=== PATIENT | female | born 1940 ===

== ENCOUNTER 2023-11-06 05:50 | Outpatient (REF) | payer SELFPAY ==
[2023-11-06 06:13] LABS: Basophils Percent Auto 0.1 % (0.2-2.0); Eosinophils Absolute Auto 0.5 10^3/uL (0.0-0.7); Eosinophils Percent Auto 3.4 % (0.9-7.0); Hematocrit 34.5 % (36.0-48.0); Hemoglobin 10.7 g/dL (12.0-16.0); Immature Granulocytes Abs Auto 0.07 10^3/uL (0.00-0.03); Immature Granulocytes Pct Auto 0.5 % (0.0-0.5); Lymphocytes Absolute Auto 4.8 10^3/uL (1.2-3.8); Lymphocytes Percent Auto 32.7 % (20.5-60.0); Mean Corpuscular Hemoglobin 31.1 pg (26.7-34.0); Mean Corpuscular Volume 100.3 fL (81.0-99.0); Mean Platelet Volume 10.2 fL (9.5-13.5); Monocytes Absolute Auto 0.8 10^3/uL (0.3-0.8); Monocytes Percent Auto 5.4 % (1.7-12.0); Neutrophils Absolute Auto 8.5 10^3/uL (1.4-6.5); Neutrophils Percent Auto 57.9 % (43.0-75.0); Platelet Count 400 10^3/uL (150-450); Red Blood Count 3.44 10^6/uL (4.20-5.40); Red Cell Distribution Width 13.2 % (11.0-15.0); White Blood Count 14.7 10^3/uL (4.0-11.0)
[2023-11-06 06:28] LABS: Alanine Aminotransferase 33 U/L (14-59); Albumin Globulin Ratio 0.5; Albumin Level 2.1 g/dL (3.4-5.0); Alkaline Phosphatase 168 U/L (46-116); Anion Gap 14.7; Aspartate Amino Transferase 20 U/L (15-37); BUN Creatinine Ratio 77.5; Bilirubin Total 0.2 mg/dL (0.2-1.0); Calcium 9.4 mg/dL (8.5-10.1); Chloride 102 mmol/L (98-107); Estimated GFR (African America 57 (>=60); Estimated GFR (Non-African Ame 47 (>=60); Globulin 4.1 g/dL; Glucose 144 mg/dL (74-106); Potassium 4.7 mmol/L (3.5-5.1); Sodium 140 mmol/L (136-145); Total Protein 6.2 g/dL (6.4-8.2)
== END 2023-11-06 05:51 | disposition home or self-care (01) ==
LOC: LAB 05:50
DX: I48.20 Chronic atrial fibrillation, unspecified (principal); I10 Essential (primary) hypertension
CPT/HCPCS: 36415; 80053; 85025

== ENCOUNTER 2023-12-06 20:23 | Outpatient (REF) | payer MEDICARE, SELFPAY ==
[2023-12-06 20:37] LABS: Hematocrit 26.9 % (36.0-48.0); Hemoglobin 8.4 g/dL (12.0-16.0); Mean Corpuscular HGB Conc 31.2 g/dL (29.9-35.2); Mean Corpuscular Hemoglobin 30.7 pg (26.7-34.0); Mean Corpuscular Volume 98.2 fL (81.0-99.0); Mean Platelet Volume 10.1 fL (9.5-13.5); Platelet Count 235 10^3/uL (150-450); Red Blood Count 2.74 10^6/uL (4.20-5.40); Red Cell Distribution Width 14.1 % (11.0-15.0); White Blood Count 6.6 10^3/uL (4.0-11.0)
[2023-12-06 20:55] LABS: Alanine Aminotransferase 18 U/L (14-59); Albumin Globulin Ratio 0.7; Alkaline Phosphatase 119 U/L (46-116); Anion Gap 11.7; Aspartate Amino Transferase 15 U/L (15-37); BUN Creatinine Ratio 63.8; Bilirubin Total 0.3 mg/dL (0.2-1.0); Calcium 9.2 mg/dL (8.5-10.1); Carbon Dioxide 27.6 mmol/L (21.0-32.0); Chloride 102 mmol/L (98-107); Estimated GFR (African America >60 (>=60); Estimated GFR (Non-African Ame >60 (>=60); Glucose 96 mg/dL (74-106); Potassium 4.3 mmol/L (3.5-5.1); Sodium 137 mmol/L (136-145)
[2023-12-06 21:01] LABS: Atypical Lymphocytes Abs Man 1.71; Eosinophils Absolute Manual 0.33 10^3/uL (0.00-0.70); Lymphocytes Absolute Manual 0.33 10^3/uL (1.20-3.80); Monocytes Absolute Manual 0.26 10^3/uL (0.30-0.80); Segmented Neut Absolute Manual 3.96 10^3/uL (1.4-6.5)
== END 2023-12-06 20:24 | disposition home or self-care (01) ==
LOC: LAB 20:23
PROVIDERS: PCP Student in an Organized Health Care Education/Training Program; Visit Provider Student in an Organized Health Care Education/Training Program
DX: I48.19 Other persistent atrial fibrillation (principal)
CPT/HCPCS: 36415; 80053; 85007; 85027

== ENCOUNTER 2024-01-01 20:51 | Outpatient (REF) | payer MEDICARE, SELFPAY ==
--- OUTSIDE RECORDS SUMMARY | 2024-01-01 21:03 | XMS_ITS | CCD ---
Author Organization [facility] Care Team Providers Care Business Development Manager Name Role Phone FRAGA, MELISSA Primary Care Unavailable TRAN, CHIDI Attending Unavailable JUANY KOHLERM Paul Admitting Unavailable FRAGA, RORY K Consulting Unavailable ONLY), [facility] (INPATIENT Consult ing Unavailable TRAN, CHIDI Attending Unavailable TRAN, CHIDI Referring Unavailable FRAGA, MELISSA Primary Care Unavailable TRAN, CHIDI Attending Unavailable TRAN, CHIDI Referring Unavailable FRAGA, MELISSA Primary Care Unavailable TRAN, CHIDI Attending Unavailable TRAN, CHIDI Referring Unavailable FRAGA, MELISSA Primary Care Unavailable MD Tori Gaona Emergency Provider MD Ryan Kearns Primary Care Provider MD Ewa Marx Admit Provider MD Ewa Marx Attending Provider [phone] MD Michael Juarez Other Provider PENELOPE KOHLER Referring Unavailable FRAGA, MELISSA Primary Care Unavailable TRAN, CHIDI Referring Unavailable FRAGA, MELISSA Primary Care Unavailable FRAGA, MELISSA Primary Care Unavailable TRAN, CHIDI Attending Unavailable TEENA CHANG Referring Unavailable FRAGA, MELISSA Primary Care Unavailable MD Melani Dunne Attending Provider Ryan Kearns Primary Care Unavailable Melani Dunne Attending Unavailable Ewa Marx Admitting Unavailable Michael Juarez Consulting Un available Allergies Allergy Classification Reported Allergen(s) Allergy Type Date of Onset Reaction(s) Facility (4 sources) Sulfonamides (Antibiotic); Translations: [SULFA (SULFONAMIDE ANTIBIOTICS)] Propensity to adverse reactions to drug (disorder) [facility] Medications Current Medications Medication Drug Class(es) Dates Sig (Normalized) Sig (Original) acetaminophen 325 mg oral tablet (2 sources) Start: 12-08-2023 Acetaminophen Active 650 MG FEEDTUBE Four times daily December 08, 2023 12:00am albuterol 5 mg/ml inhalation solution (4 sources) beta2-Adrenergic Agonist Start: 12-08-2023 take 2.5 mg by inhalation every two hours Albuterol Sulfate Active 2.5 MG INHALATION Every 2 hours December 08, 2023 12:00am Start: 12-08-2023 take 2.5 mg by inhal ation four times daily Albuterol Sulfate Active 2.5 MG INHALATION Four times daily December 08, 2023 12:00am Alum-Mag Hydroxide-Simeth (Maalox Maximum Strength) 400-400-40 mg/5 mL suspension (2 sources) Start: 12-08-2023 take 1 mL by mouth every six hours Alum-Mag Hydroxide-Simeth (Maalox Maximum Strength) 400-400-40 mg/5 mL suspension Active 7.5 ML PO Every 6 hours December 08, 2023 12:00am Artificial Tears Solution (2 sources) Start: 12-08-2023 take 1 drop(s) into the eye(s) twice daily Artificial Tears Solution Active 1 DROPS OPHTHALMIC Twice daily December 08, 2023 12:00am Aspirin (2 sources) Platelet Aggregation Inhibitor, Nonsteroidal Anti-inflammatory Drug Start: 12-08-2023 Aspirin Active 81 MG FEEDTUBE Daily December 08, 2023 12:00am bisacodyl 10 mg rectal suppository (2 sources) Stimulant Laxative Start: 12-08-2023 Bisacodyl Active 10 MG AZ Daily December 08, 2023 12:00am busPIRone hydrochloride 10 mg oral tablet (2 sources) Start: 12-08-2023 Buspirone Active 10 MG FEEDTUBE Three times daily December 08, 2023 12:00am chlorhexidine gluconate 1.2 mg/ml mouthwash (2 sources) Start: 12-08-2023 Chlorhexidine Gluconate Active 15 ML BUCCAL Twice daily December 08, 2023 12:00am administer with toothettes dilTIAZem hydrochloride 30 mg oral tablet (2 sources) Calcium Channel Bienvenido Start: 12-08-2023 Diltiazem Hcl (Cardizem) 30 mg tablet Active 30 MG FEEDTUBE Twice daily December 08, 2023 12:00am hold for SBP escitalopram 10 mg oral tablet (2 sources) Serotonin Reuptake Inhibitor Start: 12-08-2023 Escitalopram Oxalate (Lexapro) 10 mg tablet Active 10 MG FEEDTUBE Twice daily December 08, 2023 12:00am ferrous sulfate 60 mg/ml oral solution (2 sources) Start: 12-08-2023 Ferrous Sulfate Active 300 MG FEEDTUBE Daily December 08, 2023 12:00am furosemide 40 mg oral tablet (4 sources) Loop Diuretic Start: 12-08-2023 Furosemide Active 40 MG FEEDTUBE Twice daily December 08, 2023 12:00am x3 days, start 12/08/23, end 12/11/23 Start: 12-08-2023 End: 12-17-2023 Furosemide Discontinued 20 M G FEEDTUBE Twice daily December 08, 2023 12:00am December 17, 2023 12:49pm heparin sodium, porcine 5000 unt/ml injectable solution (2 sources) Unfractionated Heparin, Anti-coagulant Start: 12-08-2023 inject 5000 [IU] by subcutaneous injection twice daily Heparin (Porcine) Active 5000 UNIT SUBCUT Twice daily December 08, 2023 12:00am hydrOXYzine hydrochloride 50 mg oral tablet (2 sources) Antihistamine Start: 12-08-2023 Hydroxyzine Hcl Active 50 MG FEEDTUBE Every 8 hours December 08, 2023 12:00am lactobacillus acidophilus [id number] unt oral capsule (2 sources) Start: 12-08-2023 Lactobacillus Acidophilus Active 1000 MMU CELLS FEEDTUBE Twice daily December 08, 2023 12:00am levothyroxine sodium 0.2 mg oral tablet (2 sources) l-Thyroxine Start: 12-08-2023 Levothyroxine (Euthyrox) 200 mcg tablet Active 200 MCG FEEDTUBE Daily December 08, 2023 12:00am lidocaine 0.04 mg/mg medicated patch (2 sources) Antiarrhythmic, Amide Local Anesthetic Start: 12-08-2023 Lidocaine Active 1 PATCH TOPICAL Daily December 08, 2023 12:00am may leave on for up to 12 hrs, apply to left shoulder loperamide hydrochloride 2 mg oral tablet (2 sources) Opioid Agonist Start: 12-08-2023 Loperamide (Diamode) 2 mg tablet Active 2 MG FEEDTUBE Every 6 hours December 08, 2023 12:00am methylPREDNISolone 4 mg oral tablet (1 source) Corticosteroid Start: 12-17-2023 take 1 tablet by mouth once Methylprednisolone (Medrol (Frederick)) 4 mg tablets,dose pack Active 0 PO .COMPLEX 21 December 17, 2023 12:00am orally per package directions metoprolol tartrate 25 mg oral tablet (2 sources) beta-Adrenergic Bienvenido Start: 12-08-2023 Metoprolol Tartrate Active 12.5 MG FEEDTUBE Twice daily December 08, 2023 12:00am hold for SBP ondansetron 4 mg disintegrating oral tablet (2 sources) Serotonin-3 Receptor Antagonist Start: 12-08-2023 Ondansetron Active 4 MG FEEDTUBE Every 8 hours December 08, 2023 12:00am oxyCODONE hydrochloride 5 mg oral tablet (6 sources) Opioid Agonist Start: 12-08-2023 End: 12-17-2023 Oxycodone Active 5 MG FEEDTUBE Every 6 hours 8 2 December 17, 2023 Start: 12-08-2023 End: 12-17-2023 Oxycodone Active 2.5 MG FEED TUBE Every 6 hours 8 2 December 17, 2023 prednisoLONE acetate 10 mg/ml ophthalmic suspension (2 sources) Corticosteroid Start: 12-08-2023 take 1 drop(s) into the eye(s) once daily Prednisolone Acetate (Pred Forte) 1 % drops,suspension Active 1 DROPS EYE-BOTH Daily December 08, 2023 12:00am sennosides, skilled nursing 1.76 mg/ml oral solution (4 sources) Start: 12-08-2023 take 1 mL by mouth at bedtime Sennosides Active 10 ML PO Bedtime December 08, 2023 12:00am Start: 12-08-2023 Sennosides Act trevor 5 ML FEEDTUBE Daily December 08, 2023 12:00am triamcinolone acetonide 1 mg/ml topical cream (2 sources) Corticosteroid Start: 12-08-2023 Triamcinolone Acetonide Active 1 APPLIC TOPICAL Bedtime December 08, 2023 12:00am Completed/Discontinued Medications Medication Drug Class(es) Dates Sig (Normalized) Sig (Original) levoFLOXacin 750 mg oral tablet (2 sources) Quinolone Antimicrobial Start: 12-08-2023 End: 12-17-2023 Levofloxacin Discontinued 750 MG FEEDTUBE Daily December 08, 2023 12:00am December 17, 2023 12:49pm x 10 days, start 12/06/23, end 12/16/23 Problems Problem Classification Problem Date Documented Da te Episodic/Chronic Congestive heart failure; nonhypertensive (6 sources) Acute on chronic diastolic heart failure; Translations: [Acute on chronic diastolic (congestive) heart failure] Onset: 12-07-2023 12-08-2023 Chronic Fever of unknown origin (1 source) Fever Onset: 11-21-2023 Episodic Nutritional deficiencies (5 sources) Cachexia; Translations: [Cachexia] Onset: 12-08-2023 12-08-2023 Episodic Other lower respiratory disease (1 source) Hypoxemia; Translations: [Hypoxemia] Onset: 12-07-2023 Episodic Other lower respiratory disease (1 source) Shortness of breath Onset: 12-07-2023 Episodic Pleurisy; pneumothorax; pulmonary collapse (10 sources) Pneumothorax; Translations: [Pneumothorax, unspecified] Onset: 12-08-2023 12-08-2023 Episodic Pneumonia (except that caused by tuberculosis or sexually transmitted disease) (1 source) Pneumonia, unspecified organism; Translations: [Pneumonia, unspecified organism] Onset: 11-21-2023 Episodic Respiratory failure; insufficiency; arrest (adult) (10 sources) [id number] respiratory failure; Translations: [Acute and chronic respiratory failure with hypoxia] Onset: 12-08-2023 12-08-2023 Chronic Unclassified (1 source) EMS Onset: 11-21-2023 Results Test Name Value Interpretation Reference Range Facility Arterial Blood Gason 024 ABG Base Excess 9.2 mmol/L High -3.0-3.0 [facility] Comment on above: Performed By: #### A BG #### Point of Care testing , ABG Frac Inspired O2 35 % Normal [facility] Comment on above: Performed By: #### A BG #### Point of Care testing , ABG Oxygen Content 8.0 mmol/L Normal 6.6-9.7 [facility] Comment on above: Performed By: #### A BG #### Point of Care testing , ABG Oxygen Saturation 97.6 % Normal 95.0-100.0 [facility] Comment on above: Performed By: #### A BG #### Point of Care testing , ABG PCO2 42.7 mm[Hg] Normal 35.0-45.0 [facility] Comment on above: Performed By: #### A BG #### Point of Care testing , ABG PH 7.51 High 7.35-7.45 [facility] Comment on above: Performed By: #### A BG #### Point of Care testing , ABG PO2 93.3 mm[Hg] Normal 80.0-100.0 [facility] Comment on above: Performed By: #### A BG #### Point of Care testing , CO2 [Moles/Vol] 34.5 mmol/L High 23.0-27.0 [facility] Comment on above: Performed By: #### A BG #### Point of Care testing , HCO3 (Bld) [Moles/Vol] 33.2 mmol/L High 23.0-29.0 [facility] Comment on above: Performed By: #### A BG #### Point of Care testing , Respiratory Critical Normal [facility] Comment on above: Result Comment: Crit ical Value called on: 12/17/2023 at 04:19 PERFORMED BY: [facility] [address] [place] [address] PATHOLOGIST FLANGING ROLL OPERATOR JESSIE FRAZIER M.D. Performed By: #### A BG #### Point of Care testing , VBG Draw Site Right Radial Normal [facility] Comment on above: Performed By: #### A BG #### Point of Care testing , Laboratory - Chemistry and C hemistry - challengeOrdered By: Melani Dunne on 12-17-2023 CO2 [Moles/Vol] 34.5 mmol/L 23.0-27.0 [facility] HCO3 (Bld) [Moles/Vol] 33.2 mmol/L 23.0-29.0 [facility] No Panel InformationOrdered By: Melani Dunne on 12-17-2023 Arterial Blood Base Excess 9.2 mmol/L -3.0-3.0 [facility] Arterial Blood Oxygen Content 8.0 mmol/L 6.6-9.7 [facility] Arterial Blood Oxygen Saturation 97.6 % 95.0-100.0 [facility] Arterial Blood Partial Pressure CO2 42.7 mm[Hg] 35.0-45.0 [facility] Arterial Blood Partial Pressure O2 93.3 mm[Hg] 80.0-100.0 [facility] Arterial Blood pH 7.51 7.35-7.45 [facility] Blood Gas Critical Value See comment [facility] Comment on above: Critical Value youngblood d on: 12/17/2023 at 04:19 Blood Gas Sample Site Right radial F [facility] FiO2 35 % [facility] Alanine aminotransferase [En zymatic activity/volume] in Serum or PlasmaOrdered By: Raul Lehman on 12-15-2023 ALT [Catalytic activity/Vol] 21 U/L 7-52 [facility] Albumin [Mass/volume] in Ser um or Plasma by Bromocresol green (BCG) dye binding methoOrdered By: Raul Lehman on 12-15-2023 Albumin BCG dye [Mass/Vol] 3.1 g/dL 3.5-5.7 [facility] Alkaline phosphatase [Enzyma tic activity/volume] in Serum or PlasmaOrdered By: Raul Lehman on 12-15-2023 ALP [Catalytic activity/Vol] 107 U/L 34-104 [facility] Aspartate aminotransferase [ Enzymatic activity/volume] in Serum or PlasmaOrdered By: Raul Lehman on 12-15-2023 AST [Catalytic activity/Vol] 18 U/L 13-39 [facility] Basophils Auto (Bld) [#/Vol] Ordered By: Raul Lehman on 12-15-2023 Basophils (Bld) [#/Vol] 0.0 10*3/uL 0.0-0.2 [facility] Basophils/100 WBC Auto (Bld) Ordered By: Raul Lehman on 12-15-2023 Basophils/100 WBC (Bld) 0.2 % . [facility] Bilirubin.total [Mass/volume ] in Serum or PlasmaOrdered By: Raul Lehman on 12-15-2023 Bilirubin [Mass/Vol] 0.3 mg/dL 0.3-1.0 [facility] Calcium [Mass/volume] in Ser um or PlasmaOrdered By: Raul Lehman on 12-15-2023 Calcium [Mass/Vol] 10.3 mg/dL 8.6-10.3 [facility] Carbon dioxide, total [Moles /volume] in Serum or PlasmaOrdered By: Raul Lehman on 12-15-2023 CO2 [Moles/Vol] 34.7 mmol/L 21.0-31.0 [facility] Chloride [Moles/volume] in S radha or PlasmaOrdered By: Raul Lehman on 12-15-2023 Chloride [Moles/Vol] 93 mmol/L 98-107 [facility] Complete Blood Count Auto Di ffon 12-15-2023 Basophils (Bld) [#/Vol] 0.0 10*3/uL Normal 0.0-0.2 [facility] Comment on above: Result Comment: PERF ORMED BY: [place] [address] PATHOLOGIST FLANGING ROLL OPERATOR JESSIE FRAZIER M.D. Performed By: #### M G, CBC, CMP #### [facility] [address] [place] [address] [place] Basophils/100 WBC (Bld) 0.2 % Normal . [facility] Comment on above: Performed By: #### M G, CBC, CMP #### [facility] [address] [place] [address] [place] Eosinophils (Bld) [#/Vol] 0.0 10*3/uL Normal 0.0-0.45 [facility] Comment on above: Performed By: #### M G, CBC, CMP #### [facility] [address] [place] [address] [place] Eosinophils/100 WBC (Bld) 0.1 % Normal . [facility] Comment on above: Performed By: #### M G, CBC, CMP #### [address] Erythrocyte distribution width (RBC) [Ratio] 14.1 % Normal 11.9-15.3 [facility] Comment on above: Performed By: #### M G, CBC, CMP #### [address] Hematocrit (Bld) [Volume fraction] 32.2 % Low 34.0-46.4 [facility] Comment on above: Performed By: #### M G, CBC, CMP #### [address] Hemoglobin (Bld) [Mass/Vol] 10.7 g/dL Low 11.8-15.4 [facility] Comment on above: Performed By: #### M G, CBC, CMP #### [address] Lymphocytes (Bld) [#/Vol] 1.4 10*3/uL Normal 1.00-4.8 [facility] Comment on above: Performed By: #### M G, CBC, CMP #### [address] Lymphocytes/100 WBC (Bld) 14.5 % Normal . [facility] Comment on above: Performed By: #### M G, CBC, CMP #### [address] MCH (RBC) [Entitic mass] 31.1 pg Normal 24.7-34.3 [facility] Comment on above: Performed By: #### M G, CBC, CMP #### [address] MCV (RBC) [Entitic vol] 93.3 fL Normal 80-100 [facility] Comment on above: Performed By: #### M G, CBC, CMP #### [address] Mean Corpuscular HGB Conc 33.3 g/dL Normal 32.0-35.0 [facility] Comment on above: Performed By: #### M G, CBC, CMP #### [address] Monocytes (Bld) [#/Vol] 0.3 10*3/uL Normal 0.0-0.8 [facility] Comment on above: Performed By: #### M G, CBC, CMP #### [address] Monocytes/100 WBC (Bld) 2.6 % Normal . [facility] Comment on above: Performed By: #### M G, CBC, CMP #### [address] Neutrophils (Bld) [#/Vol] 8.1 10*3/uL High 1.8-7.7 [facility] Comment on above: Performed By: #### Seema G, CBC, CMP #### [address] Neutrophils/100 WBC (Bld) 82.6 % Normal . [facility] Comment on above: Performed By: #### Seema Dick, CBC, CMP #### [address] NRBC% 0.0 /100{WBC} Normal 0-0.5 [facility] Comment on above: Performed By: #### Seema G, CBC, CMP #### [address] Platelet mean volume (Bld) [Entitic vol] 8.7 fL Normal 6.3-10.7 [facility] Comment on above: Performed By: #### M G, CBC, CMP #### [address] Platelets (Bld) [#/Vol] 313 10*3/uL Normal 150-450 [facility] Comment on above: Performed By: #### M G, CBC, CMP #### [place] [address] [place] RBC (Bld) [#/Vol] 3.46 10*6/uL Low 3.60-5.00 [facility] Comment on above: Performed By: #### M Mayelin, CBC, CMP #### [address] WBC (Bld) [#/Vol] 9.8 10*3/uL Normal 3.8-11.6 [facility] Comment on above: Performed By: #### M Mayelin, CBC, CMP #### [address] Comprehensive Metabolic Pane cliff 12-15-2023 Albumin [Mass/Vol] 3.1 g/dL Low 3.5-5.7 [facility] Comment on above: Performed By: #### Seema Dick CBC, CMP #### [address] Albumin/Globulin [Mass ratio] 1.0 {ratio} Normal [facility] Comment on above: Performed By: #### Seema Dick, CBC, CMP #### [address] ALP [Catalytic activity/Vol] 107 U/L High 34-104 [facility] Comment on above: Performed By: #### Seema Dick, CBC, CMP #### [address] ALT [Catalytic activity/Vol] 21 U/L Normal 7-52 [facility] Comment on above: Performed By: #### M Mayelin, CBC, CMP #### [address] Anion gap [Moles/Vol] 12.8 mmol/L Normal 6.0-15.0 [facility] Comment on above: Performed By: #### M Mayelin, CBC, CMP #### [address] AST [Catalytic activity/Vol] 18 U/L Normal 13-39 [facility] Comment on above: Performed By: #### Seema Dick, CBC, CMP #### [address] [place] [address] [place] Bilirubin [Mass/Vol] 0.3 mg/dL Normal 0.3-1.0 [facility] Comment on above: Performed By: #### M Mayelin, CBC, CMP #### [facility] [address] Calcium [Mass/Vol] 10.3 mg/dL Normal 8.6-10.3 [facility] Comment on above: Performed By: #### M Mayelin, CBC, CMP #### [place] [address] [place] Chloride [Moles/Vol] 93 mmol/L Low 98-107 [facility] Comment on above: Performed By: #### M Mayelin CBC, CMP #### [address] CO2 [Moles/Vol] 34.7 mmol/L High 21.0-31.0 [facility] Comment on above: Performed By: #### M Mayelin, CBC, CMP #### [place] [address] [place] Creatinine [Mass/Vol] 0.84 mg/dL Normal 0.60-1.20 [facility] Comment on above: Performed By: #### M Mayelin, CBC, CMP #### [place] [address] [place] Creatinine Clr Calc Pharmacy 33.69 Normal [facility] Comment on above: Performed By: #### M Mayelin, CBC, CMP #### [place] [address] [place] GFR/1.73 sq M.predicted MDRD (S/P/Bld) [Vol rate/Area] mL/min/{1.73_m2} Normal [facility] Comment on above: Performed By: #### M Mayelin, CBC, CMP #### [place] [address] [place] Globulin (S) [Mass/Vol] 3.1 g/dL Normal [facility] Comment on above: Performed By: #### M Mayelin, CBC, CMP #### [place] [address] [address] Glucose [Mass/Vol] 184 mg/dL High 70-100 [facility] Comment on above: Result Comment: [place] Glucose Reference Range is dependent on time and content of last meal. Glucose of more than 200 mg/dL in a nonstressed, ambulatory subject supports the diagnosis of Diabetes Mellitus. ADA recommended reference range Performed By: #### M G, CBC, CMP #### [facility] [address] Potassium [Moles/Vol] 3.5 mmol/L Normal 3.5-5.1 [facility] Comment on above: Performed By: #### M G, CBC, CMP #### [facility] [address] [place] [address] Protein [Mass/Vol] 6.2 g/dL Low 6.4-8.9 [facility] Comment on above: Performed By: #### M G, CBC, CMP #### [address] Sodium [Moles/Vol] 137 mmol/L Normal 136-145 [facility] Comment on above: Performed By: #### M G, CBC, CMP #### [facility] [address] [place] [address] Urea nitrogen [Mass/Vol] 80 mg/dL High 7-25 [facility] Comment on above: Performed By: #### M G, CBC, CMP #### [facility] [address] [place] [address] [place] Creatinine [Mass/volume] in Serum or PlasmaOrdered By: Raul Lehman on 12-15-2023 Creatinine [Mass/Vol] 0.84 mg/dL 0.60-1.20 [facility] Eosinophils Auto (Bld) [#/Vo l]Ordered By: Raul Lehman on 12-15-2023 Eosinophils (Bld) [#/Vol] 0.0 10*3/uL 0.0-0.45 [facility] Eosinophils/100 WBC Auto (Bl d)Ordered By: Raul Lehman on 12-15-2023 Eosinophils/100 WBC (Bld) 0.1 % . [facility] Erythrocyte distribution wid th Auto (RBC) [Ratio]Ordered By: Raul Lehman on 12-15-2023 Erythrocyte distribution width (RBC) [Ratio] 14.1 % 11.9-15.3 [facility] Globulin Calc (S) [Mass/Vol] Ordered By: Raul Lehmna on 12-15-2023 Globulin (S) [Mass/Vol] 3.1 g/dL [facility] Glucose [Mass/volume] in Ser um or PlasmaOrdered By: Raul Lehman on 12-15-2023 Glucose [Mass/Vol] 184 mg/dL 70-100 [facility] Comment on above: ADA recommended refe rence rangeRandom Glucose Reference Range is dependent on time and content of last meal. Glucose of more than 200 mg/dL in a nonstressed, ambulatory subject supports the diagnosis of Diabetes Mellitus. Hematocrit Auto (Bld) [Volum e fraction]Ordered By: Raul Lehman on 12-15-2023 Hematocrit (Bld) [Volume fraction] 32.2 % 34.0-46.4 [facility] Hemoglobin [Mass/volume] in BloodOrdered By: Raul Lehman on 12-15-2023 Hemoglobin (Bld) [Mass/Vol] 10.7 g/dL 11.8-15.4 [facility] Leukocytes [#/volume] correc tyler for nucleated erythrocytes in Blood by Automated counOrdered By: Raul Lehman on 12-15-2023 WBC corrected for nucl RBC Auto (Bld) [#/Vol] 9.8 10*3/uL 3.8-11.6 [facility] Lymphocytes Auto (Bld) [#/Vo l]Ordered By: Raul Lehman on 12-15-2023 Lymphocytes (Bld) [#/Vol] 1.4 10*3/uL 1.00-4.8 [facility] Lymphocytes/100 WBC Auto (Bl d)Ordered By: Raul Lehman on 12-15-2023 Lymphocytes/100 WBC (Bld) 14.5 % . [facility] MCH Auto (RBC) [Entitic mass ]Ordered By: Raul Lehman on 12-15-2023 MCH (RBC) [Entitic mass] 31.1 pg 24.7-34.3 [facility] MCHC Auto (RBC) [Mass/Vol]Or dered By: Raul Dominik on 12-15-2023 MCHC (RBC) [Mass/Vol] 33.3 g/dL 32.0-35.0 [facility] MCV Auto (RBC) [Entitic vol] Ordered By: Raul Lehman on 12-15-2023 MCV (RBC) [Entitic vol] 93.3 fL 80-100 [facility] Magnesiumon 12-15-2023 Magnesium [Mass/Vol] 2.3 mg/dL Normal 1.9-2.7 [facility] Comment on above: Result Comment: PERF ORMED BY: [place] [address] PATHOLOGIST FLANGING ROLL OPERATOR JESSIE FRAZIER M.D. Performed By: #### M G, CBC, CMP #### [address] Magnesium [Mass/volume] in S radha or PlasmaOrdered By: Raul Lehman on 12-15-2023 Magnesium [Mass/Vol] 2.3 mg/dL 1.9-2.7 [facility] Monocytes Auto (Bld) [#/Vol] Ordered By: Raul Sagemood on 12-15-2023 Monocytes (Bld) [#/Vol] 0.3 10*3/uL 0.0-0.8 [facility] Monocytes/100 WBC Auto (Bld) Ordered By: Raul Sagemood on 12-15-2023 Monocytes/100 WBC (Bld) 2.6 % . [facility] Neutrophils Auto (Bld) [#/Vo l]Ordered By: Raul Sagemood on 12-15-2023 Neutrophils (Bld) [#/Vol] 8.1 10*3/uL 1.8-7.7 [facility] Neutrophils/100 WBC Auto (Bl d)Ordered By: Raul Sagemood on 12-15-2023 Neutrophils/100 WBC (Bld) 82.6 % . [facility] No Panel InformationOrdered By: Raul Lehman on 12-15-2023 Estimated GFR (CKD-EPI) > 60.0 mL/Min [facility] Creatinine Clearance (Chem 33.69 [facility] Nucleated erythrocytes [Pres ence] in Blood by Automated countOrdered By: Raul Lehman on 12-15-2023 Nucleated RBC Auto Ql (Bld) 0.0 /100{WBC} 0-0.5 [facility] Platelet mean volume Auto (B ld) [Entitic vol]Ordered By: Raul Lehman on 12-15-2023 Platelet mean volume (Bld) [Entitic vol] 8.7 fL 6.3-10.7 [facility] Platelets Auto (Bld) [#/Vol] Ordered By: Raul Lehman on 12-15-2023 Platelets (Bld) [#/Vol] 313 10*3/uL 150-450 [facility] Potassium [Moles/volume] in Serum or PlasmaOrdered By: Raul Lehman on 12-15-2023 Potassium [Moles/Vol] 3.5 mmol/L 3.5-5.1 [facility] Protein [Mass/volume] in Ser um or PlasmaOrdered By: Raul Lehman on 12-15-2023 Protein [Mass/Vol] 6.2 g/dL 6.4-8.9 [facility] RBC Auto (Bld) [#/Vol]Ordere d By: Raul Lehman on 12-15-2023 RBC (Bld) [#/Vol] 3.46 10*6/uL 3.60-5.00 [facility] Serum or plasma albumin/glob ulin mass ratioOrdered By: Raul Lehman on 12-15-2023 Albumin/Globulin [Mass ratio] 1.0 {ratio} [facility] Serum or plasma anion gap de terminationOrdered By: Raul Lehman on 12-15-2023 Anion gap [Moles/Vol] 12.8 mmol/L 6.0-15.0 [facility] Sodium [Moles/volume] in Ser um or PlasmaOrdered By: Raul Lehman on 12-15-2023 Sodium [Moles/Vol] 137 mmol/L 136-145 [facility] Urea nitrogen [Mass/volume] in Serum or PlasmaOrdered By: Raul Lehman on 12-15-2023 Urea nitrogen [Mass/Vol] 80 mg/dL 7-25 [facility] WBC Auto (Bld) [#/Vol]Ordere d By: Rauldov Lehman on 12-15-2023 WBC (Bld) [#/Vol] 9.8 10*3/uL 3.8-11.6 [facility] Complete Blood Count Auto Di ffon 12-14-2023 Basophils (Bld) [#/Vol] 0.1 10*3/uL Normal 0.0-0.2 [facility] Comment on above: Result Comment: PERF ORMED BY: [place] [address] PATHOLOGIST [employer]ANGING ROLL OPERATOR JESSIE FRAZIER M.D. Performed By: #### M G, CBC, CMP #### [address] Basophils/100 WBC (Bld) 0.8 % Normal . [facility] Comment on above: Performed By: #### M G, CBC, CMP #### [address] Eosinophils (Bld) [#/Vol] 0.0 10*3/uL Normal 0.0-0.45 [facility] Comment on above: Performed By: #### M G, CBC, CMP #### [place] [address] [place] Eosinophils/100 WBC (Bld) 0.1 % Normal . [facility] Comment on above: Performed By: #### M G, CBC, CMP #### [address] Erythrocyte distribution width (RBC) [Ratio] 14.3 % Normal 11.9-15.3 [facility] Comment on above: Performed By: #### M G, CBC, CMP #### [address] Hematocrit (Bld) [Volume fraction] 29.6 % Low 34.0-46.4 [facility] Comment on above: Performed By: #### M G, CBC, CMP #### [address] Hemoglobin (Bld) [Mass/Vol] 10.0 g/dL Low 11.8-15.4 [facility] Comment on above: Performed By: #### M G, CBC, CMP #### [address] Lymphocytes (Bld) [#/Vol] 1.3 10*3/uL Normal 1.00-4.8 [facility] Comment on above: Performed By: #### M G, CBC, CMP #### [address] Lymphocytes/100 WBC (Bld) 18.1 % Normal . [facility] Comment on above: Performed By: #### M G, CBC, CMP #### [address] MCH (RBC) [Entitic mass] 31.5 pg Normal 24.7-34.3 [facility] Comment on above: Performed By: #### M G, CBC, CMP #### [address] MCV (RBC) [Entitic vol] 93.4 fL Normal 80-100 [facility] Comment on above: Performed By: #### M G, CBC, CMP #### [address] Mean Corpuscular HGB Conc 33.7 g/dL Normal 32.0-35.0 [facility] Comment on above: Performed By: #### M G, CBC, CMP #### [address] Monocytes (Bld) [#/Vol] 0.1 10*3/uL Normal 0.0-0.8 [facility] Comment on above: Performed By: #### M G, CBC, CMP #### [facility] [address] [place] [address] [place] Monocytes/100 WBC (Bld) 1.7 % Normal . [facility] Comment on above: Performed By: #### M G, CBC, CMP #### [facility] [address] [place] [address] [place] Neutrophils (Bld) [#/Vol] 5.9 10*3/uL Normal 1.8-7.7 [facility] Comment on above: Performed By: #### M G, CBC, CMP #### [facility] [address] [place] [address] [place] Neutrophils/100 WBC (Bld) 79.3 % Normal . [facility] Comment on above: Performed By: #### M G, CBC, CMP #### [facility] [address] [place] [address] [place] NRBC% 0.1 /100{WBC} Normal 0-0.5 [facility] Comment on above: Performed By: #### M G, CBC, CMP #### [facility] [address] [place] [address] [place] Platelet mean volume (Bld) [Entitic vol] 8.6 fL Normal 6.3-10.7 [facility] Comment on above: Performed By: #### M G, CBC, CMP #### [facility] [address] [place] [id number] [place] Platelets (Bld) [#/Vol] 280 10*3/uL Normal 150-450 [facility] Comment on above: Performed By: #### M G, CBC, CMP #### [facility] [address] [place] [id number] [place] RBC (Bld) [#/Vol] 3.17 10*6/uL Low 3.60-5.00 [facility] Comment on above: Performed By: #### M G, CBC, CMP #### [facility] [address] [place] [address] [place] WBC (Bld) [#/Vol] 7.4 10*3/uL Normal 3.8-11.6 [facility] Comment on above: Performed By: #### M G, CBC, CMP #### [address] Comprehensive Metabolic Pane cliff 12-14-2023 Albumin [Mass/Vol] 3.1 g/dL Low 3.5-5.7 [facility] Comment on above: Performed By: #### M G, CBC, CMP #### [address] Albumin/Globulin [Mass ratio] 1.1 {ratio} Normal [facility] Comment on above: Performed By: #### M G, CBC, CMP #### [address] ALP [Catalytic activity/Vol] 110 U/L High 34-104 [facility] Comment on above: Performed By: #### M G, CBC, CMP #### [address] ALT [Catalytic activity/Vol] 20 U/L Normal 7-52 [facility] Comment on above: Performed By: #### M G, CBC, CMP #### [address] Anion gap [Moles/Vol] 13.9 mmol/L Normal 6.0-15.0 [facility] Comment on above: Performed By: #### M G, CBC, CMP #### [address] AST [Catalytic activity/Vol] 19 U/L Normal 13-39 [facility] Comment on above: Performed By: #### M G, CBC, CMP #### [address] Bilirubin [Mass/Vol] 0.4 mg/dL Normal 0.3-1.0 [facility] Comment on above: Performed By: #### M G, CBC, CMP #### [address] Calcium [Mass/Vol] 9.9 mg/dL Normal 8.6-10.3 [facility] Comment on above: Performed By: #### M G, CBC, CMP #### [facility] [address] [place] [address] [place] Chloride [Moles/Vol] 96 mmol/L Low 98-107 [facility] Comment on above: Performed By: #### M G, CBC, CMP #### [facility] [address] [place] [address] [place] CO2 [Moles/Vol] 31.0 mmol/L Normal 21.0-31.0 [facility] Comment on above: Performed By: #### M G, CBC, CMP #### [place] [address] [place] Creatinine [Mass/Vol] 0.92 mg/dL Normal 0.60-1.20 [facility] Comment on above: Performed By: #### M G, CBC, CMP #### [facility] [address] [place] [address] [place] Creatinine Clr Calc Pharmacy 30.83 Normal [facility] Comment on above: Performed By: #### M G, CBC, CMP #### [facility] [address] [place] [address] [place] GFR/1.73 sq M.predicted MDRD (S/P/Bld) [Vol rate/Area] mL/min/{1.73_m2} Normal [facility] Comment on above: Performed By: #### M G, CBC, CMP #### [facility] [address] [place] [address] [place] Globulin (S) [Mass/Vol] 2.8 g/dL Normal [facility] Comment on above: Performed By: #### M G, CBC, CMP #### [facility] [address] [place] [address] [place] Glucose [Mass/Vol] 189 mg/dL High 70-100 [facility] Comment on above: Result Comment: [facility] Glucose Reference Range is dependent on time and content of last meal. Glucose of more than 200 mg/dL in a nonstressed, ambulatory subject supports the diagnosis of Diabetes Mellitus. ADA recommended reference range Performed By: #### M G, CBC, CMP #### [address] Potassium [Moles/Vol] 3.9 mmol/L Normal 3.5-5.1 [facility] Comment on above: Performed By: #### M G, CBC, CMP #### [address] Protein [Mass/Vol] 5.9 g/dL Low 6.4-8.9 [facility] Comment on above: Performed By: #### M G, CBC, CMP #### [address] Sodium [Moles/Vol] 137 mmol/L Normal 136-145 [facility] Comment on above: Performed By: #### M G, CBC, CMP #### [address] Urea nitrogen [Mass/Vol] 71 mg/dL High 7-25 [facility] Comment on above: Performed By: #### M G, CBC, CMP #### [address] Magnesiumon 12-14-2023 Magnesium [Mass/Vol] 2.4 mg/dL Normal 1.9-2.7 [facility] Comment on above: Result Comment: PERF ORMED BY: [place] [address] PATHOLOGIST [employer]ING [employer] OPERATOR JESSIE FRAZIER M.D. Performed By: #### M G, CBC, CMP #### [address] Complete Blood Count Auto Di ffon 12-13-2023 Basophils (Bld) [#/Vol] 0.0 10*3/uL Normal 0.0-0.2 [facility] Comment on above: Result Comment: PERF ORMED BY: [place] [address] PATHOLOGIST [employer]ANGING [employer] OPERATOR JESSIE FRAZIER M.D. Performed By: #### M G, CBC, CMP #### [address] [place] [address] [place] Basophils/100 WBC (Bld) 0.4 % Normal . [facility] Comment on above: Performed By: #### M G, CBC, CMP #### [address] Eosinophils (Bld) [#/Vol] 0.4 10*3/uL Normal 0.0-0.45 [facility] Comment on above: Performed By: #### M G, CBC, CMP #### [address] Eosinophils/100 WBC (Bld) 4.1 % Normal . [facility] Comment on above: Performed By: #### M G, CBC, CMP #### [address] Erythrocyte distribution width (RBC) [Ratio] 14.7 % Normal 11.9-15.3 [facility] Comment on above: Performed By: #### M G, CBC, CMP #### [address] Hematocrit (Bld) [Volume fraction] 28.9 % Low 34.0-46.4 [facility] Comment on above: Performed By: #### M G, CBC, CMP #### [address] Hemoglobin (Bld) [Mass/Vol] 9.6 g/dL Low 11.8-15.4 [facility] Comment on above: Performed By: #### M G, CBC, CMP #### [place] [address] [place] Lymphocytes (Bld) [#/Vol] 2.3 10*3/uL Normal 1.00-4.8 [facility] Comment on above: Performed By: #### M G, CBC, CMP #### [place] [address] [place] Lymphocytes/100 WBC (Bld) 20.8 % Normal . [facility] Comment on above: Performed By: #### M G, CBC, CMP #### [address] MCH (RBC) [Entitic mass] 31.2 pg Normal 24.7-34.3 [facility] Comment on above: Performed By: #### M G, CBC, CMP #### [address] MCV (RBC) [Entitic vol] 94.0 fL Normal 80-100 [facility] Comment on above: Performed By: #### M G, CBC, CMP #### [address] Mean Corpuscular HGB Conc 33.2 g/dL Normal 32.0-35.0 [facility] Comment on above: Performed By: #### M G, CBC, CMP #### [address] Monocytes (Bld) [#/Vol] 0.5 10*3/uL Normal 0.0-0.8 [facility] Comment on above: Performed By: #### M G, CBC, CMP #### [address] Monocytes/100 WBC (Bld) 4.6 % Normal . [facility] Comment on above: Performed By: #### M G, CBC, CMP #### [address] Neutrophils (Bld) [#/Vol] 7.7 10*3/uL Normal 1.8-7.7 [facility] Comment on above: Performed By: #### M G, CBC, CMP #### [address] Neutrophils/100 WBC (Bld) 70.1 % Normal . [facility] Comment on above: Performed By: #### M G, CBC, CMP #### [address] NRBC% 0.1 /100{WBC} Normal 0-0.5 [facility] Comment on above: Performed By: #### M G, CBC, CMP #### [address] Platelet mean volume (Bld) [Entitic vol] 8.4 fL Normal 6.3-10.7 [facility] Comment on above: Performed By: #### M Mayelin, CBC, CMP #### [address] Platelets (Bld) [#/Vol] 264 10*3/uL Normal 150-450 [facility] Comment on above: Performed By: #### M G, CBC, CMP #### [address] RBC (Bld) [#/Vol] 3.08 10*6/uL Low 3.60-5.00 [facility] Comment on above: Performed By: #### Seema G, CBC, CMP #### [address] WBC (Bld) [#/Vol] 10.9 10*3/uL Normal 3.8-11.6 [facility] Comment on above: Performed By: #### M Mayelin, CBC, CMP #### [address] Comprehensive Metabolic Pane cliff 12-13-2023 Albumin [Mass/Vol] 2.8 g/dL Low 3.5-5.7 [facility] Comment on above: Performed By: #### Seema G, CBC, CMP #### [address] Albumin/Globulin [Mass ratio] 1.1 {ratio} Normal [facility] Comment on above: Performed By: #### M G, CBC, CMP #### [address] ALP [Catalytic activity/Vol] 101 U/L Normal 34-104 [facility] Comment on above: Performed By: #### M G, CBC, CMP #### [address] ALT [Catalytic activity/Vol] 13 U/L Normal 7-52 [facility] Comment on above: Performed By: #### M G, CBC, CMP #### [facility] [address] [place] [address] [place] Anion gap [Moles/Vol] 13.2 mmol/L Normal 6.0-15.0 [facility] Comment on above: Performed By: #### M G, CBC, CMP #### [facility] [address] [place] [address] [place] AST [Catalytic activity/Vol] 15 U/L Normal 13-39 [facility] Comment on above: Performed By: #### M G, CBC, CMP #### [facility] [address] [place] [address] [place] Bilirubin [Mass/Vol] 0.4 mg/dL Normal 0.3-1.0 [facility] Comment on above: Performed By: #### M G, CBC, CMP #### [place] [address] [place] Calcium [Mass/Vol] 9.5 mg/dL Normal 8.6-10.3 [facility] Comment on above: Performed By: #### M G, CBC, CMP #### [place] [address] [place] Chloride [Moles/Vol] 99 mmol/L Normal 98-107 [facility] Comment on above: Performed By: #### M G, CBC, CMP #### [place] [address] [place] CO2 [Moles/Vol] 30.5 mmol/L Normal 21.0-31.0 [facility] Comment on above: Performed By: #### M G, CBC, CMP #### [facility] [address] [place] [id number] [place] Creatinine [Mass/Vol] 0.86 mg/dL Normal 0.60-1.20 [facility] Comment on above: Performed By: #### M G, CBC, CMP #### [facility] [address] [place] [id number] [place] Creatinine Clr Calc Pharmacy 32.90 Normal [facility] Comment on above: Performed By: #### M G, CBC, CMP #### [place] [address] [place] GFR/1.73 sq M.predicted MDRD (S/P/Bld) [Vol rate/Area] mL/min/{1.73_m2} Normal [facility] Comment on above: Performed By: #### M Mayelin, CBC, CMP #### [address] Globulin (S) [Mass/Vol] 2.5 g/dL Normal [facility] Comment on above: Performed By: #### M G, CBC, CMP #### [address] Glucose [Mass/Vol] 112 mg/dL High 70-100 [facility] Comment on above: Result Comment: [facility] Glucose Reference Range is dependent on time and content of last meal. Glucose of more than 200 mg/dL in a nonstressed, ambulatory subject supports the diagnosis of Diabetes Mellitus. ADA recommended reference range Performed By: #### M Mayelin, CBC, CMP #### [address] Potassium [Moles/Vol] 4.7 mmol/L Normal 3.5-5.1 [facility] Comment on above: Performed By: #### M Mayelin CBC, CMP #### [address] Protein [Mass/Vol] 5.3 g/dL Low 6.4-8.9 [facility] Comment on above: Performed By: #### M Mayelin, CBC, CMP #### [address] Sodium [Moles/Vol] 138 mmol/L Normal 136-145 [facility] Comment on above: Performed By: #### M G, CBC, CMP #### [address] Urea nitrogen [Mass/Vol] 63 mg/dL High 7-25 [facility] Comment on above: Performed By: #### M G, CBC, CMP #### [place] [address] [place] Magnesiumon 04-19-2024 Magnesium [Mass/Vol] 2.4 mg/dL Normal 1.9-2.7 [facility] Comment on above: Result Comment: PERF ORMED BY: [place] [address] PATHOLOGIST FLANGING ROLL OPERATOR JESSIE FRAZIER M.D. Performed By: #### M G, CBC, CMP #### [address] Capillary blood glucose lyn urement by glucometer (mass/volume)Ordered By: Hima Juarez on 12-12-2023 Glucose [Mass/Vol] 113 mg/dL Normal [facility] Comment on above: Random Glucose Refer ence Range is dependent on time and content of last meal. Glucose of more than 200 mg/dL in a nonstressed, ambulatory subject supports the diagnosis of Diabetes Mellitus. Result Comment: [facility] Glucose Reference Range is dependent on time and content of last meal. Glucose of more than 200 mg/dL in a nonstressed, ambulatory subject supports the diagnosis of Diabetes Mellitus. Performed By: #### G LULS #### Point of Care testing , Complete Blood Count Auto Di ffon 12-12-2023 Basophils (Bld) [#/Vol] 0.0 10*3/uL Normal 0.0-0.2 [facility] Comment on above: Result Comment: PERF ORMED BY: [place] [address] PATHOLOGIST FLANGING ROLL OPERATOR JESSIE FRAZIER M.D. Performed By: #### M G, CBC, CMP #### [place] [address] [place] Basophils/100 WBC (Bld) 0.5 % Normal . [facility] Comment on above: Performed By: #### M G, CBC, CMP #### [address] Eosinophils (Bld) [#/Vol] 0.5 10*3/uL High 0.0-0.45 [facility] Comment on above: Performed By: #### M G, CBC, CMP #### [address] Eosinophils/100 WBC (Bld) 5.3 % Normal . [facility] Comment on above: Performed By: #### M G, CBC, CMP #### [address] Erythrocyte distribution width (RBC) [Ratio] 14.5 % Normal 11.9-15.3 [facility] Comment on above: Performed By: #### M G, CBC, CMP #### [address] Hematocrit (Bld) [Volume fraction] 27.1 % Low 34.0-46.4 [facility] Comment on above: Performed By: #### M G, CBC, CMP #### [address] Hemoglobin (Bld) [Mass/Vol] 9.0 g/dL Low 11.8-15.4 [facility] Comment on above: Performed By: #### M G, CBC, CMP #### [address] Lymphocytes (Bld) [#/Vol] 2.5 10*3/uL Normal 1.00-4.8 [facility] Comment on above: Performed By: #### M G, CBC, CMP #### [address] Lymphocytes/100 WBC (Bld) 25.9 % Normal . [facility] Comment on above: Performed By: #### M G, CBC, CMP #### [address] MCH (RBC) [Entitic mass] 31.1 pg Normal 24.7-34.3 [facility] Comment on above: Performed By: #### M G, CBC, CMP #### [address] MCV (RBC) [Entitic vol] 93.8 fL Normal 80-100 [facility] Comment on above: Performed By: #### M G, CBC, CMP #### [facility] [address] Mean Corpuscular HGB Conc 33.2 g/dL Normal 32.0-35.0 [facility] Comment on above: Performed By: #### M G, CBC, CMP #### [address] Monocytes (Bld) [#/Vol] 0.7 10*3/uL Normal 0.0-0.8 [facility] Comment on above: Performed By: #### M G, CBC, CMP #### [address] Monocytes/100 WBC (Bld) 7.0 % Normal . [facility] Comment on above: Performed By: #### M G, CBC, CMP #### [address] Neutrophils (Bld) [#/Vol] 5.9 10*3/uL Normal 1.8-7.7 [facility] Comment on above: Performed By: #### M G, CBC, CMP #### [place] [address] [place] Neutrophils/100 WBC (Bld) 61.3 % Normal . [facility] Comment on above: Performed By: #### M G, CBC, CMP #### [address] NRBC% 0.1 /100{WBC} Normal 0-0.5 [facility] Comment on above: Performed By: #### M G, CBC, CMP #### [address] Platelet mean volume (Bld) [Entitic vol] 8.1 fL Normal 6.3-10.7 [facility] Comment on above: Performed By: #### M G, CBC, CMP #### [address] Platelets (Bld) [#/Vol] 274 10*3/uL Normal 150-450 [facility] Comment on above: Performed By: #### M G, CBC, CMP #### [facility] [address] [place] [address] RBC (Bld) [#/Vol] 2.89 10*6/uL Low 3.60-5.00 [facility] Comment on above: Performed By: #### M G, CBC, CMP #### [address] WBC (Bld) [#/Vol] 9.5 10*3/uL Normal 3.8-11.6 [facility] Comment on above: Performed By: #### M G, CBC, CMP #### [address] Comprehensive Metabolic Pane cliff 12-12-2023 Albumin [Mass/Vol] 2.8 g/dL Low 3.5-5.7 [facility] Comment on above: Performed By: #### M G, CBC, CMP #### [address] Albumin/Globulin [Mass ratio] 1.0 {ratio} Normal [facility] Comment on above: Performed By: #### M G, CBC, CMP #### [address] ALP [Catalytic activity/Vol] 102 U/L Normal 34-104 [facility] Comment on above: Performed By: #### M G, CBC, CMP #### [address] ALT [Catalytic activity/Vol] 13 U/L Normal 7-52 [facility] Comment on above: Performed By: #### M G, CBC, CMP #### [address] Anion gap [Moles/Vol] 10.4 mmol/L Normal 6.0-15.0 [facility] Comment on above: Performed By: #### M G, CBC, CMP #### [address] AST [Catalytic activity/Vol] 14 U/L Normal 13-39 [facility] Comment on above: Performed By: #### M G, CBC, CMP #### [facility] [address] [place] [address] [place] Bilirubin [Mass/Vol] 0.4 mg/dL Normal 0.3-1.0 [facility] Comment on above: Performed By: #### M G, CBC, CMP #### [facility] [address] [place] [address] [place] Calcium [Mass/Vol] 9.6 mg/dL Normal 8.6-10.3 [facility] Comment on above: Performed By: #### M G, CBC, CMP #### [facility] [address] [place] [address] [place] Chloride [Moles/Vol] 101 mmol/L Normal 98-107 [facility] Comment on above: Performed By: #### M G, CBC, CMP #### [facility] [address] [place] [address] [place] CO2 [Moles/Vol] 29.6 mmol/L Normal 21.0-31.0 [facility] Comment on above: Performed By: #### M G, CBC, CMP #### [facility] [address] [place] [address] [place] Creatinine [Mass/Vol] 0.91 mg/dL Normal 0.60-1.20 [facility] Comment on above: Performed By: #### M G, CBC, CMP #### [facility] [address] [place] [address] [place] Creatinine Clr Calc Pharmacy 31.60 Normal [facility] Comment on above: Performed By: #### M G, CBC, CMP #### [facility] [address] [place] [address] [place] GFR/1.73 sq M.predicted MDRD (S/P/Bld) [Vol rate/Area] mL/min/{1.73_m2} Normal [facility] Comment on above: Performed By: #### M G, CBC, CMP #### [facility] [address] [place] [address] [place] Globulin (S) [Mass/Vol] 2.8 g/dL Normal [facility] Comment on above: Performed By: #### M Mayelin, CBC, CMP #### [address] Glucose [Mass/Vol] 110 mg/dL High 70-100 [facility] Comment on above: Result Comment: [facility] Glucose Reference Range is dependent on time and content of last meal. Glucose of more than 200 mg/dL in a nonstressed, ambulatory subject supports the diagnosis of Diabetes Mellitus. ADA recommended reference range Performed By: #### M G, CBC, CMP #### [address] Potassium [Moles/Vol] 4.0 mmol/L Normal 3.5-5.1 [facility] Comment on above: Performed By: #### M Mayelin, CBC, CMP #### [address] Protein [Mass/Vol] 5.6 g/dL Low 6.4-8.9 [facility] Comment on above: Performed By: #### M Mayelin, CBC, CMP #### [address] Sodium [Moles/Vol] 137 mmol/L Normal 136-145 [facility] Comment on above: Performed By: #### M Mayelin, CBC, CMP #### [address] Urea nitrogen [Mass/Vol] 59 mg/dL High 7-25 [facility] Comment on above: Performed By: #### M Mayelin, CBC, CMP #### [address] Glucose Poct Glucometerson 0 12-12-2023 Commemt1 Glu2: Cleaned Meter Normal [facility] Comment on above: Result Comment: PERF ORMED BY: [place] [address] PATHOLOGIST FLANGING ROLL OPERATOR JESSIE FRAZIER M.D. Performed By: #### G LULS #### Point of Care testing , Glucose [Mass/Vol] 143 mg/dL Normal [facility] Comment on above: Result Comment: [facility] Glucose Reference Range is dependent on time and content of last meal. Glucose of more than 200 mg/dL in a nonstressed, ambulatory subject supports the diagnosis of Diabetes Mellitus. Performed By: #### G LULS #### Point of Care testing , Magnesiumon 12-12-2023 Magnesium [Mass/Vol] 2.4 mg/dL Normal 1.9-2.7 [facility] Comment on above: Result Comment: PERF ORMED BY: [place] [address] PATHOLOGIST FLANGING ROLL OPERATOR JESSIE FRAZIER M.D. Performed By: #### M G, CBC, CMP #### [address] No Panel InformationOrdered By: Hima Juarez on 12-12-2023 Bedside Glucose Comment Glu2: cleaned meter [facility] XR chest 1V portableon 12-11 XR chest 1V portable [facility] [place] [address] [place] [address] XRay Report Signed Patient: Rosalind Restrepo MR#: [id number] 37 : 1940 Acct:[id number] Age/Sex: 83 / F ADM Date: 12/08/23 Loc: Room: [address] [place] [address] Type: ADM IN Attending Dr: Hima Juarez DO Copies to: MD Hima Bob DO Ordering Provider: Michael Butterfield MD Date of Service: 12/12/23 XR/XR chest 1V portable: Resp failure XR chest 1V portable 12/12/2023 8:52 AM SIGNS AND SYMPTOMS: Resp failure PROTOCOL: Frontal radiograph the chest COMPARISON: 12/09/2023 FINDINGS: The trachea is midline. The heart and mediastinal structures are within normal limits. Pleural parenchymal opacities are noted in the lung bases with bilateral pleural effusions. There is a new airspace opacity in the right perihilar region. The bony thorax is intact. XR/XR chest 1V portable IMPRESSION: Pleural parenchymal opacities are noted in the lung bases with bilateral pleural effusions. There is a new airspace opacity in the right perihilar region. Impression dictated by: Grupo Estrada M.D.12/12/2023 5:10 PM Dictation Location: [place] [address] Transcribed By: [facility] 12/12/23 1710 Dictated By: Grupo Estrada II, MD 12/12/23 1359 Signed By: 12/12/23 1710 Normal [facility] Aerobic Cultureon 12-11-2023 Aerobic Culture Results called at 1205 on 12/13/23 ORGANISM: Corynebacterium striatum group (O:CORSTRGP) Comments Organism Not Routinely Tested for Susceptibilities Quantity of Growth Moderate Growth ORGANISM: Acacia auris (O:CANAUR) Quantity of Growth Light Growth Results called at 1205 on 12/13/23 Gram Stain Result 4+ White Blood Cells 4+ Gram Positive Bacilli Rare Epithelial Cells PERFORMED BY: [place] [address] PATHOLOGIST FLANGING ROLL OPERATOR JESSIE FRAZIER M.D. Normal [facility] Comment on above: Performed By: #### M G, CBC, CMP #### [address] Arterial Blood Gason 024 ABG Base Excess 5.3 mmol/L High -3.0-3.0 [facility] Comment on above: Performed By: #### A BG #### Point of Care testing , ABG Frac Inspired O2 30 % Normal [facility] Comment on above: Performed By: #### A BG #### Point of Care testing , ABG Oxygen Content 6.8 mmol/L Normal 6.6-9.7 [facility] Comment on above: Performed By: #### A BG #### Point of Care testing , ABG Oxygen Saturation 96.4 % Normal 95.0-100.0 [facility] Comment on above: Performed By: #### A BG #### Point of Care testing , ABG PCO2 45.4 mm[Hg] High 35.0-45.0 [facility] Comment on above: Performed By: #### A BG #### Point of Care testing , ABG PH 7.44 Normal 7.35-7.45 [facility] Comment on above: Performed By: #### A BG #### Point of Care testing , ABG PO2 84.9 mm[Hg] Normal 80.0-100.0 [facility] Comment on above: Performed By: #### A BG #### Point of Care testing , ABG Pressure Support 10.0 Normal [facility] Comment on above: Performed By: #### A BG #### Point of Care testing , CO2 [Moles/Vol] 31.5 mmol/L High 23.0-27.0 [facility] Comment on above: Performed By: #### A BG #### Point of Care testing , CPAP 5.0 Normal [facility] Comment on above: Performed By: #### A BG #### Point of Care testing , HCO3 (Bld) [Moles/Vol] 30.1 mmol/L High 23.0-29.0 [facility] Comment on above: Performed By: #### A BG #### Point of Care testing , Respiratory Critical Normal [facility] Comment on above: Result Comment: Crit ical Value called on: 12/11/2023 at 08:07 PERFORMED BY: [place] [address] [place] [address] PATHOLOGIST FLANGING ROLL OPERATOR JESSIE FRAZIER M.D. Performed By: #### A BG #### Point of Care testing , VBG Draw Site Right Brachial Normal [facility] Comment on above: Performed By: #### A BG #### Point of Care testing , Ventilator Mode CPAP Normal [facility] Comment on above: Performed By: #### A BG #### Point of Care testing , Complete Blood Count Auto Di ffon 12-11-2023 Basophils (Bld) [#/Vol] 0.1 10*3/uL Normal 0.0-0.2 [facility] Comment on above: Order Comment: RETISeema Puri PER JON UMANA IS AWARE PER JON MONSON SAID SHE WILL SPEAK TO THE DOCTOR TO SEE IF THEY CAN JUST CANCEL ALL LABS PER PT SHE DOES NOT WANT TO BE POKED Result Comment: PERF ORMED BY: [place] [address] PATHOLOGIST FLANGING ROLL OPERATOR JESSIE FRAZIER M.D. Performed By: #### M G, CBC, CMP #### [address] Basophils/100 WBC (Bld) 1.0 % Normal . [facility] Comment on above: Order Comment: RETIM E PER RN DONG IS AWARE PER RN IONA SAID SHE WILL SPEAK TO THE DOCTOR TO SEE IF THEY CAN JUST CANCEL ALL LABS PER PT SHE DOES NOT WANT TO BE POKED Performed By: #### M G, CBC, CMP #### [address] Eosinophils (Bld) [#/Vol] 0.5 10*3/uL High 0.0-0.45 [facility] Comment on above: Order Comment: RETIM E PER RN DONG IS AWARE PER JON MONSON SAID SHE WILL SPEAK TO THE DOCTOR TO SEE IF THEY CAN JUST CANCEL ALL LABS PER PT SHE DOES NOT WANT TO BE POKED Performed By: #### M G, CBC, CMP #### [place] [address] [place] Eosinophils/100 WBC (Bld) 5.2 % Normal . [facility] Comment on above: Order Comment: RETIM E PER RN DONG IS AWARE PER JON MONSON SAID SHE WILL SPEAK TO THE DOCTOR TO SEE IF THEY CAN JUST CANCEL ALL LABS PER PT SHE DOES NOT WANT TO BE POKED Performed By: #### M G, CBC, CMP #### [address] Erythrocyte distribution width (RBC) [Ratio] 15.1 % Normal 11.9-15.3 [facility] Comment on above: Order Comment: RETIM E PER RN DONG IS AWARE PER JON MONSON SAID SHE WILL SPEAK TO THE DOCTOR TO SEE IF THEY CAN JUST CANCEL ALL LABS PER PT SHE DOES NOT WANT TO BE POKED Performed By: #### M G, CBC, CMP #### [address] [address] [place] Hematocrit (Bld) [Volume fraction] 32.2 % Low 34.0-46.4 [facility] Comment on above: Order Comment: RETIM E PER RN DONG IS AWARE PER RN IONA SAID SHE WILL SPEAK TO THE DOCTOR TO SEE IF THEY CAN JUST CANCEL ALL LABS PER PT SHE DOES NOT WANT TO BE POKED Performed By: #### M G, CBC, CMP #### [address] Hemoglobin (Bld) [Mass/Vol] 10.6 g/dL Low 11.8-15.4 [facility] Comment on above: Order Comment: RETIM E PER RN DONG IS AWARE PER RN IONA SAID SHE WILL SPEAK TO THE DOCTOR TO SEE IF THEY CAN JUST CANCEL ALL LABS PER PT SHE DOES NOT WANT TO BE POKED Performed By: #### M G, CBC, CMP #### [address] Lymphocytes (Bld) [#/Vol] 1.4 10*3/uL Normal 1.00-4.8 [facility] Comment on above: Order Comment: RETIM E PER RN DONG IS AWARE PER RN IONA SAID SHE WILL SPEAK TO THE DOCTOR TO SEE IF THEY CAN JUST CANCEL ALL LABS PER PT SHE DOES NOT WANT TO BE POKED Performed By: #### M G, CBC, CMP #### [address] Lymphocytes/100 WBC (Bld) 14.1 % Normal . [facility] Comment on above: Order Comment: RETIM E PER RN DOGN IS AWARE PER RN IONA SAID SHE WILL SPEAK TO THE DOCTOR TO SEE IF THEY CAN JUST CANCEL ALL LABS PER PT SHE DOES NOT WANT TO BE POKED Performed By: #### M G, CBC, CMP #### [address] MCH (RBC) [Entitic mass] 31.0 pg Normal 24.7-34.3 [facility] Comment on above: Order Comment: RETIM E PER RN DONG IS AWARE PER RN IONA SAID SHE WILL SPEAK TO THE DOCTOR TO SEE IF THEY CAN JUST CANCEL ALL LABS PER PT SHE DOES NOT WANT TO BE POKED Performed By: #### M G, CBC, CMP #### [address] MCV (RBC) [Entitic vol] 94.2 fL Normal 80-100 [facility] Comment on above: Order Comment: RETIM E PER RN DONG IS AWARE PER RN IONA SAID SHE WILL SPEAK TO THE DOCTOR TO SEE IF THEY CAN JUST CANCEL ALL LABS PER PT SHE DOES NOT WANT TO BE POKED Performed By: #### M G, CBC, CMP #### [address] Mean Corpuscular HGB Conc 32.9 g/dL Normal 32.0-35.0 [facility] Comment on above: Order Comment: RETIM E PER RN DONG IS AWARE PER RN IONA SAID SHE WILL SPEAK TO THE DOCTOR TO SEE IF THEY CAN JUST CANCEL ALL LABS PER PT SHE DOES NOT WANT TO BE POKED Performed By: #### M G, CBC, CMP #### [address] Monocytes (Bld) [#/Vol] 0.6 10*3/uL Normal 0.0-0.8 [facility] Comment on above: Order Comment: RETIM E PER RN DONG IS AWARE PER RN IONA SAID SHE WILL SPEAK TO THE DOCTOR TO SEE IF THEY CAN JUST CANCEL ALL LABS PER PT SHE DOES NOT WANT TO BE POKED Performed By: #### M G, CBC, CMP #### [address] Monocytes/100 WBC (Bld) 6.1 % Normal . [facility] Comment on above: Order Comment: RETIM E PER RN DONG IS AWARE PER RN IONA SAID SHE WILL SPEAK TO THE DOCTOR TO SEE IF THEY CAN JUST CANCEL ALL LABS PER PT SHE DOES NOT WANT TO BE POKED Performed By: #### M G, CBC, CMP #### [address] Neutrophils (Bld) [#/Vol] 7.4 10*3/uL Normal 1.8-7.7 [facility] Comment on above: Order Comment: RETIM E PER RN DONG IS AWARE PER RN IONA SAID SHE WILL SPEAK TO THE DOCTOR TO SEE IF THEY CAN JUST CANCEL ALL LABS PER PT SHE DOES NOT WANT TO BE POKED Performed By: #### M G, CBC, CMP #### [facility] [address] [place] [id number] [facility] Neutrophils/100 WBC (Bld) 73.6 % Normal . [facility] Comment on above: Order Comment: RETIM E PER RN DONG IS AWARE PER RN IONA SAID SHE WILL SPEAK TO THE DOCTOR TO SEE IF THEY CAN JUST CANCEL ALL LABS PER PT SHE DOES NOT WANT TO BE POKED Performed By: #### M G, CBC, CMP #### [address] NRBC% 0.1 /100{WBC} Normal 0-0.5 [facility] Comment on above: Order Comment: RETIM E PER RN DONG IS AWARE PER RN IONA SAID SHE WILL SPEAK TO THE DOCTOR TO SEE IF THEY CAN JUST CANCEL ALL LABS PER PT SHE DOES NOT WANT TO BE POKED Performed By: #### M G, CBC, CMP #### [address] Platelet mean volume (Bld) [Entitic vol] 8.1 fL Normal 6.3-10.7 [facility] Comment on above: Order Comment: RETIM E PER RN DONG IS AWARE PER RN IONA SAID SHE WILL SPEAK TO THE DOCTOR TO SEE IF THEY CAN JUST CANCEL ALL LABS PER PT SHE DOES NOT WANT TO BE POKED Performed By: #### M G, CBC, CMP #### [facility] [address] [place] [id number] [place] Platelets (Bld) [#/Vol] 301 10*3/uL Normal 150-450 [facility] Comment on above: Order Comment: RETIM E PER RN DONG IS AWARE PER RN IONA SAID SHE WILL SPEAK TO THE DOCTOR TO SEE IF THEY CAN JUST CANCEL ALL LABS PER PT SHE DOES NOT WANT TO BE POKED Performed By: #### M G, CBC, CMP #### [address] RBC (Bld) [#/Vol] 3.42 10*6/uL Low 3.60-5.00 [facility] Comment on above: Order Comment: RETIM E PER RN DONG IS AWARE PER RN IONA SAID SHE WILL SPEAK TO THE DOCTOR TO SEE IF THEY CAN JUST CANCEL ALL LABS PER PT SHE DOES NOT WANT TO BE POKED Performed By: #### M G, CBC, CMP #### [address] WBC (Bld) [#/Vol] 10.0 10*3/uL Normal 3.8-11.6 [facility] Comment on above: Order Comment: RETIM E PER RN DONG IS AWARE PER RN IONA SAID SHE WILL SPEAK TO THE DOCTOR TO SEE IF THEY CAN JUST CANCEL ALL LABS PER PT SHE DOES NOT WANT TO BE POKED Performed By: #### M G, CBC, CMP #### [address] Comprehensive Metabolic Pane [facility] 12-11-2023 Albumin [Mass/Vol] 3.2 g/dL Low 3.5-5.7 [facility] Comment on above: Order Comment: RETIM E PER RN DONG IS AWARE PER RN IONA SAID SHE WILL SPEAK TO THE DOCTOR TO SEE IF THEY CAN JUST CANCEL ALL LABS PER PT SHE DOES NOT WANT TO BE POKED Performed By: #### M G, CBC, CMP #### [address] Albumin/Globulin [Mass ratio] 1.0 {ratio} Normal [facility] Comment on above: Order Comment: RETIM E PER RN DONG IS AWARE PER RN IONA SAID SHE WILL SPEAK TO THE DOCTOR TO SEE IF THEY CAN JUST CANCEL ALL LABS PER PT SHE DOES NOT WANT TO BE POKED Performed By: #### M G, CBC, CMP #### [address] ALP [Catalytic activity/Vol] 115 U/L High 34-104 [facility] Comment on above: Order Comment: RETIM E PER RN DONG IS AWARE PER RN IONA SAID SHE WILL SPEAK TO THE DOCTOR TO SEE IF THEY CAN JUST CANCEL ALL LABS PER PT SHE DOES NOT WANT TO BE POKED Performed By: #### M G, CBC, CMP #### [facility] [address] [place] [phone] [place] ALT [Catalytic activity/Vol] 15 U/L Normal 7-52 [facility] Comment on above: Order Comment: RETIM E PER RN DONG IS AWARE PER RN IONA SAID SHE WILL SPEAK TO THE DOCTOR TO SEE IF THEY CAN JUST CANCEL ALL LABS PER PT SHE DOES NOT WANT TO BE POKED Performed By: #### M G, CBC, CMP #### [facility] [address] [place] [id number] [place] Anion gap [Moles/Vol] 10.4 mmol/L Normal 6.0-15.0 [facility] Comment on above: Order Comment: RETIM E PER RN DONG IS AWARE PER RN IONA SAID SHE WILL SPEAK TO THE DOCTOR TO SEE IF THEY CAN JUST CANCEL ALL LABS PER PT SHE DOES NOT WANT TO BE POKED Performed By: #### M G, CBC, CMP #### [facility] [address] [place] [phone] [place] AST [Catalytic activity/Vol] 17 U/L Normal 13-39 [facility] Comment on above: Order Comment: RETIM E PER JON UMANA IS AWARE PER RN IONA SAID SHE WILL SPEAK TO THE DOCTOR TO SEE IF THEY CAN JUST CANCEL ALL LABS PER PT SHE DOES NOT WANT TO BE POKED Performed By: #### M G, CBC, CMP #### [facility] [address] [place] [phone] [place] Bilirubin [Mass/Vol] 0.5 mg/dL Normal 0.3-1.0 [facility] Comment on above: Order Comment: RETIM E PER RN DONG IS AWARE PER RN IONA SAID SHE WILL SPEAK TO THE DOCTOR TO SEE IF THEY CAN JUST CANCEL ALL LABS PER PT SHE DOES NOT WANT TO BE POKED Performed By: #### M G, CBC, CMP #### [facility] [address] [place] [phone] [place] Calcium [Mass/Vol] 10.1 mg/dL Normal 8.6-10.3 [facility] Comment on above: Order Comment: RETIM E PER RN DONG IS AWARE PER RN IONA SAID SHE WILL SPEAK TO THE DOCTOR TO SEE IF THEY CAN JUST CANCEL ALL LABS PER PT SHE DOES NOT WANT TO BE POKED Performed By: #### M G, CBC, CMP #### [facility] [address] [place] [phone] [facility] Chloride [Moles/Vol] 100 mmol/L Normal 98-107 [facility] Comment on above: Order Comment: RETIM E PER RN DONG IS AWARE PER RN IONA SAID SHE WILL SPEAK TO THE DOCTOR TO SEE IF THEY CAN JUST CANCEL ALL LABS PER PT SHE DOES NOT WANT TO BE POKED Performed By: #### M G, CBC, CMP #### [place] [id number] [facility] CO2 [Moles/Vol] 32.3 mmol/L High 21.0-31.0 [facility] Comment on above: Order Comment: RETIM E PER RN DONG IS AWARE PER RN IONA SAID SHE WILL SPEAK TO THE DOCTOR TO SEE IF THEY CAN JUST CANCEL ALL LABS PER PT SHE DOES NOT WANT TO BE POKED Performed By: #### M G, CBC, CMP #### [place] [id number] [place] Creatinine [Mass/Vol] 0.81 mg/dL Normal 0.60-1.20 [facility] Comment on above: Order Comment: RETIM E PER RN DONG IS AWARE PER RN IONA SAID SHE WILL SPEAK TO THE DOCTOR TO SEE IF THEY CAN JUST CANCEL ALL LABS PER PT SHE DOES NOT WANT TO BE POKED Performed By: #### M G, CBC, CMP #### [facility] [address] [place] [id number] [place] Creatinine Clr Calc Pharmacy 35.50 Normal [facility] Comment on above: Order Comment: RETIM E PER RN DONG IS AWARE PER RN IONA SAID SHE WILL SPEAK TO THE DOCTOR TO SEE IF THEY CAN JUST CANCEL ALL LABS PER PT SHE DOES NOT WANT TO BE POKED Performed By: #### M G, CBC, CMP #### [facility] [address] [place] [phone] [place] GFR/1.73 sq M.predicted MDRD (S/P/Bld) [Vol rate/Area] mL/min/{1.73_m2} Normal [facility] Comment on above: Order Comment: RETIM E PER RN DONG IS AWARE PER RN IONA SAID SHE WILL SPEAK TO THE DOCTOR TO SEE IF THEY CAN JUST CANCEL ALL LABS PER PT SHE DOES NOT WANT TO BE POKED Performed By: #### M G, CBC, CMP #### [facility] [address] Globulin (S) [Mass/Vol] 3.1 g/dL Normal [facility] Comment on above: Order Comment: RETIM E PER RN DONG IS AWARE PER RN IONA SAID SHE WILL SPEAK TO THE DOCTOR TO SEE IF THEY CAN JUST CANCEL ALL LABS PER PT SHE DOES NOT WANT TO BE POKED Performed By: #### M G, CBC, CMP #### [facility] [address] Glucose [Mass/Vol] 119 mg/dL High 70-100 [facility] Comment on above: Order Comment: RETIM E PER RN DONG IS AWARE PER RN IONA SAID SHE WILL SPEAK TO THE DOCTOR TO SEE IF THEY CAN JUST CANCEL ALL LABS PER PT SHE DOES NOT WANT TO BE POKED Result Comment: [facility] Glucose Reference Range is dependent on time and content of last meal. Glucose of more than 200 mg/dL in a nonstressed, ambulatory subject supports the diagnosis of Diabetes Mellitus. ADA recommended reference range Performed By: #### M G, CBC, CMP #### [facility] [address] [place] [address] [place] Potassium [Moles/Vol] 4.7 mmol/L Normal 3.5-5.1 [facility] Comment on above: Order Comment: RETIM E PER RN DONG IS AWARE PER RN IONA SAID SHE WILL SPEAK TO THE DOCTOR TO SEE IF THEY CAN JUST CANCEL ALL LABS PER PT SHE DOES NOT WANT TO BE POKED Performed By: #### M G, CBC, CMP #### [facility] [address] [place] [phone] [place] Protein [Mass/Vol] 6.3 g/dL Low 6.4-8.9 [facility] Comment on above: Order Comment: RETIM E PER RN DONG IS AWARE PER RN IONA SAID SHE WILL SPEAK TO THE DOCTOR TO SEE IF THEY CAN JUST CANCEL ALL LABS PER PT SHE DOES NOT WANT TO BE POKED Performed By: #### M G, CBC, CMP #### [address] Sodium [Moles/Vol] 138 mmol/L Normal 136-145 [facility] Comment on above: Order Comment: RETIM E PER RN DONG IS AWARE PER RN IONA SAID SHE WILL SPEAK TO THE DOCTOR TO SEE IF THEY CAN JUST CANCEL ALL LABS PER PT SHE DOES NOT WANT TO BE POKED Performed By: #### M G, CBC, CMP #### [address] Urea nitrogen [Mass/Vol] 52 mg/dL High 7-25 [facility] Comment on above: Order Comment: RETIM E PER RN DONG IS AWARE PER RN IONA SAID SHE WILL SPEAK TO THE DOCTOR TO SEE IF THEY CAN JUST CANCEL ALL LABS PER PT SHE DOES NOT WANT TO BE POKED Performed By: #### M G, CBC, CMP #### [facility] [address] [place] [address] Continuous positive airway p ressure (CPAP)Ordered By: Hima Juarez on 12-11-2023 Continuous positive airway pressure Respiratory system 5.0 cmH2O [facility] Gram stain for investigation of transfusion reactionOrdered By: Michael Butterfield on 12-11-2023 Microscopic observation Gram stain Nom (Unsp spec) Acacia auris [facility] Magnesiumon 12-11-2023 Magnesium [Mass/Vol] 2.5 mg/dL Normal 1.9-2.7 [facility] Comment on above: Order Comment: RETIM E PER RN DONG IS AWARE PER JON MONSON SAID SHE WILL SPEAK TO THE DOCTOR TO SEE IF THEY CAN JUST CANCEL ALL LABS PER PT SHE DOES NOT WANT TO BE POKED Result Comment: PERF ORMED BY: [place] [address] PATHOLOGIST FLANGING ROLL OPERATOR JESISE FRAZIER M.D. Performed By: #### M G, CBC, CMP #### [address] No Panel InformationOrdered By: Hima Juarez on 12-11-2023 Blood Gas Pressure Support 10.0 cmH2O [facility] Blood Gas Ventilator Mode Cpap [facility] Complete Blood Count Auto Di ffon 12-10-2023 Basophils (Bld) [#/Vol] 0.1 10*3/uL Normal 0.0-0.2 [facility] Comment on above: Result Comment: PERF ORMED BY: [place] [address] PATHOLOGIST FLANGING ROLL OPERATOR JESSIE FRAZIER M.D. Performed By: #### C UBLD #### [address] Basophils/100 WBC (Bld) 1.0 % Normal . [facility] Comment on above: Performed By: #### C UBLD #### [address] Eosinophils (Bld) [#/Vol] 0.6 10*3/uL High 0.0-0.45 [facility] Comment on above: Performed By: #### C UBLD #### [address] Eosinophils/100 WBC (Bld) 5.8 % Normal . [facility] Comment on above: Performed By: #### C UBLD #### [address] Erythrocyte distribution width (RBC) [Ratio] 15.5 % High 11.9-15.3 [facility] Comment on above: Performed By: #### C UBLD #### [address] Hematocrit (Bld) [Volume fraction] 33.5 % Low 34.0-46.4 [facility] Comment on above: Performed By: #### C UBLD #### [address] Hemoglobin (Bld) [Mass/Vol] 11.0 g/dL Low 11.8-15.4 [facility] Comment on above: Performed By: #### C UBLD #### [address] Lymphocytes (Bld) [#/Vol] 2.4 10*3/uL Normal 1.00-4.8 [facility] Comment on above: Performed By: #### C UBLD #### [address] Lymphocytes/100 WBC (Bld) 21.3 % Normal . [facility] Comment on above: Performed By: #### C UBLD #### [address] MCH (RBC) [Entitic mass] 30.9 pg Normal 24.7-34.3 [facility] Comment on above: Performed By: #### C UBLD #### [address] MCV (RBC) [Entitic vol] 94.2 fL Normal 80-100 [facility] Comment on above: Performed By: #### C UBLD #### [address] Mean Corpuscular HGB Conc 32.8 g/dL Normal 32.0-35.0 [facility] Comment on above: Performed By: #### C UBLD #### [address] Monocytes (Bld) [#/Vol] 0.6 10*3/uL Normal 0.0-0.8 [facility] Comment on above: Performed By: #### C UBLD #### [address] Monocytes/100 WBC (Bld) 5.4 % Normal . [facility] Comment on above: Performed By: #### C UBLD #### [address] Neutrophils (Bld) [#/Vol] 7.4 10*3/uL Normal 1.8-7.7 [facility] Comment on above: Performed By: #### C UBLD #### [facility] [address] Neutrophils/100 WBC (Bld) 66.5 % Normal . [facility] Comment on above: Performed By: #### C UBLD #### [facility] [address] NRBC% 0.1 /100{WBC} Normal 0-0.5 [facility] Comment on above: Performed By: #### C UBLD #### [facility] [address] Platelet mean volume (Bld) [Entitic vol] 8.3 fL Normal 6.3-10.7 [facility] Comment on above: Performed By: #### C UBLD #### [address] Platelets (Bld) [#/Vol] 289 10*3/uL Normal 150-450 [facility] Comment on above: Performed By: #### C UBLD #### [place] [address] [place] RBC (Bld) [#/Vol] 3.56 10*6/uL Low 3.60-5.00 [facility] Comment on above: Performed By: #### C UBLD #### [address] WBC (Bld) [#/Vol] 11.2 10*3/uL Normal 3.8-11.6 [facility] Comment on above: Performed By: #### C UBLD #### [address] Comprehensive Metabolic Pane cliff 12-10-2023 Albumin [Mass/Vol] 3.1 g/dL Low 3.5-5.7 [facility] Comment on above: Performed By: #### C UBLD #### [address] Albumin/Globulin [Mass ratio] 1.0 {ratio} Normal [facility] Comment on above: Performed By: #### C UBLD #### [address] ALP [Catalytic activity/Vol] 109 U/L High 34-104 [facility] Comment on above: Performed By: #### C UBLD #### [address] ALT [Catalytic activity/Vol] 15 U/L Normal 7-52 [facility] Comment on above: Performed By: #### C UBLD #### [address] Anion gap [Moles/Vol] 12.1 mmol/L Normal 6.0-15.0 [facility] Comment on above: Performed By: #### C UBLD #### [address] AST [Catalytic activity/Vol] 17 U/L Normal 13-39 [facility] Comment on above: Performed By: #### C UBLD #### [address] Bilirubin [Mass/Vol] 0.4 mg/dL Normal 0.3-1.0 [facility] Comment on above: Performed By: #### C UBLD #### [address] Calcium [Mass/Vol] 9.9 mg/dL Normal 8.6-10.3 [facility] Comment on above: Performed By: #### C UBLD #### [place] [address] [place] Chloride [Moles/Vol] 100 mmol/L Normal 98-107 [facility] Comment on above: Performed By: #### C UBLD #### [address] CO2 [Moles/Vol] 26.9 mmol/L Normal 21.0-31.0 [facility] Comment on above: Performed By: #### C UBLD #### [place] [address] [place] Creatinine [Mass/Vol] 0.90 mg/dL Normal 0.60-1.20 [facility] Comment on above: Performed By: #### C UBLD #### [address] Creatinine Clr Calc Pharmacy 31.73 Normal [facility] Comment on above: Performed By: #### C UBLD #### [place] [address] [place] GFR/1.73 sq M.predicted MDRD (S/P/Bld) [Vol rate/Area] mL/min/{1.73_m2} Normal [facility] Comment on above: Performed By: #### C UBLD #### [address] Globulin (S) [Mass/Vol] 3.2 g/dL Normal [facility] Comment on above: Performed By: #### C UBLD #### [address] Glucose [Mass/Vol] 146 mg/dL High 70-100 [facility] Comment on above: Result Comment: [facility] Glucose Reference Range is dependent on time and content of last meal. Glucose of more than 200 mg/dL in a nonstressed, ambulatory subject supports the diagnosis of Diabetes Mellitus. ADA recommended reference range Performed By: #### C UBLD #### [address] Potassium [Moles/Vol] 4.0 mmol/L Normal 3.5-5.1 [facility] Comment on above: Performed By: #### C UBLD #### [address] Protein [Mass/Vol] 6.3 g/dL Low 6.4-8.9 [facility] Comment on above: Performed By: #### C UBLD #### [address] Sodium [Moles/Vol] 135 mmol/L Low 136-145 [facility] Comment on above: Performed By: #### C UBLD #### [facility] [address] [place] [address] Urea nitrogen [Mass/Vol] 61 mg/dL High 7-25 [facility] Comment on above: Performed By: #### C UBLD #### [address] Magnesiumon 12-10-2023 Magnesium [Mass/Vol] 2.4 mg/dL Normal 1.9-2.7 [facility] Comment on above: Result Comment: PERF ORMED BY: [place] [address] PATHOLOGIST FLANGING ROLL OPERATOR JESSIE FRAZIER M.D. Performed By: #### C UBLD #### [address] Bacterial blood cultureOrder ed By: Michael Butterfield on 12-09-2023 Bacteria identified Cx Nom (Bld) NO GROWTH 5 DAYS [facility] Bacteria identified Cx Nom (Bld) NO GROWTH 5 DAYS [facility] Basic Metabolic Panelon 11-24 Anion gap [Moles/Vol] 13.1 mmol/L Normal 6.0-15.0 [facility] Comment on above: Performed By: #### A BG #### Point of Care testing , Calcium [Mass/Vol] 9.5 mg/dL Normal 8.6-10.3 [facility] Comment on above: Performed By: #### A BG #### Point of Care testing , Chloride [Moles/Vol] 100 mmol/L Normal 98-107 [facility] Comment on above: Performed By: #### A BG #### Point of Care testing , CO2 [Moles/Vol] 26.3 mmol/L Normal 21.0-31.0 [facility] Comment on above: Performed By: #### A BG #### Point of Care testing , Creatinine [Mass/Vol] 0.90 mg/dL Normal 0.60-1.20 [facility] Comment on above: Performed By: #### A BG #### Point of Care testing , Creatinine Clr Calc Pharmacy 31.59 Normal [facility] Comment on above: Result Comment: PERF ORMED BY: [place] [address] PATHOLOGIST FLANGING ROLL OPERATOR JESSIE FRAZIER M.D. Performed By: #### A BG #### Point of Care testing , GFR/1.73 sq M.predicted MDRD (S/P/Bld) [Vol rate/Area] mL/min/{1.73_m2} Normal [facility] Comment on above: Performed By: #### A BG #### Point of Care testing , Glucose [Mass/Vol] 108 mg/dL High 70-100 [facility] Comment on above: Result Comment: [facility] Glucose Reference Range is dependent on time and content of last meal. Glucose of more than 200 mg/dL in a nonstressed, ambulatory subject supports the diagnosis of Diabetes Mellitus. ADA recommended reference range Performed By: #### A BG #### Point of Care testing , Potassium [Moles/Vol] 4.4 mmol/L Normal 3.5-5.1 [facility] Comment on above: Performed By: #### A BG #### Point of Care testing , Sodium [Moles/Vol] 135 mmol/L Low 136-145 [facility] Comment on above: Performed By: #### A BG #### Point of Care testing , Urea nitrogen [Mass/Vol] 57 mg/dL High 7-25 [facility] Comment on above: Performed By: #### A BG #### Point of Care testing , Blood Cultureon 12-09-2023 Bacteria identified Cx Nom (Bld) NO GROWTH 5 DAYS PERFORMED BY: [place] [address] PATHOLOGIST FLANGING ROLL OPERATOR JESSIE FRAZIER M.D. Normal [facility] Comment on above: Performed By: #### C UBLD #### [address] Bacteria identified Cx Nom (Bld) NO GROWTH 5 DAYS PERFORMED BY: [address] [address] PATHOLOGIST FLANGING ROLL OPERATOR JESSIE FRAZIER M.D. Normal [facility] Comment on above: Performed By: #### C UBLD #### [address] Complete Blood Count Auto Di ffon 12-09-2023 Basophils (Bld) [#/Vol] 0.1 10*3/uL Normal 0.0-0.2 [facility] Comment on above: Result Comment: PERF ORMED BY: [place] [address] PATHOLOGIST FLANGING ROLL OPERATOR JESSIE FRAZIER M.D. Performed By: #### C UBLD #### [address] Basophils/100 WBC (Bld) 1.1 % Normal . [facility] Comment on above: Performed By: #### C UBLD #### [address] Eosinophils (Bld) [#/Vol] 0.5 10*3/uL High 0.0-0.45 [facility] Comment on above: Performed By: #### C UBLD #### [address] Eosinophils/100 WBC (Bld) 6.0 % Normal . [facility] Comment on above: Performed By: #### C UBLD #### [address] Erythrocyte distribution width (RBC) [Ratio] 15.3 % Normal 11.9-15.3 [facility] Comment on above: Performed By: #### C UBLD #### [address] Hematocrit (Bld) [Volume fraction] 32.4 % Low 34.0-46.4 [facility] Comment on above: Performed By: #### C UBLD #### [address] Hemoglobin (Bld) [Mass/Vol] 10.7 g/dL Low 11.8-15.4 [facility] Comment on above: Performed By: #### C UBLD #### [address] Lymphocytes (Bld) [#/Vol] 1.9 10*3/uL Normal 1.00-4.8 [facility] Comment on above: Performed By: #### C UBLD #### [address] Lymphocytes/100 WBC (Bld) 22.0 % Normal . [facility] Comment on above: Performed By: #### C UBLD #### [address] MCH (RBC) [Entitic mass] 31.2 pg Normal 24.7-34.3 [facility] Comment on above: Performed By: #### C UBLD #### [address] MCV (RBC) [Entitic vol] 94.0 fL Normal 80-100 [facility] Comment on above: Performed By: #### C UBLD #### [address] Mean Corpuscular HGB Conc 33.2 g/dL Normal 32.0-35.0 [facility] Comment on above: Performed By: #### C UBLD #### [address] Monocytes (Bld) [#/Vol] 0.4 10*3/uL Normal 0.0-0.8 [facility] Comment on above: Performed By: #### C UBLD #### [address] Monocytes/100 WBC (Bld) 5.0 % Normal . [facility] Comment on above: Performed By: #### C UBLD #### [address] Neutrophils (Bld) [#/Vol] 5.7 10*3/uL Normal 1.8-7.7 [facility] Comment on above: Performed By: #### C UBLD #### [address] [place] [address] [place] Neutrophils/100 WBC (Bld) 65.9 % Normal . [facility] Comment on above: Performed By: #### C UBLD #### [address] NRBC% 0.1 /100{WBC} Normal 0-0.5 [facility] Comment on above: Performed By: #### C UBLD #### [address] Platelet mean volume (Bld) [Entitic vol] 8.1 fL Normal 6.3-10.7 [facility] Comment on above: Performed By: #### C UBLD #### [address] Platelets (Bld) [#/Vol] 285 10*3/uL Normal 150-450 [facility] Comment on above: Performed By: #### C UBLD #### [address] RBC (Bld) [#/Vol] 3.45 10*6/uL Low 3.60-5.00 [facility] Comment on above: Performed By: #### C UBLD #### [address] WBC (Bld) [#/Vol] 8.6 10*3/uL Normal 3.8-11.6 [facility] Comment on above: Performed By: #### C UBLD #### [address] [facility] echo transthoracicon [facility] echo transthoracic [facility] Main [place] [address] [place] [address] Echocardiogram Signed Patient: Rosalind Restrepo MR#: [id number] 37 : 1940 Acct:[id number] Age/Sex: 83 / F ADM Date: 12/08/23 Loc: Room: [address] [place] [address] Type: ADM IN Attending Dr: Hima Juarez DO Ordering Provider: Ewa Marx MD Date of Service: 12/08/23 [facility] echo transthoracic: effusion, h/o chf Copies to: MD Ewa Allison MD BSA: 1.4 m2 BP: 137/65 mmHg HR: 54 Reason For Study: effusion, h/o chf History: CKD,HLD,CHF,HTN,AFIB Interpretation Summary Ejection Fraction = 60-65%. There is left ventricular diastolic dysfunction. Mild concentric left ventricular hypertrophy. The left atrium appears mildly dilated. The right atrium is mildly dilated. There is trace tricuspid regurgitation. Moderate size left pleural effusion. There is no comparison study available. Procedure/Quality: A two-dimensional transthoracic echocardiogram with color flow and Doppler was performed. The study was technically fair in quality. Left Ventricle: The left ventricular size is normal. Mild concentric left ventricular hypertrophy. Ejection Fraction = 60-65%. There is left ventricular diastolic dysfunction. Left Atrium: The left atrium appears mildly dilated. Right Atrium: The right atrium is mildly dilated. Right Ventricle: The right ventricle is normal in size and function. Aortic Valve: The aortic valve is trileaflet. The aortic valve is normal in structure. No hemodynamically significant valvular aortic stenosis. No aortic regurgitation is present. Mitral Valve: The mitral valve is mildly sclerotic. No significant mitral valve stenosis. There is no mitral regurgitation noted. Tricuspid Valve: The tricuspid valve is normal in structure. There is trace tricuspid regurgitation. Pulmonic Valve: The pulmonic valve is not well visualized. No significant pulmonic regurgitation. Arteries: The aortic root is normal size. Pericardium/Pleura: No pericardial effusion seen. Moderate size left pleural effusion. IVC/Hepatic Veins: The inferior vena cava is normal in size, with a normal collapsibility index. Measurements with Normals IVSd: 1.2 cm (0.7-1.1 cm)LVIDd: 3.9 cm (3.7-5.4 cm) LVPWd: 1.2 cm (0.7-1.1 cm)LVIDs: 2.9 cm (2.3-3.6 cm) LA dimension: 3.8 cm (2.3-4.0 cm)Ao root diam: 2.9 cm(2.0-3.6 cm) asc Aorta Diam: 3.2 cm(2.1-3.4cm) Doppler with Normals RVSP(TR): 37.7 mmHg (18-35mmHg) LV V1 max: 94.3 cm/sec (0.7-1.7m/s)MV E max bret: 140.0 cm/sec(0.8-1.3m/s) MV A max bret: 65.5 cm/sec(0.0-0.0m/s) MV E/A: 2.1 (<1.5) MMode/2D Measurements Calculations RVDd: 2.9 cm FS: 24.0 % Ao root area: LVOT diam: 1.8 cm TAPSE: 1.6 cm EDV(Teich): 6.6 cm2 LVOT area: 2.7 cm2 RV S Bret: 65.1 ml 8.8 cm/sec ESV(Teich): 33.5 ml EF(Teich): 48.5 % __ LVLd ap4: 5.5 cm SV(MOD-sp4): LAV(MOD-sp4): LA A2 area: 20.1 cm2 EDV(MOD-sp4): 24.1 ml 42.3 ml 39.0 ml LAV(MOD-sp2): LA A4 area: 15.4 cm2 LVLs ap4: 4.9 cm 62.2 ml LA length (vol): ESV(MOD-sp4): 4.6 cm 14.9 ml LA vol: 56.6 ml EF(MOD-sp4): 61.8 % LA vol index: 39.7 ml/m2 Doppler Measurements Calculations MV dec time: MV max PG: E/E' lat: 14.5 MV dec slope: 0.25 sec 33.0 mmHg E/E' med: 24.3 568.2 cm/sec2 __ Ao V2 max: LV V1 max PG: MR max bret: TV max P.0 mmHg 116.7 cm/sec 3.6 mmHg 286.4 cm/sec Ao max P.5 mmHgLV V1 mean PG: MR max PG: Ao mean P.9 mmHg 32.8 mmHg 3.6 mmHg LV V1 mean: Ao V2 mean: 64.1 cm/sec 90.4 cm/sec LV V1 VTI: 22.7 cm Ao V2 VTI: 32.5 cm CISCO(I,D): 1.9 cm2 CISCO(V,D): 2.2 cm2 __ TR max bret: 263.3 cm/sec TR max P.7 mmHg RAP systole: 10.0 mmHg Transcribed By: SCV Performed At: 12/09/23 08 Signed By: Ambrose Coffey MD 12/09/23 5209 Normal [facility] Procalcitoninon 12-09-2023 Procalcitonin 0.18 ng/mL High 0.00-0.08 [facility] Comment on above: Result Comment: A pr ocalcitonin (PCT) level above 2.0 ng/mL on the first day of ICU admission is associated with a high risk for progression to severe sepsis and/or septic shock. A PCT level below 0.5 ng/mL on the first day of ICU admission is associated with a low risk for progression to severe sepsis and/or septic shock. Note: Concentrations <0.5 ng/mL do not exclude an infection, on account of localized infections (without systemic signs) which can be associated with such low concentrations, or a systemic infection in its initial stages (<6 hours). Furthermore, increased procalcitonin can occur without infection. PCT concentrations between 0.5 and 2.0 ng/mL should be interpreted taking into account the patient's history. It is recommended to retest PCT within 6-24 hours if any concentrations <2 ng/mL are obtained. Performed at: - [address] [id number] Trench Digger Helper: Fiona Collazo MD, Phone: [phone] PERFORMED BY: [address] [place] [address] PATHOLOGIST FLANGING ROLL OPERATOR JESSIE FRAZIER M.D. Performed By: #### C UBLD #### [place] [id number] [facility] Serum procalcitonin measurem entOrdered By: Michael Butterfield on 12-09-2023 Procalcitonin [Mass/Vol] 0.18 ng/mL 0.00-0.08 [facility] Comment on above: A procalcitonin (PCT ) level above 2.0 ng/mL on the firstday of ICU admission is associated with a high risk forprogression to severe sepsis and/or septic shock.A PCT level below 0.5 ng/mL on the first day of ICUadmission is associated with a low risk for progressionto severe sepsis and/or septic shock.Note: Concentrations <0.5 ng/mL do not exclude aninfection, on account of localized infections (withoutsystemic signs) which can be associated with such lowconcentrations, or a systemic infection in its initialstages (<6 hours).Furthermore, increased procalcitonin can occur withoutinfection. PCT concentrations between 0.5 and 2.0 ng/mLshould be interpreted taking into account the patient'shistory. It is recommended to retest PCT within 6-24 hoursif any concentrations <2 ng/mL are obtained.Performed at: [address] [id number] Director: Fiona Collazo MD, Phone: [phone] XR chest 1V portableon 12-08 XR chest 1V portable [facility] Main [place] [address] [place], [place] [id number] XRay Report Signed Patient: Rosalind Restrepo MR#: [id number] [birth year] : 1940 Acct:[id number] Age/Sex: 83 / F ADM Date: 12/08/23 Loc: Room: [address] [place] [address] Type: ADM IN Attending Dr: Hima Juarez DO Copies to: MD Hima Bob DO Ordering Provider: Michael Butterfield MD Date of Service: 12/09/23 XR/XR chest 1V portable: Resp failure SINGLE VIEW CHEST CLINICAL HISTORY: Respiratory failure, shortness of breath COMPARISON: Chest 12/08/2023 FINDINGS: Tracheostomy tube is in place. Heart is normal in size. Bibasilar airspace disease and small pleural effusions are unchanged. No pneumothorax or free air. XR/XR chest 1V portable IMPRESSION: NO SIGNIFICANT CHANGE IN CHEST FINDINGS. Impression dictated by: Kash Deras Jr., D.O.12/09/2023 9:16 AM Dictation Location: [place] [address] Transcribed By: [facility] 12/09/23915 Dictated By: Kash Deras Jr, DO 12/09/23913 Signed By: 12/09/23915 Normal [facility] Activated partial thrombopla stin time (aPTT) in platelet poor plasma by coagulation aOrdered By: Tori Gaona on 12-08-2023 aPTT Coag (PPP) [Time] 30.0 s 25.1-36.5 [facility] Comment on above: A hematocrit value g reater than 55% may lead to inaccurate results in coagulation testing. Patients having hematocrit values >55% require a special collection tube for coagulation studies. Please contact the laboratory at [phone] for redraw instructions. Alanine aminotransferase [En zymatic activity/volume] in Serum or PlasmaOrdered By: Tori Gaona on 12-08-2023 ALT [Catalytic activity/Vol] 14 U/L 7-52 [facility] Albumin [Mass/volume] in Ser um or Plasma by Bromocresol green (BCG) dye binding methoOrdered By: Tori Gaona on 12-08-2023 Albumin BCG dye [Mass/Vol] 3.1 g/dL 3.5-5.7 [facility] Alkaline phosphatase [Enzyma tic activity/volume] in Serum or PlasmaOrdered By: Tori Gaona on 12-08-2023 ALP [Catalytic activity/Vol] 120 U/L 34-104 [facility] Aspartate aminotransferase [ Enzymatic activity/volume] in Serum or PlasmaOrdered By: Tori Gaona on 12-08-2023 AST [Catalytic activity/Vol] 14 U/L 13-39 [facility] Automated erythrocytes count in urine sediment (number/area)Ordered By: Tori Gaona on 12-08-2023 RBC Auto (Urine sed) [#/Area] 0-1 [HPF] 0-4 [facility] Automated leukocytes count i n urine sediment (number/area)Ordered By: Tori Gaona on 12-08-2023 WBC Auto (Urine sed) [#/Area] 3-4 [HPF] 0-4 [facility] B-Type Natriuretic Peptideon 12-08-2023 Natriuretic peptide B (Bld) [Mass/Vol] 277.0 pg/mL High 5-100 [facility] Comment on above: Result Comment: PERF ORMED BY: [place] [address] PATHOLOGIST FLANGING ROLL OPERATOR JESSIE FRAZIER M.D. Performed By: #### A BG #### Point of Care testing , Bacterial blood cultureOrder ed By: Tori Gaona on 12-08-2023 Bacteria identified Cx Nom (Bld) NO GROWTH 5 DAYS [facility] Bacteria identified Cx Nom (Bld) NO GROWTH 5 DAYS [facility] Basophils Auto (Bld) [#/Vol] Ordered By: Tori Gaona on 12-08-2023 Basophils (Bld) [#/Vol] 0.0 10*3/uL 0.0-0.2 [facility] Basophils/100 WBC Auto (Bld) Ordered By: Tori Gaona on 12-08-2023 Basophils/100 WBC (Bld) 0.3 % . [facility] Bilirubin Test strip Ql (U)O rdered By: Tori Gaona on 12-08-2023 Bilirubin Ql (U) Negative Negative [facility] Bilirubin.total [Mass/volume ] in Serum or PlasmaOrdered By: Tori Gaona on 12-08-2023 Bilirubin [Mass/Vol] 0.4 mg/dL 0.3-1.0 [facility] Blood Cultureon 12-08-2023 Bacteria identified Cx Nom (Bld) NO GROWTH 5 DAYS PERFORMED BY: [place] [address] PATHOLOGIST FLANGING ROLL OPERATOR JESSIE FRAZIER M.D. Normal [facility] Comment on above: Performed By: #### C UBLD #### [address] [address] Bacteria identified Cx Nom (Bld) NO GROWTH 5 DAYS PERFORMED BY: [place] [address] PATHOLOGIST FLANGING ROLL OPERATOR JESSIE Garza [facility] Comment on above: Performed By: #### C UBLD #### [address] angio chest PE protocolon 12-08-2023 CT angio chest PE protocol [facility] Main [place] [address] [place] [address] CT Scan Report Signed Patient: Rosalind Restrepo MR#: [id number] 37 : 1940 Acct:[id number] Age/Sex: 83 / F ADM Date: 12/08/23 Loc: ER Room: Type: [facility] ER Attending Dr: Copies to: Tori Gaona MD Ordering Provider: Tori Gaona MD Date of Service: 12/08/23 CT/CT angio chest PE protocol: Rule out PE CT angio chest PE protocol 12/08/2023 4:55 PM SIGN AND SYMPTOMS: Increasing shortness of breath, elevated troponin CONTRAST: 79 mL of intravenous [id number] TECHNIQUE: Multidetector CT axial slices of the chest were obtained with IV contrast. Multiplanar reformats were performed and viewed on a separate workstation and reviewed to further define anatomy and possible pathology. CT was performed with one or more of the following dose reduction techniques: Automated exposure control, adjustment of the mA and/or kV according to patient size, or use of iterative reconstruction technique. COMPARISON: None. FINDINGS: Lower neck: There is a tracheostomy which is in satisfactory position. Vessels: Atherosclerotic changes are noted in the thoracic aorta and coronary arteries. There is no evidence of pulmonary embolism. Mediastinum and Nikki: Within normal limits. Heart: Normal size. No pericardial effusion. Airways: Within normal limits Lungs: There is dependent atelectasis in the lung bases. Pleura: There is a small pneumothorax in the anterior right costophrenic sulcus which is of uncertain etiology. There are large bilateral pleural effusions. Chest Wall: Within normal limits. Upper Abdomen: There is reflux of contrast into the intrahepatic veins. Bones: Degenerative changes are noted in the thoracic spine. There is a mild compression deformity of the superior endplate of the T3 vertebral body which is of uncertain acuity. CT/CT angio chest PE protocol IMPRESSION: There is a small pneumothorax in the anterior right costophrenic sulcus which is of uncertain etiology. There are large bilateral pleural effusions. There is reflux of contrast into the intrahepatic veins suggesting elevated right heart pressures and possible congestive heart failure. There is no evidence of pulmonary embolism. Impression dictated by: Grupo Estrada M.D.12/08/2023 6:08 PM Dictation Location: [place] [address] Transcribed By: IVETTE 12/08/231807 Dictated By: Grupo Estrada II, MD 12/08/23 1800 Signed By: 12/08/231807 Normal [facility] Calcium [Mass/volume] in Ser um or PlasmaOrdered By: Tori Gaona on 12-08-2023 Calcium [Mass/Vol] 9.9 mg/dL 8.6-10.3 [facility] Carbon dioxide, total [Moles /volume] in Serum or PlasmaOrdered By: Tori Gaona on 12-08-2023 CO2 [Moles/Vol] 27.9 mmol/L 21.0-31.0 [facility] Chloride [Moles/volume] in S radha or PlasmaOrdered By: Tori Gaona on 12-08-2023 Chloride [Moles/Vol] 101 mmol/L 98-107 [facility] Color Auto (U)Ordered By: Rosi Gaona on 12-08-2023 Color (U) Yellow Yellow [facility] Complete Blood Count Auto Di ffon 12-08-2023 Basophils (Bld) [#/Vol] 0.0 10*3/uL Normal 0.0-0.2 [facility] Comment on above: Result Comment: PERF ORMED BY: [facility] [address] [place] [address] PATHOLOGIST FLANGING ROLL OPERATOR JESSIE FRAZIER M.D. Performed By: #### A BG #### Point of Care testing , Basophils/100 WBC (Bld) 0.3 % Normal . [facility] Comment on above: Performed By: #### A BG #### Point of Care testing , Eosinophils (Bld) [#/Vol] 0.3 10*3/uL Normal 0.0-0.45 [facility] Comment on above: Performed By: #### A BG #### Point of Care testing , Eosinophils/100 WBC (Bld) 3.8 % Normal . [facility] Comment on above: Performed By: #### A BG #### Point of Care testing , Erythrocyte distribution width (RBC) [Ratio] 15.3 % Normal 11.9-15.3 [facility] Comment on above: Performed By: #### A BG #### Point of Care testing , Hematocrit (Bld) [Volume fraction] 30.4 % Low 34.0-46.4 [facility] Comment on above: Performed By: #### A BG #### Point of Care testing , Hemoglobin (Bld) [Mass/Vol] 9.9 g/dL Low 11.8-15.4 [facility] Comment on above: Performed By: #### A BG #### Point of Care testing , Lymphocytes (Bld) [#/Vol] 2.6 10*3/uL Normal 1.00-4.8 [facility] Comment on above: Performed By: #### A BG #### Point of Care testing , Lymphocytes/100 WBC (Bld) 28.6 % Normal . [facility] Comment on above: Performed By: #### A BG #### Point of Care testing , MCH (RBC) [Entitic mass] 30.6 pg Normal 24.7-34.3 [facility] Comment on above: Performed By: #### A BG #### Point of Care testing , MCV (RBC) [Entitic vol] 94.4 fL Normal 80-100 [facility] Comment on above: Performed By: #### A BG #### Point of Care testing , Mean Corpuscular HGB Conc 32.4 g/dL Normal 32.0-35.0 [facility] Comment on above: Performed By: #### A BG #### Point of Care testing , Monocytes (Bld) [#/Vol] 0.4 10*3/uL Normal 0.0-0.8 [facility] Comment on above: Performed By: #### A BG #### Point of Care testing , Monocytes/100 WBC (Bld) 17.68 % Normal 0.00-20.00 [facility] Comment on above: Performed By: #### A BG #### Point of Care testing , Monocytes/100 WBC (Bld) 4.8 % Normal . [facility] Comment on above: Performed By: #### A BG #### Point of Care testing , Neutrophils (Bld) [#/Vol] 5.7 10*3/uL Normal 1.8-7.7 [facility] Comment on above: Performed By: #### A BG #### Point of Care testing , Neutrophils/100 WBC (Bld) 62.5 % Normal . [facility] Comment on above: Performed By: #### A BG #### Point of Care testing , NRBC% 0.1 /100{WBC} Normal 0-0.5 [facility] Comment on above: Performed By: #### A BG #### Point of Care testing , Platelet mean volume (Bld) [Entitic vol] 7.7 fL Normal 6.3-10.7 [facility] Comment on above: Performed By: #### A BG #### Point of Care testing , Platelets (Bld) [#/Vol] 277 10*3/uL Normal 150-450 [facility] Comment on above: Performed By: #### A BG #### Point of Care testing , RBC (Bld) [#/Vol] 3.22 10*6/uL Low 3.60-5.00 [facility] Comment on above: Performed By: #### A BG #### Point of Care testing , WBC (Bld) [#/Vol] 9.0 10*3/uL Normal 3.8-11.6 [facility] Comment on above: Performed By: #### A BG #### Point of Care testing , Comprehensive Metabolic Pane cliff 12-08-2023 Albumin [Mass/Vol] 3.1 g/dL Low 3.5-5.7 [facility] Comment on above: Performed By: #### A BG #### Point of Care testing , Albumin/Globulin [Mass ratio] 1.0 {ratio} Normal [facility] Comment on above: Performed By: #### A BG #### Point of Care testing , ALP [Catalytic activity/Vol] 120 U/L High 34-104 [facility] Comment on above: Performed By: #### A BG #### Point of Care testing , ALT [Catalytic activity/Vol] 14 U/L Normal 7-52 [facility] Comment on above: Performed By: #### A BG #### Point of Care testing , Anion gap [Moles/Vol] 11.4 mmol/L Normal 6.0-15.0 [facility] Comment on above: Performed By: #### A BG #### Point of Care testing , AST [Catalytic activity/Vol] 14 U/L Normal 13-39 [facility] Comment on above: Performed By: #### A BG #### Point of Care testing , Bilirubin [Mass/Vol] 0.4 mg/dL Normal 0.3-1.0 [facility] Comment on above: Performed By: #### A BG #### Point of Care testing , Calcium [Mass/Vol] 9.9 mg/dL Normal 8.6-10.3 [facility] Comment on above: Performed By: #### A BG #### Point of Care testing , Chloride [Moles/Vol] 101 mmol/L Normal 98-107 [facility] Comment on above: Performed By: #### A BG #### Point of Care testing , CO2 [Moles/Vol] 27.9 mmol/L Normal 21.0-31.0 [facility] Comment on above: Performed By: #### A BG #### Point of Care testing , Creatinine [Mass/Vol] 0.98 mg/dL Normal 0.60-1.20 [facility] Comment on above: Performed By: #### A BG #### Point of Care testing , Creatinine Clr Calc Pharmacy 32.11 Normal [facility] Comment on above: Result Comment: PERF ORMED BY: [place] [address] [place] [address] PATHOLOGIST [employer]ANGING ROLL OPERATOR JESSIE FRAZIER M.D. Performed By: #### A BG #### Point of Care testing , GFR/1.73 sq M.predicted MDRD (S/P/Bld) [Vol rate/Area] 56.915 mL/min/{1.73_m2} Normal [facility] Comment on above: Performed By: #### A BG #### Point of Care testing , Globulin (S) [Mass/Vol] 3.2 g/dL Normal [facility] Comment on above: Performed By: #### A BG #### Point of Care testing , Glucose [Mass/Vol] 88 mg/dL Normal 70-100 [facility] Comment on above: Result Comment: [facility] Glucose Reference Range is dependent on time and content of last meal. Glucose of more than 200 mg/dL in a nonstressed, ambulatory subject supports the diagnosis of Diabetes Mellitus. ADA recommended reference range Performed By: #### A BG #### Point of Care testing , Potassium [Moles/Vol] 4.3 mmol/L Normal 3.5-5.1 [facility] Comment on above: Performed By: #### A BG #### Point of Care testing , Protein [Mass/Vol] 6.3 g/dL Low 6.4-8.9 [facility] Comment on above: Performed By: #### A BG #### Point of Care testing , Sodium [Moles/Vol] 136 mmol/L Normal 136-145 [facility] Comment on above: Performed By: #### A BG #### Point of Care testing , Urea nitrogen [Mass/Vol] 57 mg/dL High 7-25 [facility] Comment on above: Performed By: #### A BG #### Point of Care testing , Creatine Kinaseon 12-08-2023 CK [Catalytic activity/Vol] 25 U/L Low 30-223 [facility] Comment on above: Performed By: #### A BG #### Point of Care testing , Creatine kinase [Enzymatic a ctivity/volume] in Serum or PlasmaOrdered By: Tori Gaona on 12-08-2023 CK [Catalytic activity/Vol] 25 U/L 30-223 [facility] Creatinine [Mass/volume] in Serum or PlasmaOrdered By: Tori Gaona on 12-08-2023 Creatinine [Mass/Vol] 0.98 mg/dL 0.60-1.20 [facility] Dipstick and Microscopicon 0 12-08-2023 Appearance (U) Clear Normal Clear [facility] Comment on above: Order Comment: Name Collection Type:: Straight Catheter Performed By: #### A DDONUAPLUS #### [address] Bacteria,Urine None Seen Normal None Seen [facility] Comment on above: Order Comment: Name Collection Type:: Straight Catheter Performed By: #### A DDONUAPLUS #### [place] [address] [place] Bilirubin,Urine Negative Normal Negative [facility] Comment on above: Order Comment: Name Collection Type:: Straight Catheter Performed By: #### A DDONUAPLUS #### [place] [address] [place] Color (U) Yellow Normal Yellow [facility] Comment on above: Order Comment: Name Collection Type:: Straight Catheter Performed By: #### A DDONUAPLUS #### [address] Glucose Ql (U) Normal Normal Normal [facility] Comment on above: Order Comment: Name Collection Type:: Straight Catheter Performed By: #### A DDONUAPLUS #### [place] [address] [place] Hyaline Casts,Urine 0-8 Normal 0-8 [facility] Comment on above: Order Comment: Name Collection Type:: Straight Catheter Result Comment: PERF ORMED BY: [place] [address] PATHOLOGIST [employer]ANGING ROLL OPERATOR JESSIE FRAZIER M.D. Performed By: #### A DDONUAPLUS #### [address] Ketones Ql (U) Negative Normal Negative [facility] Comment on above: Order Comment: Name Collection Type:: Straight Catheter Performed By: #### A DDONUAPLUS #### [address] Leukocyte esterase Test strip Ql (U) 2+ High Negative [facility] Comment on above: Order Comment: Name Collection Type:: Straight Catheter Performed By: #### A DDONUAPLUS #### [address] Nitrite,Urine Negative Normal Negative [facility] Comment on above: Order Comment: Name Collection Type:: Straight Catheter Performed By: #### A DDONUAPLUS #### [address] Occult Blood,Urine Negative Normal Negative [facility] Comment on above: Order Comment: Name Collection Type:: Straight Catheter Result Comment: PERF ORMED BY: [place] [address] PATHOLOGIST [employer]ANGING ROLL OPERATOR JESSIE FRAZIER M.D. Performed By: #### A DDONUAPLUS #### [address] pH (U) 6.0 [pH] Normal 5.0-9.0 [facility] Comment on above: Order Comment: Name Collection Type:: Straight Catheter Performed By: #### A DDONUAPLUS #### [address] Protein,Urine Negative Normal Negative [facility] Comment on above: Order Comment: Name Collection Type:: Straight Catheter Performed By: #### A DDONUAPLUS #### [address] RBC LM.HPF (Urine sed) [#/Area] 0 /[HPF] Normal 0-4 [facility] Comment on above: Order Comment: Name Collection Type:: Straight Catheter Performed By: #### A DDONUAPLUS #### [address] Specificy [place],Urine 1.018 Normal 1.001-1.030 [facility] Comment on above: Order Comment: Name Collection Type:: Straight Catheter Performed By: #### A DDONUAPLUS #### [place] [address] [place] [id number] [facility] Squamous Epithelial Cell,Urine 0-1 Normal 0-2 [facility] Comment on above: Order Comment: Name Collection Type:: Straight Catheter Performed By: #### A DDONUAPLUS #### [address] Urobilinogen,Urine Normal Normal Normal [facility] Comment on above: Order Comment: Name Collection Type:: Straight Catheter Performed By: #### A DDONUAPLUS #### [facility] [address] [place] [id number] [facility] WBC,Urine 3-4 Normal 0-4 [facility] Comment on above: Order Comment: Name Collection Type:: Straight Catheter Performed By: #### A DDONUAPLUS #### [place] [id number] [facility] ECG 12 lead ECGon 12-08-2023 ECG 12 lead ECG [facility] [place] [address] [place] [address] Electrocardiograph Report Signed Patient: Rosalind Restrepo MR#: [id number] 37 : 1940 Acct:[id number] Age/Sex: 83 / F ADM Date: 12/08/23 Loc: Room: [address] [place] [address] Type: ADM IN Attending Dr: Hima Juarez DO Ordering Provider: Ewa Mrax MD Date of Service: 12/08/23 ECG/ECG 12 lead ECG: prn ekg Copies to: Test Reason : Blood Pressure : / mmHG Vent. Rate : 051 BPM Atrial Rate : 051 BPM P-R Int : 162 ms QRS Dur : 116 ms QT Int : 482 ms P-R-T Axes : 078 -50 049 degrees QTc Int : 444 ms Sinus bradycardia Left axis deviation Incomplete right bundle branch block Abnormal ECG When compared with ECG of 07-DEC-2023 19:44, (Unconfirmed) Vent. rate has decreased BY 49 BPM Incomplete right bundle branch block is now present Confirmed by Ambrose Coffey ([id number]) on 12/12/2023 3:43:30 PM Referred By: Electronically Signed By:Ambrose Coffey Transcribed By: MUS Signed By Ambrose Coffey MD 12/12/23 1542 Normal [facility] ECG 12 lead ECG [facility] Main [place] [id number] Electrocardiograph Report Signed Patient: Rosalind Restrepo MR#: [id number] [birth year] : 1940 Acct:[id number] Age/Sex: 83 / F ADM Date: 12/08/23 Loc: Room: [address] [place] [address] Type: ADM IN Attending Dr: Ewa Marx MD Ordering Provider: Chidi Shea DO Date of Service: 12/08/23 ECG/ECG 12 lead ECG: Shortness of Breath/Dyspnea Copies to: Test Reason : Blood Pressure : 123/058 mmHG Vent. Rate : 056 BPM Atrial Rate : 056 BPM P-R Int : 156 ms QRS Dur : 112 ms QT Int : 450 ms P-R-T Axes : 091 -46 026 degrees QTc Int : 434 ms Sinus bradycardia Left axis deviation Low voltage QRS Incomplete right bundle branch block Abnormal ECG No previous ECGs available Confirmed by TORI GAONA MD ([id number]) on 12/08/2023 11:46:54 PM Referred By: Electronically Signed By:TORI GAONA MD Transcribed By: MUS Signed By Tori Gaona MD 12/08/23 1751 Normal [facility] Eosinophils Auto (Bld) [#/Vo l]Ordered By: Tori Gaona on 12-08-2023 Eosinophils (Bld) [#/Vol] 0.3 10*3/uL 0.0-0.45 [facility] Eosinophils/100 WBC Auto (Bl d)Ordered By: Tori Gaona on 12-08-2023 Eosinophils/100 WBC (Bld) 3.8 % . [facility] Erythrocyte distribution wid th Auto (RBC) [Ratio]Ordered By: Tori Gaona on 12-08-2023 Erythrocyte distribution width (RBC) [Ratio] 15.3 % 11.9-15.3 [facility] Globulin Calc (S) [Mass/Vol] Ordered By: Tori Gaona on 12-08-2023 Globulin (S) [Mass/Vol] 3.2 g/dL [facility] Glucose [Mass/volume] in Ser um or PlasmaOrdered By: Tori Gaona on 12-08-2023 Glucose [Mass/Vol] 88 mg/dL 70-100 [facility] Comment on above: ADA recommended refe rence rangeRandom Glucose Reference Range is dependent on time and content of last meal. Glucose of more than 200 mg/dL in a nonstressed, ambulatory subject supports the diagnosis of Diabetes Mellitus. Hematocrit Auto (Bld) [Volum e fraction]Ordered By: Tori Gaona on 12-08-2023 Hematocrit (Bld) [Volume fraction] 30.4 % 34.0-46.4 [facility] Hemoglobin [Mass/volume] in BloodOrdered By: Tori Gaona on 12-08-2023 Hemoglobin (Bld) [Mass/Vol] 9.9 g/dL 11.8-15.4 [facility] INR in Platelet poor plasma by Coagulation assayOrdered By: Tori Gaona on 12-08-2023 INR Coag (PPP) [Relative time] 1.1 {INR} [facility] Comment on above: INR Therapeutic Rang e A) Pre- and Peroperative OAT started two weeks before surgery. NOT HIP SURGERY: 1.5 - 2.5 HIP SURGERY: 2 - 3B) Primary and secondary prevention of venous THROMBOSIS: 2 - 3C) Active venous thrombosis, pulmonary embolismand prevention of recurrent venous thrombosis: 2 - 3D) Prevention of arterial thromboembolismincluding patients with mechanical heart valves: 3 - 4.5 Ketones Auto test strip (U) [Mass/Vol]Ordered By: Tori Gaona on 12-08-2023 Ketones (U) [Mass/Vol] Negative Negative [facility] - UrinalysisOrder ed By: Tori Gaona on 12-08-2023 Hyaline casts LM Ql (Urine sed) 0-8 [LPF] 0-8 [facility] Leukocytes [#/volume] correc tyler for nucleated erythrocytes in Blood by Automated counOrdered By: Tori Gaona on 12-08-2023 WBC corrected for nucl RBC Auto (Bld) [#/Vol] 9.0 10*3/uL 3.8-11.6 [facility] Lymphocytes Auto (Bld) [#/Vo l]Ordered By: Tori Gaona on 12-08-2023 Lymphocytes (Bld) [#/Vol] 2.6 10*3/uL 1.00-4.8 [facility] Lymphocytes/100 WBC Auto (Bl d)Ordered By: Tori Gaona on 12-08-2023 Lymphocytes/100 WBC (Bld) 28.6 % . [facility] MCH Auto (RBC) [Entitic mass ]Ordered By: Tori Gaona on 12-08-2023 MCH (RBC) [Entitic mass] 30.6 pg 24.7-34.3 [facility] MCHC Auto (RBC) [Mass/Vol]Or dered By: Tori Gaona on 12-08-2023 MCHC (RBC) [Mass/Vol] 32.4 g/dL 32.0-35.0 [facility] MCV Auto (RBC) [Entitic vol] Ordered By: Tori Gaona on 12-08-2023 MCV (RBC) [Entitic vol] 94.4 fL 80-100 [facility] Monocyte distribution width [Entitic volume] in Blood by AutomatedOrdered By: Tori Gaona on 12-08-2023 Monocyte distribution width Auto (Bld) [Entitic vol] 17.68 % 0.00-20.00 [facility] Monocytes Auto (Bld) [#/Vol] Ordered By: Tori Gaona on 12-08-2023 Monocytes (Bld) [#/Vol] 0.4 10*3/uL 0.0-0.8 [facility] Monocytes/100 WBC Auto (Bld) Ordered By: Tori Gaona on 12-08-2023 Monocytes/100 WBC (Bld) 4.8 % . [facility] Natriuretic peptide B [Mass/ Vol]Ordered By: Tori Gaona on 12-08-2023 Natriuretic peptide B (Bld) [Mass/Vol] 277.0 pg/mL 5-100 [facility] Neutrophils Auto (Bld) [#/Vo l]Ordered By: Tori Gaona on 12-08-2023 Neutrophils (Bld) [#/Vol] 5.7 10*3/uL 1.8-7.7 [facility] Neutrophils/100 WBC Auto (Bl d)Ordered By: Tori Gaona on 12-08-2023 Neutrophils/100 WBC (Bld) 62.5 % . [facility] Nitrite Test strip Ql (U)Ord ered By: Tori Gaona on 12-08-2023 Nitrite Ql (U) Negative Negative [facility] No Panel InformationOrdered By: Tori Gaona on 12-08-2023 Estimated GFR (CKD-EPI) 56.915 mL/Min [facility] Creatinine Clearance (Chem 32.11 [facility] Nucleated erythrocytes [Pres ence] in Blood by Automated countOrdered By: Tori Gaona on 12-08-2023 Nucleated RBC Auto Ql (Bld) 0.1 /100{WBC} 0-0.5 [facility] Partial Thromboplastin Timeo n 12-08-2023 aPTT Coag (Bld) [Time] 30.0 s Normal 25.1-36.5 [facility] Comment on above: Result Comment: A he matocrit value greater than 55% may lead to inaccurate results in coagulation testing. Patients having hematocrit values >55% require a special collection tube for coagulation studies. Please contact the laboratory at [phone] for redraw instructions. PERFORMED BY: [place] [address] PATHOLOGIST FLANGING ROLL OPERATOR JESSIE FRAZIER M.D. Performed By: #### M G, CBC, CMP #### [address] Platelet mean volume Auto (B ld) [Entitic vol]Ordered By: Tori Gaona on 12-08-2023 Platelet mean volume (Bld) [Entitic vol] 7.7 fL 6.3-10.7 [facility] Platelets Auto (Bld) [#/Vol] Ordered By: Tori Gaona on 12-08-2023 Platelets (Bld) [#/Vol] 277 10*3/uL 150-450 [facility] Potassium [Moles/volume] in Serum or PlasmaOrdered By: Tori Gaona on 12-08-2023 Potassium [Moles/Vol] 4.3 mmol/L 3.5-5.1 [facility] Protein Auto test strip (U) [Mass/Vol]Ordered By: Toir Gaona on 12-08-2023 Protein (U) [Mass/Vol] Negative Negative [facility] Protein [Mass/volume] in Ser um or PlasmaOrdered By: Tori Gaona on 12-08-2023 Protein [Mass/Vol] 6.3 g/dL 6.4-8.9 [facility] Prothrombin Time INRon 12-07 INR Coag (PPP) [Relative time] 1.1 {INR} Normal [facility] Comment on above: Result Comment: INR Therapeutic Range A) Pre- and Peroperative OAT started two weeks before surgery. NOT HIP SURGERY: 1.5 - 2.5 HIP SURGERY: 2 - 3 B) Primary and secondary prevention of venous THROMBOSIS: 2 - 3 C) Active venous thrombosis, pulmonary embolism and prevention of recurrent venous thrombosis: 2 - 3 D) Prevention of arterial thromboembolism including patients with mechanical heart valves: 3 - 4.5 Performed By: #### M G, CBC, CMP #### [facility] [address] PT Coag (PPP) [Time] 12.6 s Normal 9.0-12.9 [facility] Comment on above: Result Comment: A he matocrit value greater than 55% may lead to inaccurate results in coagulation testing. Patients having hematocrit values >55% require a special collection tube for coagulation studies. Please contact the laboratory at [phone] for redraw instructions. Performed By: #### M G, CBC, CMP #### [facility] [address] [place] [id number] [facility] Prothrombin time (PT)Ordered By: Tori Gaona on 12-08-2023 PT Coag (PPP) [Time] 12.6 s 9.0-12.9 [facility] Comment on above: A hematocrit value g reater than 55% may lead to inaccurate results in coagulation testing. Patients having hematocrit values >55% require a special collection tube for coagulation studies. Please contact the laboratory at [phone] for redraw instructions. RBC Auto (Bld) [#/Vol]Ordere d By: Tori Gaona on 12-08-2023 RBC (Bld) [#/Vol] 3.22 10*6/uL 3.60-5.00 [facility] Serum or plasma albumin/glob ulin mass ratioOrdered By: Tori Gaona on 12-08-2023 Albumin/Globulin [Mass ratio] 1.0 {ratio} [facility] Serum or plasma anion gap de terminationOrdered By: Tori Gaona on 12-08-2023 Anion gap [Moles/Vol] 11.4 mmol/L 6.0-15.0 [facility] Sodium [Moles/volume] in Ser um or PlasmaOrdered By: Tori Gaona on 12-08-2023 Sodium [Moles/Vol] 136 mmol/L 136-145 [facility] Specific gravity Auto test s trip (U) [Rel density]Ordered By: Tori Gaona on 12-08-2023 Specific gravity (U) [Rel density] 1.018 1.001-1.030 [facility] Squamous epithelial cells de tection in urine sediment by light microscopyOrdered By: Tori Gaona on 12-08-2023 Epithelial cells.squamous LM Ql (Urine sed) 0-1 [HPF] 0-2 [facility] Troponin I High Sensitivityo n 12-08-2023 Troponin I High Sensitivity 25.5 pg/mL High 0.0-15.0 [facility] Comment on above: Result Comment: PERF ORMED BY: [place] [address] PATHOLOGIST FLANGING ROLL OPERATOR JESSIE FRAZIER M.D. Performed By: #### A BG #### Point of Care testing , Troponin I High Sensitivity 28.0 pg/mL High 0.0-15.0 [facility] Comment on above: Result Comment: PERF ORMED BY: [place] [address] PATHOLOGIST FLANGING ROLL OPERATOR JESSIE FRAZIER M.D. Performed By: #### M G, CBC, CMP #### [address] Troponin I.cardiac [Mass/vol ume] in Serum or Plasma by Detection limit <= 0.01 ng/Ordered By: Tori Gaona on 12-08-2023 Troponin I.cardiac DL <= 0.01 ng/mL [Mass/Vol] 25.5 pg/mL 0.0-15.0 [facility] Urea nitrogen [Mass/volume] in Serum or PlasmaOrdered By: Tori Gaona on 12-08-2023 Urea nitrogen [Mass/Vol] 57 mg/dL 7-25 [facility] Urine bacteria detection by automated methodOrdered By: Tori Gaona on 12-08-2023 Bacteria Auto Ql (U) None seen None Seen [facility] Urine clarity by refractomet ry automatedOrdered By: Tori Gaona on 12-08-2023 Clarity Refractometry automated (U) Clear Clear [facility] Urine glucose measurement by automated test strip (mass/volume)Ordered By: Tori Gaona on 12-08-2023 Glucose Auto test strip (U) [Mass/Vol] Normal mg/dL Normal [facility] Urine hemoglobin detection b y automated test stripOrdered By: Tori Gaona on 12-08-2023 Hemoglobin Auto test strip Ql (U) Negative Negative [facility] Urine leukocyte esterase det ection by automated test stripOrdered By: Tori Gaona on 12-08-2023 Leukocyte esterase Auto test strip Ql (U) 2+ Negative [facility] Urobilinogen Auto test strip (U) [Mass/Vol]Ordered By: Tori Gaona on 12-08-2023 Urobilinogen (U) [Mass/Vol] Normal mg/dL Normal [facility] WBC Auto (Bld) [#/Vol]Ordere d By: Tori Gaona on 12-08-2023 WBC (Bld) [#/Vol] 9.0 10*3/uL 3.8-11.6 [facility] XR chest 1V portableon 12-07 XR chest 1V portable [facility] [place] [address] XRay Report Signed Patient: Rosalind Restrepo MR#: [id number] 37 : 1940 Acct:[id number] Age/Sex: 83 / F ADM Date: 12/08/23 Loc: ER Room: Type: PRE ER Attending Dr: Copies to: Tori Gaona MD Ordering Provider: Tori Gaona MD Date of Service: 12/08/23 XR/XR chest 1V portable: Shortness of Breath/Dyspnea XR chest 1V portable 12/08/2023 4:13 PM SIGNS AND SYMPTOMS: Shortness of Breath/Dyspnea PROTOCOL: Frontal radiograph of the chest COMPARISON: None FINDINGS: The trachea is midline. There is a tracheostomy tube. Atherosclerotic changes are present in the thoracic aorta. Bilateral pleural effusions are noted with pleural-parenchymal opacities and diffuse interstitial prominence. The bony thorax is intact. XR/XR chest 1V portable IMPRESSION: Small bilateral pleural effusions and pleural parenchymal opacities are noted at the lung bases with diffuse interstitial prominence. Impression dictated by: Grupo Estrada M.D.12/08/2023 4:53 PM Dictation Location: [place] [address] Transcribed By: [facility] 12/08/231652 Dictated By: Grupo Estrada II, MD 12/08/231650 Signed By: 12/08/231652 Normal [facility] [facility] pH Auto test strip (U)Ordere d By: Tori Gaona on 12-08-2023 pH (U) 6.0 [pH] 5.0-9.0 [facility] BLOOD CULTUREon 12-07-2023 Bacteria identified Aer cx Nom (Bld) CULTURE RESULTS NO GROWTH 5 DAYS Normal [facility] Bacteria identified Aer cx Nom (Bld) CULTURE RESULTS NO GROWTH 5 DAYS Normal [facility] CBC AND AUTO DIFFon 12-07-19 ABSOLUTE BASOPHIL 0.1 X10E9/L Normal 0.0-0.[address] [facility] Comment on above: Performed By: #### C ROSA, 65994-4, 42213-5, 63583-1 #### [facility] ([id number]) [address] [place] [address] ABSOLUTE NEUTROPHIL 4.8 X10E9/L Normal 1.5-6.6 [facility] Comment on above: Performed By: #### C BCA, 09669-5, 77848-8, 39782-7 #### [facility] ([id number]) [address] [place] [address] Basophils/100 WBC (Bld) 1.2 % Normal [facility] Comment on above: Performed By: #### C ROSA, 48407-2, 34499-7, 60312-5 #### [facility] ([id number]) [address] [place] [address] Eosinophils (Bld) [#/Vol] 0.4 10*3/uL Normal 0.0-0.4 [facility] Comment on above: Performed By: #### Mechelle LEE, 58326-6, 31198-4, 43569-4 #### [facility] ([id number]) [address] [place] [address] Eosinophils/100 WBC (Bld) 4.9 % Normal [facility] Comment on above: Performed By: #### Mechelle LEE, 70836-2, 25066-1, 60787-4 #### [facility] ([id number]) [address] [place] [address] Erythrocyte distribution width (RBC) [Ratio] 14.8 % Normal 11.5-15.0 [facility] Comment on above: Performed By: #### Mechelle LEE, 72848-4, 05909-3, 43479-8 #### [facility] ([id number]) [address] [place] [address] Hematocrit (Bld) [Volume fraction] 29.8 % Low 35-47 [facility] Comment on above: Performed By: #### Mechelle LEE, 01432-6, 38231-8, 77529-2 #### [facility] ([id number]) [address] [place] [address] Hemoglobin (Bld) [Mass/Vol] 10.1 g/dL Low 11.7-15.5 [facility] Comment on above: Performed By: #### Mechelle LEE, 64888-2, 68392-4, 46645-8 #### [facility] ([id number]) [address] [place] [address] Lymphocytes (Bld) [#/Vol] 2.8 10*3/uL Normal 1.0-3.5 [facility] Comment on above: Performed By: #### Mechelle LEE, 79910-8, 24990-8, 88914-4 #### [facility] ([id number]) [address] [place] [address] Lymphocytes/100 WBC (Bld) 32.6 % Normal [facility] Comment on above: Performed By: #### Mechelle LEE, 36176-0, 71553-7, 84213-2 #### [facility] ([id number]) [address] [place] [address] MCH (RBC) [Entitic mass] 31.8 pg Normal 27-34 [facility] Comment on above: Performed By: #### Mechelle LEE, 66872-4, 92612-5, 50944-7 #### [facility] ([id number]) [address] [place] [address] MCHC (RBC) [Mass/Vol] 33.8 g/dL Normal 32-36 [facility] Comment on above: Performed By: #### Mechelle LEE, 89819-7, 17605-1, 85926-9 #### [facility] ([id number]) [address] [place] [address] MCV (RBC) [Entitic vol] 94 fL Normal 80-100 [facility] Comment on above: Performed By: #### Mechelle LEE, 15634-0, 45537-3, 71352-9 #### [facility] ([id number]) [address] [place] [address] Monocytes (Bld) [#/Vol] 0.5 10*3/uL Normal 0-0.9 [facility] Comment on above: Performed By: #### Mechelle LEE, 29142-6, 59180-2, 43314-8 #### [facility] ([id number]) [address] [place] [address] Monocytes/100 WBC (Bld) 5.4 % Normal [facility] Comment on above: Performed By: #### Mechelle LEE, 25460-0, 82249-6, 47374-8 #### [facility] ([id number]) [address] [place] [address] Neutrophils/100 WBC (Bld) 55.9 % Normal [facility] Comment on above: Performed By: #### C BCA, 25856-0, 37428-8, 05718-9 #### [facility] ([id number]) [address] [place] [address] Platelet mean volume (Bld) [Entitic vol] 8.2 fL Normal 7-12 [facility] Comment on above: Performed By: #### C ROSA, 07798-7, 27258-5, 49883-3 #### [facility] ([id number]) [address] [place] [address] Platelets (Bld) [#/Vol] 286 10*3/uL Normal 150-450 [facility] Comment on above: Performed By: #### C ROSA, 65617-0, 70971-3, 53541-6 #### [facility] ([id number]) [address] [place] [address] RBC COUNT 3.17 X10E12/L Low 3.80-5.20 [facility] Comment on above: Performed By: #### C BCA, 59120-1, 09723-0, 10241-0 #### [facility] ([id number]) [address] [place] [address] WBC (Bld) [#/Vol] 8.6 10*3/uL Normal 4.0-11.[address] [facility] Comment on above: Performed By: #### C ROSA, 58413-2, 96508-7, 47987-1 #### [facility] ([id number]) [address] [place] [address] COMPREHENSIVE METABOLIC PANE Cliff 12-07-2023 Albumin [Mass/Vol] 2.5 g/dL Low 3.2-5.[address] [facility] Comment on above: Performed By: #### C MP #### [facility] ([id number]) [address] [place] [address] ALP [Catalytic activity/Vol] 112 U/L Normal 39-130 [facility] Comment on above: Performed By: #### C MP #### [facility] ([id number]) [address] [place] [address] ALT [Catalytic activity/Vol] 16 U/L Normal 0-31 [facility] Comment on above: Performed By: #### C MP #### [facility] ([id number]) [address] [place] [address] Anion gap [Moles/Vol] 8 mmol/L Normal 5-15 [facility] Comment on above: Performed By: #### C MP #### [facility] ([id number]) [address] [place] [address] AST [Catalytic activity/Vol] 21 U/L Normal 0-41 [facility] Comment on above: Performed By: #### C MP #### [facility] ([id number]) [address] [place] [address] Bilirubin [Mass/Vol] 0.5 mg/dL Normal 0.3-1.2 [facility] Comment on above: Performed By: #### C MP #### [facility] ([id number]) [address] [place] [address] Calcium [Mass/Vol] 9.0 mg/dL Normal 8.5-10.[address] [facility] Comment on above: Performed By: #### C MP #### [facility] ([id number]) [address] [place] [address] Chloride [Moles/Vol] 99 mmol/L Normal 98-109 [facility] Comment on above: Performed By: #### C MP #### [facility] ([id number]) [address] [place] [address] CO2 [Moles/Vol] 25 mmol/L Normal 22-32 [facility] Comment on above: Performed By: #### C MP #### [facility] ([id number]) [address] [place] [address] Creatinine [Mass/Vol] 0.83 mg/dL Normal 0.40-1.00 [facility] Comment on above: Result Comment: METH OD TRACEABLE TO IDMS STANDARD Performed By: #### C MP #### [facility] ([id number]) [address] [place] [address] GFR/1.73 sq M.predicted among non-blacks MDRD (S/P/Bld) [Vol rate/Area] 69 mL/min/{1.73_m2} Normal >59 [facility] Comment on above: Result Comment: Reported eGFR is based on the CKD-EPI 2020 equation that does not use a race coefficient. Performed By: #### C MP #### [facility] ([id number]) [address] [place] [address] Glucose [Mass/Vol] 92 mg/dL Normal 65-[address] [facility] Comment on above: Performed By: #### C MP #### [facility] ([id number]) [address] [place] [address] Potassium [Moles/Vol] 4.0 mmol/L Normal 3.5-5.0 [facility] Comment on above: Performed By: #### C MP #### [facility] ([id number]) [address] [place] [address] Protein [Mass/Vol] 5.9 g/dL Low 6.0-8.[address] [facility] Comment on above: Performed By: #### C MP #### [facility] ([id number]) [address] [place] [address] Sodium [Moles/Vol] 132 mmol/L Low 134-[address] [facility] Comment on above: Performed By: #### C MP #### [facility] ([id number]) [address] [place] [address] Urea nitrogen [Mass/Vol] 55 mg/dL High 5-27 [facility] Comment on above: Performed By: #### C MP #### [facility] ([id number]) [address] [place] [address] Lactate (P lilian) [Moles/Vol]o n 12-07-2023 LACTATE W/REFLEX 1.5 mmol/L Normal 0.4-2.0 [facility] Comment on above: Result Comment: Result did not trigger repeat Lactate, re-order if needed. Performed By: #### C BCA, 89977-3, 39260-7, 61100-6 #### [facility] ([id number]) [address] [place] [address] Natriuretic peptide B [Mass/ Vol]on 12-07-2023 Natriuretic peptide B (Bld) [Mass/Vol] 327 pg/mL High <100.0 [facility] Comment on above: Performed By: #### C BCA, 71004-8, 17176-5, 43723-8 #### [facility] ([id number]) [address] [place] [address] SARS/FLU A+B/RSV by NAAT/Mol ecularon 12-07-2023 SARS/FLU A+B/RSV by NAAT/Molecular FLU A PCR Negative (qualifier value) FLU B PCR Negative (qualifier value) RSV by PCR Negative (qualifier value) SARS CoV 2 Not detected (qualifier value) NOTE The Xpert Xpress SARS-CoV-2/Flu/RSV Plus test is a rapid, multiplexed real-time RT-PCR test intended for the simultaneous qualitative detection and differentiation of SARS-CoV-2, influenza A, influenza B and respiratory syncytial virus (RSV) viral RNA from individuals suspected of respiratory viral infection consistent with COVID-19 by their healthcare provider. This test has not been validated in asymptomatic patients. The Xpert Xpress SARS-CoV-2 test is intended for use by qualified and trained operators who are performing tests using either [employer] or [employer] systems and is limited to laboratories that meet the CLIA requirements to perform high and moderate complexity tests. The Xpert Xpress SARS-CoV-2/Flu/RSV Plus is only for use under the Food and Drug Administration's Emergency Use Authorization. Results are for the simultaneous detection and differentiation of SARS-CoV-2, influenza A, influenza B and RSV nucleic acids in clinical specimens. SARS-CoV-2, influenza A, influenza B and RSV RNA identified by this test are generally detectable in upper respiratory samples during the acute phase of infection. Positive results are indicative of the presence of the identified virus, but do not rule out bacterial infection or co-infection with other pathogens not detected by this test. Clinical correlation with patient history and other diagnostic information is necessary to determine patient infection status. The agent detected may not be the definite cause of disease. Negative results do not preclude SARS-CoV-2, influenza A, influenza B and RSV infection and should not be used as the sole basis for treatment or other patient management decisions. Negative results must be combined with clinical observations, patient history and epidemiological information. An Invalid result may occur with specimen-associated inhibition unable to be resolved with specimen repeat. Fact Sheet for Healthcare Providers: https://www.fda.gov/media/ 993416/download Fact Sheet for Patients: https://www.fda.gov/media/ 638453/download Normal [facility] Comment on above: Performed By: #### C OVFLR #### [facility] ([id number]) [address] [place] [address] Troponin I.cardiac High sens itivity method [Mass/Vol]on 12-07-2023 1 HOUR TROP I, HIGH SENSITIVITY 20 ng/L High <16 [facility] Comment on above: Result Comment: Elevations of hs-Troponin may be due to causes other than myocardial ischemia. Recommend serial hs-Troponin testing be performed. For the initial evaluation and management of chest pain patients, refer to the algorithms linked below. Emergency Patient: [email or web address] uh=[email or web address] Inpatient: [email or web address]& uh=[email or web address] Performed By: #### 8 9579-7 #### [facility] ([id number]) [address] [place] [address] TROPONIN I, HIGH SENSITIVITY 19 ng/L High <16 [facility] Comment on above: Result Comment: Elevations of hs-Troponin may be due to causes other than myocardial ischemia. Recommend serial hs-Troponin testing be performed. For the initial evaluation and management of chest pain patients, refer to the algorithms linked below. Emergency Patient: [email or web address] uh=[email or web address] Inpatient: [email or web address]& uh=acaea Performed By: #### C ROSA, 99058-0, 48787-4, 52319-3 #### [facility] ([id number]) [address] [place] [address] URINE CULTUREon 12-07-2023 Bacteria identified Cx Nom (U) CULTURE RESULTS 10,000 to 50,000 ORGANISMS/mL ENTEROCOCCUS SPECIES Ampicillin or Amoxicillin is the drug of choice for uncomplicated cystitis caused by enterococci. Cephalosporins are inappropriate. <10,000 ORGANISMS/mL NORMAL URO GENITAL KAROL [ S = SUSCEPTIBLE R = RESISTANT I = INTERMEDIATE S-DO = Susceptible-dose dependent NS = Non-suscceptible NO = No Interpretation ] Organism: ENTEROCOCCUS SPECIES Antibiotic Interpretation ISABELLA Status AMPICILLIN R >=32 F LEVOFLOXACIN R >=8 F NITROFURANTOIN I 64 F VANCOMYCIN S <=0.5 F Susceptible [facility] Comment on above: Performed By: #### C ROSA, 58279-7, 53620-0, 40680-7 #### [facility] ([id number]) [address] [place] [address] URN MACROSCOPIC NURon 2023 BILIRUBIN PEARL Negative Normal [facility] Comment on above: Performed By: #### N UM #### [facility] ([id number]) [address] [place] [address] BLOOD/HGB PEARL Negative Normal NEG [facility] Comment on above: Performed By: #### N UM #### [facility] ([id number]) [address] [place] [address] GLUCOSE PEARL Negative Normal NEG [facility] Comment on above: Performed By: #### N UM #### [facility] ([id number]) [address] [place] [address] KETONES PEARL Negative Normal [facility] Comment on above: Performed By: #### N UM #### [facility] ([id number]) [address] [place] [address] LEUKOCYTE ESTERASE PEARL Trace Abnormal NEG [facility] Comment on above: Performed By: #### N UM #### [facility] ([id number]) [address] [place] [address] NITRITE PEARL Negative Normal NEG [facility] Comment on above: Performed By: #### N UM #### [facility] ([id number]) [address] [place] [address] PH PEARL 6.5 Normal 5.0-8.5 [facility] Comment on above: Performed By: #### N UM #### [facility] ([id number]) [address] [place] [address] PROTEIN PEARL Negative Normal NEG [facility] Comment on above: Performed By: #### N UM #### [facility] ([id number]) [address] [place] [address] SPECIFIC GRAVITY PEARL 1.015 Normal 1.003-1.035 [facility] Comment on above: Performed By: #### N UM #### [facility] ([id number]) [address] [place] [address] UROBILINOGEN PEARL 0.2 eu/dL Normal <1.1 [facility] Comment on above: Performed By: #### N UM #### [facility] ([id number]) [address] [place] [address] XR CHEST 1 VWon 12-07-2023 XR CHEST 1 VW XR CHEST 1 VW Single view chest History:Ventilator acquired pneumonia, hypoxia Difficulty breathing, shortness of breath Comparison: 11/13/2023 Findings: Single portable view of the chest. Small bilateral pleural effusions with bilateral lower lung atelectasis versus pneumonia. Mild vascular congestion. Stable tracheostomy. Atherosclerotic thoracic aorta. Impression: Small bilateral pleural effusions with underlying atelectasis and mild vascular congestion. Finalized by Jignesh Cortez MD on 12/07/2023 5:55 PM Normal [facility] COMPREHENSIVE METABOLIC PANE Cliff 11-26-2023 Albumin [Mass/Vol] 2.1 g/dL Low 3.2-5.3 [facility] Comment on above: Performed By: #### C BCA, BMP, 96767-1 #### [facility] ([id number]) [address] [place] [address] ALP [Catalytic activity/Vol] 107 U/L Normal 39-130 [facility] Comment on above: Performed By: #### C BCA, BMP, 42461-4 #### [facility] ([id number]) [address] [place] [address] ALT [Catalytic activity/Vol] 27 U/L Normal 0-31 [facility] Comment on above: Performed By: #### C BCA, BMP, 28899-9 #### [facility] ([id number]) [address] [place] [address] Anion gap [Moles/Vol] 6 mmol/L Normal 5-15 [facility] Comment on above: Performed By: #### C BCA, BMP, 48575-8 #### [facility] ([id number]) [address] [place] [address] AST [Catalytic activity/Vol] 22 U/L Normal 0-41 [facility] Comment on above: Performed By: #### C BCA, BMP, 74609-5 #### [facility] ([id number]) [address] [place] [address] Bilirubin [Mass/Vol] 0.4 mg/dL Normal 0.3-1.2 [facility] Comment on above: Performed By: #### C BCA, BMP, 47612-3 #### [facility] ([id number]) [address] [place] [address] Calcium [Mass/Vol] 8.9 mg/dL Normal 8.5-10.5 [facility] Comment on above: Performed By: #### C BCA, BMP, 80095-2 #### [facility] ([id number]) [address] [place] [address] Chloride [Moles/Vol] 107 mmol/L Normal 98-109 [facility] Comment on above: Performed By: #### C ROSA, BMP, 84769-7 #### [facility] ([id number]) [address] [place] [address] CO2 [Moles/Vol] 23 mmol/L Normal 22-32 [facility] Comment on above: Performed By: #### C ROSA, BMP, 48687-3 #### [facility] ([id number]) [address] [place] [address] Creatinine [Mass/Vol] 0.51 mg/dL Normal 0.40-1.00 [facility] Comment on above: Result Comment: METH OD TRACEABLE TO IDMS STANDARD Performed By: #### C ROSA, BMP, 26315-1 #### [facility] ([id number]) [address] [place] [address] eGFR (CKD-EPI) NON-RACE DEPENDENT >90 Normal >59 [facility] Comment on above: Result Comment: Reported eGFR is based on the CKD-EPI 2020 equation that does not use a race coefficient. Performed By: #### C ROSA, BMP, 06964-1 #### [facility] ([id number]) [address] [place] [address] Glucose [Mass/Vol] 157 mg/dL High 65-99 [facility] Comment on above: Performed By: #### C BCA, BMP, 22195-4 #### [facility] ([id number]) [address] [place] [address] Potassium [Moles/Vol] 4.3 mmol/L Normal 3.5-5.0 [facility] Comment on above: Performed By: #### C BCA, BMP, 68783-2 #### [facility] ([id number]) [address] [place] [address] Protein [Mass/Vol] 5.3 g/dL Low 6.0-8.0 [facility] Comment on above: Performed By: #### C BCA, BMP, 13643-2 #### [facility] ([id number]) [address] [place] [address] Sodium [Moles/Vol] 136 mmol/L Normal 134-146 [facility] Comment on above: Performed By: #### C BCA, BMP, 32084-6 #### [facility] ([id number]) [address] [place] [address] Urea nitrogen [Mass/Vol] 31 mg/dL High 5-27 [facility] Comment on above: Performed By: #### C BCA, BMP, 83141-9 #### [facility] ([id number]) [address] [place] [address] COMPREHENSIVE METABOLIC PANE Cliff 11-25-2023 Albumin [Mass/Vol] 2.0 g/dL Low 3.2-5.3 [facility] Comment on above: Performed By: #### C BCA, BMP, 85766-1 #### [facility] ([id number]) [address] [place] [address] ALP [Catalytic activity/Vol] 96 U/L Normal 39-130 [facility] Comment on above: Performed By: #### C BCA, BMP, 12044-1 #### [facility] ([id number]) [address] [place] [address]36 ALT [Catalytic activity/Vol] 24 U/L Normal 0-31 [facility] Comment on above: Performed By: #### C BCA, BMP, 80726-0 #### [facility] ([id number]) [address] [place] [address] Anion gap [Moles/Vol] 4 mmol/L Low 5-15 [facility] Comment on above: Performed By: #### JAMAL Min BCA, 92508-5 #### [facility] ([id number]) [address] [place] [address] 38014 AST [Catalytic activity/Vol] 19 U/L Normal 0-41 [facility] Comment on above: Performed By: #### JAMAL Min BCA, 61756-1 #### [facility] ([id number]) [address] [place] [address] Bilirubin [Mass/Vol] 0.4 mg/dL Normal 0.3-1.2 [facility] Comment on above: Performed By: #### JAMAL Min BCA, 24843-2 #### [facility] ([id number]) [address] [place] [address] 39007 Calcium [Mass/Vol] 8.6 mg/dL Normal 8.5-10.5 [facility] Comment on above: Performed By: #### JAMAL Min BCA, 97952-3 #### [facility] ([id number]) [address] [place] [address] 62342 Chloride [Moles/Vol] 106 mmol/L Normal 98-109 [facility] Comment on above: Performed By: #### JAMAL Min BCA, 77848-5 #### [facility] ([id number]) [address] [place] [address] 60751 CO2 [Moles/Vol] 24 mmol/L Normal 22-32 [facility] Comment on above: Performed By: #### JAMAL Min BCA, 58891-5 #### [facility] ([id number]) [address] [place] [address] 99395 Creatinine [Mass/Vol] 0.49 mg/dL Normal 0.40-1.00 [facility] Comment on above: Result Comment: METH OD TRACEABLE TO IDMS STANDARD Performed By: #### C JAMAL LEE, 79958-6 #### [facility] ([id number]) [address] [place] [address]1153 eGFR (CKD-EPI) NON-RACE DEPENDENT >90 Normal >59 [facility] Comment on above: Result Comment: Reported eGFR is based on the CKD-EPI 2020 equation that does not use a race coefficient. Performed By: #### C JAMAL LEE, 47391-9 #### [facility] ([id number]) [address] [place] [address]3677 Glucose [Mass/Vol] 116 mg/dL High 65-99 [facility] Comment on above: Performed By: #### C JAMAL LEE, 54092-9 #### [facility] ([id number]) [address] [place] [address] 89341 Potassium [Moles/Vol] 4.4 mmol/L Normal 3.5-5.0 [facility] Comment on above: Performed By: #### C JAMAL LEE, 41756-5 #### [facility] ([id number]) [address] [place] [address] 05421 Protein [Mass/Vol] 5.1 g/dL Low 6.0-8.0 [facility] Comment on above: Performed By: #### C JAMAL LEE, [id number] #### [facility] ([id number]) [address] [place] [address] 17095 Sodium [Moles/Vol] 134 mmol/L Normal 134-146 [facility] Comment on above: Performed By: #### C JAMAL LEE, [id number] #### [facility] ([id number]) [address] [place] [address] 06017 Urea nitrogen [Mass/Vol] 33 mg/dL High 5-27 [facility] Comment on above: Performed By: #### C JAMAL LEE, 46463-5 #### [facility] ([id number]) [address] [place] [address] 11911 FL SWALLOW MOTILITY FUNCTION on 11-25-2023 FL SWALLOW MOTILITY FUNCTION FL SWALLOW MOTILITY FUNCTION FL SWALLOW MOTILITY FUNCTION CLINICAL HISTORY: Failed bedside speech exam COMPARISON: None Reference Air Kerma = 3.8 mGy Findings: In conjunction with speech pathology video swallowing function study conducted that there was aspiration of thin barium. All other consistencies of barium were handled without difficulty. Please see speech pathology for recommendations. IMPRESSION: In conjunction with speech pathology video swallowing function study conducted that there was aspiration of thin barium. All other consistencies of barium were handled without difficulty. Please see speech pathology for recommendations. Finalized by Simon Potter MD on 11/25/2023 4:06 PM Normal [facility] CBC AND AUTO DIFFon 11-24-19 ABSOLUTE BASOPHIL 0.0 X10E9/L Normal 0.0-0.2 [facility] Comment on above: Performed By: #### [facility]A [facility], 59036-5 #### [facility] ([id number]) [address] [place] [address] 14243 ABSOLUTE NEUTROPHIL 5.8 X10E9/L Normal 1.5-6.6 [facility] Comment on above: Performed By: #### JAMAL Min BCA, 67007-9 #### [facility] ([id number]) [address] [place] [address] 50494 Basophils/100 WBC (Bld) 0.4 % Normal [facility] Comment on above: Performed By: #### C AJMAL LEE, 99232-8 #### [facility] ([id number]) [address] [place] [address] 50079 Eosinophils (Bld) [#/Vol] 1.0 10*3/uL High 0.0-0.4 [facility] Comment on above: Performed By: #### C JAMAL LEE, 86364-3 #### [facility] ([id number]) [address] [place] [address] 41607 Eosinophils/100 WBC (Bld) 10.5 % Normal [facility] Comment on above: Performed By: #### C JAMAL LEE, 73722-0 #### [facility] ([id number]) [address] [place] [address] 13455 Erythrocyte distribution width (RBC) [Ratio] 14.2 % Normal 11.5-15.0 [facility] Comment on above: Performed By: #### [facility], 28723-8 #### [facility] ([id number]) [address] [place] [address] 34879 Hematocrit (Bld) [Volume fraction] 31.5 % Low 35-47 [facility] Comment on above: Performed By: #### [facility], 04100-1 #### [facility] ([id number]) [address] [place] [address] 95652 Hemoglobin (Bld) [Mass/Vol] 10.6 g/dL Low 11.7-15.5 [facility] Comment on above: Performed By: #### C JAMAL LEE, 92364-2 #### [facility] ([id number]) [address] [place] [address] 15461 Lymphocytes (Bld) [#/Vol] 2.1 10*3/uL Normal 1.0-3.5 [facility] Comment on above: Performed By: #### C ROSA, JAMAL, 20848-3 #### [facility] ([id number]) [address] [place] [address] 37962 Lymphocytes/100 WBC (Bld) 22.0 % Normal [facility] Comment on above: Performed By: #### C ROSA BMP, 80755-3 #### [facility] ([id number]) [address] [place] [address] 04702 MCH (RBC) [Entitic mass] 31.6 pg Normal 27-34 [facility] Comment on above: Performed By: #### JAMAL Min BCA, 15856-9 #### [facility] ([id number]) [address] [place] [address] 69252 MCHC (RBC) [Mass/Vol] 33.6 g/dL Normal 32-36 [facility] Comment on above: Performed By: #### JAMAL Min BCA, 81353-5 #### [facility] ([id number]) [address] [place] [address] 49946 MCV (RBC) [Entitic vol] 94 fL Normal 80-100 [facility] Comment on above: Performed By: #### JAMAL Min BCA, 13967-0 #### [facility] ([id number]) [address] [place] [address] 96096 Monocytes (Bld) [#/Vol] 0.6 10*3/uL Normal 0-0.9 [facility] Comment on above: Performed By: #### Mechelle LEE [facility], 93671-4 #### [facility] ([id number]) [address] [place] [address] 70615 Monocytes/100 WBC (Bld) 6.2 % Normal [facility] Comment on above: Performed By: #### JAMAL Min BCA, 90338-8 #### [facility] ([id number]) [address] [place] [address] 64534 Neutrophils/100 WBC (Bld) 60.9 % Normal [facility] Comment on above: Performed By: #### JAMAL Min BCA, 02863-5 #### [facility] ([id number]) [address] [place] [address] 84504 Platelet mean volume (Bld) [Entitic vol] 9.1 fL Normal 7-12 [facility] Comment on above: Performed By: #### JAMAL Min BCA, 77172-1 #### [facility] ([id number]) [address] [place] [address] 60016 Platelets (Bld) [#/Vol] 256 10*3/uL Normal 150-450 [facility] Comment on above: Performed By: #### JAMAL Min BCA, 70460-6 #### [facility] ([id number]) [address] [place] [address] 86964 RBC COUNT 3.34 X10E12/L Low 3.80-5.20 [facility] Comment on above: Performed By: #### Mechelle LEE BMP, 03484-6 #### [facility] ([id number]) [address] [place] [address] 01236 WBC (Bld) [#/Vol] 9.5 10*3/uL Normal 4.0-11.0 [facility] Comment on above: Performed By: #### JAMAL Min BCA, 78437-9 #### [facility] ([id number]) [address] [place] [address] 65555 COMPREHENSIVE METABOLIC PANE Cliff 11-24-2023 Albumin [Mass/Vol] 2.1 g/dL Low 3.2-5.3 [facility] Comment on above: Performed By: #### JAMAL Min BCA, 27525-4 #### [facility] ([id number]) [address] [place] [address] 61065 ALP [Catalytic activity/Vol] 106 U/L Normal 39-130 [facility] Comment on above: Performed By: #### Mechelle LEE, BMP, 45278-6 #### [facility] ([id number]) [address] [place] [address] 25030 ALT [Catalytic activity/Vol] 25 U/L Normal 0-31 [facility] Comment on above: Performed By: #### C BCA, BMP, 05962-0 #### [facility] ([id number]) [address] [place] [address] 50399 Anion gap [Moles/Vol] 3 mmol/L Low 5-15 [facility] Comment on above: Performed By: #### C BCA, BMP, 94929-0 #### [facility] ([id number]) [address] [place] [address] 45196 AST [Catalytic activity/Vol] 21 U/L Normal 0-41 [facility] Comment on above: Performed By: #### C BCA, BMP, 32303-8 #### [facility] ([id number]) [address] [place] [address] 77940 Bilirubin [Mass/Vol] 0.4 mg/dL Normal 0.3-1.2 [facility] Comment on above: Performed By: #### C BCA, BMP, 60786-7 #### [facility] ([id number]) [address] [place] [address] 57272 Calcium [Mass/Vol] 9.1 mg/dL Normal 8.5-10.5 [facility] Comment on above: Performed By: #### C BCA, BMP, 97096-4 #### [facility] ([id number]) [address] [place] [address] 73813 Chloride [Moles/Vol] 110 mmol/L High 98-109 [facility] Comment on above: Performed By: #### C BCA, BMP, 93834-6 #### [facility] ([id number]) [address] [place] [address] 87923 CO2 [Moles/Vol] 24 mmol/L Normal 22-32 [facility] Comment on above: Performed By: #### C BCA, BMP, 42454-3 #### [facility] ([id number]) [address] [place] [address] 39602 Creatinine [Mass/Vol] 0.49 mg/dL Normal 0.40-1.00 [facility] Comment on above: Result Comment: METH OD TRACEABLE TO IDMS STANDARD Performed By: #### C ROSA BMP, 99579-6 #### [facility] ([id number]) [address] [place] [address] 88066 eGFR (CKD-EPI) NON-RACE DEPENDENT >90 Normal >59 [facility] Comment on above: Result Comment: Reported eGFR is based on the CKD-EPI 2020 equation that does not use a race coefficient. Performed By: #### C ROSA BMP, 48690-7 #### [facility] ([id number]) [address] [place] [address] 41542 Glucose [Mass/Vol] 132 mg/dL High 65-99 [facility] Comment on above: Performed By: #### C ROSA BMP, 45216-7 #### [facility] ([id number]) [address] [place] [address] 49923 Potassium [Moles/Vol] 4.3 mmol/L Normal 3.5-5.0 [facility] Comment on above: Performed By: #### C ROSA BMP, 03848-3 #### [facility] ([id number]) [address] [place] [address] 81325 Protein [Mass/Vol] 5.3 g/dL Low 6.0-8.0 [facility] Comment on above: Performed By: #### C ROSA BMP, 19369-0 #### [facility] ([id number]) [address] [place] [address] 45742 Sodium [Moles/Vol] 137 mmol/L Normal 134-146 [facility] Comment on above: Performed By: #### C BCA, BMP, 31367-8 #### [facility] ([id number]) [address] [place] [address] 53775 Urea nitrogen [Mass/Vol] 30 mg/dL High 5-27 [facility] Comment on above: Performed By: #### JAMAL Min BCA, 52757-8 #### [facility] ([id number]) [address] [place] [address] 06697 MAGNESIUMon 11-24-2023 Magnesium [Mass/Vol] 1.8 mg/dL Normal 1.8-2.6 [facility] Comment on above: Performed By: #### C JAMAL LEE, 77273-8 #### [facility] ([id number]) [address] [place] [address] 86243 CBC AND AUTO DIFFon 11-23-19 ABSOLUTE BASOPHIL 0.1 X10E9/L Normal 0.0-0.2 [facility] Comment on above: Performed By: #### JAMAL Min BCA, 41331-4 #### [facility] ([id number]) [address] [place] [address] 84283 ABSOLUTE NEUTROPHIL 5.2 X10E9/L Normal 1.5-6.6 [facility] Comment on above: Performed By: #### JAMAL Min BCA, 34635-8 #### [facility] ([id number]) [address] [place] [address] 46029 Basophils/100 WBC (Bld) 0.7 % Normal [facility] Comment on above: Performed By: #### Mechelle LEE, BMP, 60994-8 #### [facility] ([id number]) [address] [place] [address] 70457 Eosinophils (Bld) [#/Vol] 0.3 10*3/uL Normal 0.0-0.4 [facility] Comment on above: Performed By: #### Mechelle LEE BMP, 07903-3 #### [facility] ([id number]) [address] [place] [address] 78456 Eosinophils/100 WBC (Bld) 4.4 % Normal [facility] Comment on above: Performed By: #### Mechelle [facility]EE [facility], 70658-6 #### [facility] ([id number]) [address] [place] [address] 91386 Erythrocyte distribution width (RBC) [Ratio] 14.3 % Normal 11.5-15.0 [facility] Comment on above: Performed By: #### Mechelle LEE [facility], 73496-4 #### [facility] ([id number]) [address] [place] [address] 66439 Hematocrit (Bld) [Volume fraction] 29.3 % Low 35-47 [facility] Comment on above: Performed By: #### Mechelle LEE [facility], 32879-0 #### [facility] ([id number]) [address] [place] [address] 00828 Hemoglobin (Bld) [Mass/Vol] 9.9 g/dL Low 11.7-15.5 [facility] Comment on above: Performed By: #### Mechelle LEE [facility], 11770-0 #### [facility] ([id number]) [address] [place] [address] 37190 Lymphocytes (Bld) [#/Vol] 1.6 10*3/uL Normal 1.0-3.5 [facility] Comment on above: Performed By: #### Mechelle LEE [facility], 79448-2 #### [facility] ([id number]) [address] [place] [address] 76739 Lymphocytes/100 WBC (Bld) 21.5 % Normal [facility] Comment on above: Performed By: #### Mechelle LEE [facility], 21712-5 #### [facility] ([id number]) [address] [place] [address] 32601 MCH (RBC) [Entitic mass] 31.8 pg Normal 27-34 [facility] Comment on above: Performed By: #### JAMAL Min BCA, 66642-7 #### [facility] ([id number]) [address] [place] [address] 86900 MCHC (RBC) [Mass/Vol] 33.7 g/dL Normal 32-36 [facility] Comment on above: Performed By: #### Mechelle LEE [facility], 08902-4 #### [facility] ([id number]) [address] [place] [address] 13270 MCV (RBC) [Entitic vol] 94 fL Normal 80-100 [facility] Comment on above: Performed By: #### JAMAL Min BCA, 29530-1 #### [facility] ([id number]) [address] [place] [address] 37472 Monocytes (Bld) [#/Vol] 0.5 10*3/uL Normal 0-0.9 [facility] Comment on above: Performed By: #### Mechelle LEE [facility], 53369-2 #### [facility] ([id number]) [address] [place] [address] 60314 Monocytes/100 WBC (Bld) 5.9 % Normal [facility] Comment on above: Performed By: #### JAMAL Min BCA, 72712-8 #### [facility] ([id number]) [address] [place] [address] 86166 Neutrophils/100 WBC (Bld) 67.5 % Normal [facility] Comment on above: Performed By: #### JAMAL Min BCA, 29247-2 #### [facility] ([id number]) [address] [place] [address] 76831 Platelet mean volume (Bld) [Entitic vol] 9.0 fL Normal 7-12 [facility] Comment on above: Performed By: #### C ROSA, BMP, 19536-9 #### [facility] ([id number]) [address] [place] [address] 28842 Platelets (Bld) [#/Vol] 220 10*3/uL Normal 150-450 [facility] Comment on above: Performed By: #### C ROSA BMP, 07045-8 #### [facility] ([id number]) [address] [place] [address] 32728 RBC COUNT 3.11 X10E12/L Low 3.80-5.20 [facility] Comment on above: Performed By: #### C ROSA, BMP, 54223-8 #### [facility] ([id number]) [address] [place] [address] 38729 WBC (Bld) [#/Vol] 7.6 10*3/uL Normal 4.0-11.0 [facility] Comment on above: Performed By: #### C ROSA, BMP, 18179-1 #### [facility] ([id number]) [address] [place] [address] 59444 COMPREHENSIVE METABOLIC PANE Cliff 11-23-2023 Albumin [Mass/Vol] 2.2 g/dL Low 3.2-5.3 [facility] Comment on above: Performed By: #### C BCA, BMP, 56908-9 #### [facility] ([id number]) [address] [place] [address] 16350 ALP [Catalytic activity/Vol] 109 U/L Normal 39-130 [facility] Comment on above: Performed By: #### C BCA, BMP, 23244-5 #### [facility] ([id number]) [address] [place] [address] 73635 ALT [Catalytic activity/Vol] 29 U/L Normal 0-31 [facility] Comment on above: Performed By: #### C BCA, BMP, 67423-7 #### [facility] ([id number]) [address] [place] [address] 24700 Anion gap [Moles/Vol] 6 mmol/L Normal 5-15 [facility] Comment on above: Performed By: #### C BCA, BMP, 81564-4 #### [facility] ([id number]) [address] [place] [address] 38492 AST [Catalytic activity/Vol] 21 U/L Normal 0-41 [facility] Comment on above: Performed By: #### C BCA, BMP, 20250-5 #### [facility] ([id number]) [address] [place] [address] 11090 Bilirubin [Mass/Vol] 0.4 mg/dL Normal 0.3-1.2 [facility] Comment on above: Performed By: #### C BCA, [facility], 17248-0 #### [facility] ([id number]) [address] [place] [address] 64605 Calcium [Mass/Vol] 9.1 mg/dL Normal 8.5-10.5 [facility] Comment on above: Performed By: #### C BCA, BMP, 47774-1 #### [facility] ([id number]) [address] [place] [address] 70060 Chloride [Moles/Vol] 111 mmol/L High 98-109 [facility] Comment on above: Performed By: #### C BCA, BMP, 74650-4 #### [facility] ([id number]) [address] [place] [address] 72839 CO2 [Moles/Vol] 22 mmol/L Normal 22-32 [facility] Comment on above: Performed By: #### C BCA, BMP, 33801-9 #### [facility] ([id number]) [address] [place] [address] 13456 Creatinine [Mass/Vol] 0.55 mg/dL Normal 0.40-1.00 [facility] Comment on above: Result Comment: METH OD TRACEABLE TO IDMS STANDARD Performed By: #### C JAMAL LEE, 56465-8 #### [facility] ([id number]) [address] [place] [address] 43671 eGFR (CKD-EPI) NON-RACE DEPENDENT >90 Normal >59 [facility] Comment on above: Result Comment: Reported eGFR is based on the CKD-EPI 2020 equation that does not use a race coefficient. Performed By: #### C JAMAL LEE, 14786-4 #### [facility] ([id number]) [address] [place] [address] 17164 Glucose [Mass/Vol] 160 mg/dL High 65-99 [facility] Comment on above: Performed By: #### C JAMAL LEE, 77455-4 #### [facility] ([id number]) [address] [place] [address] 29458 Potassium [Moles/Vol] 3.3 mmol/L Low 3.5-5.0 [facility] Comment on above: Performed By: #### C JAMAL LEE, 62963-2 #### [facility] ([id number]) [address] [place] [address] 87842 Protein [Mass/Vol] 5.4 g/dL Low 6.0-8.0 [facility] Comment on above: Performed By: #### C JAMAL LEE, 48975-3 #### [facility] ([id number]) [address] [place] [address] 96216 Sodium [Moles/Vol] 139 mmol/L Normal 134-146 [facility] Comment on above: Performed By: #### JAMAL Min BCA, 76886-4 #### [facility] ([id number]) [address] [place] [address] 86322 Urea nitrogen [Mass/Vol] 44 mg/dL High 5-27 [facility] Comment on above: Performed By: #### JAMAL iMn BCA, 59664-7 #### [facility] ([id number]) [address] [place] [address] 98752 MAGNESIUMon 11-23-2023 Magnesium [Mass/Vol] 1.9 mg/dL Normal 1.8-2.6 [facility] Comment on above: Performed By: #### Mechelle LEE [facility], 84590-8 #### [facility] ([id number]) [address] [place] [address] 31840 CBC AND AUTO DIFFon 11-22-19 ABSOLUTE BASOPHIL 0.0 X10E9/L Normal 0.0-0.2 [facility] Comment on above: Performed By: #### Mechelle LEE [facility], 58581-6 #### [facility] ([id number]) [address] [place] [address] 87695 ABSOLUTE NEUTROPHIL 5.7 X10E9/L Normal 1.5-6.6 [facility] Comment on above: Performed By: #### JAMAL Min BCA, 50660-8 #### [facility] ([id number]) [address] [place] [address] 08993 Basophils/100 WBC (Bld) 0.2 % Normal [facility] Comment on above: Performed By: #### JAMAL Min BCA, 34628-4 #### [facility] ([id number]) [address] [place] [address] 86687 Eosinophils (Bld) [#/Vol] 0.3 10*3/uL Normal 0.0-0.4 [facility] Comment on above: Performed By: #### JAMAL Min BCA, 33110-4 #### [facility] ([id number]) [address] [place] [address] 48789 Eosinophils/100 WBC (Bld) 3.2 % Normal [facility] Comment on above: Performed By: #### Mechelle LEE [facility], 80749-6 #### [facility] ([id number]) [address] [place] [address] 11993 Erythrocyte distribution width (RBC) [Ratio] 14.5 % Normal 11.5-15.0 [facility] Comment on above: Performed By: #### Mechelle LEE [facility], 06531-3 #### [facility] ([id number]) [address] [place] [address] 43300 Hematocrit (Bld) [Volume fraction] 33.7 % Low 35-47 [facility] Comment on above: Performed By: #### Mechelle LEE [facility], 26108-6 #### [facility] ([id number]) [address] [place] [address] 99219 Hemoglobin (Bld) [Mass/Vol] 11.0 g/dL Low 11.7-15.5 [facility] Comment on above: Performed By: #### Mechelle LEE [facility], 41290-9 #### [facility] ([id number]) [address] [place] [address] 43123 Lymphocytes (Bld) [#/Vol] 3.5 10*3/uL Normal 1.0-3.5 [facility] Comment on above: Performed By: #### Mechelle LEE [facility], 44230-3 #### [facility] ([id number]) [address] [place] [address] 73939 Lymphocytes/100 WBC (Bld) 33.8 % Normal [facility] Comment on above: Performed By: #### Mechelle LEE [facility], 71611-2 #### [facility] ([id number]) [address] [place] [address] 82633 MCH (RBC) [Entitic mass] 30.8 pg Normal 27-34 [facility] Comment on above: Performed By: #### JAMAL Min BCA, 99217-9 #### [facility] ([id number]) [address] [place] [address] 26208 MCHC (RBC) [Mass/Vol] 32.6 g/dL Normal 32-36 [facility] Comment on above: Performed By: #### JAMAL Min BCA, 84956-0 #### [facility] ([id number]) [address] [place] [address] 26854 MCV (RBC) [Entitic vol] 95 fL Normal 80-100 [facility] Comment on above: Performed By: #### JAMAL Min BCA, 12748-5 #### [facility] ([id number]) [address] [place] [address] 16255 Monocytes (Bld) [#/Vol] 0.8 10*3/uL Normal 0-0.9 [facility] Comment on above: Performed By: #### JAMAL Min BCA, 53022-2 #### [facility] ([id number]) [address] [place] [address] 35298 Monocytes/100 WBC (Bld) 7.4 % Normal [facility] Comment on above: Performed By: #### JAMAL Min BCA, 19053-0 #### [facility] ([id number]) [address] [place] [address] 00603 Neutrophils/100 WBC (Bld) 55.4 % Normal [facility] Comment on above: Performed By: #### JAMAL Min BCA, 34264-8 #### [facility] ([id number]) [address] [place] [address] 43034 Platelet mean volume (Bld) [Entitic vol] 9.1 fL Normal 7-12 [facility] Comment on above: Performed By: #### Mechelle LEE, BMP, 90858-4 #### [facility] ([id number]) [address] [place] [address] 66875 Platelets (Bld) [#/Vol] 241 10*3/uL Normal 150-450 [facility] Comment on above: Performed By: #### C ROSA BMP, 22391-1 #### [facility] ([id number]) [address] [place] [address] 08066 RBC COUNT 3.56 X10E12/L Low 3.80-5.20 [facility] Comment on above: Performed By: #### Mechelle LEE BMP, 55726-7 #### [facility] ([id number]) [address] [place] [address] 82255 WBC (Bld) [#/Vol] 10.2 10*3/uL Normal 4.0-11.0 [facility] Comment on above: Performed By: #### C ROSA BMP, 42895-9 #### [facility] ([id number]) [address] [place] [address] 37966 COMPREHENSIVE METABOLIC PANE [place] 11-22-2023 Albumin [Mass/Vol] 2.5 g/dL Low 3.2-5.3 [facility] Comment on above: Performed By: #### C ROSA BMP, 38198-6 #### [facility] ([id number]) [address] [place] [address] 44980 ALP [Catalytic activity/Vol] 120 U/L Normal 39-130 [facility] Comment on above: Performed By: #### Mechelle BCA, BMP, 02821-3 #### [facility] ([id number]) [address] [place] [address] [address]15 ALT [Catalytic activity/Vol] 30 U/L Normal 0-31 [facility] Comment on above: Performed By: #### C BCA BMP, 18069-4 #### [facility] ([id number]) [address] [place] [address] 31978 Anion gap [Moles/Vol] 9 mmol/L Normal 5-15 [facility] Comment on above: Performed By: #### C BCA, BMP, 29120-0 #### [facility] ([id number]) [address] [place] [address] 86116 AST [Catalytic activity/Vol] 24 U/L Normal 0-41 [facility] Comment on above: Performed By: #### C BCA, BMP, 78032-5 #### [facility] ([id number]) [address] [place] [address] 45171 Bilirubin [Mass/Vol] 0.6 mg/dL Normal 0.3-1.2 [facility] Comment on above: Performed By: #### C BCA, BMP, 12040-4 #### [facility] ([id number]) [address] [place] [address] 70736 Calcium [Mass/Vol] 9.6 mg/dL Normal 8.5-10.5 [facility] Comment on above: Performed By: #### C BCA, BMP, 72150-2 #### [facility] ([id number]) [address] [place] [address] 78574 Chloride [Moles/Vol] 107 mmol/L Normal 98-109 [facility] Comment on above: Performed By: #### C BCA, BMP, 83402-4 #### [facility] ([id number]) [address] [place] [address] 02801 CO2 [Moles/Vol] 23 mmol/L Normal 22-32 [facility] Comment on above: Performed By: #### C BCA, BMP, 14449-6 #### [facility] ([id number]) [address] [place] [address] 30114 Creatinine [Mass/Vol] 0.78 mg/dL Normal 0.40-1.00 [facility] Comment on above: Result Comment: METH OD TRACEABLE TO IDMS STANDARD Performed By: #### C JAMAL LEE, 51375-4 #### [facility] ([id number]) [address] [place] [address] 26193 GFR/1.73 sq M.predicted among non-blacks MDRD (S/P/Bld) [Vol rate/Area] 75 mL/min/{1.73_m2} Normal >59 [facility] Comment on above: Result Comment: Reported eGFR is based on the CKD-EPI 2020 equation that does not use a race coefficient. Performed By: #### C JAMAL LEE, 67316-7 #### [facility] ([id number]) [address] [place] [address] 19624 Glucose [Mass/Vol] 125 mg/dL High 65-99 [facility] Comment on above: Performed By: #### C JAMAL LEE, 30153-7 #### [facility] ([id number]) [address] [place] [address] 92540 Potassium [Moles/Vol] 3.8 mmol/L Normal 3.5-5.0 [facility] Comment on above: Performed By: #### C JAMAL LEE, 02833-3 #### [facility] ([id number]) [address] [place] [address] 04568 Protein [Mass/Vol] 6.0 g/dL Normal 6.0-8.0 [facility] Comment on above: Performed By: #### C JAMAL LEE, 61086-6 #### [facility] ([id number]) [address] [place] [address] 39881 Sodium [Moles/Vol] 139 mmol/L Normal 134-146 [facility] Comment on above: Performed By: #### C JAMAL LEE, 02064-0 #### [facility] ([id number]) [address] [place] [address] 70457 Urea nitrogen [Mass/Vol] 50 mg/dL High 5-27 [facility] Comment on above: Performed By: #### C JAMAL LEE, 75107-4 #### [facility] ([id number]) [address] [place] [address] 95085 Lactate (P lilian) [Moles/Vol]o n 11-22-2023 LACTATE W/REFLEX 1.1 mmol/L Normal 0.4-2.0 [facility] Comment on above: Result Comment: Result did not trigger repeat Lactate, re-order if needed. Performed By: #### C JAMAL LEE, 11880-8 #### [facility] ([id number]) [address] [place] [address] 70510 MAGNESIUMon 11-22-2023 Magnesium [Mass/Vol] 2.1 mg/dL Normal 1.8-2.6 [facility] Comment on above: Performed By: #### JAMAL Min BCA, 90981-0 #### [facility] ([id number]) [address] [place] [address] 13469 BASIC METABOLIC PANLon 11-20 Anion gap [Moles/Vol] 8 mmol/L Normal 5-15 [facility] Comment on above: Performed By: #### C JAMAL LEE, 33569-8 #### [facility] ([id number]) [address] [place] [address] 55790 Calcium [Mass/Vol] 9.5 mg/dL Normal 8.5-10.5 [facility] Comment on above: Performed By: #### C JAMAL LEE, 36447-0 #### [facility] ([id number]) [address] [place] [address] 11288 Chloride [Moles/Vol] 102 mmol/L Normal 98-109 [facility] Comment on above: Performed By: #### C JAMAL LEE, 14469-1 #### [facility] ([id number]) [address] [place] [address] 72291 CO2 [Moles/Vol] 22 mmol/L Normal 22-32 [facility] Comment on above: Performed By: #### C JAMAL LEE, 39355-6 #### [facility] ([id number]) [address] [place] [address] 97681 Creatinine [Mass/Vol] 1.03 mg/dL High 0.40-1.00 [facility] Comment on above: Result Comment: METH OD TRACEABLE TO IDMS STANDARD Performed By: #### C JAMAL LEE, 72199-6 #### [facility] ([id number]) [address] [place] [address] 27942 GFR/1.73 sq M.predicted among non-blacks MDRD (S/P/Bld) [Vol rate/Area] 54 mL/min/{1.73_m2} Low >59 [facility] Comment on above: Result Comment: Reported eGFR is based on the CKD-EPI 2020 equation that does not use a race coefficient. Performed By: #### C JAMAL LEE, 33506-2 #### [facility] ([id number]) [address] [place] [address] 99524 Glucose [Mass/Vol] 104 mg/dL High 65-99 [facility] Comment on above: Performed By: #### C JAMAL LEE, 55947-7 #### [facility] ([id number]) [address] [place] [address] 63088 Potassium [Moles/Vol] 4.0 mmol/L Normal 3.5-5.0 [facility] Comment on above: Performed By: #### C JAMAL LEE, 99208-9 #### [facility] ([id number]) [address] [place] [address] 07834 Sodium [Moles/Vol] 132 mmol/L Low 134-146 [facility] Comment on above: Performed By: #### C JAMAL LEE, 16996-8 #### [facility] ([id number]) [address] [place] [address] 43559 Urea nitrogen [Mass/Vol] 72 mg/dL High 5-27 [facility] Comment on above: Performed By: #### C JAMAL LEE, 23834-3 #### [facility] ([id number]) [address] [place] [address] 41537 BLOOD CULTUREon 11-21-2023 Bacteria identified Aer cx Nom (Bld) SPECIMEN NOTES r hand CULTURE RESULTS NO GROWTH 5 DAYS Normal [facility] Comment on above: Performed By: #### 1 7928-3 #### [facility] ([id number]) [address] [place] [address] 38121 Bacteria identified Aer cx Nom (Bld) SPECIMEN NOTES l hand CULTURE RESULTS NO GROWTH 5 DAYS Normal [facility] Comment on above: Performed By: #### JAMAL Min BCA, 97229-7 #### [facility] ([id number]) [address] [place] [address] 51766 CBC AND AUTO DIFFon 11-21-19 24 Band form neutrophils/100 WBC (Bld) 1.0 % Normal [facility] Comment on above: Performed By: #### C JAMAL LEE, 67476-3 #### [facility] ([id number]) [address] [place] [address] 81195 Eosinophils (Bld) [#/Vol] 0.8 10*3/uL High 0.0-0.4 [facility] Comment on above: Performed By: #### JAMAL Min BCA, 62366-8 #### [facility] ([id number]) [address] [place] [address], [place] [address] Eosinophils/100 WBC (Bld) 6.0 % Normal [facility] Comment on above: Performed By: #### Mechelle LEE [facility], 15477-1 #### [facility] ([id number]) [address] [place] [address] 43542 Erythrocyte distribution width (RBC) [Ratio] 14.5 % Normal 11.5-15.0 [facility] Comment on above: Performed By: #### Mechelle LEE [facility], 06736-9 #### [facility] ([id number]) [address] [place] [address] 35876 Hematocrit (Bld) [Volume fraction] 34.2 % Low 35-47 [facility] Comment on above: Performed By: #### Mechelle LEE [facility], 84770-8 #### [facility] ([id number]) [address] [place] [address] 06913 Hemoglobin (Bld) [Mass/Vol] 11.6 g/dL Low 11.7-15.5 [facility] Comment on above: Performed By: #### Mechelle LEE [facility], 92076-3 #### [facility] ([id number]) [address] [place] [address] 22269 LYMPHOCYTE, ATYPICAL 11.0 % Normal [facility] Comment on above: Performed By: #### Mechelle LEE [facility], 82488-8 #### [facility] ([id number]) [address] [place] [address] 68886 Lymphocytes (Bld) [#/Vol] 3.4 10*3/uL Normal 1.0-3.5 [facility] Comment on above: Performed By: #### Mechelle LEE [facility], 67154-4 #### [facility] ([id number]) [address] [place] [address] 46223 Lymphocytes/100 WBC (Bld) 14.0 % Normal [facility] Comment on above: Performed By: #### JAMAL Min BCA, 25074-2 #### [facility] ([id number]) [address] [place] [address] 97642 MCH (RBC) [Entitic mass] 31.2 pg Normal 27-34 [facility] Comment on above: Performed By: #### JAMAL Min BCA, 41442-8 #### [facility] ([id number]) [address] [place] [address] 88711 MCHC (RBC) [Mass/Vol] 34.0 g/dL Normal 32-36 [facility] Comment on above: Performed By: #### JAMAL Min BCA, 59408-1 #### [facility] ([id number]) [address] [place] [address] 78210 MCV (RBC) [Entitic vol] 92 fL Normal 80-100 [facility] Comment on above: Performed By: #### JAMAL Min BCA, 33819-3 #### [facility] ([id number]) [address] [place] [address] 92820 Monocytes (Bld) [#/Vol] 0.4 10*3/uL Normal 0-0.9 [facility] Comment on above: Performed By: #### JAMAL Min BCA, 72653-8 #### [facility] ([id number]) [address] [place] [address] 08802 Monocytes/100 WBC (Bld) 3.0 % Normal [facility] Comment on above: Performed By: #### JAMAL Min BCA, 70997-4 #### [facility] ([id number]) [address] [place] [address] 60057 Neutrophils (Bld) [#/Vol] 8.9 10*3/uL High 1.5-6.6 [facility] Comment on above: Performed By: #### JAMAL Min BCA, 02313-0 #### [facility] ([id number]) [address] [place] [address] 88120 Platelet mean volume (Bld) [Entitic vol] 8.1 fL Normal 7-12 [facility] Comment on above: Performed By: #### Mechelle LEE BMP, 83947-7 #### [facility] ([id number]) [address] [place] [address] 78907 Platelets (Bld) [#/Vol] 336 10*3/uL Normal 150-450 [facility] Comment on above: Performed By: #### Mechelle LEE BMP, 15547-8 #### [facility] ([id number]) [address] [place] [address] 03393 RBC COUNT 3.73 X10E12/L Low 3.80-5.20 [facility] Comment on above: Performed By: #### Mechelle LEE [facility], 97377-8 #### [facility] ([id number]) [address] [place] [address] 16748 SEG NEUTROPHIL 65.0 % Normal [facility] Comment on above: Performed By: #### Mechelle LEE, [facility], 14019-5 #### [facility] ([id number]) [address] [place] [address] 00963 STOMATOCYTE 1+ Abnormal NONE [facility] Comment on above: Performed By: #### Mechelle LEE, BMP, 63385-7 #### [facility] ([id number]) [address] [place] [address] 71838 WBC (Bld) [#/Vol] 13.5 10*3/uL High 4.0-11.0 [facility] Comment on above: Performed By: #### Mechelle LEE, BMP, 17108-5 #### [facility] ([id number]) [address] [place] [address] ABDOMEN AND PELVIS WO CON Ton 11-21-2023 CT ABDOMEN AND PELVIS WO CONT CT ABDOMEN AND PELVIS WO CONT Study: CT abdomen and pelvis without contrast History:Elevated white blood cell count. Acute abdominal pain Protocol:CT abdomen and pelvis without contrast Contrast none. Lack of oral and IV contrast decreases sensitivity for detection of intra-abdominal abscess. COMPARISON:10/13/2021 Findings: Lung bases:Bilateral pleural effusions slightly smaller than the previous examination. Bibasilar atelectasis left greater than right. Cannot completely exclude small left lower lobe pneumonia Liver:Normal Spleen:Normal Gallbladder:Normal Bile ducts:No ductal dilatation Pancreas:Cystic lesion previously noted proximal body of pancreas is redemonstrated unchanged. Adrenals:Normal] Kidneys:Normal Ureters:No hydroureter Bladder:Not well distended limited evaluation Bowel:G-tube present. Stomach is is some mild large and small bowel dilatation without transition point Reproductive organs:Uterus is unchanged. Fibroids unchanged. No adnexal cyst or mass Mesentry:No adenopathy Peritoneum:No free air or free fluid Retroperitoneum:No adenopathy Abdominal wall:Normal Bones:Degenerative changes lower lumbar spine and SI joints, IMPRESSION: * Multiple uterine fibroids unchanged including calcified likely pedunculated fibroid. * Cyst in the body of the pancreas unchanged * No definite focal fluid collection or abscess. Sensitivity for detection of abscess is decreased without IV or oral contrast. * Mildly distended large and small bowel without transition zone. Likely represents ileus * Bilateral pleural effusions. Bilateral lower lobe airspace density likely atelectasis All CT scans at this facility use dose modulation, iterative reconstruction, and/or weight based dosing when appropriate to reduce radiation dose to as low as reasonably achievable Finalized by Simon Potter MD on 11/21/2023 10:24 AM Normal [facility] CT CHEST WO CONTon CT CHEST WO CONT CT CHEST WO CONT Noncontrast chest CT on 11/21/2023 HISTORY: Fever, respiratory distress COMPARISON: Chest CT 02/11/2008, chest x-ray 11/21/2023, thoracic spine MRI 02/14/2022 TECHNIQUE: Multiple contiguous 2.5 mm axial images of the chest were obtained. Coronal and sagittal 2-D reconstructions were performed. Automated exposure control was utilized. FINDINGS: Normal caliber thoracic aorta with moderate to severe atherosclerotic calcification. Pulmonary artery is normal in caliber. Heart size is within normal limits in size. No pericardial effusion. Moderate coronary artery calcifications. Valvular calcifications are also present. No mediastinal lymphadenopathy. No bulky hilar adenopathy. Small/moderate bilateral pleural effusions with associated compressive atelectasis. Pleural parenchymal scarring noted in both lung apices. Focal reticulonodular infiltrate in the superior right lower lobe. Stable subpleural nodule in the left lung apex requires no additional evaluation. No pneumothorax. Tracheostomy tube terminates 4.5 cm above tejas. Patent central airways. No chest wall lymph node enlargement. Mild chest wall edema. Visible abdominal structures are within normal limits. Superior endplate compression deformity of T3 vertebral body new since comparison MRI. Otherwise no acute osseous abnormality. IMPRESSION: * Small/moderate bilateral pleural effusions with associated compressive atelectasis. * Reticulonodular infiltrate in the right lower lobe consistent with infectious/inflammatory process such as bronchiolitis. * T3 compression fracture of indeterminate age. If there is focal tenderness on clinical examination, consider MRI of the thoracic spine. All CT scans at this facility use dose modulation, iterative reconstruction, and/or weight based dosing when appropriate to reduce radiation dose to as low as reasonably achievable. Finalized by Ricky Dozier MD on 11/21/2023 10:20 AM Normal [facility] Lactate (P lilian) [Moles/Vol]o n 11-21-2023 LACTATE W/REFLEX 1.5 mmol/L Normal 0.4-2.0 [facility] Comment on above: Result Comment: Result did not trigger repeat Lactate, re-order if needed. Performed By: #### 3 2133-1 #### [facility] ([id number]) [address] [place] [address], [place] [address] Procalcitonin IA [Mass/Vol]o n 11-21-2023 PROCALCITONIN 0.29 ng/mL High <0.05 [facility] Comment on above: Result Comment: NOTE <0.50 ng/mL - Low risk of severe sepsis and/or septic shock. <2.00 ng/mL - Recommend retesting within 6-24 hours. >2.00 ng/mL - High risk of sepsis and/or septic shock. Performed By: #### C [facility], 53573-2 #### [facility] ([id number]) [address] [facility] [place] [address] SARS/FLU A+B/RSV by NAAT/Mol ecularon 11-21-2023 SARS/FLU A+B/RSV by NAAT/Molecular FLU A PCR Negative (qualifier value) FLU B PCR Negative (qualifier value) RSV by PCR Negative (qualifier value) SARS CoV 2 Not detected (qualifier value) NOTE The Xpert Xpress SARS-CoV-2/Flu/RSV Plus test is a rapid, multiplexed real-time RT-PCR test intended for the simultaneous qualitative detection and differentiation of SARS-CoV-2, influenza A, influenza B and respiratory syncytial virus (RSV) viral RNA from individuals suspected of respiratory viral infection consistent with COVID-19 by their healthcare provider. This test has not been validated in asymptomatic patients. The Xpert Xpress SARS-CoV-2 test is intended for use by qualified and trained operators who are performing tests using either [employer] or [employer] systems and is limited to laboratories that meet the CLIA requirements to perform high and moderate complexity tests. The Xpert Xpress SARS-CoV-2/Flu/RSV Plus is only for use under the Food and Drug Administration's Emergency Use Authorization. Results are for the simultaneous detection and differentiation of SARS-CoV-2, influenza A, influenza B and RSV nucleic acids in clinical specimens. SARS-CoV-2, influenza A, influenza B and RSV RNA identified by this test are generally detectable in upper respiratory samples during the acute phase of infection. Positive results are indicative of the presence of the identified virus, but do not rule out bacterial infection or co-infection with other pathogens not detected by this test. Clinical correlation with patient history and other diagnostic information is necessary to determine patient infection status. The agent detected may not be the definite cause of disease. Negative results do not preclude SARS-CoV-2, influenza A, influenza B and RSV infection and should not be used as the sole basis for treatment or other patient management decisions. Negative results must be combined with clinical observations, patient history and epidemiological information. An Invalid result may occur with specimen-associated inhibition unable to be resolved with specimen repeat. Fact Sheet for Healthcare Providers: https://www.fda.gov/media/ 971315/download Fact Sheet for Patients: https://www.fda.gov/media/ 241263/download Normal [facility] Comment on above: Performed By: #### C OVFLR #### [facility] ([id number]) [address] [place] [address] 68080 URINE CULTUREon 11-21-2023 Bacteria identified Cx Nom (U) CULTURE RESULTS >100,000 ORGANISMS/mL ENTEROCOCCUS SPECIES Ampicillin or Amoxicillin is the drug of choice for uncomplicated cystitis caused by enterococci. Cephalosporins are inappropriate. [ S = SUSCEPTIBLE R = RESISTANT I = INTERMEDIATE S-DO = Susceptible-dose dependent NS = Non-suscceptible NO = No Interpretation ] Organism: ENTEROCOCCUS SPECIES Antibiotic Interpretation ISABELLA Status AMPICILLIN R >=32 F LEVOFLOXACIN R >=8 F NITROFURANTOIN I 64 F VANCOMYCIN S <=0.5 F Susceptible [facility] Comment on above: Performed By: #### C BCA, [facility], 64102-0 #### [facility] ([id number]) [address] [place] [address] 32457 URN MACROSCOPIC NURon 2023 BILIRUBIN PEARL Negative Normal NEG [facility] Comment on above: Performed By: #### N UM #### [facility] ([id number]) [address] [place] [address] 80302 BLOOD/HGB PEARL Negative Normal NEG [facility] Comment on above: Performed By: #### N UM #### [facility] ([id number]) [address] [place] [address] 56231 GLUCOSE PEARL Negative Normal NEG [facility] Comment on above: Performed By: #### N UM #### [facility] ([id number]) [address] [place] [address] [place] [address] KETONES PEARL Negative Normal NEG [facility] Comment on above: Performed By: #### N UM #### [facility] ([id number]) [address] [place] [address] 25728 LEUKOCYTE ESTERASE PEARL Small Abnormal NEG [facility] Comment on above: Performed By: #### N UM #### [facility] ([id number]) [address] [place] [address] 36085 NITRITE PEARL Negative Normal NEG [facility] Comment on above: Performed By: #### N UM #### [facility] ([id number]) [address] [place] [address] 28225 PH PEARL 7.0 Normal 5.0-8.5 [facility] Comment on above: Performed By: #### N UM #### [facility] ([id number]) [address] [place] [address] 48474 PROTEIN PEARL Negative Normal NEG [facility] Comment on above: Performed By: #### N UM #### [facility] ([id number]) [address] [place] [address] 24575 SPECIFIC GRAVITY PEARL 1.015 Normal 1.003-1.035 [facility] Comment on above: Performed By: #### N UM #### [facility] ([id number]) [address] [place] [address] 02366 UROBILINOGEN PEARL 0.2 eu/dL Normal <1.1 [facility] Comment on above: Performed By: #### N UM #### [facility] ([id number]) [address] [place] [address] 98181 XR CHEST 1 VWon 11-21-2023 XR CHEST 1 VW XR CHEST 1 VW CHEST SINGLE AP VIEW 11/21/2023 8:53 AM CLINICAL INDICATION: Sepsis workup COMPARISON: Chest one view 10/15/2021 IMPRESSION: 1. Tracheostomy tube in expected position. 2. Small bilateral pleural effusions, possibly chronic. Lungs are hyperinflated. Bilateral upper lung interstitial opacities. Bilateral lower lung atelectasis versus airspace disease. No overt pneumonia. 3. Cardiac silhouette is nonenlarged. No pulmonary vascular congestion.. Finalized by Angus Alexander MD on 11/21/2023 9:01 AM Normal [facility] Vital Signs Date Time Vital Sign Value Performing Clinician Facility 12-17-2023 19:00-0400 Body temperature 96.9 [degF] MD Tori Gaona Work Phone: [facility] 12-17-2023 19:00-0400 Diastolic blood pressure 72 mm[Hg] MD Tori Gaona Work Phone: [facility] 12-17-2023 19:00-0400 Heart rate 62 /min MD Tori Gaona Work Phone: [facility] 12-17-2023 19:00-0400 Inhaled oxygen flow rate 6 L/min MD Tori Gaona Work Phone: [facility] 12-17-2023 19:00-0400 Respiratory rate 21 /min MD Tori Gaona Work Phone: [facility] 12-17-2023 19:00-0400 SaO2% (BldA) [Mass fraction] 98 % MD Tori Gaona Work Phone: [facility] 12-17-2023 19:00-0400 Systolic blood pressure 160 mm[Hg] MD Tori Gaona Work Phone: [facility] 12-17-2023 17:05-0400 Inhaled oxygen concentration 28 % MD Tori Gaona Work Phone: [facility] 12-17-2023 06:00-0400 Body weight 40.7 kg MD Tori Gaona Work Phone: [facility] 12-12-2023 13:34-0400 Body height 162.56 cm MD Tori Gaona Work Phone: [facility] 12-08-2023 20:09-0400 Body temperature 97.7 [degF] MD Tori Gaona Work Phone: [facility] 12-08-2023 20:09-0400 Diastolic blood pressure 62 mm[Hg] MD Tori Gaona Work Phone: [facility] 12-08-2023 20:09-0400 Heart rate 49 /min MD Tori Gaona Work Phone: [facility] 12-08-2023 20:09-0400 Inhaled oxygen concentration 40 % MD Tori Gaona Work Phone: [facility] 12-08-2023 20:09-0400 Respiratory rate 17 /min MD Tori Gaona Work Phone: [facility] 12-08-2023 20:09-0400 SaO2% (BldA) [Mass fraction] 99 % MD Tori Gaona Work Phone: [facility] 12-08-2023 20:09-0400 Systolic blood pressure 131 mm[Hg] MD Tori Gaona Work Phone: [facility] 12-08-2023 15:27-0400 Body height 154.94 cm MD Tori Gaona Work Phone: [facility] 12-08-2023 15:27-0400 Body weight 47.6 kg MD Tori Gaona Work Phone: [facility] Encounters Encounter Date Encounter Type Care Provider Facility Start: 12-16-2023 Non-patient / Non-visit MD Chris Gaona Work Phone: [facility] Work Phone: Start: 12-15-2023 Non-patient / Non-visit MD Chris Gaona Work Phone: [facility] Work Phone: Start: 12-09-2023 End: 12-09-2023 ambulatory [facility] Start: 12-09-2023 Non-patient / Non-visit MD Chris Gaona Work Phone: [facility] Work Phone: Start: 12-08-2023 End: 12-17-2023 Evaluation and management of inpatient Ryan Kearns Facility:[facility] Start: 12-08-2023 Non-patient / Non-visit MD Chris Gaona Work Phone: [facility] Work Phone: Start: 12-08-2023 End: 12-17-2023 Evaluation and management of inpatient MD Tori Gaona Work Phone: [facility] Work Phone: Start: 12-07-2023 End: 12-08-2023 Emergency department patient visit TEENA [facility] Start: 11-27-2023 End: 11-27-2023 ambulatory [facility] Start: 11-21-2023 End: 11-27-2023 Emergency department patient visit [facility] Start: 11-21-2023 End: 11-26-2023 Evaluation and management of inpatient [facility] Procedures Date Procedure Procedure Detail Performing Clinician Start: 12-12-2023 Plain chest X-ray MD Rosi Gaona Work Phone: Start: 12-11-2023 Investigation of transfusion reaction MD Tori Gaona Work Phone: Start: 12-09-2023 Blood culture for ba cteria, including anaerobic screen MD Tori Gaona Work Phone: Start: 12-09-2023 Plain chest X-ray MD Rosi Gaona Work Phone: Start: 12-08-2023 CT angiography of thorax MD Tori Gaona Work Phone: Start: 12-08-2023 Plain chest X-ray MD Rosi Gaona Work Phone: Start: 12-08-2023 Blood culture for ba cteria, including anaerobic screen MD Tori Gaona Work Phone: Plan of Treatment Date Care Activity Detail Author Start: 12-17-2023 [facility] Start: 12-16-2023 End: 12-16-2023 [facility] Start: 12-09-2023 [facility] Start: 12-09-2023 Referral to [employer] [facility] Start: 12-08-2023 Consultation [facility] Start: 12-08-2023 Hospital admission [facility] Start: 12-08-2023 [facility] Start: 12-08-2023 Bacteria identified in Blood by Culture [facility] Payers Date Payer Category Payer Self-pay 2023 Unknown [id number] 2016 Unknown [id number] 2004 Medicare [id number] 1940 Unknown [id number] 2.16.8 [id number] 1940 Unknown [id number] 2.16.8 [id number] 1940 Unknown [id number] 2.16.8 [id number] 1940 Unknown [id number] 2.16.8 [id number] 1940 Unknown [id number] 2.16.8 [id number] 1940 Unknown [id number] 2.16.8 [id number] 1940 Unknown [id number] 2.16.8 [id number] 1940 Unknown [id number] 2.16.8 [id number] Unknown [id number] 2.16.8 [id number] Social History Date Type Detail Facility Tobacco smoking stat us [facility] Unknown if ever smoked [facility] Work Phone: Start: 1940 Sex Assigned At Female F [facility] Start: [facility]-09-2023 [facility] Goals Date Patient Goal Desired Activity /State Functional Status Date Assessment Result Facility 12-08-2023 Functional status Patient at Baseline [facility] Work Phone: Mental Status Date Assessment Result Facility 12-08-2023 Cognitive function Cognitive Sta tus Patient at Baseline [facility] Work Phone: Clinical Notes 12-08-2023 to 12-17-2023 Note Date & Type Note Facility 12-17-2023 Discharge summary Note Date/Time December 17, 2023 12:54pm [facility] [address] [place] [address] Discharge Summary Signed Patient: Rosalind Restrepo MR#: [id number] : 1940 Acct:[id number] Age/Sex: 83 / F Adm Date: 4 Loc: Room: [address] [place] [address]: Melani Dunne MD Copies to: MD Ryan Rick MD~ Providers Date of Discharge: 12/17/23 Discharging Provider: Melani Dunne Primary Care Provider: Ryan Kearns Consults: 12/08/23 20:01 Consult to Pulmonology Routine Comment: Consulting Provider: Michael Juarez Reason For Exam: Critical Care Management Has Provider Been Notified: Yes Date of Notification: 12/08/23 Time of Notification: 20:38 12/09/23 01:57 Consult to Case Management Routine Comment: CM Reason for Consult: Woundcare Outpatient 12/09/23 02:05 Consult to Dietitian Routine Comment: Reason for Consult: Tube Feeding Recs 12/11/23 09:28 Consult to Physical Therapy Routine Comment: Physician Instructions: Consult to PT for:: Evaluation and Treat 12/11/23 14:49 Consult to Occupational Therapy Routine Comment: Physician Instructions: Consult to OT for:: Evaluation and Treat 12/16/23 12:59 Consult to Speech Therapy Routine Comment: Reason for ST Consult: Bedside Swallow Eval & Tx Diet per ST Recommendations: Yes Modified Barium Swallow Study, If Recommended: Yes 12/16/23 15:00 Speech Therapy Modified Barium Swallow ONCE Comment: Diet per ST Recommendations: Yes Discharge Diagnosis (1) Acute on chronic respiratory failure with hypoxia: (2) Pleural effusion: (3) Ventilator dependent: (4) Pneumothorax: Final Diagnosis Final Discharge Diagnosis: as above Summary Hospital Course Hospital course: Assessment/Plan (1) Pleural effusion: (2) Ventilator dependent: (3) Pneumothorax: (4) Acute on chronic respiratory failure with hypoxia: (5) Cachexia: (6) Acute on chronic diastolic heart failure: Plan Assessment and plan Acute on chronic respiratory failure Pleural effusion Ventilator dependent Pneumothorax Seen and examined Clinically better Alert awake and follow commands No complaints On trach collar Saturation is 99% No fever No leukocytosis Blood cultures are negative Sputum culture Aerobic Culture Final 12/14/23-1255 Organism 1 Corynebacterium striatum group Moderate Growth Organism Not Routinely Tested for Susceptibilities Organism 2 Acacia auris Light Growth Levaquin p.o. 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 -Maintain and perform routine care to PEG tube -Maintain HOB at 30-45 degrees at all times -Tube feeding via PEG tube: Continuous Glucerna 1.5-- goal of 50 ml/hr -See speech therapy recommendations on nunez hitesh -Measure gastric residual every 4 hours -Change dressing every 3 days: *coccyx stage 2 pressure injury- clean with therawrox protect, apply mepilex border foam -Free water flushes Q4H: 125 ml/hr -Care to be managed by LTC providers. Instructions: Heart Failure, Adult (DC) Prescriptions: New methylprednisolone [Medrol (Fred[place])] 4 mg tablets,dose pack See Rx Instructions .ROUTE .COMPLEX Qty: 21 0RF Rx Instructions: orally per package directions Continued albuterol sulfate 2.5 mg/0.5 mL solution for nebulization 2.5 mg inhalation Q2HR PRN (Reason: shortness of breath or wheezing) albuterol sulfate 2.5 mg /3 mL (0.083 %) solution for nebulization 2.5 mg inhalation QID artificial tears solution Drops 1 drp ophthalmic (eye) BID aspirin 81 mg capsule 81 mg feeding tube DAILY bisacodyl 10 mg suppository 10 mg [place] DAILY PRN (Reason: constipation) buspirone 10 mg tablet 10 mg feeding tube TID chlorhexidine gluconate 0.12 % mouthwash 15 ml buccal BID Rx Instructions: administer with toothettes diltiazem HCl [Cardizem] 30 mg tablet 30 mg feeding tube BID Rx Instructions: hold for SBP <120 and HR <60 ferrous sulfate 300 mg (60 mg iron)/5 mL liquid 300 mg feeding tube DAILY furosemide 40 mg tablet 40 mg feeding tube BID Rx Instructions: x3 days, start 12/08/23, end 12/11/23 heparin (porcine) 5,000 unit/mL solution 5,000 unit subcut BID hydroxyzine HCl 50 mg tablet 50 mg feeding tube Q8HR PRN (Reason: anxiety) Lactobacillus acidophilus 1 billion cell capsule 1,000 mmu cells feeding tube BID levothyroxine [Euthyrox] 200 mcg tablet 200 mcg feeding tube DAILY escitalopram oxalate [Lexapro] 10 mg tablet 10 mg feeding tube BID lidocaine 4 % adhesive patch,medicated 1 patch topical DAILY Rx Instructions: may leave on for up to 12 hrs, apply to left shoulder loperamide [Diamode] 2 mg tablet 2 mg feeding tube Q6HR PRN (Reason: loose stool) alum-mag hydroxide-simeth [Maalox Maximum Strength] 400-400-40 mg/5 mL suspension 7.5 ml PO Q6HR PRN (Reason: indigestion) metoprolol tartrate 25 mg tablet 12.5 mg feeding tube BID Rx Instructions: hold for SBP <120 and HR <60 ondansetron 4 mg tablet,disintegrating 4 mg feeding tube Q8HR PRN (Reason: nausea and vomiting) oxycodone 5 mg tablet 2.5 mg feeding tube Q6HR PRN (Reason: pain) oxycodone 5 mg tablet 5 mg feeding tube Q6HR PRN (Reason: pain) prednisolone acetate [Pred Forte] 1 % drops,suspension 1 drp Eye-Both DAILY sennosides 8.8 mg/5 mL syrup 10 ml PO HS sennosides 8.8 mg/5 mL syrup 5 ml feeding tube DAILY PRN (Reason: constipation) triamcinolone acetonide 0.1 % cream 1 applic topical HS acetaminophen 325 mg tablet 650 mg feeding tube QID PRN (Reason: pain) Discontinued furosemide 20 mg tablet 20 mg feeding tube BID levofloxacin 750 mg tablet 750 mg feeding tube DAILY Rx Instructions: x 10 days, start 12/06/23, end 12/16/23 Exam Physical Exam Vital Signs: Temp Pulse Resp BP Pulse Ox O2 Del Method O2 Flow Rate 97.1 F L 68 20 163/70 H 99 Trach Collar 6 12/17/23 04:00 12/17/23 08:53 12/17/23 08:53 12/17/23 06:00 12/17/23 06:00 12/17/23 08:00 12/17/23 08:00 FiO2 28 12/17/23 08:00 Narrative: General patient laying in bed in no acute distress alert awake oriented x3 HEENT PERRLA Neck supple no JVD no carotid bruit. Tracheostomy CVS S1-S2 regular rate and rhythm no murmur no gallop Chest clear to auscultation percussion Abdomen soft bowel sounds normoactive no rebound no guarding Extremities no stenosis no clubbing no edema Musculoskeletal exam normal no joint effusion Neurologic exam oriented x3 alert awake no focal left Psychiatry: Normal insight and judgment Skin: no rash or lesions Diagnostic Studies Completed and Pending Studies Pending studies at discharge: 12/17/23 08:00 FL barium swallow modified Routine Labs on day of discharge: 12/17/23 04:16: Sample Site Right radial, ABG pH 7.51 H, ABG pCO2 42.7, ABG pO2 93.3, ABG HCO3 33.2 H, ABG Total CO2 34.5 H, ABG O2 Saturation 97.6, ABG O2 Content 8.0, ABG Base Excess 9.2 H, FiO2 35, Critical Value Documented By: Melani Dunne MD 12/17/23 1250 Signed By: <Electronically signed by Melani Dunne MD> 12/17/23 1254 [facility] Work Phone: 1(305) 270-270304-23-2024 Progress note Author Robbie Cuevas [facility] December 17, 2023 11:55am Note Date/Time December 17, 2023 8:3 9am [facility] [address] [place] [address] Pulmonology Progress Note Signed Patient: Rosalind Restrepo MR#: [id number] : 1940 Acct:[id number] Age/Sex: 83 / F Adm Date: 4 Loc: Room: [address] [place] [address] Type: ADM IN Attending Dr: Melani Dunne MD Copies to: ~ Date of Service: 12/17/2023 Subjective Subjective Narrative: Patient was awakened this morning and reports that she slept well off mechanicalventilation. There were no reported issues overnight per nursing staff. Exam Physical Exam Vital Signs: Temp Pulse Resp BP Pulse Ox O2 Del Method O2 Flow Rate 97.1 F L 51 L 10 L 163/70 H 99 Trach Collar 6 12/17/23 04:00 12/17/23 06:00 12/17/23 06:00 12/17/23 06:00 12/17/23 06:00 12/17/23 06:00 12/17/23 06:00 FiO2 28 12/17/23 06:00 Const General: cooperative Nutritional Appearance: cachectic Orientation: alert and awake HEENT Head: normal to inspection Ears: hearing grossly normal bilaterally and external ears normal Nose: external nose normal Face and sinus: normal facial exam Eyes Sclera: sclerae normal Neck Neck: normal visual inspection and tracheostomy present (Cuffed Shiley 6 tracheostomy with disposable inner cannula) Chest Chest palpation & inspection: abnormal inspection of the chest barrel chest Resp Effort & Inspection: normal respiratory effort and uses accessory muscles Auscultation: clear to auscultation bilaterally, diminished lung sounds, no rales, no rhonchi and no wheezes Cardio Rate: regular rate Rhythm: regular rhythm Heart Sounds: S1 normal, S2 normal and no murmurs GI Inspection: normal to inspection Palpation: soft and nontender Auscultation: hypoactive bowel sounds Rectal Exam: deferred General: deferred Skin General: no rashes or lesions noted (Warm and dry) Extrem General: no pedal edema Objective Intake and Output I&O - Last 24 Hours: Intake & Output 12/16/23 12/17/23 12/17/23 23:59 07:59 15:59 Intake Total 630 / 2050 676 / 676 Output Total 150 / 700 0 / 0 Balance 480 / 1350 676 / 676 Weight 89 lb 11.65 oz Labs 12/15/23 04:44 12/15/23 04:44 Additional Results Results Comments: 12/17/23 04:16 ABG pH 7.51 H ABG pCO2 42.7 ABG pO2 93.3 ABG HCO3 33.2 H ABG Total CO2 34.5 H ABG O2 Saturation 97.6 ABG O2 Content 8.0 ABG Base Excess 9.2 H On 35% trach collar Assessment/Plan Assessment/Plan (1) Acute on chronic respiratory failure with hypoxia: (2) Pleural effusion: (3) Ventilator dependent: (4) Pneumothorax: Plan Hospital day #9 for patient with acute on chronic respiratory failure with sputum revealing corynebacterium and light growth of Acacia auris. Patient didwell off mechanical ventilation last night and arterial blood gas actually revealed relative hyperventilation. Case was discussed with the hospitalist service. I believe the patient can go back to her long-term acute care facilityoff nocturnal ventilation. However, she should be observed for several nights off of her mechanical ventilation to ensure she has no retention of CO2 or deterioration in her respiratory status. During that timeframe, family can be instructed on tracheostomy care with patient reporting that plan is for her to go home with her daughter to [place]. I have no new recommendations with steroid taper written. Documented By: Robbie Cuevas MD 4 [id number] Signed By: <Electronically signed by MD Robbie Cuevas> 12/17/23 8675 [facility] Work Phone: 1(817) 900-826804-22-2024 Progress note Author Melani Dunne [facility] December 16, 2023 1:33pm Note Date/Time December 16, 2023 1:3 3pm [facility] [address] [place] [address] Hospitalist Progress Note Signed Patient: Rosalind Restrepo MR#: [id number] : 1940 Acct:[id number] Age/Sex: 83 / F Adm Date: 4 Loc: Room: [address] [place] [address] Type: ADM IN Attending Dr: Melani Dunne MD Copies to: ~ Date of Service: 12/16/2023 Subjective Subjective Narrative: Seen and examined Clinically stable On trach collar No complaints No fever chills Exam Physical Exam Vital Signs: Temp Pulse Resp BP Pulse Ox O2 Del Method O2 Flow Rate 97.5 F L 51 L 18 166/73 H 96 Trach Collar 6 12/16/23 12:00 12/16/23 12:00 12/16/23 12:00 12/16/23 12:00 12/16/23 12:00 12/16/23 12:00 12/16/23 12:00 FiO2 28 12/16/23 12:00 Narrative: General patient laying in bed in no acute distress alert awake oriented x3 HEENT PERRLA Neck supple no JVD no carotid bruit. Tracheostomy CVS S1-S2 regular rate and rhythm no murmur no gallop Chest clear to auscultation percussion Abdomen soft bowel sounds normoactive no rebound no guarding Extremities no stenosis no clubbing no edema Musculoskeletal exam normal no joint effusion Neurologic exam oriented x3 alert awake no focal left Psychiatry: Normal insight and judgment Skin: no rash or lesions Objective Lab Results 12/15/23 04:44 12/15/23 04:44 Meds Allergies and Active Meds Allergies Sulfa (Sulfonamide Antibiotics) Allergy (Verified 12/08/23 17:02) Unknown Reaction Active Meds: Active Medications Generic Name Dose Route Start Last Admin Trade Name Freq PRN Reason Stop Dose Admin Acetaminophen 650 mg 12/08/23 20:02 12/12/23 12:14 Acetaminophen 325 Mg Tablet PEG 12/07/24 20:01 650 mg QID PRN Administration pain Albuterol 2.5 mg 12/08/23 20:02 Albuterol Neb *Concentrated* 2.5 Mg/0.5 Ml Vial.Neb INHALATION 12/07/24 20:01 Q2HR PRN shortness of breath or wheezing Albuterol 6 puff 12/09/23 06:00 12/16/23 13:04 Albuterol Hfa 200 Puff/18 Gm Inhaler VENT 12/08/24 05:59 Not Given Q6HR ZACHARY Aspirin 81 mg 12/09/23 09:00 12/16/23 08:58 Aspirin 81 Mg Tablet.Dr GONZALES 12/08/24 08:59 81 mg DAILY ZACHARY Administration Buspirone HCl 10 mg 12/08/23 22:00 12/16/23 08:58 Buspirone 10 Mg Tablet PEG 12/07/24 21:59 10 mg TID ZACHARY Administration Diltiazem HCl 30 mg 12/11/23 21:00 12/16/23 10:07 Diltiazem 30 Mg Tablet PEG 12/10/24 20:59 Not Given BID ZACHARY Escitalopram Oxalate 10 mg 12/08/23 21:00 12/16/23 08:58 Escitalopram 10 Mg Tablet PEG 12/07/24 20:59 10 mg BID ZACHARY Administration Furosemide 20 mg 12/16/23 08:00 12/16/23 08:57 Furosemide 20 Mg/2 Ml Vial IV-PUSH 12/15/24 18:00 20 mg BID@0800,1600 ZACHARY Administration Heparin Sodium (Porcine) 5,000 unit 12/08/23 21:00 12/16/23 08:56 Heparin 5,000 Unit/Ml Vial SUBCUT 12/07/24 20:59 5,000 unit Q12HR ZACHARY Administration Hydroxyzine Pamoate 50 mg 12/08/23 22:57 Hydroxyzine Pamoate 50 Mg Capsule PEG 12/07/24 22:56 Q8HR PRN anxiety Levofloxacin 750 mg 12/11/23 09:00 12/15/23 09:38 Levofloxacin 750 Mg Tablet PEG 12/16/23 23:59 750 mg Q48H ZACHARY Administration Levothyroxine Sodium 200 mcg 12/09/23 06:30 12/16/23 06:19 Levothyroxine 200 Mcg Tablet PEG 12/08/24 06:29 200 mcg DAILY.0630 ZACHARY Administration Lidocaine 1 patch 12/09/23 09:00 12/16/23 08:56 Lidocaine 4% Adh..Patch TOPICAL 12/08/24 08:59 1 patch DAILY ZACHARY Administration Metoprolol Tartrate 12.5 mg 12/11/23 10:30 12/16/23 08:57 Metoprolol Tartrate 12.5 Mg Tablet PEG 12/10/24 10:29 12.5 mg BID ZACHARY Administration Morphine Sulfate 2 mg 12/10/23 09:30 12/12/23 16:20 Morphine Sulfate 2 Mg/Ml Vial IV-PUSH 2 mg Q4H PRN Administration Pain Scale 4 - 6 Prednisolone Acetate 1 drops 12/09/23 09:00 12/16/23 10:07 Prednisolone Ac 1% Op Susp 100 Drops/5 Ml Bottle EYE-BOTH 12/08/24 08:59 Not Given DAILY ZACHARY Prednisone 40 mg 12/17/23 09:00 Prednisone 20 Mg Tablet PO 01/15/24 08:59 DAILY ZACHARY Taper Prochlorperazine Edisylate 10 mg 12/11/23 05:45 12/11/23 06:25 Prochlorperazine Edisylate 10 Mg/2 Ml Vial IV-PUSH 12/10/24 05:44 10 mg Q6H PRN Administration Nausea And Vomiting Sodium Chloride 0 ml 12/08/23 15:40 12/14/23 21:32 Sodium Chloride 0.9 % 10 Ml Syringe IV-PUSH 12/07/24 15:39 10 ml PRN PRN Administration Flush A&P - Hospitalist Assessment/Plan (1) Pleural effusion: (2) Ventilator dependent: (3) Pneumothorax: (4) Acute on chronic respiratory failure with hypoxia: (5) Cachexia: (6) Acute on chronic diastolic heart failure: Plan Assessment and plan Acute on chronic respiratory failure Pleural effusion Ventilator dependent Pneumothorax Seen and examined Clinically better Alert awake and follow commands No complaints On trach collar Saturation is 99% No fever No leukocytosis Blood cultures are negative Sputum culture Aerobic Culture Final 12/14/23-1255 Organism 1 Corynebacterium striatum group Moderate Growth Organism Not Routinely Tested for Susceptibilities Organism 2 Acacia auris Light Growth Levaquin p.o. daily Lasix IV twice daily Prednisone orally daily BMP daily Plan to discharge to LTAC tomorrow per pulmonology team Documented By: Melani Dunne MD 12/16/23 1328 Signed By: <Electronically signed by Melani Dunne MD> 12/16/23 1333 [facility] Work Phone: 1(949) 313-603704-22-2024 Progress note Author Robbie Cuevas [facility] December 16, 2023 12:52pm Note Date/Time December 16, 2023 10: 27am [facility] [address] [place] [address] Pulmonology Progress Note Signed Patient: Rosalind Restrepo MR#: [id number] : 1940 Acct:[id number] Age/Sex: 83 / F Adm Date: 4 Loc: Room: [address] [place] [address] Type: ADM IN Attending Dr: Melani Dunne MD Copies to: ~ Date of Service: 12/16/2023 Subjective Subjective Narrative: Patient is awake and alert and conversant. She voices no complaints at the timeof my visit. Exam Physical Exam Vital Signs: Temp Pulse Resp BP Pulse Ox O2 Del Method O2 Flow Rate 97.9 F 48 L 16 174/74 H 99 Trach Collar 6 12/16/23 08:00 12/16/23 10:00 12/16/23 10:00 12/16/23 10:00 12/16/23 10:00 12/16/23 10:00 12/16/23 10:00 FiO2 35 12/16/23 10:00 Const General: cooperative Nutritional Appearance: cachectic Orientation: alert and awake HEENT Head: normal to inspection Ears: hearing grossly normal bilaterally and external ears normal Nose: external nose normal Face and sinus: normal facial exam Eyes Sclera: sclerae normal Neck Neck: normal visual inspection and tracheostomy present (Cuffed Shiley 6 tracheostomy with disposable inner cannula) Chest Chest palpation & inspection: abnormal inspection of the chest barrel chest Resp Effort & Inspection: uses accessory muscles Auscultation: clear to auscultation bilaterally, diminished lung sounds, no rales, no rhonchi and no wheezes Cardio Rate: regular rate Rhythm: regular rhythm Heart Sounds: S1 normal, S2 normal and no murmurs GI Inspection: normal to inspection Palpation: soft and nontender Auscultation: hypoactive bowel sounds Rectal Exam: deferred General: deferred Skin General: no rashes or lesions noted (Warm and dry) Extrem General: no pedal edema Objective Intake and Output I&O - Last 24 Hours: Intake & Output 12/15/23 12/16/23 12/16/23 23:59 07:59 15:59 Intake Total 417 / 1517 665 / 665 Output Total 350 / 1080 200 / 200 Balance 67 / 437 465 / 465 Weight 87 lb 8.376 oz Labs 12/15/23 04:44 12/15/23 04:44 Assessment/Plan Assessment/Plan (1) Acute on chronic respiratory failure with hypoxia: (2) Pleural effusion: (3) Ventilator dependent: (4) Pneumothorax: Plan Hospital day #8 for patient with acute on chronic respiratory failure with sputum revealing corynebacterium and light growth of Acacia auris. Patient is completing outpatient course of levofloxacin with no new cultures warranting extension of antibiotics. Patient is on steroids and was changed from IV Solu-Medrol to prednisone per PEG tube with slow taper. Patient's last course of antibiotic is today. We will try patient off mechanical ventilation this evening and obtain arterial blood gases tomorrow morning to determine if the patient still requires nocturnal ventilation. Nevertheless, when patient is transferred back to her facility, patient should be observed off nocturnal ventilation to ensure no recurrent development of respiratory failure prior to patient being able to potentially go home. Furthermore, patient would need training for patient to go home with family support and care of tracheostomy. Documented By: Robbie Cuevas MD 4 [id number] Signed By: <Electronically signed by MD Robbie Cuevas> 12/16/23 1252 [facility] Work Phone: 1(439) 883-890104-21-2024 Progress note Author Raul Lehman [facility] December 15, 2023 5:25pm Note Date/Time December 15, 2023 5:2 5pm [facility] [address] [place] [address] Hospitalist Progress Note Signed Patient: Rosalind Restrepo MR#: [id number] : 1940 Acct:[id number] Age/Sex: 83 / F Adm Date: 4 Loc: Room: [address] [place] [address] Type: ADM IN Attending Dr: Raul Lehman MD Copies to: ~ Date of Service: 12/15/2023 Subjective Subjective Narrative: No new symptoms. She is currently on PSV 7/5 with 35% FiO2 On trach collar today Respiratory culture was positive for Corynebacterium, Acacia She is off of antibiotic standing today. Exam Physical Exam Vital Signs: Temp Pulse Resp BP Pulse Ox O2 Del Method O2 Flow Rate 97.5 F L 66 20 153/69 H 99 Trach Collar 6 12/15/23 15:00 12/15/23 16:28 12/15/23 16:28 12/15/23 16:00 12/15/23 16:00 12/15/23 17:00 12/15/23 17:00 FiO2 35 12/15/23 17:00 Objective Lab Results 12/15/23 04:44 12/15/23 04:44 Meds Allergies and Active Meds Allergies Sulfa (Sulfonamide Antibiotics) Allergy (Verified 12/08/23 17:02) Unknown Reaction Active Meds: Active Medications Generic Name Dose Route Start Last Admin Trade Name Freq PRN Reason Stop Dose Admin Acetaminophen 650 mg 12/08/23 20:02 12/12/23 12:14 Acetaminophen 325 Mg Tablet PEG 12/07/24 20:01 650 mg QID PRN Administration pain Albuterol 2.5 mg 12/08/23 20:02 Albuterol Neb *Concentrated* 2.5 Mg/0.5 Ml Vial.Neb INHALATION 12/07/24 20:01 Q2HR PRN shortness of breath or wheezing Albuterol 6 puff 12/09/23 06:00 12/15/23 16:26 Albuterol Hfa 200 Puff/18 Gm Inhaler VENT 12/08/24 05:59 Not Given Q6HR ZACHARY Aspirin 81 mg 12/09/23 09:00 12/15/23 09:37 Aspirin 81 Mg Tablet.Dr PO 12/08/24 08:59 81 mg DAILY ZACHARY Administration Buspirone HCl 10 mg 12/08/23 22:00 12/15/23 14:59 Buspirone 10 Mg Tablet PEG 12/07/24 21:59 10 mg TID ZACHARY Administration Diltiazem HCl 30 mg 12/11/23 21:00 12/15/23 09:37 Diltiazem 30 Mg Tablet PEG 12/10/24 20:59 30 mg BID ZACHARY Administration Escitalopram Oxalate 10 mg 12/08/23 21:00 12/15/23 09:38 Escitalopram 10 Mg Tablet PEG 12/07/24 20:59 10 mg BID ZACHARY Administration Furosemide 20 mg 12/16/23 08:00 Furosemide 20 Mg/2 Ml Vial IV-PUSH 12/15/24 18:00 BID@0800,1600 ZACHARY Heparin Sodium (Porcine) 5,000 unit 12/08/23 21:00 12/15/23 09:39 Heparin 5,000 Unit/Ml Vial SUBCUT 12/07/24 20:59 5,000 unit Q12HR ZACHARY Administration Hydroxyzine Pamoate 50 mg 12/08/23 22:57 Hydroxyzine Pamoate 50 Mg Capsule PEG 12/07/24 22:56 Q8HR PRN anxiety Levofloxacin 750 mg 12/11/23 09:00 12/15/23 09:38 Levofloxacin 750 Mg Tablet PEG 12/16/23 23:59 750 mg Q48H ZACHARY Administration Levothyroxine Sodium 200 mcg 12/09/23 06:30 12/15/23 06:03 Levothyroxine 200 Mcg Tablet PEG 12/08/24 06:29 200 mcg DAILY.0630 ZACHARY Administration Lidocaine 1 patch 12/09/23 09:00 12/15/23 09:39 Lidocaine 4% Adh..Patch TOPICAL 12/08/24 08:59 1 patch DAILY ZACHARY Administration Methylprednisolone Sodium Succinate 20 mg 12/13/23 09:00 12/15/23 09:39 Methylprednisolone Sod Succ/Pf 40 Mg/Ml (1ml) Vial IV-PUSH 12/12/24 08:59 20 mg Q12HR ZACHARY Administration Metoprolol Tartrate 12.5 mg 12/11/23 10:30 12/15/23 09:37 Metoprolol Tartrate 12.5 Mg Tablet PEG 12/10/24 10:29 12.5 mg BID ZACHAYR Administration Morphine Sulfate 2 mg 12/10/23 09:30 12/12/23 16:20 Morphine Sulfate 2 Mg/Ml Vial IV-PUSH 2 mg Q4H PRN Administration Pain Scale 4 - 6 Prednisolone Acetate 1 drops 12/09/23 09:00 12/15/23 09:40 Prednisolone Ac 1% Op Susp 100 Drops/5 Ml Bottle EYE-BOTH 12/08/24 08:59 Not Given DAILY ZACHARY Prochlorperazine Edisylate 10 mg 12/11/23 05:45 12/11/23 06:25 Prochlorperazine Edisylate 10 Mg/2 Ml Vial IV-PUSH 12/10/24 05:44 10 mg Q6H PRN Administration Nausea And Vomiting Sodium Chloride 0 ml 12/08/23 15:40 12/14/23 21:32 Sodium Chloride 0.9 % 10 Ml Syringe IV-PUSH 12/07/24 15:39 10 ml PRN PRN Administration Flush A&P - Hospitalist Assessment/Plan (1) Pleural effusion: (2) Ventilator dependent: (3) Pneumothorax: (4) Acute on chronic respiratory failure with hypoxia: (5) Cachexia: (6) Acute on chronic diastolic heart failure: Plan ASSESSMENT AND PLAN: 12/15/2023 -Continue to monitor closely in the ICU one more day. -Currently on PSV of 7/5. Tolerating trach collar -Lasix 40 mg twice daily with metolazone 5 mg p.o. -Antibiotic was DC'd. Respiratory karol grew Acacia and Corynebacterium. -Resume tube feeding -DVT prophylaxis-she is on subcu heparin -Full code -PT OT -Possible transferred out from ICU to med/tele floor tomorrow. Documented By: Raul Lehman MD 12/15/231720 Signed By: <Electronically signed by Raul Lehman MD> 12/15/23 1725 [facility] Work Phone: 1(459) 167-373304-21-2024 Progress note Author [facility] December 15, 2023 9:26am Note Date/Time December 15, 2023 9:2 2am [facility] [address] [place] [address] Pulmonology Progress Note Signed Patient: Rosalind Restrepo MR#: [id number] : 1940 Acct:[id number] Age/Sex: 83 / F Adm Date: 4 Loc: Room: [address] [place] [address] Type: ADM IN Attending Dr: Raul Lehman MD Copies to: ~ Date of Service: 12/15/2023 Subjective Subjective Narrative: Did tolerate PSV 7/5. No new complaints. Laboratory data and images reviewed Respiratory cultures 12/10 Corynebacterium striatum, Acacia auris Exam Physical Exam Vital Signs: Temp Pulse Resp BP Pulse Ox O2 Del Method O2 Flow Rate 97.9 F 65 16 142/63 H 98 CPAP 12 12/15/23 03:00 12/15/23 08:00 12/15/23 08:00 12/15/23 08:00 12/15/23 08:00 12/15/23 08:00 12/15/23 02:00 FiO2 30 12/15/23 09:00 Narrative: General: awake, follows simple commands, on mechanical ventilator HEENT: EOMi, PERRL+, oral mucosa is moist Neck: neck is supple, tracheostomy in place Cardiovascular: regular rate and rhythm, capillary fill is within normal limits Respiratory: Clear to auscultation upper lobes, negative breath sounds in bases,chest is symmetric Abdomen: bowel sounds present, no tenderness nondistended Neuro: awake, no gross motor deficits Objective Intake and Output I&O - Last 24 Hours: Intake & Output 12/14/23 12/15/23 12/15/23 23:59 07:59 15:59 Intake Total 550 / 1745 500 / 500 Output Total 480 / 580 150 / 150 Balance 70 / 1165 350 / 350 Weight 41.6 kg Labs 12/15/23 04:44 12/15/23 04:44 Microbiology Micro: Microbiology 3 12/11/23 14:18 Aerobic Culture - Final Sputum - Trachea Sample Corynebacterium striatum group Acacia auris Gram Stain - Final 12/09/23 10:27 Blood Culture - Final Blood - Right Hand NO GROWTH 5 DAYS 12/09/23 10:30 Blood Culture - Final Blood - Left Antecubital NO GROWTH 5 DAYS Assessment/Plan Assessment/Plan (1) Acute on chronic respiratory failure with hypoxia: (2) Pleural effusion: (3) Ventilator dependent: (4) Pneumothorax: Plan Trach collar today Back to PSV 7/5 at night or respiratory distress Respiratory culture results are most likely secondary to colonization Discontinue antibiotics Albuterol nebs every 6 hours Hypertonic saline nebs every 6 hours Chest physiotherapy Lasix to 20 BID MTP 40 daily Patient has trapped lung. No invasive interventions indicated at this time Continue tube feedings and free water DVT/GI prophylaxis Physical therapy Out of bed CCT:30 minutes Documented By: Michael Butterfield MD [id number] Signed By: <Electronically signed by Michael Butterfield MD> 12/15/23925 [facility] Work Phone: 1(362) 792-232804-20-2024 Progress note Author Raul Lehman [facility] December 14, 2023 6:25pm Note Date/Time December 14, 2023 6:2 5pm [facility] [address] [place] [address] Hospitalist Progress Note Signed Patient: Rosalind Restrepo MR#: [id number] : 1940 Acct:[id number] Age/Sex: 83 / F Adm Date: 4 Loc: Room: [address] [place] [address] Type: ADM IN Attending Dr: Raul Lehman MD Copies to: ~ Date of Service: 12/14/2023 Subjective Subjective Narrative: No new symptoms. She is currently on pressure support 05/30 with 40% FiO2 Exam Physical Exam Vital Signs: Temp Pulse Resp BP Pulse Ox O2 Del Method O2 Flow Rate 97.3 F L 65 16 150/97 H 99 CPAP 12 12/14/23 13:00 12/14/23 18:00 12/14/23 18:00 12/14/23 18:00 12/14/23 18:00 12/14/23 18:00 12/14/23 18:00 FiO2 30 12/14/23 18:00 Objective Lab Results 12/14/23 04:43 12/14/23 04:43 Microbiology Results Microbiology 12/11/23 14:18 Sputum - Trachea Sample Aerobic Culture - Final Corynebacterium striatum group Acacia auris 12/11/23 14:18 Sputum - Trachea Sample Gram Stain - Final 12/09/23 10:27 Blood - Right Hand Blood Culture - Final NO GROWTH 5 DAYS 12/09/23 10:30 Blood - Left Antecubital Blood Culture - Final NO GROWTH 5 DAYS 12/08/23 16:44 Blood - Right Arm Blood Culture - Final NO GROWTH 5 DAYS 12/08/23 16:08 Blood - Right Antecubital Blood Culture - Final NO GROWTH 5 DAYS Meds Allergies and Active Meds Allergies Sulfa (Sulfonamide Antibiotics) Allergy (Verified 12/08/23 17:02) Unknown Reaction Active Meds: Active Medications Generic Name Dose Route Start Last Admin Trade Name Freq PRN Reason Stop Dose Admin Acetaminophen 650 mg 12/08/23 20:02 12/12/23 12:14 Acetaminophen 325 Mg Tablet PEG 12/07/24 20:01 650 mg QID PRN Administration pain Albuterol 2.5 mg 12/08/23 20:02 Albuterol Neb *Concentrated* 2.5 Mg/0.5 Ml Vial.Neb INHALATION 12/07/24 20:01 Q2HR PRN shortness of breath or wheezing Albuterol 6 puff 12/09/23 06:00 12/14/23 18:02 Albuterol Hfa 200 Puff/18 Gm Inhaler VENT 12/08/24 05:59 6 puff Q6HR ZACHARY Administration Aspirin 81 mg 12/09/23 09:00 12/14/23 09:10 Aspirin 81 Mg Tablet.Dr PO 12/08/24 08:59 81 mg DAILY ZACHARY Administration Buspirone HCl 10 mg 12/08/23 22:00 12/14/23 14:15 Buspirone 10 Mg Tablet PEG 12/07/24 21:59 10 mg TID ZACHARY Administration Diltiazem HCl 30 mg 12/11/23 21:00 12/14/23 09:10 Diltiazem 30 Mg Tablet PEG 12/10/24 20:59 30 mg BID ZACHARY Administration Escitalopram Oxalate 10 mg 12/08/23 21:00 12/14/23 09:10 Escitalopram 10 Mg Tablet PEG 12/07/24 20:59 10 mg BID ZACHARY Administration Furosemide 40 mg 12/12/23 09:00 12/14/23 09:10 Furosemide 40 Mg/4 Ml Vial IV-PUSH 12/11/24 08:59 40 mg DAILY.8A ZACHARY Administration Furosemide 40 mg 12/13/23 16:00 12/14/23 16:18 Furosemide 40 Mg/4 Ml Vial IV-PUSH 12/12/24 15:59 40 mg DAILY@1600 ZACHARY Administration Heparin Sodium (Porcine) 5,000 unit 12/08/23 21:00 12/14/23 09:10 Heparin 5,000 Unit/Ml Vial SUBCUT 12/07/24 20:59 5,000 unit Q12HR ZACHARY Administration Hydroxyzine Pamoate 50 mg 12/08/23 22:57 Hydroxyzine Pamoate 50 Mg Capsule PEG 12/07/24 22:56 Q8HR PRN anxiety Levofloxacin 750 mg 12/11/23 09:00 12/13/23 09:17 Levofloxacin 750 Mg Tablet PEG 12/16/23 23:59 750 mg Q48H ZACHARY Administration Levothyroxine Sodium 200 mcg 12/09/23 06:30 12/14/23 05:52 Levothyroxine 200 Mcg Tablet PEG 12/08/24 06:29 200 mcg DAILY.0630 ZACHARY Administration Lidocaine 1 patch 12/09/23 09:00 12/14/23 09:10 Lidocaine 4% Adh..Patch TOPICAL 12/08/24 08:59 1 patch DAILY ZACHARY Administration Methylprednisolone Sodium Succinate 20 mg 12/13/23 09:00 12/14/23 09:10 Methylprednisolone Sod Succ/Pf 40 Mg/Ml (1ml) Vial IV-PUSH 12/12/24 08:59 20 mg Q12HR ZACHARY Administration Metolazone 5 mg 12/15/23 08:30 Metolazone 5 Mg Tablet PO 12/14/24 08:29 DAILY@0830 ZACHARY Metoprolol Tartrate 12.5 mg 12/11/23 10:30 12/14/23 09:10 Metoprolol Tartrate 12.5 Mg Tablet PEG 12/10/24 10:29 12.5 mg BID ZACHARY Administration Morphine Sulfate 2 mg 12/10/23 09:30 12/12/23 16:20 Morphine Sulfate 2 Mg/Ml Vial IV-PUSH 2 mg Q4H PRN Administration Pain Scale 4 - 6 Prednisolone Acetate 1 drops 12/09/23 09:00 12/14/23 09:11 Prednisolone Ac 1% Op Susp 100 Drops/5 Ml Bottle EYE-BOTH 12/08/24 08:59 Not Given DAILY ZACHARY Prochlorperazine Edisylate 10 mg 12/11/23 05:45 12/11/23 06:25 Prochlorperazine Edisylate 10 Mg/2 Ml Vial IV-PUSH 12/10/24 05:44 10 mg Q6H PRN Administration Nausea And Vomiting Sodium Chloride 0 ml 12/08/23 15:40 12/13/23 21:13 Sodium Chloride 0.9 % 10 Ml Syringe IV-PUSH 12/07/24 15:39 5 ml PRN PRN Administration Flush A&P - Hospitalist Assessment/Plan (1) Pleural effusion: (2) Ventilator dependent: (3) Pneumothorax: (4) Acute on chronic respiratory failure with hypoxia: (5) Cachexia: (6) Acute on chronic diastolic heart failure: Plan ASSESSMENT AND PLAN: 12/14/2023 -Continue to monitor closely in the ICU given the patient being vent dependent. -Will try to wean down the pressure support : For now goal is PSV 7/5 30% for 24hours -Lasix 40 mg twice daily with metolazone 5 mg p.o. -Will continue IV Levaquin for total of 7 days -Home medication resumed as appropriate -Resume tube feeding -DVT prophylaxis-she is on subcu heparin -Full code Documented By: Raul Lehman MD 12/14/231820 Signed By: <Electronically signed by Raul Lehman MD> 12/14/231824 [facility] Work Phone: [phone]) [phone] Progress note Author Michael Butterfield [facility] December 14, 2023 10:24am Note Date/Time December 14, 2023 10: 24am [facility] [address] [place] [address] Pulmonology Progress Note Signed Patient: Rosalind Restrepo MR#: [id number] : 1940 Acct:[id number] Age/Sex: 83 / F Adm Date: 4 Loc: Room: [address] [place] [address] Type: ADM IN Attending Dr: Raul Lehman MD Copies to: ~ Date of Service: 12/14/2023 Subjective Subjective Narrative: Tolerating pressure support ventilation, currently on pressure support 10/5 40%.Patient is awake, alert, following commands, no tachypnea, not tachycardic. Fluid balance 1412 Laboratory data and images reviewed Respiratory cultures 12/10 Corynebacterium striatum, Acacia auris Exam Physical Exam Vital Signs: Temp Pulse Resp BP Pulse Ox O2 Del Method O2 Flow Rate 97.2 F L 74 20 135/61 98 CPAP 12 12/14/23 09:00 12/14/23 09:00 12/14/23 09:00 12/14/23 09:00 12/14/23 09:00 12/14/23 09:00 12/14/23 09:00 FiO2 30 12/14/23 10:00 Narrative: General: awake, follows simple commands, full mechanical ventilator HEENT: EOMi, PERRL+, oral mucosa is moist Neck: neck is supple, tracheostomy in place Cardiovascular: regular rate and rhythm, capillary fill is within normal limits Respiratory: Clear to auscultation upper lobes, negative breath sounds in bases,chest is symmetric Abdomen: bowel sounds present, no tenderness nondistended Neuro: awake, no gross motor deficits Objective Intake and Output I&O - Last 24 Hours: Intake & Output 12/13/23 12/14/23 12/14/23 23:59 07:59 15:59 Intake Total 322 / 1502 625 / 625 Output Total 100 / 100 Balance 322 / 1502 525 / 525 Weight 42.8 kg Labs 12/14/23 04:43 12/14/23 04:43 Microbiology Micro: Microbiology 3 12/08/23 16:44 Blood Culture - Final Blood - Right Arm NO GROWTH 5 DAYS 12/08/23 16:08 Blood Culture - Final Blood - Right Antecubital NO GROWTH 5 DAYS 12/11/23 14:18 Aerobic Culture - Preliminary Sputum - Trachea Sample Corynebacterium striatum group Acacia auris Gram Stain - Final 12/09/23 10:27 Blood Culture - Preliminary Blood - Right Hand No Growth 4 Days 12/09/23 10:30 Blood Culture - Preliminary Blood - Left Antecubital No Growth 4 Days Assessment/Plan Assessment/Plan (1) Acute on chronic respiratory failure with hypoxia: (2) Pleural effusion: (3) Ventilator dependent: (4) Pneumothorax: Plan Pressure support ventilation PS 10/5 30% Wean down PS as tolerated Trach collar trial if patient remains on PSV 7/5 30% for 24 hours Net negative fluid balance 1 liter Respiratory culture results are most likely secondary to colonization Continue empiric IV antibiotics for a total of 7 days Albuterol nebs every 6 hours Hypertonic saline nebs every 6 hours Chest physiotherapy Lasix to 40 IV BID Metolazone 5mg PO MTP 40 daily Patient has trapped lung. No invasive interventions indicated at this time Continue tube feedings and free water DVT/GI prophylaxis Physical therapy Out of bed CCT:32 minutes Documented By: Michael Butterfield MD 1019 Signed By: <Electronically signed by Michael Butterfield MD> 12/14/23 1024 [facility] Work Phone: [phone] 568-264304-19-2024 Progress note Author Hima Juarez [facility] December 13, 2023 12:14pm Note Date/Time December 13, 2023 11: 58am [facility] [address] [place] [address] Hospitalist Progress Note Signed with Addenda Patient: Rosalind Restrepo MR#: [id number] : 1940 Acct:[id number] Age/Sex: 83 / F Adm Date: 4 Loc: Room: [address] [place] [address] Type: ADM IN Attending Dr: Hima Juarez DO Copies to: ~ ADDENDUM1 And to diagnosis Severe protein calorie malnutrition Addendum Documented By: Hima Juarez DO 12/13/23 1214 Addendum Signed By: <Electronically signed by Hima Juarez DO> 12/13/23 1214 Date of Service: 12/13/2023 Subjective Subjective Narrative: No new symptoms. Patient Lasix increased to 40 mg IV twice daily per informatics developer. She is on CPAP with 30% FiO2 and PEEP of 5. Exam Physical Exam Vital Signs: Temp Pulse Resp BP Pulse Ox O2 Del Method O2 Flow Rate 98.0 F 48 L 20 115/57 L 97 CPAP 30 12/13/23 08:00 12/13/23 11:00 12/13/23 11:00 12/13/23 11:00 12/13/23 11:00 12/13/23 11:00 12/11/23 19:00 FiO2 30 12/13/23 11:00 Narrative: Generally: Lying in ICU bed without distress HEENT: Tracheostomy in appropriate positioning, head atraumatic normocephalic Heart: Regular rate, regular rhythm Lungs good air movement bilaterally, normal efforts Abdomen is soft nontender nondistended, PEG tube in place Extremities: No edema, pulses intact Neurologically: Following commands and answering question appropriately by shaking her head yes and no, nonfocal. Objective Lab Results 12/13/23 04:29 12/13/23 04:29 Microbiology Results Microbiology 12/11/23 14:18 Sputum - Trachea Sample Aerobic Culture - Preliminary Corynebacterium striatum group Yeast Like Organism 12/11/23 14:18 Sputum - Trachea Sample Gram Stain - Final 12/09/23 10:27 Blood - Right Hand Blood Culture - Preliminary No Growth 4 Days 12/09/23 10:30 Blood - Left Antecubital Blood Culture - Preliminary No Growth 4 Days 12/08/23 16:44 Blood - Right Arm Blood Culture - Preliminary No Growth 4 Days 12/08/23 16:08 Blood - Right Antecubital Blood Culture - Preliminary No Growth 4 Days Meds Allergies and Active Meds Allergies Sulfa (Sulfonamide Antibiotics) Allergy (Verified 12/08/23 17:02) Unknown Reaction Active Meds: Active Medications Generic Name Dose Route Start Last Admin Trade Name Freq PRN Reason Stop Dose Admin Acetaminophen 650 mg 12/08/23 20:02 12/12/23 12:14 Acetaminophen 325 Mg Tablet PEG 12/07/24 20:01 650 mg QID PRN Administration pain Albuterol 2.5 mg 12/08/23 20:02 Albuterol Neb *Concentrated* 2.5 Mg/0.5 Ml Vial.Neb INHALATION 12/07/24 20:01 Q2HR PRN shortness of breath or wheezing Albuterol 6 puff 12/09/23 06:00 12/13/23 05:24 Albuterol Hfa 200 Puff/18 Gm Inhaler VENT 12/08/24 05:59 6 puff Q6HR ZACHARY Administration Aspirin 81 mg 12/09/23 09:00 12/13/23 09:17 Aspirin 81 Mg Tablet.Dr PO 12/08/24 08:59 81 mg DAILY ZACHARY Administration Buspirone HCl 10 mg 12/08/23 22:00 12/13/23 09:17 Buspirone 10 Mg Tablet PEG 12/07/24 21:59 10 mg TID ZACHARY Administration Diltiazem HCl 30 mg 12/11/23 21:00 12/13/23 09:17 Diltiazem 30 Mg Tablet PEG 12/10/24 20:59 30 mg BID ZACHARY Administration Escitalopram Oxalate 10 mg 12/08/23 21:00 12/13/23 09:17 Escitalopram 10 Mg Tablet PEG 12/07/24 20:59 10 mg BID ZACHARY Administration Furosemide 40 mg 12/12/23 09:00 12/13/23 09:18 Furosemide 40 Mg/4 Ml Vial IV-PUSH 12/11/24 08:59 40 mg DAILY.8A ZACHARY Administration Furosemide 40 mg 12/13/23 16:00 Furosemide 40 Mg/4 Ml Vial IV-PUSH 12/12/24 15:59 DAILY@1600 ZACHARY Heparin Sodium (Porcine) 5,000 unit 12/08/23 21:00 12/13/23 09:18 Heparin 5,000 Unit/Ml Vial SUBCUT 12/07/24 20:59 5,000 unit Q12HR ZACHARY Administration Hydroxyzine Pamoate 50 mg 12/08/23 22:57 Hydroxyzine Pamoate 50 Mg Capsule PEG 12/07/24 22:56 Q8HR PRN anxiety Levofloxacin 750 mg 12/11/23 09:00 12/13/23 09:17 Levofloxacin 750 Mg Tablet PEG 12/16/23 23:59 750 mg Q48H ZACHARY Administration Levothyroxine Sodium 200 mcg 12/09/23 06:30 12/13/23 06:16 Levothyroxine 200 Mcg Tablet PEG 12/08/24 06:29 200 mcg DAILY.0630 ZACHARY Administration Lidocaine 1 patch 12/09/23 09:00 12/13/23 09:17 Lidocaine 4% Adh..Patch TOPICAL 12/08/24 08:59 1 patch DAILY ZACHARY Administration Methylprednisolone Sodium Succinate 20 mg 12/13/23 09:00 12/13/23 09:18 Methylprednisolone Sod Succ/Pf 40 Mg/Ml (1ml) Vial IV-PUSH 12/12/24 08:59 20 mg Q12HR ZACHARY Administration Metolazone 2.5 mg 12/13/23 09:00 12/13/23 09:17 Metolazone 2.5 Mg Tablet PO 12/12/24 08:59 2.5 mg DAILY@0830 ZACHARY Administration Metoprolol Tartrate 12.5 mg 12/11/23 10:30 12/13/23 09:17 Metoprolol Tartrate 12.5 Mg Tablet PEG 12/10/24 10:29 12.5 mg BID ZACHARY Administration Morphine Sulfate 2 mg 12/10/23 09:30 12/12/23 16:20 Morphine Sulfate 2 Mg/Ml Vial IV-PUSH 2 mg Q4H PRN Administration Pain Scale 4 - 6 Prednisolone Acetate 1 drops 12/09/23 09:00 12/13/23 10:02 Prednisolone Ac 1% Op Susp 100 Drops/5 Ml Bottle EYE-BOTH 12/08/24 08:59 Not Given DAILY ZACHARY Prochlorperazine Edisylate 10 mg 12/11/23 05:45 12/11/23 06:25 Prochlorperazine Edisylate 10 Mg/2 Ml Vial IV-PUSH 12/10/24 05:44 10 mg Q6H PRN Administration Nausea And Vomiting Sodium Chloride 0 ml 12/08/23 15:40 12/12/23 16:07 Sodium Chloride 0.9 % 10 Ml Syringe IV-PUSH 12/07/24 15:39 10 ml PRN PRN Administration Flush A&P - Hospitalist Assessment/Plan (1) Pleural effusion: (2) Ventilator dependent: (3) Pneumothorax: (4) Acute on chronic respiratory failure with hypoxia: (5) Cachexia: (6) Acute on chronic diastolic heart failure: Plan -Continue to monitor closely in the ICU given the patient being vent dependent. -Appreciate critical care input -Resume IV Lasix as per informatics developer, monitor electrolytes and renal function -Resume IV Levaquin -Home medication resumed as appropriate -Resume tube feeding -DVT prophylaxis-she is on subcu heparin -She is full code -Discussed plan of care with patient Documented By: Hima Juarez DO 12/13/23 1157 Signed By: <Electronically signed by Hima Juarez DO> 12/13/23 1158 [facility] Work Phone: [phone] Progress note Author Michael Butterfield [facility] December 13, 2023 8:50am Note Date/Time December 13, 2023 8:3 4am [facility] [address] [place] [address] Pulmonology Progress Note Signed Patient: Rosalind Restrepo MR#: [id number] : 1940 Acct:[id number] Age/Sex: 83 / F Adm Date: 4 Loc: Room: [address] [place] [address] Type: ADM IN Attending Dr: Hima Juarez DO Copies to: ~ Date of Service: 12/13/2023 Subjective Subjective Narrative: Still requiring higher PSV, currently on 14/5 40%. Some thick secretions from trach. Patient is awake, alert, following commands, no tachypnea, not tachycardic. Fluid balance is +1740 Laboratory data and images reviewed Exam Physical Exam Vital Signs: Temp Pulse Resp BP Pulse Ox O2 Del Method O2 Flow Rate 97.8 F 57 L 17 118/58 L 98 Mechanical Ventilation 30 12/13/23 05:00 12/13/23 07:51 12/13/23 07:51 12/13/23 06:00 12/13/23 06:00 12/13/23 06:00 12/11/23 19:00 FiO2 30 12/13/23 07:51 Narrative: General: awake, follows simple commands, full mechanical ventilator HEENT: EOMi, PERRL+, oral mucosa is moist Neck: neck is supple, tracheostomy in place Cardiovascular: regular rate and rhythm, capillary fill is within normal limits Respiratory: Clear to auscultation upper lobes, negative breath sounds in bases,chest is symmetric Abdomen: bowel sounds present, no tenderness nondistended Neuro: awake, no gross motor deficits Objective Intake and Output I&O - Last 24 Hours: Intake & Output 12/12/23 12/13/23 12/13/23 23:59 07:59 15:59 Intake Total 1150 / 2450 615 / 615 Balance 1150 / 1675 615 / 615 Weight 42.9 kg Labs 12/13/23 04:29 12/13/23 04:29 Microbiology Micro: Microbiology 3 12/08/23 16:44 Blood Culture - Preliminary Blood - Right Arm No Growth 4 Days 12/08/23 16:08 Blood Culture - Preliminary Blood - Right Antecubital No Growth 4 Days 12/09/23 10:27 Blood Culture - Preliminary Blood - Right Hand No Growth 3 Days 12/09/23 10:30 Blood Culture - Preliminary Blood - Left Antecubital No Growth 3 Days 12/11/23 14:18 Aerobic Culture - Preliminary Sputum - Trachea Sample Corynebacterium striatum group Gram Stain - Final Assessment/Plan Assessment/Plan (1) Acute on chronic respiratory failure with hypoxia: (2) Pleural effusion: (3) Ventilator dependent: (4) Pneumothorax: Plan Pressure support ventilation PS 14/5 30% Wean down PS as tolerated Patient has chronic hypercapnic respiratory failure Net negative fluid balance 1 liter Continue empiric IV antibiotics for a total of 7 days Albuterol nebs every 6 hours Hypertonic saline nebs every 6 hours Chest physiotherapy Poor lung compliance, fluid balance is positive Increase Lasix to 40 IV BID Metolazone 2.5mg PO MTP 40 daily Patient has trapped lung. No invasive interventions indicated at this time Continue tube feedings and free water DVT/GI prophylaxis Physical therapy Out of bed CCT:30 minutes Documented By: Michael Butterfield MD 0832 Signed By: <Electronically signed by Michael Butterfield MD> 12/13/23 0850 [facility] Work Phone: [phone] 998-810504-18-2024 Progress note Author Hima Juarez [facility] December 12, 2023 2:00pm Note Date/Time December 12, 2023 2:0 0pm [facility] [address] [place] [address] Hospitalist Progress Note Signed Patient: Rosalind Restrepo MR#: [id number] : 1940 Acct:[id number] Age/Sex: 83 / F Adm Date: 4 Loc: Room: [address] [place] [address] Type: ADM IN Attending Dr: Hima Juarez DO Copies to: ~ Date of Service: 12/12/2023 Subjective Subjective Narrative: No new symptoms. She has some back pain. She received lidocaine patch and as needed Tylenol in addition to morphine. It is tolerable however. Discussed patient with RN. Exam Physical Exam Vital Signs: Temp Pulse Resp BP Pulse Ox O2 Del Method O2 Flow Rate 98.3 F 52 L 16 111/55 L 98 Mechanical Ventilation 30 12/12/23 12:00 12/12/23 13:00 12/12/23 13:00 12/12/23 13:00 12/12/23 13:00 12/12/23 13:00 12/11/23 19:00 FiO2 30 12/12/23 13:00 Narrative: Generally: Lying in ICU bed without distress HEENT: Tracheostomy in appropriate positioning, head atraumatic normocephalic Heart: Regular rate, regular rhythm Lungs better air movement but slightly diminished bilaterally, normal efforts Abdomen is soft nontender nondistended, PEG tube in place Extremities: No edema, pulses intact Neurologically: Following commands and answering question appropriately by shaking her head yes and no, nonfocal. Objective Lab Results 12/12/23 04:32 12/12/23 04:32 Microbiology Results Microbiology 12/09/23 10:27 Blood - Right Hand Blood Culture - Preliminary No Growth 3 Days 12/09/23 10:30 Blood - Left Antecubital Blood Culture - Preliminary No Growth 3 Days 12/11/23 14:18 Sputum - Trachea Sample Aerobic Culture - Preliminary Corynebacterium striatum group 12/11/23 14:18 Sputum - Trachea Sample Gram Stain - Final 12/08/23 16:44 Blood - Right Arm Blood Culture - Preliminary No Growth 3 Days 12/08/23 16:08 Blood - Right Antecubital Blood Culture - Preliminary No Growth 3 Days Meds Allergies and Active Meds Allergies Sulfa (Sulfonamide Antibiotics) Allergy (Verified 12/08/23 17:02) Unknown Reaction Active Meds: Active Medications Generic Name Dose Route Start Last Admin Trade Name Freq PRN Reason Stop Dose Admin Acetaminophen 650 mg 12/08/23 20:02 12/12/23 12:14 Acetaminophen 325 Mg Tablet PEG 12/07/24 20:01 650 mg QID PRN Administration pain Albuterol 2.5 mg 12/08/23 20:02 Albuterol Neb *Concentrated* 2.5 Mg/0.5 Ml Vial.Neb INHALATION 12/07/24 20:01 Q2HR PRN shortness of breath or wheezing Albuterol 6 puff 12/09/23 06:00 12/12/23 11:52 Albuterol Hfa 200 Puff/18 Gm Inhaler VENT 12/08/24 05:59 6 puff Q6HR ZACHARY Administration Aspirin 81 mg 12/09/23 09:00 12/12/23 10:06 Aspirin 81 Mg Tablet.Dr PO 12/08/24 08:59 81 mg DAILY ZACHARY Administration Buspirone HCl 10 mg 12/08/23 22:00 12/12/23 10:06 Buspirone 10 Mg Tablet PEG 12/07/24 21:59 10 mg TID ZACHARY Administration Diltiazem HCl 30 mg 12/11/23 21:00 12/12/23 10:06 Diltiazem 30 Mg Tablet PEG 12/10/24 20:59 30 mg BID ZACHARY Administration Escitalopram Oxalate 10 mg 12/08/23 21:00 12/12/23 10:06 Escitalopram 10 Mg Tablet PEG 12/07/24 20:59 10 mg BID ZACHARY Administration Furosemide 40 mg 12/12/23 09:00 12/12/23 09:03 Furosemide 40 Mg/4 Ml Vial IV-PUSH 12/11/24 08:59 40 mg DAILY.8A ZACHARY Administration Furosemide 20 mg 12/12/23 16:00 Furosemide 20 Mg/2 Ml Vial IV-PUSH 12/11/24 15:59 DAILY@1600 ZACHARY Heparin Sodium (Porcine) 5,000 unit 12/08/23 21:00 12/12/23 10:08 Heparin 5,000 Unit/Ml Vial SUBCUT 12/07/24 20:59 5,000 unit Q12HR ZACHARY Administration Hydroxyzine Pamoate 50 mg 12/08/23 22:57 Hydroxyzine Pamoate 50 Mg Capsule PEG 12/07/24 22:56 Q8HR PRN anxiety Levofloxacin 750 mg 12/11/23 09:00 12/11/23 08:16 Levofloxacin 750 Mg Tablet PEG 12/16/23 23:59 750 mg Q48H ZACHARY Administration Levothyroxine Sodium 200 mcg 12/09/23 06:30 12/12/23 06:32 Levothyroxine 200 Mcg Tablet PEG 12/08/24 06:29 200 mcg DAILY.0630 ZACHARY Administration Lidocaine 1 patch 12/09/23 09:00 12/12/23 10:06 Lidocaine 4% Adh..Patch TOPICAL 12/08/24 08:59 1 patch DAILY ZACHARY Administration Metoprolol Tartrate 12.5 mg 12/11/23 10:30 12/12/23 10:06 Metoprolol Tartrate 12.5 Mg Tablet PEG 12/10/24 10:29 12.5 mg BID ZACHARY Administration Morphine Sulfate 2 mg 12/10/23 09:30 12/12/23 09:13 Morphine Sulfate 2 Mg/Ml Vial IV-PUSH 2 mg Q4H PRN Administration Pain Scale 4 - 6 Prednisolone Acetate 1 drops 12/09/23 09:00 12/12/23 10:47 Prednisolone Ac 1% Op Susp 100 Drops/5 Ml Bottle EYE-BOTH 12/08/24 08:59 Not Given DAILY ZACHARY Prochlorperazine Edisylate 10 mg 12/11/23 05:45 12/11/23 06:25 Prochlorperazine Edisylate 10 Mg/2 Ml Vial IV-PUSH 12/10/24 05:44 10 mg Q6H PRN Administration Nausea And Vomiting Sodium Chloride 0 ml 12/08/23 15:40 12/12/23 09:15 Sodium Chloride 0.9 % 10 Ml Syringe IV-PUSH 12/07/24 15:39 20 ml PRN PRN Administration Flush A&P - Hospitalist Assessment/Plan (1) Pleural effusion: (2) Ventilator dependent: (3) Pneumothorax: (4) Acute on chronic respiratory failure with hypoxia: (5) Cachexia: (6) Acute on chronic diastolic heart failure: Plan -Continue to monitor closely in the ICU given the patient being vent dependent. -Appreciate critical care input -Resume IV Lasix, monitor electrolytes and renal function -Resume IV Levaquin -Home medication resumed as appropriate -Resume tube feeding -DVT prophylaxis-she is on subcu heparin -She is full code -Discussed plan of care with patient -Discussed with RN Documented By: Hima Juarez DO 12/12/23 1359 Signed By: <Electronically signed by Hima Juarez DO> 12/12/23 1400 [facility] Work Phone: [phone] 401-972004-18-2024 Progress note Author Michael Butterfield [facility] December 12, 2023 8:50am Note Date/Time December 12, 2023 8:5 0am [facility] [address] [place] [address] Pulmonology Progress Note Signed Patient: Rosalind Restrepo MR#: [id number] : 1940 Acct:[id number] Age/Sex: 83 / F Adm Date: 4 Loc: Room: [address] [place] [address] Type: ADM IN Attending Dr: Hima Juarez DO Copies to: ~ Date of Service: 12/12/2023 Subjective Subjective Narrative: Patient was transitioned to pressure support ventilation this morning. Requiringhigher pressure support. No significant amount of respiratory secretions from trach. Patient is awake, alert, following commands, no tachypnea, not tachycardic. Fluid balance is +550 Laboratory data and images reviewed Exam Physical Exam Vital Signs: Temp Pulse Resp BP Pulse Ox O2 Del Method O2 Flow Rate 98.1 F 55 L 16 99/48 L 99 Mechanical Ventilation 30 12/12/23 04:00 12/12/23 06:00 12/12/23 06:00 12/12/23 06:00 12/12/23 06:00 12/12/23 06:00 12/11/23 19:00 FiO2 30 12/12/23 06:00 Narrative: General: awake, follows simple commands, full mechanical ventilator HEENT: EOMi, PERRL+, oral mucosa is moist Neck: neck is supple, tracheostomy in place Cardiovascular: regular rate and rhythm, capillary fill is within normal limits Respiratory: Clear to auscultation upper lobes, negative breath sounds in bases,chest is symmetric Abdomen: bowel sounds present, no tenderness nondistended Neuro: awake, no gross motor deficits Objective Intake and Output I&O - Last 24 Hours: Intake & Output 12/11/23 12/12/23 12/12/23 23:59 07:59 15:59 Intake Total 585 / 2035 650 / 650 Output Total 800 / 1000 100 / 100 Balance -215 / 1035 550 / 550 Weight 42.8 kg Labs 12/12/23 04:32 12/12/23 04:32 Microbiology Micro: Microbiology 3 12/08/23 16:44 Blood Culture - Preliminary Blood - Right Arm No Growth 3 Days 12/08/23 16:08 Blood Culture - Preliminary Blood - Right Antecubital No Growth 3 Days 12/09/23 10:27 Blood Culture - Preliminary Blood - Right Hand No Growth 2 Days 12/09/23 10:30 Blood Culture - Preliminary Blood - Left Antecubital No Growth 2 Days Assessment/Plan Assessment/Plan (1) Acute on chronic respiratory failure with hypoxia: (2) Pleural effusion: (3) Ventilator dependent: (4) Pneumothorax: Plan Pressure support ventilation PS16/5 30% Wean down PS as tolerated Patient has chronic hypercapnic respiratory failure Net negative fluid balance 1 liter Continue empiric IV antibiotics for a total of 7 days Albuterol nebs every 6 hours Hypertonic saline nebs every 6 hours Chest physiotherapy Patient has trapped lung. No invasive interventions indicated at this time Continue tube feedings and free water DVT/GI prophylaxis Physical therapy CCT:31 minutes Documented By: Michael Butterfield MD 0848 Signed By: <Electronically signed by Michael Butterfield MD> 12/12/23 0850 [facility] Work Phone: [phone]) 718-381104-17-2024 Progress note Author Hima Juarez [facility] December 11, 2023 2:01pm Note Date/Time December 11, 2023 2:0 0[facility] [address] [place] [address] Hospitalist Progress Note Signed Patient: Rosalind Restrepo MR#: [id number] : 1940 Acct:[id number] Age/Sex: 83 / F Adm Date: 4 Loc: Room: [address] [place] [address] Type: ADM IN Attending Dr: Hima Juarez DO Copies to: ~ Date of Service: 12/11/2023 Subjective Subjective Narrative: No new symptoms. Feels better. She shakes her head yes and no to questions. She is currently on CPAP through trach. She is on 30% FiO2. Exam Physical Exam Vital Signs: Temp Pulse Resp BP Pulse Ox O2 Del Method O2 Flow Rate 98.2 F 71 21 140/63 100 CPAP 30 12/11/23 08:00 12/11/23 12:15 12/11/23 12:15 12/11/23 12:00 12/11/23 12:00 12/11/23 08:00 12/11/23 12:00 FiO2 30 12/11/23 12:15 Narrative: Generally: Lying in ICU bed without distress HEENT: Tracheostomy in appropriate positioning, head atraumatic normocephalic Heart: Regular rate, regular rhythm Lungs better air movement but slightly diminished bilaterally, normal efforts Abdomen is soft nontender nondistended, PEG tube in place Extremities: No edema, pulses intact Neurologically: Following commands and answering question appropriately by shaking her head yes and no, nonfocal. Objective Lab Results 12/11/23 08:45 12/11/23 08:45 Microbiology Results Microbiology 12/09/23 10:27 Blood - Right Hand Blood Culture - Preliminary No Growth 2 Days 12/09/23 10:30 Blood - Left Antecubital Blood Culture - Preliminary No Growth 2 Days 12/08/23 16:44 Blood - Right Arm Blood Culture - Preliminary No Growth 2 Days 12/08/23 16:08 Blood - Right Antecubital Blood Culture - Preliminary No Growth 2 Days ABG Interpretation ABG results: 12/11/23 08:05 ABG pH 7.44 ABG pCO2 45.4 H ABG pO2 84.9 ABG HCO3 30.1 H ABG Total CO2 31.5 H ABG O2 Saturation 96.4 ABG O2 Content 6.8 ABG Base Excess 5.3 H Meds Allergies and Active Meds Allergies Sulfa (Sulfonamide Antibiotics) Allergy (Verified 12/08/23 17:02) Unknown Reaction Active Meds: Active Medications Generic Name Dose Route Start Last Admin Trade Name Freq PRN Reason Stop Dose Admin Acetaminophen 650 mg 12/08/23 20:02 12/10/23 17:13 Acetaminophen 325 Mg Tablet PEG 12/07/24 20:01 650 mg QID PRN Administration pain Albuterol 2.5 mg 12/08/23 20:02 Albuterol Neb *Concentrated* 2.5 Mg/0.5 Ml Vial.Neb INHALATION 12/07/24 20:01 Q2HR PRN shortness of breath or wheezing Albuterol 6 puff 12/09/23 06:00 12/11/23 12:14 Albuterol Hfa 200 Puff/18 Gm Inhaler VENT 12/08/24 05:59 6 puff Q6HR ZACHARY Administration Aspirin 81 mg 12/09/23 09:00 12/11/23 08:16 Aspirin 81 Mg Tablet. PO 12/08/24 08:59 81 mg DAILY ZACHARY Administration Buspirone HCl 10 mg 12/08/23 22:00 12/11/23 08:16 Buspirone 10 Mg Tablet PEG 12/07/24 21:59 10 mg TID ZACHARY Administration Diltiazem HCl 30 mg 12/11/23 21:00 Diltiazem 30 Mg Tablet PEG 12/10/24 20:59 BID ZACHARY Escitalopram Oxalate 10 mg 12/08/23 21:00 12/11/23 08:16 Escitalopram 10 Mg Tablet PEG 12/07/24 20:59 10 mg BID ZACHARY Administration Furosemide 20 mg 12/09/23 08:00 12/11/23 08:16 Furosemide 20 Mg/2 Ml Vial IV-PUSH 12/08/24 07:59 20 mg BID@0800,1600 ZACHARY Administration Heparin Sodium (Porcine) 5,000 unit 12/08/23 21:00 12/11/23 08:16 Heparin 5,000 Unit/Ml Vial SUBCUT 12/07/24 20:59 5,000 unit Q12HR ZACHARY Administration Hydroxyzine Pamoate 50 mg 12/08/23 22:57 Hydroxyzine Pamoate 50 Mg Capsule PEG 12/07/24 22:56 Q8HR PRN anxiety Levofloxacin 750 mg 12/11/23 09:00 12/11/23 08:16 Levofloxacin 750 Mg Tablet PEG 12/16/23 23:59 750 mg Q48H ZACHARY Administration Levothyroxine Sodium 200 mcg 12/09/23 06:30 12/11/23 06:25 Levothyroxine 200 Mcg Tablet PEG 12/08/24 06:29 200 mcg DAILY.0630 ZACHARY Administration Lidocaine 1 patch 12/09/23 09:00 12/11/23 08:15 Lidocaine 4% Adh..Patch TOPICAL 12/08/24 08:59 1 patch DAILY ZACHARY Administration Metoprolol Tartrate 12.5 mg 12/11/23 10:30 12/11/23 11:17 Metoprolol Tartrate 12.5 Mg Tablet PEG 12/10/24 10:29 Not Given BID ZACHARY Morphine Sulfate 2 mg 12/10/23 09:30 12/10/23 14:54 Morphine Sulfate 2 Mg/Ml Vial IV-PUSH 2 mg Q4H PRN Administration Pain Scale 4 - 6 Prednisolone Acetate 1 drops 12/09/23 09:00 12/11/23 09:34 Prednisolone Ac 1% Op Susp 100 Drops/5 Ml Bottle EYE-BOTH 12/08/24 08:59 Not Given DAILY ZACHARY Prochlorperazine Edisylate 10 mg 12/11/23 05:45 12/11/23 06:25 Prochlorperazine Edisylate 10 Mg/2 Ml Vial IV-PUSH 12/10/24 05:44 10 mg Q6H PRN Administration Nausea And Vomiting Sodium Chloride 0 ml 12/08/23 15:40 12/09/23 15:03 Sodium Chloride 0.9 % 10 Ml Syringe IV-PUSH 12/07/24 15:39 10 ml PRN PRN Administration Flush A&P - Hospitalist Assessment/Plan (1) Pleural effusion: (2) Ventilator dependent: (3) Pneumothorax: (4) Acute on chronic respiratory failure with hypoxia: (5) Cachexia: (6) Acute on chronic diastolic heart failure: Plan -Continue to monitor closely in the ICU given the patient being vent dependent. -Appreciate critical care input -Resume IV Lasix, monitor electrolytes and renal function -Resume IV Levaquin -Home medication resumed as appropriate -Resume tube feeding -DVT prophylaxis-she is on subcu heparin -She is full code -Discussed plan of care with patient -Discussed with RN Documented By: Hima Juarez DO 12/11/23 1355 Signed By: <Electronically signed by Hima Juarez DO> 12/11/23 1401 [facility] Work Phone: [phone] Progress note Author Michael Butterfield [facility] December 11, 2023 10:52am Note Date/Time December 11, 2023 10: 51am [facility] [address] [place] [address] Pulmonology Progress Note Signed with Addenda Patient: Rosalind Restrepo MR#: [id number] : 1940 Acct:[id number] Age/Sex: 83 / F Adm Date: 4 Loc: Room: [address] [place] [address] Type: ADM IN Attending Dr: Hima Juarez DO Copies to: ~ ADDENDUM1 Patient is DO NOT RESUSCITATE/no CPR Addendum Documented By: Michael Butterfield MD 12/11/23 1052 Addendum Signed By: <Electronically signed by Michael Butterfield MD> 12/11/23 1052 Date of Service: 12/11/2023 Subjective Subjective Narrative: Patient was transitioned to pressure support ventilation yesterday. She did tolerate well all day long and switch back to AC overnight. She is back to pressure support ventilation 7/5/40%. Patient is awake, alert, following commands, no tachypnea, not tachycardic. ABG on PSV 7.44/45.4/84.9 Laboratory data and images reviewed Exam Physical Exam Vital Signs: Temp Pulse Resp BP Pulse Ox O2 Del Method O2 Flow Rate 98.2 F 61 18 111/53 L 100 CPAP 30 12/11/23 08:00 12/11/23 10:00 12/11/23 10:00 12/11/23 10:00 12/11/23 10:00 12/11/23 08:00 12/11/23 10:00 FiO2 30 12/11/23 10:00 Narrative: General: awake, follows simple commands, full mechanical ventilator HEENT: EOMi, PERRL+, oral mucosa is moist Neck: neck is supple, tracheostomy in place Cardiovascular: regular rate and rhythm, capillary fill is within normal limits Respiratory: Clear to auscultation upper lobes, negative breath sounds in bases,chest is symmetric Abdomen: bowel sounds present, no tenderness nondistended Neuro: awake, no gross motor deficits Objective Intake and Output I&O - Last 24 Hours: Intake & Output 12/10/23 12/11/23 12/11/23 23:59 07:59 15:59 Intake Total 125 / 850 800 / 800 Balance 125 / 850 800 / 800 Weight 43.5 kg Labs 12/11/23 08:45 12/11/23 08:45 Microbiology Micro: Microbiology 3 12/08/23 16:44 Blood Culture - Preliminary Blood - Right Arm No Growth 2 Days 12/08/23 16:08 Blood Culture - Preliminary Blood - Right Antecubital No Growth 2 Days 12/09/23 10:30 Blood Culture - Preliminary Blood - Left Antecubital No Growth 1 Day 12/09/23 10:27 Blood Culture - Preliminary Blood - Right Hand No Growth 1 Day Assessment/Plan Assessment/Plan (1) Acute on chronic respiratory failure with hypoxia: (2) Pleural effusion: (3) Ventilator dependent: (4) Pneumothorax: Plan Daily pressure support ventilation trials Plan to transition to trach collar tomorrow Patient has chronic hypercapnic respiratory failure Net negative fluid balance Continue empiric IV antibiotics for a total of 7 days Follow up sputum and blood cultures Albuterol nebs every 6 hours Hypertonic saline nebs every 6 hours Chest physiotherapy Patient has trapped lung. No invasive interventions indicated at this time Continue tube feedings and free water DVT/GI prophylaxis Physical therapy CCT:32 minutes Documented By: Michael Butterfield MD 1048 Signed By: <Electronically signed by Michael Butterfield MD> 12/11/23 1051 [facility] Work Phone: [phone]) 133-543104-16-2024 Progress note Author Hima Juarez [facility] December 10, 2023 1:58pm Note Date/Time December 10, 2023 1:5 8pm [facility] [address] [place] [address] Hospitalist Progress Note Signed Patient: Rosalind Restrepo MR#: [id number] : 1940 Acct:[id number] Age/Sex: 83 / F Adm Date: 4 Loc: Room: [address] [place] [address] Type: ADM IN Attending Dr: Hima Juarez DO Copies to: ~ Date of Service: 12/10/2023 Subjective Subjective Narrative: No new symptoms. Patient is trached and PEG. She is able to communicate by shaking her head yes and no. denies back pain today. Exam Physical Exam Vital Signs: Temp Pulse Resp BP Pulse Ox O2 Del Method O2 Flow Rate 98.8 F 50 L 18 121/58 L 100 Mechanical Ventilation 30 12/10/23 09:00 12/10/23 10:00 12/10/23 10:00 12/10/23 10:00 12/10/23 10:00 12/10/23 07:35 12/10/23 10:00 FiO2 30 12/10/23 12:00 Narrative: Generally: Lying in ICU bed without distress HEENT: Tracheostomy in appropriate positioning, head atraumatic normocephalic Heart: Regular rate, regular rhythm Lungs diminished bilaterally, normal efforts Abdomen is soft nontender nondistended, PEG tube in place Extremities: No edema, pulses intact Neurologically: Following commands and answering question appropriately by shaking her head yes and no, nonfocal. Objective Lab Results 12/10/23 04:26 12/10/23 04:26 Microbiology Results Microbiology 12/09/23 10:30 Blood - Left Antecubital Blood Culture - Preliminary No Growth 1 Day 12/09/23 10:27 Blood - Right Hand Blood Culture - Preliminary No Growth 1 Day 12/08/23 16:44 Blood - Right Arm Blood Culture - Preliminary No Growth 1 Day 12/08/23 16:08 Blood - Right Antecubital Blood Culture - Preliminary No Growth 1 Day Meds Allergies and Active Meds Allergies Sulfa (Sulfonamide Antibiotics) Allergy (Verified 12/08/23 17:02) Unknown Reaction Active Meds: Active Medications Generic Name Dose Route Start Last Admin Trade Name Freq PRN Reason Stop Dose Admin Acetaminophen 650 mg 12/08/23 20:02 12/10/23 08:06 Acetaminophen 325 Mg Tablet PEG 12/07/24 20:01 650 mg QID PRN Administration pain Albuterol 2.5 mg 12/08/23 20:02 Albuterol Neb *Concentrated* 2.5 Mg/0.5 Ml Vial.Neb INHALATION 12/07/24 20:01 Q2HR PRN shortness of breath or wheezing Albuterol 6 puff 12/09/23 06:00 12/10/23 11:42 Albuterol Hfa 200 Puff/18 Gm Inhaler VENT 12/08/24 05:59 6 puff Q6HR ZACHARY Administration Aspirin 81 mg 12/09/23 09:00 12/10/23 08:06 Aspirin 81 Mg Tablet. PO 12/08/24 08:59 81 mg DAILY ZACHARY Administration Buspirone HCl 10 mg 12/08/23 22:00 12/10/23 08:06 Buspirone 10 Mg Tablet PEG 12/07/24 21:59 10 mg TID ZACHARY Administration Escitalopram Oxalate 10 mg 12/08/23 21:00 12/10/23 08:06 Escitalopram 10 Mg Tablet PEG 12/07/24 20:59 10 mg BID ZACHARY Administration Furosemide 20 mg 12/09/23 08:00 12/10/23 08:07 Furosemide 20 Mg/2 Ml Vial IV-PUSH 12/08/24 07:59 20 mg BID@0800,1600 ZACHARY Administration Heparin Sodium (Porcine) 5,000 unit 12/08/23 21:00 12/10/23 08:07 Heparin 5,000 Unit/Ml Vial SUBCUT 12/07/24 20:59 5,000 unit Q12HR ZACHARY Administration Hydroxyzine Pamoate 50 mg 12/08/23 22:57 Hydroxyzine Pamoate 50 Mg Capsule PEG 12/07/24 22:56 Q8HR PRN anxiety Levofloxacin 750 mg 12/11/23 09:00 Levofloxacin 750 Mg Tablet PEG 12/16/23 23:59 Q48H ZACHARY Levothyroxine Sodium 200 mcg 12/09/23 06:30 12/10/23 05:36 Levothyroxine 200 Mcg Tablet PEG 12/08/24 06:29 200 mcg DAILY.0630 ZACHARY Administration Lidocaine 1 patch 12/09/23 09:00 12/10/23 08:07 Lidocaine 4% Adh..Patch TOPICAL 12/08/24 08:59 1 patch DAILY ZACHARY Administration Morphine Sulfate 2 mg 12/10/23 09:30 12/10/23 10:50 Morphine Sulfate 2 Mg/Ml Vial IV-PUSH 2 mg Q4H PRN Administration Pain Scale 4 - 6 Prednisolone Acetate 1 drops 12/09/23 09:00 12/10/23 08:07 Prednisolone Ac 1% Op Susp 100 Drops/5 Ml Bottle EYE-BOTH 12/08/24 08:59 Not Given DAILY ZACHARY Sodium Chloride 0 ml 12/08/23 15:40 12/09/23 15:03 Sodium Chloride 0.9 % 10 Ml Syringe IV-PUSH 12/07/24 15:39 10 ml PRN PRN Administration Flush A&P - Hospitalist Assessment/Plan (1) Pleural effusion: (2) Ventilator dependent: (3) Pneumothorax: (4) Acute on chronic respiratory failure with hypoxia: (5) Cachexia: (6) Acute on chronic diastolic heart failure: Plan -Continue to monitor closely in the ICU given the patient being vent dependent. -Appreciate critical care input -Resume IV Lasix, monitor electrolytes and renal function -Follow-up echocardiogram -Home medication resumed as appropriate -Resume tube feeding -DVT prophylaxis-she is on subcu heparin -She is full code -Discussed plan of care with patient -Discussed with RN Documented By: Hima Juarez DO 12/10/231356 Signed By: <Electronically signed by Hima Juarez DO> 12/10/23 1358 [facility] Work Phone: 1(717) 416-504204-16-2024 Progress note Author Michael Butterfield [facility] December 10, 2023 12:45pm Note Date/Time December 10, 2023 12: 45pm [facility] [address] [place] [address] Pulmonology Progress Note Signed Patient: Rosalind Restrepo MR#: [id number] : 1940 Acct:[id number] Age/Sex: 83 / F Adm Date: 4 Loc: Room: [address] [place] [address] Type: ADM IN Attending Dr: Hima Juarez DO Copies to: ~ Date of Service: 12/10/2023 Subjective Subjective Narrative: No acute events overnight. She is awake, following commands. Remains on full mechanical ventilator support, minimal ventilator setting. Laboratory data and images reviewed Exam Physical Exam Vital Signs: Temp Pulse Resp BP Pulse Ox O2 Del Method O2 Flow Rate 98.8 F 50 L 18 121/58 L 100 Mechanical Ventilation 30 12/10/23 09:00 12/10/23 10:00 12/10/23 10:00 12/10/23 10:00 12/10/23 10:00 12/10/23 07:35 12/10/23 10:00 FiO2 30 12/10/23 12:00 Narrative: General: awake, follows simple commands, full mechanical ventilator HEENT: EOMi, PERRL+, oral mucosa is moist Neck: neck is supple, tracheostomy in place Cardiovascular: regular rate and rhythm, capillary fill is within normal limits Respiratory: Clear to auscultation upper lobes, negative breath sounds in bases,chest is symmetric Abdomen: bowel sounds present, no tenderness nondistended Neuro: awake, no gross motor deficits Objective Intake and Output I&O - Last 24 Hours: Intake & Output 12/09/23 12/10/23 12/10/23 23:59 07:59 15:59 Intake Total 300 / 1125 300 / 300 Balance 300 / 925 300 / 300 Weight 43.7 kg Labs 12/10/23 04:26 12/10/23 04:26 Microbiology Micro: Microbiology 3 12/09/23 10:30 Blood Culture - Preliminary Blood - Left Antecubital No Growth 1 Day 12/09/23 10:27 Blood Culture - Preliminary Blood - Right Hand No Growth 1 Day 12/08/23 16:44 Blood Culture - Preliminary Blood - Right Arm No Growth 1 Day 12/08/23 16:08 Blood Culture - Preliminary Blood - Right Antecubital No Growth 1 Day Assessment/Plan Assessment/Plan (1) Acute on chronic respiratory failure with hypoxia: (2) Pleural effusion: (3) Ventilator dependent: (4) Pneumothorax: Plan Continue full mechanical ventilator support/lung protective ventilation Placed on PSV this morning Repeat BAGl Net negative fluid balance Continue empiric IV antibiotics Follow up sputum and blood cultures Albuterol nebs every 6 hours Hypertonic saline nebs every 6 hours Chest physiotherapy Patient has trapped lung. No invasive interventions indicated at this time DVT/GI prophylaxis Physical therapy CCT:31 minutes Documented By: Michael Butterfield MD [id number] Signed By: <Electronically signed by Michael Butterfield MD> 12/10/23 124 [facility] Work Phone: 1([phone] 882-139104-15-2024 Consult note Author Michael Butterfield [facility] December 09, 2023 1:10pm Note Date/Time December 09, 2023 12: 55pm [facility] [address] [place] [address] Pulmonology Consult Note Signed Patient: Rosalind Restrepo MR#: [id number] : 1940 Acct:[id number] Age/Sex: 83 / F Adm Date: 4 Loc: Room: [address] [place] [address] Type: ADM IN Attending Dr: Hima Juarez DO Copies to: MD Ryan Bob MD Yazid Hussein, ~ HPI Date/Time of Consultation: Date of Service: 12/09/2023 Time of Service: 12:46 Consulting Provider: Michael Juarez Requesting Provider: Hima Juarez Reason for Consult: Acute on chronic respiratory failure, pneumothorax History of Present Illness History of present illness: Information obtained from patient's records. No family members at the time of this note Ms. Restrepo is a 83 year old female with past medical history of chronic respiratory failure, ventilator dependent due to recurrent episodes of respiratory failure, chronic diastolic heart failure, hypertension, depression, atrial fibrillation not on anticoagulation, unstageable sacral pressure ulcers. She was brought to the ER for worsening shortness of breath and hypoxemia. 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 Patient was started on full mechanical ventilator support and transferred to intensive care unit for furthercare. Patient is awake, following commands, on full mechanical ventilator support, PEEP of 5 and FiO2 40%. 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) Adult failure to thrive Chronic kidney disease Cellulitis Chronic right heart failure CHF (congestive heart failure) Atherosclerotic heart disease of [place] coronary artery without angina pectoris Hypertension Afib Unspecified severe protein-calorie malnutrition Hypothyroidism Iron deficiency anemia Candidiasis Other voice and resonance disorders Dysphagia Muscle weakness (generalized) Respiratory failure, unspecified with hypoxia Pneumonia Surgical History (Updated 12/08/23 @ 16:50 by Jacqueline Soto RN) Gastrostomy status PEG Tracheostomy status Social History Smoking Status: Unknown if ever smoked Substance Use Type: None Meds Medications and Allergies Allergies Sulfa (Sulfonamide Antibiotics) Allergy (Verified 12/08/23 17:02) Unknown Reaction Home Medications Lactobacillus acidophilus 1 billion cell capsule 1,000 mmu cells feeding tube BID 12/08/23 [History Confirmed 12/08/23] acetaminophen 325 mg tablet 650 mg feeding tube QID PRN pain 12/08/23 [History Confirmed 12/08/23] albuterol sulfate 2.5 mg/0.5 mL solution for nebulization 2.5 mg inhalation [id number] shortness of breath or wheezing 12/08/23 [History Confirmed 12/08/23] albuterol sulfate 2.5 mg/3 mL (0.083 %) solution for nebulization 2.5 mg inhalation QID 12/08/23 [History Confirmed 12/08/23] aluminum-mag hydroxide-simethicone 400 mg-400 mg-40 mg/5 mL oral susp (Maalox Maximum Strength) 7.5 ml PO Q6HR PRN indigestion 12/08/23 [History Confirmed 12/08/23] artificial tears solution eye drops 1 drp ophthalmic (eye) BID 12/08/23 [History Confirmed 12/08/23] aspirin 81 mg capsule 81 mg feeding tube DAILY 12/08/23 [History Confirmed 12/08/23] bisacodyl 10 mg rectal suppository 10 mg AZ DAILY PRN constipation 12/08/23 [History Confirmed 12/08/23] buspirone 10 mg tablet 10 mg feeding tube TID 12/08/23 [History Confirmed 12/08/23] chlorhexidine gluconate 0.12 % mouthwash 15 ml buccal BID 12/08/23 [History Confirmed 12/08/23] diltiazem HCl 30 mg tablet (Cardizem) 30 mg feeding tube BID 12/08/23 [History Confirmed 12/08/23] escitalopram oxalate 10 mg tablet (Lexapro) 10 mg feeding tube BID 12/08/23 [History Confirmed 12/08/23] ferrous sulfate 300 mg (60 mg iron)/5 mL oral liquid 300 mg feeding tube DAILY 12/08/23 [History Confirmed 12/08/23] furosemide 20 mg tablet 20 mg feeding tube BID 12/08/23 [History Confirmed 12/08/23] furosemide 40 mg tablet 40 mg feeding tube BID 12/08/23 [History Confirmed 12/08/23] heparin (porcine) 5,000 unit/mL injection solution 5,000 unit subcut BID 12/08/23 [History Confirmed 12/08/23] hydroxyzine HCl 50 mg tablet 50 mg feeding tube Q8HR PRN anxiety 12/08/23 [History Confirmed 12/08/23] levofloxacin 750 mg tablet 750 mg feeding tube DAILY 12/08/23 [History Confirmed 12/08/23] levothyroxine 200 mcg tablet (Euthyrox) 200 mcg feeding tube DAILY 12/08/23 [History Confirmed 12/08/23] lidocaine 4 % topical patch 1 patch topical DAILY 12/08/23 [History Confirmed 12/08/23] loperamide 2 mg tablet (Diamode) 2 mg feeding tube Q6HR PRN loose stool 12/08/23[History Confirmed 12/08/23] metoprolol tartrate 25 mg tablet 12.5 mg feeding tube BID 12/08/23 [History Confirmed 12/08/23] ondansetron 4 mg disintegrating tablet 4 mg feeding tube Q8HR PRN nausea and vomiting 12/08/23 [History Confirmed 12/08/23] oxycodone 5 mg tablet 2.5 mg feeding tube Q6HR PRN pain 12/08/23 [History Confirmed 12/08/23] oxycodone 5 mg tablet 5 mg feeding tube Q6HR PRN pain 12/08/23 [History Confirmed 12/08/23] prednisolone acetate 1 % eye drops,suspension (Pred Forte) 1 drp Eye-Both DAILY 12/08/23 [History Confirmed 12/08/23] sennosides 8.8 mg/5 mL oral syrup 5 ml feeding tube DAILY PRN constipation 12/08/23 [History Confirmed 12/08/23] sennosides 8.8 mg/5 mL oral syrup 10 ml PO HS 12/08/23 [History Confirmed 12/08/23] triamcinolone acetonide 0.1 % topical cream 1 applic topical HS 12/08/23 [History Confirmed 12/08/23] Exam Physical Exam Vital Signs: Temp Pulse Resp BP Pulse Ox O2 Del Method FiO2 98 F 6 L 17 130/60 98 Mechanical Ventilation 40 12/09/23 08:00 12/09/23 10:00 12/09/23 10:00 12/09/23 10:00 12/09/23 10:00 12/09/23 08:00 12/09/23 10:00 Narrative: General: awake, follows simple commands, full mechanical ventilator HEENT: EOMi, PERRL+, oral mucosa is moist Neck: neck is supple, tracheostomy in place Cardiovascular: regular rate and rhythm, capillary fill is within normal limits Respiratory: Clear to auscultation upper lobes, negative breath sounds in bases,chest is symmetric Abdomen: bowel sounds present, no tenderness nondistended Neuro: awake, no gross motor deficits Results - Pulmonology Intake and Output I&O - Last 24 Hours: Intake & Output 12/08/23 12/09/23 12/09/23 23:59 07:59 15:59 Intake Total 150 / 150 525 / 525 Balance 150 / 150 525 / 525 Weight 43 kg 43.2 kg Labs 12/09/23 04:26 12/09/23 04:26 Microbiology Micro: 12/09/23 10:27 Blood Culture - Pending Blood - Right Hand 12/09/23 10:30 Blood Culture - Pending Blood - Left Antecubital 12/08/23 16:44 Blood Culture - Pending Blood - Right Arm 12/08/23 16:08 Blood Culture - Pending Blood - Right Antecubital Assessment/Plan (1) Acute on chronic respiratory failure with hypoxia: (2) Pleural effusion: (3) Ventilator dependent: (4) Pneumothorax: Plan Continue full mechanical ventilator support/lung protective ventilation Daily spontaneous breathing trial Net negative fluid balance Continue empiric IV antibiotics Sputum and blood cultures Procalcitonin Albuterol nebs every 6 hours Hypertonic saline nebs every 6 hours Chest physiotherapy Patient has trapped lung. No invasive interventions indicated at this time DVT/GI prophylaxis Physical therapy CCT:45 minutes Documented By: Michael Butterfield MD [id number] Signed By: <Electronically signed by Michael Butterfield MD> 12/09/23 1310 [facility] Work Phone: 1(197) 870-934504-15-2024 Progress note Author Hima Juarez [facility] December 09, 2023 12:32pm Note Date/Time December 09, 2023 12: 32pm [facility] [address] [place] [address] Hospitalist Progress Note Signed Patient: Rosalind Restrepo MR#: [id number] : 1940 Acct:[id number] Age/Sex: 83 / F Adm Date: 4 Loc: Room: [address] [place] [address] Type: ADM IN Attending Dr: Hima Juarez DO Copies to: ~ Date of Service: 12/09/2023 Subjective Subjective Narrative: No new symptoms. Patient is trached and PEG. She is able to communicate by shaking her head yes and no. Discussed patient with RN. Patient is on IV Lasix. She is complaining of back pain. She reports history of chronic back pain. Lidocaine patch is applied. Exam Physical Exam Vital Signs: Temp Pulse Resp BP Pulse Ox O2 Del Method FiO2 98 F 6 L 17 130/60 98 Mechanical Ventilation 40 12/09/23 08:00 12/09/23 10:00 12/09/23 10:00 12/09/23 10:00 12/09/23 10:00 12/09/23 08:00 12/09/23 10:00 Narrative: Generally: Lying in ICU bed without distress HEENT: Tracheostomy in appropriate positioning, head atraumatic normocephalic Heart: Regular rate, regular rhythm Lungs diminished bilaterally, normal efforts Abdomen is soft nontender nondistended, PEG tube in place Extremities: No edema, pulses intact Neurologically: Following commands and answering question appropriately by shaking her head yes and no, nonfocal. Objective Lab Results 12/09/23 04:26 12/09/23 04:26 Meds Allergies and Active Meds Allergies Sulfa (Sulfonamide Antibiotics) Allergy (Verified 12/08/23 17:02) Unknown Reaction Active Meds: Active Medications Generic Name Dose Route Start Last Admin Trade Name Freq PRN Reason Stop Dose Admin Acetaminophen 650 mg 12/08/23 20:02 12/08/23 23:44 Acetaminophen 325 Mg Tablet PEG 12/07/24 20:01 650 mg QID PRN Administration pain Albuterol 2.5 mg 12/08/23 20:02 Albuterol Neb *Concentrated* 2.5 Mg/0.5 Ml Vial.Neb INHALATION 12/07/24 20:01 Q2HR PRN shortness of breath or wheezing Albuterol 6 puff 12/09/23 06:00 12/09/23 12:08 Albuterol Hfa 200 Puff/18 Gm Inhaler VENT 12/08/24 05:59 6 puff Q6HR ZACHARY Administration Aspirin 81 mg 12/09/23 09:00 12/09/23 09:13 Aspirin 81 Mg Tablet.Dr PO 12/08/24 08:59 81 mg DAILY ZACHARY Administration Buspirone HCl 10 mg 12/08/23 22:00 12/09/23 09:13 Buspirone 10 Mg Tablet PEG 12/07/24 21:59 10 mg TID ZACHARY Administration Escitalopram Oxalate 10 mg 12/08/23 21:00 12/09/23 09:13 Escitalopram 10 Mg Tablet PEG 12/07/24 20:59 10 mg BID ZACHARY Administration Furosemide 20 mg 12/09/23 08:00 12/09/23 09:13 Furosemide 20 Mg/2 Ml Vial IV-PUSH 12/08/24 07:59 20 mg BID@0800,1600 ZACHARY Administration Heparin Sodium (Porcine) 5,000 unit 12/08/23 21:00 12/09/23 09:13 Heparin 5,000 Unit/Ml Vial SUBCUT 12/07/24 20:59 5,000 unit Q12HR ZACHARY Administration Hydroxyzine Pamoate 50 mg 12/08/23 22:57 Hydroxyzine Pamoate 50 Mg Capsule PEG 12/07/24 22:56 Q8HR PRN anxiety Levofloxacin 750 mg 12/11/23 09:00 Levofloxacin 750 Mg Tablet PEG 12/16/23 23:59 Q48H ZACHARY Levothyroxine Sodium 200 mcg 12/09/23 06:30 12/09/23 06:37 Levothyroxine 200 Mcg Tablet PEG 12/08/24 06:29 200 mcg DAILY.0630 ZACHARY Administration Lidocaine 1 patch 12/09/23 09:00 12/09/23 09:13 Lidocaine 4% Adh..Patch TOPICAL 12/08/24 08:59 1 patch DAILY ZACHARY Administration Prednisolone Acetate 1 drops 12/09/23 09:00 Prednisolone Ac 1% Op Susp 100 Drops/5 Ml Bottle EYE-BOTH 12/08/24 08:59 DAILY ZACHARY Sodium Chloride 0 ml 12/08/23 15:40 12/08/23 19:19 Sodium Chloride 0.9 % 10 Ml Syringe IV-PUSH 12/07/24 15:39 10 ml PRN PRN Administration Flush A&P - Hospitalist Assessment/Plan (1) Pleural effusion: (2) Ventilator dependent: (3) Pneumothorax: (4) Acute on chronic respiratory failure with hypoxia: (5) Cachexia: (6) Acute on chronic diastolic heart failure: Plan -Continue to monitor closely in the ICU given the patient being vent dependent. -Appreciate critical care input -Resume IV Lasix, monitor electrolytes and renal function -Follow-up echocardiogram -Home medication resumed as appropriate -Resume tube feeding -DVT prophylaxis-she is on subcu heparin -She is full code -Discussed plan of care with patient -Discussed with RN Documented By: Hima Juarez DO 12/09/23 1228 Signed By: <Electronically signed by Hima Juarez DO> 12/09/23 1232 [facility] Work Phone: [phone] History and physical note Author Ewa Marx [facility] December 08, 2023 8:01pm Note Date/Time December 08, 2023 8:0 1pm [facility] [address] [place] [address] Hospitalist H&P Signed Patient: Rosalind Restrepo MR#: [id number] : 1940 Acct:[id number] Age/Sex: 83 / F Adm Date: 4 Loc: Room: [address] [place] [address] Type: ADM IN Attending Dr: Ewa Marx MD Copies to: MD Ryan Tamez MD~ HPI DATE OF EXAMINATION: 12/08/23 CHIEF COMPLAINT: Increased shortness of breath and decreased oxygenation. HISTORY OF PRESENT ILLNESS: Patient is a frail 83-year-old female with past medical history of chronic diastolic heart failure, hypertension, depression, atrial fibrillation not on anticoagulation, unstageable sacral pressure ulcers, respiratory failure on ventilator as per the record from group home. Patient has been sent from [facility] due to increased shortness of breath with decreased oxygenation. In the emergency room her labs showing troponin 28, BNP 277, hemoglobin 9.9 with no previous record available. Patient had CTA chest which showed small pneumothorax in the right costophrenic sulcus and large bilateral pleural effusions. No evidence of pulmonary embolism seen. On examination patient appears cachectic and currently on mechanical ventilator. All of the history is obtained from her daughter present at bedside. As per the daughter patient had sepsis which led to respiratory failure in July last year. She was admitted at [facility] in [place], [place] and was intubated 3 times due to recurrent respiratory failure and eventually underwent tracheostomy and PEG tube placement. Source of sepsis was not clear but suspecting infection from the left leg. 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 Patient has been doing well at the group home and was on room air for 20 hours and using vent only for 4 hours. She was also started on oral dietbut developed pneumonia around 2 and half weeks ago and was admitted at [facility] where she stayed for 6 days. She was told to have fluid overload and was sent back to the group home. As per the daughter she continues to have difficulty breathing and has not been able to wean her off the ventilator. Denies fever, chills or excessive cough. ER physician has discussed case with pulmonary service and patient will be admitted for further management. During myevaluation patient is awake and following commands and does not appear to be in respiratory distress. 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 Diarrhea Pressure ulcer of sacral region Anxiety disorder Depression Hyperkalemia Familial hypophosphatemia Hyperlipidemia Dependence on respirator [ventilator] status Resistance to antifungal drug(s) Adult failure to thrive Chronic kidney disease Cellulitis Chronic right heart failure CHF (congestive heart failure) Atherosclerotic heart disease of [place] coronary artery without angina pectoris Hypertension Afib Unspecified severe protein-calorie malnutrition Hypothyroidism Iron deficiency anemia Candidiasis Other voice and resonance disorders Dysphagia Muscle weakness (generalized) Respiratory failure, unspecified with hypoxia Pneumonia Surgical History (Updated 12/08/23 @ 16:50 by Jacqueline Soto RN) Gastrostomy status PEG Tracheostomy status Meds Medications and Allergies Allergies Sulfa (Sulfonamide Antibiotics) Allergy (Verified 12/08/23 17:02) Unknown Reaction Home Medications Lactobacillus acidophilus 1 billion cell capsule 1,000 mmu cells feeding tube BID 12/08/23 [History Confirmed 12/08/23] acetaminophen 325 mg tablet 650 mg feeding tube QID PRN pain 12/08/23 [History Confirmed 12/08/23] albuterol sulfate 2.5 mg/0.5 mL solution for nebulization 2.5 mg inhalation [id number] shortness of breath or wheezing 12/08/23 [History Confirmed 12/08/23] albuterol sulfate 2.5 mg/3 mL (0.083 %) solution for nebulization 2.5 mg inhalation QID 12/08/23 [History Confirmed 12/08/23] aluminum-mag hydroxide-simethicone 400 mg-400 mg-40 mg/5 mL oral susp (Maalox Maximum Strength) 7.5 ml PO Q6HR PRN indigestion 12/08/23 [History Confirmed 12/08/23] artificial tears solution eye drops 1 drp ophthalmic (eye) BID 12/08/23 [History Confirmed 12/08/23] aspirin 81 mg capsule 81 mg feeding tube DAILY 12/08/23 [History Confirmed 12/08/23] bisacodyl 10 mg rectal suppository 10 mg AZ DAILY PRN constipation 12/08/23 [History Confirmed 12/08/23] buspirone 10 mg tablet 10 mg feeding tube TID 12/08/23 [History Confirmed 12/08/23] chlorhexidine gluconate 0.12 % mouthwash 15 ml buccal BID 12/08/23 [History Confirmed 12/08/23] diltiazem HCl 30 mg tablet (Cardizem) 30 mg feeding tube BID 12/08/23 [History Confirmed 12/08/23] escitalopram oxalate 10 mg tablet (Lexapro) 10 mg feeding tube BID 12/08/23 [History Confirmed 12/08/23] ferrous sulfate 300 mg (60 mg iron)/5 mL oral liquid 300 mg feeding tube DAILY 12/08/23 [History Confirmed 12/08/23] furosemide 20 mg tablet 20 mg feeding tube BID 12/08/23 [History Confirmed 12/08/23] furosemide 40 mg tablet 40 mg feeding tube BID 12/08/23 [History Confirmed 12/08/23] heparin (porcine) 5,000 unit/mL injection solution 5,000 unit subcut BID 12/08/23 [History Confirmed 12/08/23] hydroxyzine HCl 50 mg tablet 50 mg feeding tube Q8HR PRN anxiety 12/08/23 [History Confirmed 12/08/23] levofloxacin 750 mg tablet 750 mg feeding tube DAILY 12/08/23 [History Confirmed 12/08/23] levothyroxine 200 mcg tablet (Euthyrox) 200 mcg feeding tube DAILY 12/08/23 [History Confirmed 12/08/23] lidocaine 4 % topical patch 1 patch topical DAILY 12/08/23 [History Confirmed 12/08/23] loperamide 2 mg tablet (Diamode) 2 mg feeding tube Q6HR PRN loose stool 12/08/23[History Confirmed 12/08/23] metoprolol tartrate 25 mg tablet 12.5 mg feeding tube BID 12/08/23 [History Confirmed 12/08/23] ondansetron 4 mg disintegrating tablet 4 mg feeding tube Q8HR PRN nausea and vomiting 12/08/23 [History Confirmed 12/08/23] oxycodone 5 mg tablet 2.5 mg feeding tube Q6HR PRN pain 12/08/23 [History Confirmed 12/08/23] oxycodone 5 mg tablet 5 mg feeding tube Q6HR PRN pain 12/08/23 [History Confirmed 12/08/23] prednisolone acetate 1 % eye drops,suspension (Pred Forte) 1 drp Eye-Both DAILY 12/08/23 [History Confirmed 12/08/23] sennosides 8.8 mg/5 mL oral syrup 5 ml feeding tube DAILY PRN constipation 12/08/23 [History Confirmed 12/08/23] sennosides 8.8 mg/5 mL oral syrup 10 ml PO HS 12/08/23 [History Confirmed 12/08/23] triamcinolone acetonide 0.1 % topical cream 1 applic topical HS 12/08/23 [History Confirmed 12/08/23] Exam Physical Exam Vital Signs: Temp Pulse Resp BP Pulse Ox O2 Del Method FiO2 98.1 F 54 L 16 136/62 98 Mechanical Ventilation 40 12/08/23 15:27 12/08/23 19:14 12/08/23 19:14 12/08/23 19:14 12/08/23 19:14 12/08/23 19:14 12/08/23 19:14 Const General: cooperative Nutritional Appearance: cachectic Orientation: alert and awake HEENT Head: normal to inspection, no palpable skull fracture, normocephalic and atraumatic Eyes Pupils: PERRL EOM: EOM intact bilaterally and No nystagmus Neck Other: Tracheostomy connected to mechanical ventilator Resp Effort & Inspection: normal respiratory effort Auscultation: diminished lung sounds bilaterally in the lower lung jonas, no rales, no rhonchi and no wheezes Cardio Rate: regular rate Rhythm: regular rhythm Heart Sounds: S1 normal and S2 normal GI Palpation: soft, not firm, no guarding and nontender Other: PEG tube in place. Neuro General: patient alert, patient awake, moves all extremities and no focal motor deficits Extrem General: no clubbing, cyanosis or edema and no calf tenderness Results - Hospitalist H&P Lab Results Labs: Laboratory Last Values Corrected WBC 9.0 X10E3/uL (3.8-11.6) 12/08/23 16:08 Uncorrected WBC Count 9.0 x10E3/uL (3.8-11.6) 12/08/23 16:08 RBC 3.22 X10E6/uL (3.60-5.00) L 12/08/23 16:08 Hgb 9.9 g/dL (11.8-15.4) L 12/08/23 16:08 Hct 30.4 % (34.0-46.4) L 12/08/23 16:08 MCV 94.4 fl (80-100) 12/08/23 16:08 MCH 30.6 pg (24.7-34.3) 12/08/23 16:08 MCHC 32.4 g/dL (32.0-35.0) 12/08/23 16:08 RDW 15.3 % (11.9-15.3) 12/08/23 16:08 Plt Count 277 x10E3/uL (150-450) 12/08/23 16:08 MPV 7.7 fl (6.3-10.7) 12/08/23 16:08 Neut % (Auto) 62.5 % (.) 12/08/23 16:08 Lymph % (Auto) 28.6 % (.) 12/08/23 16:08 Dickens % (Auto) 4.8 % (.) 12/08/23 16:08 Eos % (Auto) 3.8 % (.) 12/08/23 16:08 Baso % (Auto) 0.3 % (.) 12/08/23 16:08 Nucleat RBC Rel Count 0.1 /100 WBC (0-0.5) 12/08/23 16:08 Neut # (Auto) 5.7 x10E3/uL (1.8-7.7) 12/08/23 16:08 Lymph # (Auto) 2.6 x10E3/uL (1.00-4.8) 12/08/23 16:08 Dickens # (Auto) 0.4 x10E3/uL (0.0-0.8) 12/08/23 16:08 Eos # (Auto) 0.3 x10E3/uL (0.0-0.45) 12/08/23 16:08 Baso # (Auto) 0.0 x10E3/uL (0.0-0.2) 12/08/23 16:08 Monocyte Dist Width 17.68 % (0.00-20.00) 12/08/23 16:08 PT 12.6 Seconds (9.0-12.9) 12/08/23 16:08 INR 1.1 12/08/23 16:08 APTT 30.0 Seconds (25.1-36.5) 12/08/23 16:08 PHA Creatinine Clear 32.11 12/08/23 16:08 Sodium 136 mmol/L (136-145) 12/08/23 16:08 Potassium 4.3 mmol/L (3.5-5.1) 12/08/23 16:08 Chloride 101 mmol/L (98-107) 12/08/23 16:08 Carbon Dioxide 27.9 mmol/L (21.0-31.0) 12/08/23 16:08 Anion Gap 11.4 mEq/L (6.0-15.0) 12/08/23 16:08 BUN 57 mg/dL (7-25) H 12/08/23 16:08 Creatinine 0.98 mg/dL (0.60-1.20) 12/08/23 16:08 Est GFR (CKD-EPI) 56.915 mL/Min 12/08/23 16:08 Glucose 88 mg/dL (70-100) 12/08/23 16:08 Calcium 9.9 mg/dL (8.6-10.3) 12/08/23 16:08 Total Bilirubin 0.4 mg/dl (0.3-1.0) 12/08/23 16:08 AST 14 U/L (13-39) 12/08/23 16:08 ALT 14 U/L (7-52) 12/08/23 16:08 Alkaline Phosphatase 120 U/L (34-104) H 12/08/23 16:08 Total Creatine Kinase 25 U/L (30-223) L 12/08/23 16:08 Troponin I High Sens 25.5 pg/mL (0.0-15.0) H 12/08/23 18:05 B-Natriuretic Peptide 277.0 pg/mL (5-100) H 12/08/23 16:08 Total Protein 6.3 gm/dL (6.4-8.9) L 12/08/23 16:08 Albumin 3.1 gm/dL (3.5-5.7) L 12/08/23 16:08 Globulin 3.2 gm/dL 12/08/23 16:08 Albumin/Globulin Ratio 1.0 12/08/23 16:08 Urine Color Yellow (Yellow) 12/08/23 16:25 Urine Appearance Clear (Clear) 12/08/23 16:25 Urine pH 6.0 (5.0-9.0) 12/08/23 16:25 Ur Specific [place] 1.018 (1.001-1.030) 12/08/23 16:25 Urine Protein Negative mg/dL (Negative) 12/08/23 16:25 Urine Glucose (UA) Normal mg/dL (Normal) 12/08/23 16:25 Urine Ketones Negative (Negative) 12/08/23 16:25 Urine Occult Blood Negative (Negative) 12/08/23 16:25 Urine Nitrite Negative (Negative) 12/08/23 16:25 Urine Bilirubin Negative (Negative) 12/08/23 16:25 Urine Urobilinogen Normal mg/dL (Normal) 12/08/23 16:25 Ur Leukocyte Esterase 2+ (Negative) H 12/08/23 16:25 Urine RBC 0-1 /HPF (0-4) 12/08/23 16:25 Urine WBC 3-4 /HPF (0-4) 12/08/23 16:25 Ur Squamous Epith Cells 0-1 /HPF (0-2) 12/08/23 16:25 Urine Bacteria None seen (None Seen) 12/08/23 16:25 Hyaline Casts 0-8 /LPF (0-8) 12/08/23 16:25 Assessment & Plan Assessment/Plan (1) Pleural effusion: (2) Ventilator dependent: (3) Pneumothorax: (4) Acute on chronic respiratory failure with hypoxia: (5) Cachexia: (6) Acute on chronic diastolic heart failure: Plan Patient is a frail 83-year-old female with history of respiratory failure due tosepsis since July and has been vent dependent. She has been sent to the emergency room due to increased shortness of breath, decreased oxygenation and difficulty weaning off ventilator. In the ER CT scan showing bilateral pleural effusion with no PE or focal infiltrate seen. Patient be admitted to ICU for further management and will consult pulmonary service. Started on IV Lasix and closely monitor renal function. Obtain 2D echocardiogram to assess LV function. Resume group home medications. Heparin for DVT prophylaxis. Currently no signs of infection. Her CODE STATUS as per the record is full code. IP vs OBS Justification Based on differential dx, clinical care plan, and risk of adverse events, if untreated, in my clinical judgement this patient requires an acute care setting as: INPATIENT because of an expectation of an over 2 midnight stay. Estimated length of stay (# of days): 3 Documented By: Ewa Marx MD 12/08/231948 Signed By: <Electronically signed by Ewa Marx MD> 12/08/232000 [facility] Work Phone: Evaluation note* Diagnosis Onset Date Resolution Status Acute on chronic diastolic heart failure acute Acute on chronic respiratory failure with hypoxia acute Cachexia acute Pleural effusion acute Pneumothorax acute Ventilator dependent acute [facility] Work Phone: History and physical note Author Ewa Marx [facility] December 08, 2023 8:01pm Note Date/Time December 08, 2023 8:0 1pm [facility] [address] [place] [address] Hospitalist H&P Signed Patient: Rosalind Restrepo MR#: [id number] : 1940 Acct:[id number] Age/Sex: 83 / F Adm Date: 4 Loc: Room: [address] [place] [address] Type: ADM IN Attending Dr: Ewa Marx MD Copies to: MD Ryan Tamez MD~ HPI DATE OF EXAMINATION: 12/08/23 CHIEF COMPLAINT: Increased shortness of breath and decreased oxygenation. HISTORY OF PRESENT ILLNESS: Patient is a frail 83-year-old female with past medical history of chronic diastolic heart failure, hypertension, depression, atrial fibrillation not on anticoagulation, unstageable sacral pressure ulcers, respiratory failure on ventilator as per the record from group home. Patient has been sent from [facility] due to increased shortness of breath with decreased oxygenation. In the emergency room her labs showing troponin 28, BNP 277, hemoglobin 9.9 with no previous record available. Patient had CTA chest which showed small pneumothorax in the right costophrenic sulcus and large bilateral pleural effusions. No evidence of pulmonary embolism seen. On examination patient appears cachectic and currently on mechanical ventilator. All of the history is obtained from her daughter present at bedside. As per the daughter patient had sepsis which led to respiratory failure in July last year. She was admitted at [facility] in [place], [place] and was intubated 3 times due to recurrent respiratory failure and eventually underwent tracheostomy and PEG tube placement. Source of sepsis was not clear but suspecting infection from the left leg. 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 Patient has been doing well at the group home and was on room air for 20 hours and using vent only for 4 hours. She was also started on oral dietbut developed pneumonia around 2 and half weeks ago and was admitted at [facility] where she stayed for 6 days. She was told to have fluid overload and was sent back to the group home. As per the daughter she continues to have difficulty breathing and has not been able to wean her off the ventilator. Denies fever, chills or excessive cough. ER physician has discussed case with pulmonary service and patient will be admitted for further management. During myevaluation patient is awake and following commands and does not appear to be in respiratory distress. 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 Diarrhea Pressure ulcer of sacral region Anxiety disorder Depression Hyperkalemia Familial hypophosphatemia Hyperlipidemia Dependence on respirator [ventilator] status Resistance to antifungal drug(s) Adult failure to thrive Chronic kidney disease Cellulitis Chronic right heart failure CHF (congestive heart failure) Atherosclerotic heart disease of [place] coronary artery without angina pectoris Hypertension Afib Unspecified severe protein-calorie malnutrition Hypothyroidism Iron deficiency anemia Candidiasis Other voice and resonance disorders Dysphagia Muscle weakness (generalized) Respiratory failure, unspecified with hypoxia Pneumonia Surgical History (Updated 12/08/23 @ 16:50 by Jacqueline Soto RN) Gastrostomy status PEG Tracheostomy status Meds Medications and Allergies Allergies Sulfa (Sulfonamide Antibiotics) Allergy (Verified 12/08/23 17:02) Unknown Reaction Home Medications Lactobacillus acidophilus 1 billion cell capsule 1,000 mmu cells feeding tube BID 12/08/23 [History Confirmed 12/08/23] acetaminophen 325 mg tablet 650 mg feeding tube QID PRN pain 12/08/23 [History Confirmed 12/08/23] albuterol sulfate 2.5 mg/0.5 mL solution for nebulization 2.5 mg inhalation [id number] shortness of breath or wheezing 12/08/23 [History Confirmed 12/08/23] albuterol sulfate 2.5 mg/3 mL (0.083 %) solution for nebulization 2.5 mg inhalation QID 12/08/23 [History Confirmed 12/08/23] aluminum-mag hydroxide-simethicone 400 mg-400 mg-40 mg/5 mL oral susp (Maalox Maximum Strength) 7.5 ml PO Q6HR PRN indigestion 12/08/23 [History Confirmed 12/08/23] artificial tears solution eye drops 1 drp ophthalmic (eye) BID 12/08/23 [History Confirmed 12/08/23] aspirin 81 mg capsule 81 mg feeding tube DAILY 12/08/23 [History Confirmed 12/08/23] bisacodyl 10 mg rectal suppository 10 mg [place] DAILY PRN constipation 12/08/23 [History Confirmed 12/08/23] buspirone 10 mg tablet 10 mg feeding tube TID 12/08/23 [History Confirmed 12/08/23] chlorhexidine gluconate 0.12 % mouthwash 15 ml buccal BID 12/08/23 [History Confirmed 12/08/23] diltiazem HCl 30 mg tablet (Cardizem) 30 mg feeding tube BID 12/08/23 [History Confirmed 12/08/23] escitalopram oxalate 10 mg tablet (Lexapro) 10 mg feeding tube BID 12/08/23 [History Confirmed 12/08/23] ferrous sulfate 300 mg (60 mg iron)/5 mL oral liquid 300 mg feeding tube DAILY 12/08/23 [History Confirmed 12/08/23] furosemide 20 mg tablet 20 mg feeding tube BID 12/08/23 [History Confirmed 12/08/23] furosemide 40 mg tablet 40 mg feeding tube BID 12/08/23 [History Confirmed 12/08/23] heparin (porcine) 5,000 unit/mL injection solution 5,000 unit subcut BID 12/08/23 [History Confirmed 12/08/23] hydroxyzine HCl 50 mg tablet 50 mg feeding tube Q8HR PRN anxiety 12/08/23 [History Confirmed 12/08/23] levofloxacin 750 mg tablet 750 mg feeding tube DAILY 12/08/23 [History Confirmed 12/08/23] levothyroxine 200 mcg tablet (Euthyrox) 200 mcg feeding tube DAILY 12/08/23 [History Confirmed 12/08/23] lidocaine 4 % topical patch 1 patch topical DAILY 12/08/23 [History Confirmed 12/08/23] loperamide 2 mg tablet (Diamode) 2 mg feeding tube Q6HR PRN loose stool 12/08/23[History Confirmed 12/08/23] metoprolol tartrate 25 mg tablet 12.5 mg feeding tube BID 12/08/23 [History Confirmed 12/08/23] ondansetron 4 mg disintegrating tablet 4 mg feeding tube Q8HR PRN nausea and vomiting 12/08/23 [History Confirmed 12/08/23] oxycodone 5 mg tablet 2.5 mg feeding tube Q6HR PRN pain 12/08/23 [History Confirmed 12/08/23] oxycodone 5 mg tablet 5 mg feeding tube Q6HR PRN pain 12/08/23 [History Confirmed 12/08/23] prednisolone acetate 1 % eye drops,suspension (Pred Forte) 1 drp Eye-Both DAILY 12/08/23 [History Confirmed 12/08/23] sennosides 8.8 mg/5 mL oral syrup 5 ml feeding tube DAILY PRN constipation 12/08/23 [History Confirmed 12/08/23] sennosides 8.8 mg/5 mL oral syrup 10 ml PO HS 12/08/23 [History Confirmed 12/08/23] triamcinolone acetonide 0.1 % topical cream 1 applic topical HS 12/08/23 [History Confirmed 12/08/23] Exam Physical Exam Vital Signs: Temp Pulse Resp BP Pulse Ox O2 Del Method FiO2 98.1 F 54 L 16 136/62 98 Mechanical Ventilation 40 12/08/23 15:27 12/08/23 19:14 12/08/23 19:14 12/08/23 19:14 12/08/23 19:14 12/08/23 19:14 12/08/23 19:14 Const General: cooperative Nutritional Appearance: cachectic Orientation: alert and awake HEENT Head: normal to inspection, no palpable skull fracture, normocephalic and atraumatic Eyes Pupils: PERRL EOM: EOM intact bilaterally and No nystagmus Neck Other: Tracheostomy connected to mechanical ventilator Resp Effort & Inspection: normal respiratory effort Auscultation: diminished lung sounds bilaterally in the lower lung jonas, no rales, no rhonchi and no wheezes Cardio Rate: regular rate Rhythm: regular rhythm Heart Sounds: S1 normal and S2 normal GI Palpation: soft, not firm, no guarding and nontender Other: PEG tube in place. Neuro General: patient alert, patient awake, moves all extremities and no focal motor deficits Extrem General: no clubbing, cyanosis or edema and no calf tenderness Results - Hospitalist H&P Lab Results Labs: Laboratory Last Values Corrected WBC 9.0 X10E3/uL (3.8-11.6) 12/08/23 16:08 Uncorrected WBC Count 9.0 x10E3/uL (3.8-11.6) 12/08/23 16:08 RBC 3.22 X10E6/uL (3.60-5.00) L 12/08/23 16:08 Hgb 9.9 g/dL (11.8-15.4) L 12/08/23 16:08 Hct 30.4 % (34.0-46.4) L 12/08/23 16:08 MCV 94.4 fl (80-100) 12/08/23 16:08 MCH 30.6 pg (24.7-34.3) 12/08/23 16:08 MCHC 32.4 g/dL (32.0-35.0) 12/08/23 16:08 RDW 15.3 % (11.9-15.3) 12/08/23 16:08 Plt Count 277 x10E3/uL (150-450) 12/08/23 16:08 MPV 7.7 fl (6.3-10.7) 12/08/23 16:08 Neut % (Auto) 62.5 % (.) 12/08/23 16:08 Lymph % (Auto) 28.6 % (.) 12/08/23 16:08 Dickens % (Auto) 4.8 % (.) 12/08/23 16:08 Eos % (Auto) 3.8 % (.) 12/08/23 16:08 Baso % (Auto) 0.3 % (.) 12/08/23 16:08 Nucleat RBC Rel Count 0.1 /100 WBC (0-0.5) 12/08/23 16:08 Neut # (Auto) 5.7 x10E3/uL (1.8-7.7) 12/08/23 16:08 Lymph # (Auto) 2.6 x10E3/uL (1.00-4.8) 12/08/23 16:08 Dickens # (Auto) 0.4 x10E3/uL (0.0-0.8) 12/08/23 16:08 Eos # (Auto) 0.3 x10E3/uL (0.0-0.45) 12/08/23 16:08 Baso # (Auto) 0.0 x10E3/uL (0.0-0.2) 12/08/23 16:08 Monocyte Dist Width 17.68 % (0.00-20.00) 12/08/23 16:08 PT 12.6 Seconds (9.0-12.9) 12/08/23 16:08 INR 1.1 12/08/23 16:08 APTT 30.0 Seconds (25.1-36.5) 12/08/23 16:08 PHA Creatinine Clear 32.11 12/08/23 16:08 Sodium 136 mmol/L (136-145) 12/08/23 16:08 Potassium 4.3 mmol/L (3.5-5.1) 12/08/23 16:08 Chloride 101 mmol/L (98-107) 12/08/23 16:08 Carbon Dioxide 27.9 mmol/L (21.0-31.0) 12/08/23 16:08 Anion Gap 11.4 mEq/L (6.0-15.0) 12/08/23 16:08 BUN 57 mg/dL (7-25) H 12/08/23 16:08 Creatinine 0.98 mg/dL (0.60-1.20) 12/08/23 16:08 Est GFR (CKD-EPI) 56.915 mL/Min 12/08/23 16:08 Glucose 88 mg/dL (70-100) 12/08/23 16:08 Calcium 9.9 mg/dL (8.6-10.3) 12/08/23 16:08 Total Bilirubin 0.4 mg/dl (0.3-1.0) 12/08/23 16:08 AST 14 U/L (13-39) 12/08/23 16:08 ALT 14 U/L (7-52) 12/08/23 16:08 Alkaline Phosphatase 120 U/L (34-104) H 12/08/23 16:08 Total Creatine Kinase 25 U/L (30-223) L 12/08/23 16:08 Troponin I High Sens 25.5 pg/mL (0.0-15.0) H 12/08/23 18:05 B-Natriuretic Peptide 277.0 pg/mL (5-100) H 12/08/23 16:08 Total Protein 6.3 gm/dL (6.4-8.9) L 12/08/23 16:08 Albumin 3.1 gm/dL (3.5-5.7) L 12/08/23 16:08 Globulin 3.2 gm/dL 12/08/23 16: Albumin/Globulin Ratio 1.0 12/08/23 16:08 Urine Color Yellow (Yellow) 12/08/23 16:25 Urine Appearance Clear (Clear) 12/08/23 16:25 Urine pH 6.0 (5.0-9.0) 12/08/23 16:25 Ur Specific [place] 1.018 (1.001-1.030) 12/08/23 16:25 Urine Protein Negative mg/dL (Negative) 12/08/23 16:25 Urine Glucose (UA) Normal mg/dL (Normal) 12/08/23 16:25 Urine Ketones Negative (Negative) 12/08/23 16: Urine Occult Blood Negative (Negative) 12/08/23 16: Urine Nitrite Negative (Negative) 12/08/23 16: Urine Bilirubin Negative (Negative) 12/08/23 16:25 Urine Urobilinogen Normal mg/dL (Normal) 12/08/23 16:25 Ur Leukocyte Esterase 2+ (Negative) H 12/08/23 16:25 Urine RBC 0-1 /HPF (0-4) 12/08/23 16:25 Urine WBC 3-4 /HPF (0-4) 12/08/23 16:25 Ur Squamous Epith Cells 0-1 /HPF (0-2) 12/08/23 16:25 Urine Bacteria None seen (None Seen) 12/08/23 16:25 Hyaline Casts 0-8 /LPF (0-8) 12/08/23 16:25 Assessment & Plan Assessment/Plan (1) Pleural effusion: (2) Ventilator dependent: (3) Pneumothorax: (4) Acute on chronic respiratory failure with hypoxia: (5) Cachexia: (6) Acute on chronic diastolic heart failure: Plan Patient is a frail 83-year-old female with history of respiratory failure due tosepsis since July and has been vent dependent. She has been sent to the emergency room due to increased shortness of breath, decreased oxygenation and difficulty weaning off ventilator. In the ER CT scan showing bilateral pleural effusion with no PE or focal infiltrate seen. Patient be admitted to ICU for further management and will consult pulmonary service. Started on IV Lasix and closely monitor renal function. Obtain 2D echocardiogram to assess LV function. Resume group home medications. Heparin for DVT prophylaxis. Currently no signs of infection. Her CODE STATUS as per the record is full code. IP vs OBS Justification Based on differential dx, clinical care plan, and risk of adverse events, if untreated, in my clinical judgement this patient requires an acute care setting as: INPATIENT because of an expectation of an over 2 midnight stay. Estimated length of stay (# of days): 3 Documented By: Ewa Marx MD 12/08/231948 Signed By: <Electronically signed by Ewa Marx MD> 12/08/232000 [facility] Work Phone: Summary Purpose Family History No Family History Records FoundNo Family History Records FoundNo Family History Records FoundNo Family History Records Found Advance Directives No Advanced Directives Records Found Advance Directive Response Recorded Date/ Time Advance Directives No December 07 5:19pm Chief Complaint and Reason for Visit Chief Complaint sob sob Reason for Visit Acute on chronic frederic stolic heart failure Acute on chronic respiratory failure with hypoxia Cachexia Pleural effusion Pneumothorax Ventilator dependent Chief Complaint sob sob sob sob sob sob Reason for Visit Acute on chronic frederic stolic heart failure Acute on chronic respiratory failure with hypoxia Cachexia Pleural effusion Pneumothorax Ventilator dependent Additional Source Comments INFORMATION SOURCE (unrecogn ized section and content) DATE CREATED AUTHOR 11/27/2023 [facility] DATE CREATED AUTHOR AUTHOR'S ORGANIZ ATION 12/10/2023 [facility] DATE CREATED AUTHOR AUTHOR'S ORGANIZ ATION 12/14/2023 [facility] DATE CREATED AUTHOR AUTHOR'S ORGANIZ ATION 12/26/2023 [facility] Care Teams (unrecognized sec tion and content) Team Status: Active Member Role Status Dates Ryan Kearns MD Primary Care Provider Active Team Status: Inactive Member Role Status Dates Tori Gaona MD Emergency Provider Active Star t: December 08, 2023 End: December 17, 2023 Ryan Kearns MD Primary Care Provider Active Start: December 08, 2023 End: December 17, 2023 Ewa Marx MD Admit Provider Active Start: December 08, 2023 End: December 17, 2023 Michael Juarez MD Other Provider Active Start: December 07, 2 024 End: December 17, 2023 Melani Dunne MD Attending Provider Active Star t: December 08, 2023 End: December 17, 2023 Team Status: Active Member Role Status Dates Tori Gaona MD Emergency Provider Active Star t: December 08, 2023 Ryan Kearns MD Primary Care Provider Active Start: December 08, 2023 Ewa Marx MD Admit Provider, Atte nding Provider, Other Provider Active Start: December 08, 2023 Team Status: Active Member Role Status Dates Tori Gaona MD Emergency Provider Active Star t: December 09, 2023 Ryan Kearns MD Primary Care Provider Active Start: December 09, 2023 Ewa Marx MD Admit Provider Active Start: December 09, 2023 Michael Juarez MD Other Provider Active Start: December 082023 Hima Juarez DO Attending Provider, Other Provider Active Start: December 09, 2023 Team Status: Active Member Role Status Dates Tori Gaona MD Emergency Provider Active Star t: December 09, 2023 Ryan Kearns MD Primary Care Provider Active Start: December 09, 2023 Ewa Marx MD Admit Provider Active Start: December 09, 2023 Michael Juarez MD Attending Provider, Other Provider Active Start: December 09, 2023 Hima Juarez DO Other Provider Active Start: December 09, 2023 Team Status: Active Member Role Status Dates Tori Gaona MD Emergency Provider Active Star t: December 15, 2023 Ryan Kearns MD Primary Care Provider Active Start: December 15, 2023 Ewa Marx MD Admit Provider Active Start: December 15, 2023 Michael Juarez MD Other Provider Active Start: December 142023 Raul Lehman MD Attending Provider, Other Provider Active Start: December 15, 2023 Team Status: Active Member Role Status Dates Tori Gaona MD Emergency Provider Active Star t: December 16, 2023 Ryan Kearns MD Primary Care Provider Active Start: December 16, 2023 Ewa Marx MD Admit Provider Active Start: December 16, 2023 Michael Juarez MD Other Provider Active Start: December 15 Melani Dunne MD Other Provider Active Start: Frandy jara 2023 Robbie Cuevas MD Attending Provider Active Start: December 16, 2023 Team Status: Active Member Role Status Dates Tori Gaona MD Emergency Provider Active Star t: December 08, 2023 Ryan Kearns MD Primary Care Provider Active Start: December 08, 2023 Ewa Marx MD Admit Provider, Atte nding Provider Active Start: December 08, 2023 Michael Juarez MD Other Provider Active Start: December 072023 Goals (unrecognized section and content) Goals may be documented in a n alternate section FOR RECORDS PERTAINING TO PATIENTS WHO ARE OR HAVE BEEN ENROLLED IN A CHEMICAL DEPENDENCY/SUBSTANCEABUSE PROGRAM, SOME INFORMATION MAY BE OMITTED. This clinical summary was aggregated from multiple sources. Caution should be exercised in using it in the provision of clinical care. This summary normalizes information from multiple sources, and as a consequence, information in this document may materially change the coding, format and clinical context of patient data. In addition, data may be omitted in some cases. CLINICAL DECISIONS SHOULD BE BASED ON THE PRIMARY CLINICAL RECORDS. [employer] provides no warranty or guarantee of the accuracy or completeness of information in this document.
[2024-01-01 21:52] LABS: Hematocrit 33.5 % (36.0-48.0); Hemoglobin 10.4 g/dL (12.0-16.0); Mean Corpuscular Hemoglobin 30.5 pg (26.7-34.0); Mean Corpuscular Volume 98.2 fL (81.0-99.0); Mean Platelet Volume 10.8 fL (9.5-13.5); Platelet Count 237 10^3/uL (150-450); Red Blood Count 3.41 10^6/uL (4.20-5.40); Red Cell Distribution Width 13.6 % (11.0-15.0); White Blood Count 8.7 10^3/uL (4.0-11.0)
[2024-01-01 22:03] LABS: Alanine Aminotransferase 16 U/L (14-59); Albumin Globulin Ratio 0.7; Albumin Level 2.2 g/dL (3.4-5.0); Alkaline Phosphatase 117 U/L (46-116); Anion Gap 14.5; Aspartate Amino Transferase 16 U/L (15-37); BUN Creatinine Ratio 61.4; Bilirubin Total 0.3 mg/dL (0.2-1.0); Calcium 9.5 mg/dL (8.5-10.1); Carbon Dioxide 23.4 mmol/L (21.0-32.0); Chloride 101 mmol/L (98-107); Estimated GFR (African America >60 (>=60); Estimated GFR (Non-African Ame >60 (>=60); Globulin 3.3 g/dL; Glucose 218 mg/dL (74-106); Potassium 3.9 mmol/L (3.5-5.1); Sodium 135 mmol/L (136-145); Total Protein 5.5 g/dL (6.4-8.2)
[2024-01-01 22:35] LABS: Atypical Lymphocytes Abs Man 0.26; Band Neutrophils Absolute 0.3 10^3/uL (0.0-0.3); Basophils Abs Manual 0.08 10^3/uL (0.00-0.10); Eosinophils Absolute Manual 0.08 10^3/uL (0.00-0.70); Lymphocytes Absolute Manual 1.91 10^3/uL (1.20-3.80); Segmented Neut Absolute Manual 6.09 10^3/uL (1.4-6.5); Toxic Granulation 3+
== END 2024-01-01 20:52 | disposition home or self-care (01) ==
LOC: LAB 20:51
PROVIDERS: PCP Student in an Organized Health Care Education/Training Program; Visit Provider Student in an Organized Health Care Education/Training Program
DX: R41.82 Altered mental status, unspecified (principal)
CPT/HCPCS: 36415; 80053; 85007; 85027

== ENCOUNTER 2024-01-20 05:33 | Outpatient (REF) | payer MEDICARE, SELFPAY ==
--- OUTSIDE RECORDS SUMMARY | 2024-01-20 05:37 | XMS_ITS | CCD ---
Author Organization [facility] Care Team Providers Care Floor Press Operator Name Role Phone FRAGA, MELISSA Primary Care [...] Provider MD Ryan Kearns Primary Care Provider [phone] MD Ewa Marx Admit Provider MD Ewa Marx Attending Provider MD Michael Juarez Other Provider PENELOPE KOHLER Referring Unavailable FRAGA, MELISSA Primary Care Unavailable TRAN, CHIDI Referring Unavailable FRAGA, MELISSA Primary Care Unavailable FRAGA, MELISSA Primary Care Unavailable TRAN, CHIDI Attending Unavailable TEENA CHANG Referring Unavailable FRAGA, MELISSA Primary Care Unavailable MD Melani Dunne Attending Provider DO Dillon Merritt Emergency Provider MD Paulo Pretty Admit Provider MD Paulo Pretty Attending Provider Zoya Bell Admitting Unavailable Zoya Bell Attending Unavailable Ryan Kearns Primary Care Unavailable Ryan Kearns Primary Care Unavailable Melani Dunne Attending Unavailable Ewa Marx Admitting Unavailable Michael Juarez Consulting Un available Ryan Kearns Primary Care Unavailable Robbie Cuevas Consulting Unavaila Paulo Diaz Admitting Unavailable Chap[place] Landeros Attending UnavailMD Robbie Loyola Other Provider DO Chapo Landeros Attending Provider SATURNINO Bell Emergency Provider Allergies Allergy Classification Reported Allergen(s) Allergy Type Date of Onset Reaction(s) Facility (4 sources) Sulfonamides (Antibiotic); Translations: [SULFA (SULFONAMIDE ANTIBIOTICS)] Propensity to adverse reactions to drug (disorder) [facility] Medications Current Medications Medication Drug Class(es) Dates Sig (Normalized) Sig (Original) acetaminophen 325 mg oral tablet (4 sources) Start: 12-08-2023 Acetaminophen Active 650 MG FEEDTUBE Four times daily December 08, 2023 12:00am albuterol 5 mg/ml inhalation solution (8 sources) beta2-Adrenergic Agonist Start: 12-08-2023 take 2.5 mg by inhalation every two hours Albuterol Sulfate Active 2.5 MG INHALATION Every 2 hours December 08, 2023 12:00am Start: 12-08-2023 take 2.5 mg by inhal ation four times daily Albuterol Sulfate Active 2.5 MG INHALATION Four times daily December 08, 2023 12:00am Alum-Mag Hydroxide-Simeth (Maalox Maximum Strength) 400-400-40 mg/5 mL suspension (4 sources) Start: 12-08-2023 take 1 mL by mouth every six hours Alum-Mag Hydroxide-Simeth (Maalox Maximum Strength) 400-400-40 mg/5 mL suspension Active 7.5 ML PO Every 6 hours December 08, 2023 12:00am Artificial Tears Solution (4 sources) Start: 12-08-2023 take 1 drop(s) into the eye(s) twice daily Artificial Tears Solution Active 1 DROPS OPHTHALMIC Twice daily December 08, 2023 12:00am Aspirin (4 sources) Platelet Aggregation Inhibitor, Nonsteroidal Anti-inflammatory Drug Start: 12-08-2023 Aspirin Active 81 MG FEEDTUBE Daily December 08, 2023 12:00am bisacodyl 10 mg rectal suppository (4 sources) Stimulant Laxative Start: 12-08-2023 Bisacodyl Active 10 MG NC Daily December 08, 2023 12:00am busPIRone hydrochloride 10 mg oral tablet (4 sources) Start: 12-08-2023 Buspirone Active 10 MG FEEDTUBE Three times daily December 08, 2023 12:00am chlorhexidine gluconate 1.2 mg/ml mouthwash (4 sources) Start: 12-08-2023 Chlorhexidine Gluconate Active 15 ML BUCCAL Twice daily December 08, 2023 12:00am administer with toothettes dilTIAZem hydrochloride 30 mg oral tablet (4 sources) Calcium Channel Bienvenido Start: 12-08-2023 Diltiazem Hcl (Cardizem) 30 mg tablet Active 30 MG FEEDTUBE Twice daily December 08, 2023 12:00am hold for SBP escitalopram 10 mg oral tablet (4 sources) Serotonin Reuptake Inhibitor Start: 12-08-2023 Escitalopram Oxalate (Lexapro) 10 mg tablet Active 10 MG FEEDTUBE Twice daily December 08, 2023 12:00am ferrous sulfate 60 mg/ml oral solution (4 sources) Start: 12-08-2023 Ferrous Sulfate Active 300 MG FEEDTUBE Daily December 08, 2023 12:00am furosemide 20 mg oral tablet (10 sources) Loop Diuretic Start: 01-02-2024 Furosemide (Lasix) 20 mg tablet Active 20 MG FEEDTUBE Daily January 02, 2024 12:00am Start: 12-08-2023 End: 12-17-2023 Furosemide Discontinued 20 M G FEEDTUBE Twice daily December 08, 2023 12:00am December 17, 2023 12:49pm Start: 12-08-2023 End: 01-02-2024 Furosemide Discontinued 40 M G FEEDTUBE Twice daily December 08, 2023 12:00am January 02, 2024 1:22am x3 days, start 12/08/23, end 12/11/23 heparin sodium, porcine 5000 unt/ml injectable solution (4 sources) Unfractionated Heparin, Anti-coagulant Start: 12-08-2023 inject 5000 [IU] by subcutaneous injection twice daily Heparin (Porcine) Active 5000 UNIT SUBCUT Twice daily December 08, 2023 12:00am hydrOXYzine hydrochloride 50 mg oral tablet (4 sources) Antihistamine Start: 12-08-2023 Hydroxyzine Hcl Active 50 MG FEEDTUBE Every 8 hours December 08, 2023 12:00am lactobacillus acidophilus [id number] unt oral capsule (4 sources) Start: 12-08-2023 Lactobacillus Acidophilus Active 1000 MMU CELLS FEEDTUBE Twice daily December 08, 2023 12:00am levothyroxine sodium 0.2 mg oral tablet (4 sources) l-Thyroxine Start: 12-08-2023 Levothyroxine (Euthyrox) 200 mcg tablet Active 200 MCG FEEDTUBE Daily December 08, 2023 12:00am lidocaine 0.04 mg/mg medicated patch (4 sources) Antiarrhythmic, Amide Local Anesthetic Start: 12-08-2023 Lidocaine Active 1 PATCH TOPICAL Daily December 08, 2023 12:00am may leave on for up to 12 hrs, apply to left shoulder loperamide hydrochloride 2 mg oral tablet (4 sources) Opioid Agonist Start: 12-08-2023 Loperamide (Diamode) 2 mg tablet Active 2 MG FEEDTUBE Every 6 hours December 08, 2023 12:00am metoprolol tartrate 25 mg oral tablet (4 sources) beta-Adrenergic Bienvenido Start: 12-08-2023 Metoprolol Tartrate Active 12.5 MG FEEDTUBE Twice daily December 08, 2023 12:00am hold for SBP ondansetron 4 mg disintegrating oral tablet (4 sources) Serotonin-3 Receptor Antagonist Start: 12-08-2023 Ondansetron Active 4 MG FEEDTUBE Every 8 hours December 08, 2023 12:00am oxyCODONE hydrochloride 5 mg oral tablet (15 sources) Opioid Agonist Start: 12-08-2023 End: 01-08-2024 Oxycodone Active 5 MG FEEDTUBE Every 6 hours 8 2 January 08, 2024 Start: 12-08-2023 End: 12-17-2023 Oxycodone Active 2.5 MG FEED TUBE Every 6 hours 8 2 December 17, 2023 prednisoLONE acetate 10 mg/ml ophthalmic suspension (4 sources) Corticosteroid Start: 12-08-2023 take 1 drop(s) into the eye(s) once daily Prednisolone Acetate (Pred Forte) 1 % drops,suspension Active 1 DROPS EYE-BOTH Daily December 08, 2023 12:00am sennosides, care home 1.76 mg/ml oral solution (8 sources) Start: 12-08-2023 take 1 mL by mouth at bedtime Sennosides Active 10 ML PO Bedtime December 08, 2023 12:00am Start: 12-08-2023 End: 01-02-2024 Sennosides Discontinued 5 ML FEEDTUBE Daily December 08, 2023 12:00am January 02, 2024 1:24am vancomycin 50 mg/ml oral solution (1 source) Glycopeptide Antibacterial Start: 01-08-2024 Vancomycin (Firvanq) 50 mg/mL Recon Soln Active 125 MG PEG Four times daily 0 January 08, 2024 12:00am Completed/Discontinued Medications Medication Drug Class(es) Dates Sig (Normalized) Sig (Original) levoFLOXacin 750 mg oral tablet (4 sources) Quinolone Antimicrobial Start: 4 End: 4 Levofloxacin Discontinued 750 MG FEEDTUBE Daily December 08, 2023 12:00am December 17, 2023 12:49pm x 10 days, start 12/06/23, end 12/16/23 methylPREDNISolone 4 mg oral tablet (3 sources) Corticosteroid Start: 4 End: 4 take 1 tablet by mouth once Methylprednisolone (Medrol ([place])) 4 mg tablets,dose pack Discontinued 0 PO .COMPLEX December 17, 2023 12:00am January 02, 2024 1:25am orally per package directions triamcinolone acetonide 1 mg/ml topical cream (4 sources) Corticosteroid Start: 4 End: 4 Triamcinolone Acetonide Discontinued 1 APPLIC TOPICAL Bedtime December 08, 2023 12:00am January 02, 2024 1:24am Problems Problem Classification Problem Date Documented Da te Episodic/Chronic Anxiety disorders (3 sources) Anxiety disorder, unspecified; Translations: [Mixed anxiety and depressive disorder] Onset: 01-02-2024 01-02-2024 Chronic Cardiac dysrhythmias (1 source) Atrial fibrillation; Translations: [Unspecified atrial fibrillation] 01-02-2024 Chronic Congestive heart failure; nonhypertensive (13 sources) Acute on chronic diastolic heart failure; Translations: [Acute on chronic diastolic (congestive) heart failure] Onset: 12-07-2023 12-08-2023 Chronic Deficiency and other anemia (2 sources) Iron deficiency anemia, unspecified; Translations: [Iron deficiency anemia, unspecified] Onset: 01-02-2024 01-08-2024 Episodic Deficiency and other anemia (1 source) Iron deficiency anemia; Translations: [Iron deficiency anemia, unspecified] 01-02-2024 Episodic Fever of unknown origin (6 sources) Fever; Translations: [Fever, unspecified] Onset: 11-21-2023 01-02-2024 Episodic Fluid and electrolyte disorders (1 source) Hyponatremia; Translations: [Hypo-osmolality and hyponatremia] 01-09-2024 Episodic Intestinal infection (3 sources) Enterocolitis due to Clostridium difficile, not specified as recurrent; Translations: [Clostridium difficile colitis] Onset: 01-02-2024 01-03-2024 Episodic Mood disorders (1 source) Mood disorders; Translations: [Depression, unspecified] Onset: 01-02-2024 Mycoses (2 sources) Candiduria; Translations: [Other urogenital candidiasis] 01-02-2024 Episodic Nutritional deficiencies (3 sources) Unspecified severe protein-calorie malnutrition; Translations: [Deficiency of macronutrients] Onset: 01-02-2024 01-02-2024 Chronic Nutritional deficiencies (11 sources) Cachexia; Translations: [Cachexia] Onset: 12-08-2023 12-08-2023 Episodic Other gastrointestinal disorders (2 sources) Gastrostomy present; Translations: [Gastrostomy status] 01-02-2024 Chronic Other gastrointestinal disorders (3 sources) Gastrostomy status; Translations: [Gastrostomy status] Onset: 01-02-2024 01-02-2024 Chronic Other lower respiratory disease (1 source) Hypoxemia; Translations: [Hypoxemia] Onset: 12-07-2023 Episodic Other lower respiratory disease (1 source) Shortness of breath Onset: 12-07-2023 Episodic Other nervous system disorders (2 sources) Metabolic encephalopathy; Translations: [Metabolic encephalopathy] Onset: 01-02-2024 01-08-2024 Chronic Other nervous system disorders (1 source) Metabolic encephalopathy; Translations: [Metabolic encephalopathy] 01-02-2024 Chronic Other upper respiratory disease (2 sources) Tracheostomy status; 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] Onset: 01-02-2024 01-08-2024 Chronic Other upper respiratory disease (1 source) Tracheostomy present; 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] 01-02-2024 Chronic Pleurisy; pneumothorax; pulmonary collapse (16 sources) Pneumothorax; Translations: [Pneumothorax, unspecified] Onset: 12-08-2023 12-08-2023 Episodic Pneumonia (except that caused by tuberculosis or sexually transmitted disease) (4 sources) Pneumonia, unspecified organism; Translations: [Pneumonia] Onset: 11-21-2023 01-02-2024 Episodic Residual codes; unclassified (2 sources) Altered mental status; Translations: [Altered mental status, unspecified] 01-02-2024 Episodic Residual codes; unclassified (3 sources) Altered mental status, unspecified; Translations: [Altered mental status] Onset: 01-02-2024 01-02-2024 Episodic Respiratory failure; insufficiency; arrest (adult) (20 sources) [id number] respiratory failure; Translations: [Acute and chronic respiratory failure with hypoxia] Onset: 12-08-2023 12-08-2023 Chronic Thyroid disorders (3 sources) Hypothyroidism, unspecified; Translations: [Hypothyroidism] Onset: 01-02-2024 01-02-2024 Chronic Unclassified (1 source) EMS Onset: 11-21-2023 Unclassified (2 sources) Failure to thrive; Translations: [Failure to thrive] 01-02-2024 Results Test Name Value Interpretation Reference Range Facility Activated partial thrombopla stin time (aPTT) in platelet poor plasma by coagulation aOrdered By: Zoya Bell on 01-09-2024 aPTT Coag (PPP) [Time] 25.9 s 25.1-36.5 [facility] Comment on above: A hematocrit value g reater than 55% may lead to inaccurate results in coagulation testing. Patients having hematocrit values >55% require a special collection tube for coagulation studies. Please contact the laboratory at [phone] for redraw instructions. Basic Metabolic Panelon 12-24 Anion gap [Moles/Vol] 10.3 mmol/L Normal 6.0-15.0 [facility] Comment on above: Performed By: #### D IFF CBC, BMP #### [address] Calcium [Mass/Vol] 8.3 mg/dL Low 8.6-10.3 [facility] Comment on above: Performed By: #### D IFF CBC, BMP #### [place] [address] [place] Chloride [Moles/Vol] 98 mmol/L Normal 98-107 [facility] Comment on above: Performed By: #### D IFF CBC, BMP #### [address] CO2 [Moles/Vol] 23.5 mmol/L Normal 21.0-31.0 [facility] Comment on above: Performed By: #### D IFF CBC, BMP #### [place] [address] [place] Creatinine [Mass/Vol] 0.48 mg/dL Low 0.60-1.20 [facility] Comment on above: Performed By: #### D IFF CBC, BMP #### [place] [address] [place] Creatinine Clr Calc Pharmacy 29.99 Normal [facility] Comment on above: Result Comment: PERF ORMED BY: [place] [address] PATHOLOGIST NURSE HEAD JESSIE FRAZIER M.D. Performed By: #### D IFF CBC, BMP #### [place] [address] [place] GFR/1.73 sq M.predicted MDRD (S/P/Bld) [Vol rate/Area] mL/min/{1.73_m2} Normal [facility] Comment on above: Performed By: #### D IFF CBC, BMP #### [place] [address] [place] Glucose [Mass/Vol] 73 mg/dL Normal 70-100 [facility] Comment on above: Result Comment: [facility] Glucose Reference Range is dependent on time and content of last meal. Glucose of more than 200 mg/dL in a nonstressed, ambulatory subject supports the diagnosis of Diabetes Mellitus. ADA recommended reference range Performed By: #### D IFF CBC, BMP #### [facility] [address] Potassium [Moles/Vol] 4.8 mmol/L Normal 3.5-5.1 [facility] Comment on above: Result Comment: Hemo lysis is present at a level that could interfere with the result. Performed By: #### D IFF CBC, BMP #### [facility] [address] Sodium [Moles/Vol] 127 mmol/L Low 136-145 [facility] Comment on above: Performed By: #### D IFF CBC, BMP #### [facility] [address] Urea nitrogen [Mass/Vol] 13 mg/dL Normal 7-25 [facility] Comment on above: Performed By: #### D IFF CBC, BMP #### [facility] [address] [place] [address] [place] Basophils Auto (Bld) [#/Vol] Ordered By: Zoya Bell on 01-09-2024 Basophils (Bld) [#/Vol] 0.1 10*3/uL 0.0-0.2 [facility] Basophils/100 WBC Auto (Bld) Ordered By: Zoya Bell on 01-09-2024 Basophils/100 WBC (Bld) 0.7 % . [facility] Calcium [Mass/volume] in Ser um or PlasmaOrdered By: Zoya Bell on 01-09-2024 Calcium [Mass/Vol] 8.3 mg/dL 8.6-10.3 [facility] Carbon dioxide, total [Moles /volume] in Serum or PlasmaOrdered By: Zoya Bell on 01-09-2024 CO2 [Moles/Vol] 23.5 mmol/L 21.0-31.0 [facility] Chloride [Moles/volume] in S radha or PlasmaOrdered By: Zoya Bell on 01-09-2024 Chloride [Moles/Vol] 98 mmol/L 98-107 [facility] Coagulation Profileon 2023 aPTT Coag (Bld) [Time] 25.9 s Normal 25.1-36.5 [facility] Comment on above: Result Comment: A he matocrit value greater than 55% may lead to inaccurate results in coagulation testing. Patients having hematocrit values >55% require a special collection tube for coagulation studies. Please contact the laboratory at [phone] for redraw instructions. PERFORMED BY: [place] [id number] PATHOLOGIST NURSE HEAD JESSIE FRAZIER M.D. Performed By: #### D IFF CBC, BMP #### [place] [id number] [facility] INR Coag (PPP) [Relative time] 1.0 {INR} Normal [facility] Comment on above: Result [...] valves: 3 - 4.5 Performed By: #### D IFF CBC, BMP #### [place] [id number] [facility] PT Coag (PPP) [Time] 12.0 s Normal 9.0-12.9 [facility] Comment on above: Result Comment: A he matocrit value greater than 55% may lead to inaccurate results in coagulation testing. Patients having hematocrit values >55% require a special collection tube for coagulation studies. Please contact the laboratory at [phone] for redraw instructions. Performed By: #### D IFF CBC, BMP #### [address] [address] [facility] Creatinine [Mass/volume] in Serum or PlasmaOrdered By: Zoya Bell on 01-09-2024 Creatinine [Mass/Vol] 0.48 mg/dL 0.60-1.[address] [facility] Diff and CBCon 01-09-2024 Basophils (Bld) [#/Vol] 0.1 10*3/uL Normal 0.0-0.2 [facility] Comment on above: Performed By: #### D IFF CBC, BMP #### [facility] [address] [place] [address] [place] Basophils/100 WBC (Bld) 0.7 % Normal . [facility] Comment on above: Performed By: #### D IFF CBC, BMP #### [facility] [address] [place] [address] [place] Eosinophils (Bld) [#/Vol] 0.1 10*3/uL Normal 0.0-0.45 [facility] Comment on above: Performed By: #### D IFF CBC, BMP #### [facility] [address] Eosinophils/100 WBC (Bld) 1.0 % Normal . [facility] Comment on above: Performed By: #### D IFF CBC, BMP #### [facility] [address] [place] [address] [place] Erythrocyte distribution width (RBC) [Ratio] 15.0 % Normal 11.9-15.3 [facility] Comment on above: Performed By: #### D IFF CBC, BMP #### [facility] [address] [place] [address] [place] Hematocrit (Bld) [Volume fraction] 26.7 % Low 34.0-46.4 [facility] Comment on above: Performed By: #### D IFF CBC, BMP #### [facility] [address] [place] [id number] [place] Hemoglobin (Bld) [Mass/Vol] 9.2 g/dL Low 11.8-15.4 [facility] Comment on above: Performed By: #### D IFF CBC, BMP #### [facility] [address] [place] [address] [place] Lymphocytes (Bld) [#/Vol] 1.9 10*3/uL Normal 1.00-4.8 [facility] Comment on above: Performed By: #### D IFF CBC, BMP #### [address] Lymphocytes/100 WBC (Bld) 17.7 % Normal . [facility] Comment on above: Performed By: #### D IFF CBC, BMP #### [address] MCH (RBC) [Entitic mass] 31.6 pg Normal 24.7-34.3 [facility] Comment on above: Performed By: #### D IFF CBC, BMP #### [address] MCV (RBC) [Entitic vol] 91.3 fL Normal 80-100 [facility] Comment on above: Performed By: #### D IFF CBC, BMP #### [address] Mean Corpuscular HGB Conc 34.6 g/dL Normal 32.0-35.0 [facility] Comment on above: Performed By: #### D IFF CBC, BMP #### [address] Monocytes (Bld) [#/Vol] 0.5 10*3/uL Normal 0.0-0.8 [facility] Comment on above: Performed By: #### D IFF CBC, BMP #### [address] Monocytes/100 WBC (Bld) 26.50 % High 0.00-20.00 [facility] Comment on above: Result Comment: For adults in ED, MDW > 20.0 may be associated with a higher risk of sepsis during the first 12 hrs of hospital admission Performed By: #### D IFF CBC, BMP #### [address] Monocytes/100 WBC (Bld) 4.6 % Normal . [facility] Comment on above: Performed By: #### D IFF CBC, BMP #### [facility] [address] [place] [address] [place] Neutrophils (Bld) [#/Vol] 8.1 10*3/uL High 1.8-7.7 [facility] Comment on above: Performed By: #### D IFF CBC, BMP #### [facility] [address] [place] [address] [place] Neutrophils/100 WBC (Bld) 76.0 % Normal . [facility] Comment on above: Performed By: #### D IFF CBC, BMP #### [facility] [address] [place] [address] [place] NRBC% 0.1 /100{WBC} Normal 0-0.5 [facility] Comment on above: Performed By: #### D IFF CBC, BMP #### [facility] [address] Platelet Estimate Increased Normal Normal [facility] Comment on above: Performed By: #### D IFF CBC, BMP #### [facility] [address] Platelet mean volume (Bld) [Entitic vol] 7.6 fL Normal 6.3-10.7 [facility] Comment on above: Result Comment: PERF ORMED BY: [place] [address] PATHOLOGIST NURSE HEAD JESSIE FRAZIER M.D. Performed By: #### D IFF CBC, BMP #### [address] Platelet Morphology Normal Normal Normal [facility] Comment on above: Result Comment: PERF ORMED BY: [place] [address] PATHOLOGIST NURSE HEAD JESSIE FRAZIER M.D. Performed By: #### D IFF CBC, BMP #### [facility] [address] [place] [address] [place] Platelets (Bld) [#/Vol] 468 10*3/uL High 150-450 [facility] Comment on above: Performed By: #### D IFF CBC, BMP #### [facility] [address] RBC (Bld) [#/Vol] 2.92 10*6/uL Low 3.60-5.00 [facility] Comment on above: Performed By: #### D IFF CBC, BMP #### [facility] [address] RBC morphology finding Nom (Bld) Normal Normal Normal [facility] Comment on above: Performed By: #### D IFF CBC, BMP #### [facility] [address] Toxic Vacuolation Slight Normal [facility] Comment on above: Performed By: #### D IFF CBC, BMP #### [facility] [address] WBC (Bld) [#/Vol] 10.6 10*3/uL Normal 3.8-11.6 [facility] Comment on above: Performed By: #### D IFF CBC, BMP #### [address] ECG 12 lead ECGon 01-09-2024 ECG 12 lead ECG [place] [address] Electrocardiograph Report Signed Patient: Rosalind Restrepo MR#: [id number] : 1940 Acct:[id number] Age/Sex: 83 / F ADM Date: 01/09/24 Loc: ER Room: Type: [facility] ER Attending Dr: Ordering Provider: Zoya Bell APRN Date of Service: 01/09/24 ECG/ECG 12 lead ECG: abnormal labs Copies to: Test Reason : Blood Pressure : 149/069 mmHG Vent. Rate : 080 BPM Atrial Rate : 080 BPM P-R Int : 142 ms QRS Dur : 110 ms QT Int : 382 ms P-R-T Axes : 080 -52 044 degrees QTc Int : 440 ms Sinus rhythm with premature atrial complexes Pulmonary disease pattern Incomplete right bundle branch block Left anterior fascicular block Abnormal ECG When compared with ECG of 04-JAN-2024 22:17, Sinus rhythm has replaced Atrial fibrillation Vent. rate has decreased BY 39 BPM Nonspecific T wave abnormality has replaced inverted T waves in Anterior leads Confirmed by CHIDI SHEA DO ([id number]) on 01/09/2024 7:53:19 PM Referred By: Electronically Signed By:CHIDI SHEA DO Transcribed By: MUS Signed By Chidi Shea DO 01/08 Normal [facility] Eosinophils Auto (Bld) [#/Vo l]Ordered By: Zoya Bell on 01-09-2024 Eosinophils (Bld) [#/Vol] 0.1 10*3/uL 0.0-0.45 [facility] Eosinophils/100 WBC Auto (Bl d)Ordered By: Zoya Bell on 01-09-2024 Eosinophils/100 WBC (Bld) 1.0 % . [facility] Erythrocyte distribution wid th Auto (RBC) [Ratio]Ordered By: Zoya Bell on 01-09-2024 Erythrocyte distribution width (RBC) [Ratio] 15.0 % 11.9-15.3 [facility] Glucose [Mass/volume] in Ser um or PlasmaOrdered By: Zoya Bell on 01-09-2024 Glucose [Mass/Vol] 73 mg/dL 70-100 [facility] Comment on above: ADA recommended refe rence rangeRandom Glucose Reference Range is dependent on time and content of last meal. Glucose of more than 200 mg/dL in a nonstressed, ambulatory subject supports the diagnosis of Diabetes Mellitus. Hematocrit Auto (Bld) [Volum e fraction]Ordered By: Zoya Bell on 01-09-2024 Hematocrit (Bld) [Volume fraction] 26.7 % 34.0-46.4 [facility] Hemoglobin [Mass/volume] in BloodOrdered By: Zoya Bell on 01-09-2024 Hemoglobin (Bld) [Mass/Vol] 9.2 g/dL 11.8-15.4 [facility] INR in Platelet poor plasma by Coagulation assayOrdered By: Zoya Bell on 01-09-2024 INR Coag (PPP) [Relative time] 1.0 {INR} [facility] Comment on above: INR Therapeutic Rang e A) Pre- and Peroperative OAT started two weeks before surgery. NOT HIP SURGERY: 1.5 - 2.5 HIP SURGERY: 2 - 3B) Primary and secondary prevention of venous THROMBOSIS: 2 - 3C) Active venous thrombosis, pulmonary embolismand prevention of recurrent venous thrombosis: 2 - 3D) Prevention of arterial thromboembolismincluding patients with mechanical heart valves: 3 - 4.5 Leukocytes [#/volume] correc tyler for nucleated erythrocytes in Blood by Automated counOrdered By: Zoya Bell on 01-09-2024 WBC corrected for nucl RBC Auto (Bld) [#/Vol] 10.6 10*3/uL 3.8-11.6 [facility] Lymphocytes Auto (Bld) [#/Vo l]Ordered By: Zoya Bell on 01-09-2024 Lymphocytes (Bld) [#/Vol] 1.9 10*3/uL 1.00-4.8 [facility] Lymphocytes/100 WBC Auto (Bl d)Ordered By: Zoya Bell on 01-09-2024 Lymphocytes/100 WBC (Bld) 17.7 % . [facility] Lymphocytes/100 WBC Manual c nt (Bld)Ordered By: Zoya Bell on 01-09-2024 Lymphocytes/100 WBC (Bld) N/A [facility] MCH Auto (RBC) [Entitic mass ]Ordered By: Zoya Bell on 01-09-2024 MCH (RBC) [Entitic mass] 31.6 pg 24.7-34.3 [facility] MCHC Auto (RBC) [Mass/Vol]Or dered By: Zoya Bell on 01-09-2024 MCHC (RBC) [Mass/Vol] 34.6 g/dL 32.0-35.[address] [facility] MCV Auto (RBC) [Entitic vol] Ordered By: Zoya Bell on 01-09-2024 MCV (RBC) [Entitic vol] 91.3 fL 80-100 [facility] Monocyte distribution width [Entitic volume] in Blood by AutomatedOrdered By: Zoya Bell on 01-09-2024 Monocyte distribution width Auto (Bld) [Entitic vol] 26.50 % 0.00-20.00 [facility] Comment on above: For adults in ED, MD W > 20.0 may be associated with a higher risk of sepsis during the first 12 hrs of hospital admission Monocytes Auto (Bld) [#/Vol] Ordered By: Zoya Bell on 01-09-2024 Monocytes (Bld) [#/Vol] 0.5 10*3/uL 0.0-0.8 [facility] Monocytes/100 WBC Auto (Bld) Ordered By: Zoya Bell on 01-09-2024 Monocytes/100 WBC (Bld) 4.6 % . [facility] Monocytes/100 WBC Manual cnt (Bld)Ordered By: Zoya Bell on 01-09-2024 Monocytes/100 WBC (Bld) N/A [facility] Neutrophils Auto (Bld) [#/Vo l]Ordered By: Zoya Bell on 01-09-2024 Neutrophils (Bld) [#/Vol] 8.1 10*3/uL 1.8-7.7 [facility] Neutrophils/100 WBC Auto (Bl d)Ordered By: Zoya Bell on 01-09-2024 Neutrophils/100 WBC (Bld) 76.0 % . [facility] No Panel InformationOrdered By: Zoya Bell on 01-09-2024 Estimated GFR (CKD-EPI) > 60.0 mL/Min [facility] Creatinine Clearance (Chem 29.99 [facility] Nucleated erythrocytes [Pres ence] in Blood by Automated countOrdered By: Zoya Bell on 01-09-2024 Nucleated RBC Auto Ql (Bld) 0.1 /100{WBC} 0-0.5 [facility] Platelet adequacy [Presence] in Blood by Light microscopyOrdered By: Zoya Bell on 01-09-2024 Platelets LM Ql (Bld) Increased Normal [facility] Platelet mean volume Auto (B ld) [Entitic vol]Ordered By: Zoya Bell on 01-09-2024 Platelet mean volume (Bld) [Entitic vol] 7.6 fL 6.3-10.7 [facility] Platelet morphology finding [Identifier] in BloodOrdered By: Zoya Bell on 01-09-2024 Platelet morphology finding Nom (Bld) Normal Normal [facility] Platelets Auto (Bld) [#/Vol] Ordered By: Zoya Bell on 01-09-2024 Platelets (Bld) [#/Vol] 468 10*3/uL 150-450 [facility] Potassium [Moles/volume] in Serum or PlasmaOrdered By: Zoya Bell on 01-09-2024 Potassium [Moles/Vol] 4.8 mmol/L 3.5-5.[address] [facility] Comment on above: Hemolysis is present at a level that could interfere with the result. Prothrombin time (PT)Ordered By: Zoya Bell on 01-09-2024 PT Coag (PPP) [Time] 12.0 s 9.0-12.9 [facility] Comment on above: A hematocrit value g reater than 55% may lead to inaccurate results in coagulation testing. Patients having hematocrit values >55% require a special collection tube for coagulation studies. Please contact the laboratory at [phone] for redraw instructions. RBC Auto (Bld) [#/Vol]Ordere d By: Zoya Bell on 01-09-2024 RBC (Bld) [#/Vol] 2.92 10*6/uL 3.60-5.00 [facility] RBC morphologyOrdered By: Lesley Bell on 01-09-2024 RBC morphology finding Nom (Bld) Normal Normal [facility] Segmented neutrophils/100 WB C Manual cnt (Bld)Ordered By: Zoya Bell on 01-09-2024 Segmented neutrophils/100 WBC (Bld) N/A [facility] Serum or plasma anion gap de terminationOrdered By: Zoya Bell on 01-09-2024 Anion gap [Moles/Vol] 10.3 mmol/L 6.0-15.0 [facility] Sodium [Moles/volume] in Ser um or PlasmaOrdered By: Zoya Bell on 01-09-2024 Sodium [Moles/Vol] 127 mmol/L 136-145 [facility] Toxic leukocyte vacuolation detectionOrdered By: Zoya Bell on 05-16-2024 Leukocyte toxic vacuoles LM Ql (Bld) Slight [facility] Urea nitrogen [Mass/volume] in Serum or PlasmaOrdered By: Zoya Bell on 01-09-2024 Urea nitrogen [Mass/Vol] 13 mg/dL 03-19 [facility] WBC Auto (Bld) [#/Vol]Ordere d By: Zoya Bell on 01-09-2024 WBC (Bld) [#/Vol] 10.6 10*3/uL 3.8-11.6 [facility] Basic Metabolic Panelon 12-24 Anion gap [Moles/Vol] 8.8 mmol/L Normal 6.0-15.0 [facility] Comment on above: Performed By: #### C UBLD #### [address] #### PROCALCITONIN #### [facility] , Calcium [Mass/Vol] 8.2 mg/dL Low 8.6-10.3 [facility] Comment on above: Performed By: #### C UBLD #### [facility] [address] [place] [address] [place] #### PROCALCITONIN #### [facility] , Chloride [Moles/Vol] 100 mmol/L Normal 98-107 [facility] Comment on above: Performed By: #### C UBLD #### [facility] [address] [place] [address] [place] #### PROCALCITONIN #### [facility] , CO2 [Moles/Vol] 25.0 mmol/L Normal 21.0-31.0 [facility] Comment on above: Performed By: #### C UBLD #### [facility] [address] [place] [address] [place] #### PROCALCITONIN #### [facility] , Creatinine [Mass/Vol] 0.40 mg/dL Low 0.60-1.20 [facility] Comment on above: Performed By: #### C UBLD #### [address] #### PROCALCITONIN #### [facility] , Creatinine Clr Calc Pharmacy 38.10 Normal [facility] Comment on above: Result Comment: PERF ORMED BY: [place] [address] PATHOLOGIST NURSE HEAD JESSIE FRAZIER M.D. Performed By: #### C UBLD #### [address] #### PROCALCITONIN #### [facility] , GFR/1.73 sq M.predicted MDRD (S/P/Bld) [Vol rate/Area] mL/min/{1.73_m2} Normal [facility] Comment on above: Performed By: #### C UBLD #### [place] [address] [place] #### PROCALCITONIN #### [facility] , Glucose [Mass/Vol] 76 mg/dL Normal 70-100 [facility] Comment on above: Result Comment: [place] Glucose Reference Range is dependent on time and content of last meal. Glucose of more than 200 mg/dL in a nonstressed, ambulatory subject supports the diagnosis of Diabetes Mellitus. ADA recommended reference range Performed By: #### C UBLD #### [place] [address] [place] #### PROCALCITONIN #### [facility] , Potassium [Moles/Vol] 4.8 mmol/L Normal 3.5-5.1 [facility] Comment on above: Performed By: #### C UBLD #### [place] [address] [place] #### PROCALCITONIN #### [facility] , Sodium [Moles/Vol] 129 mmol/L Low 136-145 [facility] Comment on above: Performed By: #### C UBLD #### [address] [place] [address] [place] #### PROCALCITONIN #### [facility] , Urea nitrogen [Mass/Vol] 18 mg/dL Normal 7-25 [facility] Comment on above: Performed By: #### C UBLD #### [place] [address] [place] #### PROCALCITONIN #### [facility] , Basophils Auto (Bld) [#/Vol] Ordered By: Natalie March on 01-08-2024 Basophils (Bld) [#/Vol] 0.0 10*3/uL 0.0-0.2 [facility] Basophils/100 WBC Auto (Bld) Ordered By: Natalie March on 01-08-2024 Basophils/100 WBC (Bld) 0.4 % . [facility] Calcium [Mass/volume] in Ser um or PlasmaOrdered By: Natalie March on 01-08-2024 Calcium [Mass/Vol] 8.2 mg/dL 8.6-10.3 [facility] Carbon dioxide, total [Moles /volume] in Serum or PlasmaOrdered By: Natalie March on 01-08-2024 CO2 [Moles/Vol] 25.0 mmol/L 21.0-31.0 [facility] Chloride [Moles/volume] in S radha or PlasmaOrdered By: Natalie March on 01-08-2024 Chloride [Moles/Vol] 100 mmol/L 98-107 [facility] Complete Blood Count Auto Di ffon 01-08-2024 Basophils (Bld) [#/Vol] 0.0 10*3/uL Normal 0.0-0.2 [facility] Comment on above: Result Comment: PERF ORMED BY: [place] [address] PATHOLOGIST NURSE HEAD JESSIE FRAZIER M.D. Performed By: #### C UBLD #### [facility] [address] [place] [address] #### PROCALCITONIN #### [facility] , Basophils/100 WBC (Bld) 0.4 % Normal . [facility] Comment on above: Performed By: #### C UBLD #### [place] [address] [place] #### PROCALCITONIN #### [facility] , Eosinophils (Bld) [#/Vol] 0.2 10*3/uL Normal 0.0-0.45 [facility] Comment on above: Performed By: #### C UBLD #### [place] [address] [place] #### PROCALCITONIN #### [facility] , Eosinophils/100 WBC (Bld) 2.0 % Normal . [facility] Comment on above: Performed By: #### C UBLD #### [place] [address] [place] #### PROCALCITONIN #### [facility] , Erythrocyte distribution width (RBC) [Ratio] 14.8 % Normal 11.9-15.3 [facility] Comment on above: Performed By: #### C UBLD #### [place] [address] [place] #### PROCALCITONIN #### [facility] , Hematocrit (Bld) [Volume fraction] 29.1 % Low 34.0-46.4 [facility] Comment on above: Performed By: #### C UBLD #### [place] [address] [place] #### PROCALCITONIN #### [facility] , Hemoglobin (Bld) [Mass/Vol] 9.8 g/dL Low 11.8-15.4 [facility] Comment on above: Performed By: #### C UBLD #### [place] [address] [place] #### PROCALCITONIN #### [facility] , Lymphocytes (Bld) [#/Vol] 1.6 10*3/uL Normal 1.00-4.8 [facility] Comment on above: Performed By: #### C UBLD #### [address] #### PROCALCITONIN #### [facility] , Lymphocytes/100 WBC (Bld) 19.7 % Normal . [facility] Comment on above: Performed By: #### C UBLD #### [address] #### PROCALCITONIN #### [facility] , MCH (RBC) [Entitic mass] 30.9 pg Normal 24.7-34.3 [facility] Comment on above: Performed By: #### C UBLD #### [address] #### PROCALCITONIN #### [facility] , MCV (RBC) [Entitic vol] 91.5 fL Normal 80-100 [facility] Comment on above: Performed By: #### C UBLD #### [address] #### PROCALCITONIN #### [facility] , Mean Corpuscular HGB Conc 33.8 g/dL Normal 32.0-35.0 [facility] Comment on above: Performed By: #### C UBLD #### [address] #### PROCALCITONIN #### [facility] , Monocytes (Bld) [#/Vol] 0.7 10*3/uL Normal 0.0-0.8 [facility] Comment on above: Performed By: #### C UBLD #### [place] [address] [place] #### PROCALCITONIN #### [facility] , Monocytes/100 WBC (Bld) 8.6 % Normal . [facility] Comment on above: Performed By: #### C UBLD #### [place] [address] [place] #### PROCALCITONIN #### [facility] , Neutrophils (Bld) [#/Vol] 5.6 10*3/uL Normal 1.8-7.7 [facility] Comment on above: Performed By: #### C UBLD #### [place] [address] [place] #### PROCALCITONIN #### [facility] , Neutrophils/100 WBC (Bld) 69.3 % Normal . [facility] Comment on above: Performed By: #### C UBLD #### [address] #### PROCALCITONIN #### [facility] , NRBC% 0.2 /100{WBC} Normal 0-0.5 [facility] Comment on above: Performed By: #### C UBLD #### [place] [address] [place] #### PROCALCITONIN #### [facility] , Platelet mean volume (Bld) [Entitic vol] 8.1 fL Normal 6.3-10.7 [facility] Comment on above: Performed By: #### C UBLD #### [facility] [address] [place] [address] [place] #### PROCALCITONIN #### [facility] , Platelets (Bld) [#/Vol] 417 10*3/uL Normal 150-450 [facility] Comment on above: Performed By: #### C UBLD #### [place] [address] [place] #### PROCALCITONIN #### [facility] , RBC (Bld) [#/Vol] 3.18 10*6/uL Low 3.60-5.00 [facility] Comment on above: Performed By: #### C UBLD #### [facility] [address] [place] [address] #### PROCALCITONIN #### [facility] , WBC (Bld) [#/Vol] 8.1 10*3/uL Normal 3.8-11.6 [facility] Comment on above: Performed By: #### C UBLD #### [facility] [address] [place] [address] [place] #### PROCALCITONIN #### [facility] , Creatinine [Mass/volume] in Serum or PlasmaOrdered By: Natalie March on 01-08-2024 Creatinine [Mass/Vol] 0.40 mg/dL 0.60-1.[address] [facility] Eosinophils Auto (Bld) [#/Vo l]Ordered By: Natalie March on 01-08-2024 Eosinophils (Bld) [#/Vol] 0.2 10*3/uL 0.0-0.45 [facility] Eosinophils/100 WBC Auto (Bl d)Ordered By: Natalie March on 01-08-2024 Eosinophils/100 WBC (Bld) 2.0 % . [facility] Erythrocyte distribution wid th Auto (RBC) [Ratio]Ordered By: Natalie March on 01-08-2024 Erythrocyte distribution width (RBC) [Ratio] 14.8 % 11.9-15.3 [facility] Glucose Glucometer (BldC) [M ass/Vol]Ordered By: Chapo Landeros on 01-08-2024 Glucose [Mass/Vol] 174 mg/dL [facility] Comment on above: Random Glucose Refer ence Range is dependent on time and content of last meal. Glucose of more than 200 mg/dL in a nonstressed, ambulatory subject supports the diagnosis of Diabetes Mellitus. Glucose Poct Glucometerson 0 01-08-2024 Commemt1 Glu2: Cleaned Meter Normal [facility] Comment on above: Result Comment: PERF ORMED BY: [place] [address] PATHOLOGIST NURSE HEAD JESSIE FRAZIER M.D. Performed By: #### S CAN CBC, BMP #### [address] Glucose [Mass/Vol] 174 mg/dL Normal [facility] Comment on above: Result Comment: [place] om Glucose Reference Range is dependent on time and content of last meal. Glucose of more than 200 mg/dL in a nonstressed, ambulatory subject supports the diagnosis of Diabetes Mellitus. Performed By: #### S CAN CBC, BMP #### [address] Commemt1 Glu2: Cleaned Meter Normal [facility] Comment on above: Result Comment: PERF ORMED BY: [place] [phone] PATHOLOGIST NURSE HEAD JESSIE FRAZIER M.D. Performed By: #### C UBLD #### [address] #### PROCALCITONIN #### [facility] , Glucose [Mass/Vol] 73 mg/dL Normal [facility] Comment on above: Result Comment: [place] om Glucose Reference Range is dependent on time and content of last meal. Glucose of more than 200 mg/dL in a nonstressed, ambulatory subject supports the diagnosis of Diabetes Mellitus. Performed By: #### C UBLD #### [place] [address] [place] #### PROCALCITONIN #### [facility] , Commemt1 Glu2: Cleaned Meter Normal [facility] Comment on above: Result Comment: PERF ORMED BY: [place] [phone] PATHOLOGIST NURSE HEAD JESSIE FRAZIER M.D. Performed By: #### C UBLD #### [place] [address] [place] #### PROCALCITONIN #### [facility] , Glucose [Mass/Vol] 105 mg/dL Normal [facility] Comment on above: Result Comment: [place] om Glucose Reference Range is dependent on time and content of last meal. Glucose of more than 200 mg/dL in a nonstressed, ambulatory subject supports the diagnosis of Diabetes Mellitus. Performed By: #### C UBLD #### [facility] [address] #### PROCALCITONIN #### [facility] , Glucose [Mass/volume] in Ser um or PlasmaOrdered By: Natalie March on 01-08-2024 Glucose [Mass/Vol] 76 mg/dL 70-100 [facility] Comment on above: ADA recommended refe rence rangeRandom Glucose Reference Range is dependent on time and content of last meal. Glucose of more than 200 mg/dL in a nonstressed, ambulatory subject supports the diagnosis of Diabetes Mellitus. Hematocrit Auto (Bld) [Volum e fraction]Ordered By: Natalie March on 01-08-2024 Hematocrit (Bld) [Volume fraction] 29.1 % 34.0-46.4 [facility] Hemoglobin [Mass/volume] in BloodOrdered By: Natalie March on 01-08-2024 Hemoglobin (Bld) [Mass/Vol] 9.8 g/dL 11.8-15.4 [facility] Leukocytes [#/volume] correc tyler for nucleated erythrocytes in Blood by Automated counOrdered By: Natalie March on 01-08-2024 WBC corrected for nucl RBC Auto (Bld) [#/Vol] 8.1 10*3/uL 3.8-11.6 [facility] Lymphocytes Auto (Bld) [#/Vo l]Ordered By: Natalie March on 01-08-2024 Lymphocytes (Bld) [#/Vol] 1.6 10*3/uL 1.00-4.8 [facility] Lymphocytes/100 WBC Auto (Bl d)Ordered By: Natalie March on 01-08-2024 Lymphocytes/100 WBC (Bld) 19.7 % . [facility] MCH Auto (RBC) [Entitic mass ]Ordered By: Natalie March on 01-08-2024 MCH (RBC) [Entitic mass] 30.9 pg 24.7-34.3 [facility] MCHC Auto (RBC) [Mass/Vol]Or dered By: Natalie March on 01-08-2024 MCHC (RBC) [Mass/Vol] 33.8 g/dL 32.0-35.[address] [facility] MCV Auto (RBC) [Entitic vol] Ordered By: Natalie March on 01-08-2024 MCV (RBC) [Entitic vol] 91.5 fL 80-100 [facility] Monocytes Auto (Bld) [#/Vol] Ordered By: Natalie March on 01-08-2024 Monocytes (Bld) [#/Vol] 0.7 10*3/uL 0.0-0.8 [facility] Monocytes/100 WBC Auto (Bld) Ordered By: Natalie March on 01-08-2024 Monocytes/100 WBC (Bld) 8.6 % . [facility] Neutrophils Auto (Bld) [#/Vo l]Ordered By: Natalie March on 01-08-2024 Neutrophils (Bld) [#/Vol] 5.6 10*3/uL 1.8-7.7 [facility] Neutrophils/100 WBC Auto (Bl d)Ordered By: Natalie March on 01-08-2024 Neutrophils/100 WBC (Bld) 69.3 % . [facility] No Panel InformationOrdered By: Chapo Landeros on 01-08-2024 Bedside Glucose Comment Glu2: cleaned meter [facility] No Panel InformationOrdered By: Natalie March on 01-08-2024 Estimated GFR (CKD-EPI) > 60.0 mL/Min [facility] Creatinine Clearance (Chem 38.10 [facility] Nucleated erythrocytes [Pres ence] in Blood by Automated countOrdered By: Natalie March on 01-08-2024 Nucleated RBC Auto Ql (Bld) 0.2 /100{WBC} 0-0.5 [facility] Platelet mean volume Auto (B ld) [Entitic vol]Ordered By: Natalie March on 01-08-2024 Platelet mean volume (Bld) [Entitic vol] 8.1 fL 6.3-10.7 [facility] Platelets Auto (Bld) [#/Vol] Ordered By: Natalie March on 01-08-2024 Platelets (Bld) [#/Vol] 417 10*3/uL 150-450 [facility] Potassium [Moles/volume] in Serum or PlasmaOrdered By: Natalie March on 01-08-2024 Potassium [Moles/Vol] 4.8 mmol/L 3.5-5.[address] [facility] RBC Auto (Bld) [#/Vol]Ordere d By: Natalie March on 01-08-2024 RBC (Bld) [#/Vol] 3.18 10*6/uL 3.60-5.00 [facility] Serum or plasma anion gap de terminationOrdered By: Natalie March on 01-08-2024 Anion gap [Moles/Vol] 8.8 mmol/L 6.0-15.[address] [facility] Sodium [Moles/volume] in Ser um or PlasmaOrdered By: Natalie March on 01-08-2024 Sodium [Moles/Vol] 129 mmol/L 136-145 [facility] Urea nitrogen [Mass/volume] in Serum or PlasmaOrdered By: Natalie March on 01-08-2024 Urea nitrogen [Mass/Vol] 18 mg/dL 7-25 [facility] WBC Auto (Bld) [#/Vol]Ordere d By: Natalie March on 01-08-2024 WBC (Bld) [#/Vol] 8.1 10*3/uL 3.8-11.6 [facility] Basic Metabolic Panelon 12-24 Anion gap [Moles/Vol] 7.5 mmol/L Normal 6.0-15.0 [facility] Comment on above: Performed By: #### S CAN CBC, BMP #### [facility] [address] [place] [address] [place] Calcium [Mass/Vol] 8.6 mg/dL Normal 8.6-10.3 [facility] Comment on above: Performed By: #### S CAN CBC, BMP #### [facility] [address] [place] [address] [place] Chloride [Moles/Vol] 101 mmol/L Normal 98-107 [facility] [facility] Comment on above: Performed By: #### S CAN CBC, BMP #### [address] CO2 [Moles/Vol] 26.3 mmol/L Normal 21.0-31.0 [facility] Comment on above: Performed By: #### S CAN CBC, BMP #### [address] Creatinine [Mass/Vol] 0.47 mg/dL Low 0.60-1.20 [facility] Comment on above: Performed By: #### S CAN CBC, BMP #### [address] Creatinine Clr Calc Pharmacy 37.27 Normal [facility] Comment on above: Result Comment: PERF ORMED BY: [place] [address] PATHOLOGIST NURSE HEAD JESSIE FRAZIER M.D. Performed By: #### S CAN CBC, BMP #### [place] [address] [place] GFR/1.73 sq M.predicted MDRD (S/P/Bld) [Vol rate/Area] mL/min/{1.73_m2} Normal [facility] Comment on above: Performed By: #### S CAN CBC, BMP #### [address] Glucose [Mass/Vol] 88 mg/dL Normal 70-100 [facility] Comment on above: Result Comment: [place] Glucose Reference Range is dependent on time and content of last meal. Glucose of more than 200 mg/dL in a nonstressed, ambulatory subject supports the diagnosis of Diabetes Mellitus. ADA recommended reference range Performed By: #### S CAN CBC, BMP #### [address] Potassium [Moles/Vol] 4.8 mmol/L Normal 3.5-5.1 [facility] Comment on above: Performed By: #### S CAN CBC, BMP #### [facility] [address] [place] [address] [place] Sodium [Moles/Vol] 130 mmol/L Low 136-145 [facility] Comment on above: Performed By: #### S CAN CBC, BMP #### [facility] [address] Urea nitrogen [Mass/Vol] 20 mg/dL Normal 7-25 [facility] Comment on above: Performed By: #### S CAN CBC, BMP #### [facility] [address] Glucose Poct Glucometerson 0 01-07-2024 Glucose [Mass/Vol] 132 mg/dL Normal [facility] Comment on above: Result Comment: [place] Glucose Reference Range is dependent on time and content of last meal. Glucose of more than 200 mg/dL in a nonstressed, ambulatory subject supports the diagnosis of Diabetes Mellitus. PERFORMED BY: [place] [address] PATHOLOGIST NURSE HEAD JESSIE FRAZIRE M.D. Performed By: #### D IFF CBC, BMP #### [place] [address] [place] Glucose [Mass/Vol] 149 mg/dL Normal [facility] Comment on above: Result Comment: [place] om Glucose Reference Range is dependent on time and content of last meal. Glucose of more than 200 mg/dL in a nonstressed, ambulatory subject supports the diagnosis of Diabetes Mellitus. PERFORMED BY: [place] [address] PATHOLOGIST NURSE HEAD JESSIE FRAZIER M.D. Performed By: #### S CAN CBC, BMP #### [place] [address] [place] Glucose [Mass/Vol] 92 mg/dL Normal [facility] Comment on above: Result Comment: [place] Glucose Reference Range is dependent on time and content of last meal. Glucose of more than 200 mg/dL in a nonstressed, ambulatory subject supports the diagnosis of Diabetes Mellitus. PERFORMED BY: [place] [address] PATHOLOGIST NURSE HEAD JESSIE FRAZIER M.D. Performed By: #### C UBLD #### [address] #### PROCALCITONIN #### [facility] , Glucose [Mass/Vol] 99 mg/dL Normal [facility] Comment on above: Result Comment: [facility] Glucose Reference Range is dependent on time and content of last meal. Glucose of more than 200 mg/dL in a nonstressed, ambulatory subject supports the diagnosis of Diabetes Mellitus. PERFORMED BY: [place] [address] PATHOLOGIST NURSE HEAD JESSIE FRAZIER M.D. Performed By: #### D IFF CBC, BMP #### [address] Basic Metabolic Panelon 05-1 Anion gap [Moles/Vol] 11.0 mmol/L Normal 6.0-15.0 [facility] Comment on above: Performed By: #### C UBLD #### [address] #### PROCALCITONIN #### [facility] , Calcium [Mass/Vol] 8.3 mg/dL Low 8.6-10.3 [facility] Comment on above: Performed By: #### C UBLD #### [address] #### PROCALCITONIN #### [facility] , Chloride [Moles/Vol] 102 mmol/L Normal 98-107 [facility] Comment on above: Performed By: #### C UBLD #### [address] #### PROCALCITONIN #### [facility] , CO2 [Moles/Vol] 23.4 mmol/L Normal 21.0-31.0 [facility] Comment on above: Performed By: #### C UBLD #### [place] [address] [place] #### PROCALCITONIN #### [facility] , Creatinine [Mass/Vol] 0.51 mg/dL Low 0.60-1.20 [facility] Comment on above: Performed By: #### C UBLD #### [place] [address] [place] #### PROCALCITONIN #### [facility] , Creatinine Clr Calc Pharmacy 38.68 Normal [facility] Comment on above: Result Comment: PERF ORMED BY: [place] [address] PATHOLOGIST NURSE HEAD JESSIE FRAZIER M.D. Performed By: #### C UBLD #### [address] #### PROCALCITONIN #### [facility] , GFR/1.73 sq M.predicted MDRD (S/P/Bld) [Vol rate/Area] mL/min/{1.73_m2} Normal [facility] Comment on above: Performed By: #### C UBLD #### [address] #### PROCALCITONIN #### [facility] , Glucose [Mass/Vol] 172 mg/dL High 70-100 [facility] Comment on above: Result Comment: [place] Glucose Reference Range is dependent on time and content of last meal. Glucose of more than 200 mg/dL in a nonstressed, ambulatory subject supports the diagnosis of Diabetes Mellitus. ADA recommended reference range Performed By: #### C UBLD #### [place] [address] [place] #### PROCALCITONIN #### [facility] , Potassium [Moles/Vol] 4.4 mmol/L Normal 3.5-5.1 [facility] Comment on above: Performed By: #### C UBLD #### [address] #### PROCALCITONIN #### [facility] , Sodium [Moles/Vol] 132 mmol/L Low 136-145 [facility] Comment on above: Performed By: #### C UBLD #### [place] [address] [place] #### PROCALCITONIN #### [facility] , Urea nitrogen [Mass/Vol] 25 mg/dL Normal 7-25 [facility] Comment on above: Performed By: #### C UBLD #### [address] #### PROCALCITONIN #### [facility] , Complete Blood Count Auto Di ffon 01-06-2024 Basophils (Bld) [#/Vol] 0.1 10*3/uL Normal 0.0-0.2 [facility] Comment on above: Result Comment: PERF ORMED BY: [place] [address] PATHOLOGIST NURSE HEAD JESSIE FRAZIER M.D. Performed By: #### C UBLD #### [address] #### PROCALCITONIN #### [facility] , Basophils/100 WBC (Bld) 1.0 % Normal . [facility] Comment on above: Performed By: #### C UBLD #### [place] [address] [place] #### PROCALCITONIN #### [facility] , Eosinophils (Bld) [#/Vol] 0.2 10*3/uL Normal 0.0-0.45 [facility] Comment on above: Performed By: #### C UBLD #### [place] [address] [place] #### PROCALCITONIN #### [facility] , Eosinophils/100 WBC (Bld) 1.6 % Normal . [facility] Comment on above: Performed By: #### C UBLD #### [place] [address] [place] #### PROCALCITONIN #### [facility] , Erythrocyte distribution width (RBC) [Ratio] 14.8 % Normal 11.9-15.3 [facility] Comment on above: Performed By: #### C UBLD #### [address] #### PROCALCITONIN #### [facility] , Hematocrit (Bld) [Volume fraction] 30.4 % Low 34.0-46.4 [facility] Comment on above: Performed By: #### C UBLD #### [place] [address] [place] #### PROCALCITONIN #### [facility] , Hemoglobin (Bld) [Mass/Vol] 10.3 g/dL Low 11.8-15.4 [facility] Comment on above: Performed By: #### C UBLD #### [address] #### PROCALCITONIN #### [facility] , Lymphocytes (Bld) [#/Vol] 1.2 10*3/uL Normal 1.00-4.8 [facility] Comment on above: Performed By: #### C UBLD #### [place] [address] [place] #### PROCALCITONIN #### [facility] , Lymphocytes/100 WBC (Bld) 12.8 % Normal . [facility] Comment on above: Performed By: #### C UBLD #### [place] [address] [place] #### PROCALCITONIN #### [facility] , MCH (RBC) [Entitic mass] 31.3 pg Normal 24.7-34.3 [facility] Comment on above: Performed By: #### C UBLD #### [place] [address] [place] #### PROCALCITONIN #### [facility] , MCV (RBC) [Entitic vol] 92.5 fL Normal 80-100 [facility] Comment on above: Performed By: #### C UBLD #### [address] #### PROCALCITONIN #### [facility] , Mean Corpuscular HGB Conc 33.9 g/dL Normal 32.0-35.0 [facility] Comment on above: Performed By: #### C UBLD #### [place] [address] [place] #### PROCALCITONIN #### [facility] , Monocytes (Bld) [#/Vol] 0.7 10*3/uL Normal 0.0-0.8 [facility] Comment on above: Performed By: #### C UBLD #### [address] #### PROCALCITONIN #### [facility] , Monocytes/100 WBC (Bld) 7.6 % Normal . [facility] Comment on above: Performed By: #### C UBLD #### [place] [address] [place] #### PROCALCITONIN #### [facility] , Neutrophils (Bld) [#/Vol] 7.3 10*3/uL Normal 1.8-7.7 [facility] Comment on above: Performed By: #### C UBLD #### [place] [address] [place] #### PROCALCITONIN #### [facility] , Neutrophils/100 WBC (Bld) 77.0 % Normal . [facility] Comment on above: Performed By: #### C UBLD #### [address] #### PROCALCITONIN #### [facility] , NRBC% 0.0 /100{WBC} Normal 0-0.5 [facility] Comment on above: Performed By: #### C UBLD #### [address] #### PROCALCITONIN #### [facility] , Platelet mean volume (Bld) [Entitic vol] 8.2 fL Normal 6.3-10.7 [facility] Comment on above: Performed By: #### C UBLD #### [address] #### PROCALCITONIN #### [facility] , Platelets (Bld) [#/Vol] 351 10*3/uL Normal 150-450 [facility] Comment on above: Performed By: #### C UBLD #### [address] #### PROCALCITONIN #### [facility] , RBC (Bld) [#/Vol] 3.28 10*6/uL Low 3.60-5.00 [facility] Comment on above: Performed By: #### C UBLD #### [place] [address] [place] #### PROCALCITONIN #### [facility] , WBC (Bld) [#/Vol] 9.4 10*3/uL Normal 3.8-11.6 [facility] Comment on above: Performed By: #### C UBLD #### [place] [address] [place] #### PROCALCITONIN #### [facility] , Glucose Poct Glucometerson 0 01-06-2024 Glucose [Mass/Vol] 111 mg/dL Normal [facility] Comment on above: Result Comment: [place] om Glucose Reference Range is dependent on time and content of last meal. Glucose of more than 200 mg/dL in a nonstressed, ambulatory subject supports the diagnosis of Diabetes Mellitus. PERFORMED BY: [place] [address] PATHOLOGIST NURSE HEAD JESSIE FRAZIER M.D. Performed By: #### C UBLD #### [address] #### PROCALCITONIN #### [facility] , Glucose [Mass/Vol] 102 mg/dL Normal [facility] Comment on above: Result Comment: [place] om Glucose Reference Range is dependent on time and content of last meal. Glucose of more than 200 mg/dL in a nonstressed, ambulatory subject supports the diagnosis of Diabetes Mellitus. PERFORMED BY: [place] [address] PATHOLOGIST NURSE HEAD JESSIE FRAZIER M.D. Performed By: #### C UBLD #### [address] #### PROCALCITONIN #### [facility] , Glucose [Mass/Vol] 76 mg/dL Normal [facility] Comment on above: Result Comment: [place] om Glucose Reference Range is dependent on time and content of last meal. Glucose of more than 200 mg/dL in a nonstressed, ambulatory subject supports the diagnosis of Diabetes Mellitus. PERFORMED BY: [place] [address] PATHOLOGIST NURSE HEAD JESSIE FRAZIER M.D. Performed By: #### C UBLD #### [address] #### PROCALCITONIN #### [facility] , Glucose [Mass/Vol] 236 mg/dL Normal [facility] Comment on above: Result Comment: [place] om Glucose Reference Range is dependent on time and content of last meal. Glucose of more than 200 mg/dL in a nonstressed, ambulatory subject supports the diagnosis of Diabetes Mellitus. PERFORMED BY: [place] [address] PATHOLOGIST NURSE HEAD JESSIE FRAZIER M.D. Performed By: #### S CAN CBC, BMP #### [facility] [address] [place] [address] [place] Band form neutrophils/100 WB C Manual cnt (Bld)Ordered By: Ashley Villarreal on 01-05-2024 Band form neutrophils/100 WBC (Bld) 3 % 0-5 [facility] Basic Metabolic Panelon 12-24 Anion gap [Moles/Vol] 13.3 mmol/L Normal 6.0-15.0 [facility] Comment on above: Performed By: #### D IFF CBC, BMP #### [place] [address] [place] Calcium [Mass/Vol] 8.7 mg/dL Normal 8.6-10.3 [facility] Comment on above: Performed By: #### D IFF CBC, BMP #### [place] [address] [place] Chloride [Moles/Vol] 101 mmol/L Normal 98-107 [facility] Comment on above: Performed By: #### D IFF CBC, BMP #### [place] [address] [place] CO2 [Moles/Vol] 22.9 mmol/L Normal 21.0-31.0 [facility] Comment on above: Performed By: #### D IFF CBC, BMP #### [facility] [address] [place] [id number] [place] Creatinine [Mass/Vol] 0.65 mg/dL Normal 0.60-1.20 [facility] Comment on above: Performed By: #### D IFF CBC, BMP #### [facility] [address] [place] [address] [place] Creatinine Clr Calc Pharmacy 38.84 Normal [facility] Comment on above: Result Comment: PERF ORMED BY: [place] [address] PATHOLOGIST NURSE HEAD JESSIE FRAZIER M.D. Performed By: #### D IFF CBC, BMP #### [place] [address] [place] GFR/1.73 sq M.predicted MDRD (S/P/Bld) [Vol rate/Area] mL/min/{1.73_m2} Normal [facility] Comment on above: Performed By: #### D IFF CBC, BMP #### [address] Glucose [Mass/Vol] 81 mg/dL Normal 70-100 [facility] Comment on above: Result Comment: [place] Glucose Reference Range is dependent on time and content of last meal. Glucose of more than 200 mg/dL in a nonstressed, ambulatory subject supports the diagnosis of Diabetes Mellitus. ADA recommended reference range Performed By: #### D IFF CBC, BMP #### [address] Potassium [Moles/Vol] 4.2 mmol/L Normal 3.5-5.1 [facility] Comment on above: Performed By: #### D IFF CBC, BMP #### [address] Sodium [Moles/Vol] 133 mmol/L Low 136-145 [facility] Comment on above: Performed By: #### D IFF CBC, BMP #### [address] Urea nitrogen [Mass/Vol] 32 mg/dL High 7-25 [facility] Comment on above: Performed By: #### D IFF CBC, BMP #### [address] Blood toxic granulation dete ction by light microscopyOrdered By: Ashley Villarreal on 01-05-2024 Toxic granules LM Ql (Bld) Slight [facility] Diff and CBCon 01-05-2024 Band form neutrophils/100 WBC (Bld) 3 % Normal 0-5 [facility] Comment on above: Performed By: #### D IFF CBC, BMP #### [address] Eosinophils/100 WBC (Bld) 2 % Normal 1-3 [facility] Comment on above: Performed By: #### D IFF CBC, BMP #### [address] Erythrocyte distribution width (RBC) [Ratio] 14.6 % Normal 11.9-15.3 [facility] Comment on above: Performed By: #### D IFF CBC, BMP #### [address] Hematocrit (Bld) [Volume fraction] 32.1 % Low 34.0-46.4 [facility] Comment on above: Performed By: #### D IFF CBC, BMP #### [address] Hemoglobin (Bld) [Mass/Vol] 10.5 g/dL Low 11.8-15.4 [facility] Comment on above: Performed By: #### D IFF CBC, BMP #### [address] Lymphocytes/100 WBC (Bld) 2 % Low 18-42 [facility] Comment on above: Performed By: #### D IFF CBC, BMP #### [place] [address] [place] MCH (RBC) [Entitic mass] 30.4 pg Normal 24.7-34.3 [facility] Comment on above: Performed By: #### D IFF CBC, BMP #### [address] MCV (RBC) [Entitic vol] 92.8 fL Normal 80-100 [facility] Comment on above: Performed By: #### D IFF CBC, BMP #### [address] Mean Corpuscular HGB Conc 32.8 g/dL Normal 32.0-35.0 [facility] Comment on above: Performed By: #### D IFF CBC, BMP #### [address] Monocytes/100 WBC (Bld) 5 % Normal 2-11 [facility] Comment on above: Performed By: #### D IFF CBC, BMP #### [address] Platelet Estimate Normal Normal Normal [facility] Comment on above: Performed By: #### D IFF CBC, BMP #### [address] Platelet mean volume (Bld) [Entitic vol] 8.5 fL Normal 6.3-10.7 [facility] Comment on above: Performed By: #### D IFF CBC, BMP #### [address] Platelet Morphology Normal Normal Normal [facility] Comment on above: Result Comment: PERF ORMED BY: [place] [address] PATHOLOGIST NURSE HEAD JESSIE FRAZIER M.D. Performed By: #### D IFF CBC, BMP #### [address] Platelets (Bld) [#/Vol] 294 10*3/uL Normal 150-450 [facility] Comment on above: Performed By: #### D IFF CBC, BMP #### [place] [address] [place] RBC (Bld) [#/Vol] 3.46 10*6/uL Low 3.60-5.00 [facility] Comment on above: Performed By: #### D IFF CBC, BMP #### [address] RBC morphology finding Nom (Bld) Normal Normal Normal [facility] Comment on above: Performed By: #### D IFF CBC, BMP #### [place] [address] [place] Segmented neutrophils/100 WBC (Bld) 89 % High 50-70 [facility] Comment on above: Performed By: #### D IFF CBC, BMP #### [facility] [address] Toxic Granulation Slight Normal [facility] Comment on above: Performed By: #### D IFF CBC, BMP #### [facility] [address] Toxic Vacuolation Moderate Normal [facility] Comment on above: Performed By: #### D IFF CBC, BMP #### [facility] [address] WBC (Bld) [#/Vol] 14.0 10*3/uL High 3.8-11.6 [facility] Comment on above: Performed By: #### D IFF CBC, BMP #### [facility] [address] [place] [address] ECG 12 lead ECGon 01-05-2024 ECG 12 lead ECG [place] [address] Electrocardiograph Report Signed Patient: Rosalind Restrepo MR#: [id number] [birth year] : 1940 Acct:[id number] Age/Sex: 83 / F ADM Date: 01/02/24 Loc: Room: [address] [place] [address] Type: ADM IN Attending Dr: Ewa Marx MD Ordering Provider: Ewa Marx MD Date of Service: 01/04/2407/19/2147 ECG/ECG 12 lead ECG: rhythm change Copies to: Test Reason : Blood Pressure : / mmHG Vent. Rate : 119 BPM Atrial Rate : 113 BPM P-R Int : 000 ms QRS Dur : 120 ms QT Int : 344 ms P-R-T Axes : 000 -60 -04 degrees QTc Int : 483 ms Atrial fibrillation with rapid ventricular response Right bundle branch block Left anterior fascicular block Bifascicular block Cannot rule out Anterior infarct , age undetermined Abnormal ECG When compared with ECG of 04-JAN-2024 22:04, (Unconfirmed) Previous ECG has undetermined rhythm, needs review Confirmed by DALIA HERNANDEZ [facility], ILYA ([id number]) on 01/05/2024 2:50:40 PM Referred By: HOSP Electronically Signed By:ILYA GÓMEZ MD [facility] Transcribed By: MUS Signed By Efrain Gómez MD 01/05/24 1450 Normal [facility] Eosinophils/100 WBC Manual c nt (Bld)Ordered By: Ashley Villarreal on 01-05-2024 Eosinophils/100 WBC (Bld) 2 % 1-3 [facility] Glucose Poct Glucometerson 0 01-05-2024 Glucose [Mass/Vol] 139 mg/dL Normal [facility] Comment on above: Result Comment: [place] Glucose Reference Range is dependent on time and content of last meal. Glucose of more than 200 mg/dL in a nonstressed, ambulatory subject supports the diagnosis of Diabetes Mellitus. PERFORMED BY: [place] [address] PATHOLOGIST NURSE HEAD JESSIE FRAZIER M.D. Performed By: #### S CAN CBC, BMP #### [facility] [address] [place], [place] [id number] [facility] Glucose [Mass/Vol] 151 mg/dL Normal [facility] Comment on above: Result Comment: [place] Glucose Reference Range is dependent on time and content of last meal. Glucose of more than 200 mg/dL in a nonstressed, ambulatory subject supports the diagnosis of Diabetes Mellitus. PERFORMED BY: [place] [id number] PATHOLOGIST NURSE HEAD JESSIE FRAZIER M.D. Performed By: #### S CAN CBC, BMP #### [place] [id number] [facility] Glucose [Mass/Vol] 116 mg/dL Normal [facility] Comment on above: Result Comment: [place] Glucose Reference Range is dependent on time and content of last meal. Glucose of more than 200 mg/dL in a nonstressed, ambulatory subject supports the diagnosis of Diabetes Mellitus. PERFORMED BY: [place] [id number] PATHOLOGIST NURSE HEAD JESSIE FRAZIER M.D. Performed By: #### C UBLD #### [address] #### PROCALCITONIN #### [facility] , Glucose [Mass/Vol] 90 mg/dL Normal [facility] Comment on above: Result Comment: [place] om Glucose Reference Range is dependent on time and content of last meal. Glucose of more than 200 mg/dL in a nonstressed, ambulatory subject supports the diagnosis of Diabetes Mellitus. PERFORMED BY: [place] [address] PATHOLOGIST NURSE HEAD JESSIE FRAZIER M.D. Performed By: #### C UBLD #### [address] #### PROCALCITONIN #### [facility] , Glucose [Mass/Vol] 181 mg/dL Normal [facility] Comment on above: Result Comment: [place] om Glucose Reference Range is dependent on time and content of last meal. Glucose of more than 200 mg/dL in a nonstressed, ambulatory subject supports the diagnosis of Diabetes Mellitus. PERFORMED BY: [place] [address] PATHOLOGIST NURSE HEAD JESSIE FRAZIER M.D. Performed By: #### G LULS #### Point of Care testing , Lymphocytes/100 WBC Manual c nt (Bld)Ordered By: Ashley Villarreal on 01-05-2024 Lymphocytes/100 WBC (Bld) 2 % 18-42 [facility] Monocytes/100 WBC Manual cnt (Bld)Ordered By: Ashley Villarreal on 01-05-2024 Monocytes/100 WBC (Bld) 5 % 2-11 [facility] Platelet adequacy [Presence] in Blood by Light microscopyOrdered By: Ashley Villarreal on 01-05-2024 Platelets LM Ql (Bld) Normal Normal [facility] Platelet morphology finding [Identifier] in BloodOrdered By: Ashley Bhandari on 01-05-2024 Platelet morphology finding Nom (Bld) Normal Normal [facility] Procalcitoninon 01-05-2024 Procalcitonin 0.55 ng/mL High 0.00-0.08 [facility] Comment on above: Order Comment: Bonifacio nt May add to already drawn labs from today Result Comment: A pr ocalcitonin (PCT) level [...] concentrations <2 ng/mL are obtained. Performed at: [facility] [id number] Military Cook: Fiona Collazo MD, Phone: [phone] PERFORMED BY: [place] [address] PATHOLOGIST NURSE HEAD JSESIE FRAZIER M.D. Performed By: #### D IFF CBC, BMP #### [address] RBC morphologyOrdered By: Henna Villarreal on 01-05-2024 RBC morphology finding Nom (Bld) Normal Normal [facility] Segmented neutrophils/100 WB C Manual cnt (Bld)Ordered By: Ashley Villarreal on 01-05-2024 Segmented neutrophils/100 WBC (Bld) 89 % 50-70 [facility] Serum procalcitonin measurem entOrdered By: Ana Hunt on 01-05-2024 Procalcitonin [Mass/Vol] 0.55 ng/mL 0.00-0.08 [facility] Comment on above: A procalcitonin (PCT ) [...] any concentrations <2 ng/mL are obtained.Performed at: [facility] [id number] Director: Fiona Collazo MD, Phone: [phone] Toxic leukocyte vacuolation detectionOrdered By: Ashley Villarreal on 01-05-2024 Leukocyte toxic vacuoles LM Ql (Bld) Moderate [facility] A1C with Estimated Average G [facility] 01-04-2024 Glucose [Mass/Vol] 111 mg/dL Normal [facility] Comment on above: Order Comment: Comme nt ok to use previously drawn blood Result Comment: PERF ORMED BY: [place] [address] PATHOLOGIST NURSE HEAD JESSIE FRAZIER M.D. Performed By: #### S CAN CBC, BMP #### [facility] [address] [place] [address] HbA1c (Bld) [Mass fraction] 5.5 % Normal 4.3-5.6 [facility] Comment on above: Order Comment: Comme nt ok to use previously drawn blood Result Comment: Incr eased risk for diabetes: 5.7 - 6.4 diabetes: >6.4 glycemic control for adults with diabetes: <7.0 Performed By: #### S CAN CBC, BMP #### [facility] [address] [place] [address] [place] Bacterial blood cultureOrder ed By: Ashley Villarreal on 01-04-2024 Bacteria identified Cx Nom (Bld) NO GROWTH 5 DAYS [facility] Basic Metabolic Panelon 12-24 Anion gap [Moles/Vol] 8.3 mmol/L Normal 6.0-15.0 [facility] Comment on above: Performed By: #### S CAN CBC, BMP #### [facility] [address] [place] [address] [place] Calcium [Mass/Vol] 8.7 mg/dL Normal 8.6-10.3 [facility] Comment on above: Performed By: #### S CAN CBC, BMP #### [facility] [address] [place] [address] [place] Chloride [Moles/Vol] 102 mmol/L Normal 98-107 [facility] Comment on above: Performed By: #### S CAN CBC, BMP #### [facility] [address] [place] [address] [place] CO2 [Moles/Vol] 21.4 mmol/L Normal 21.0-31.0 [facility] Comment on above: Performed By: #### S CAN CBC, BMP #### [facility] [address] [place] [address] [place] Creatinine [Mass/Vol] 0.78 mg/dL Normal 0.60-1.20 [facility] Comment on above: Performed By: #### S CAN CBC, BMP #### [facility] [address] [place] [address] [place] Creatinine Clr Calc Pharmacy 37.85 Normal [facility] Comment on above: Result Comment: PERF ORMED BY: [place] [address] PATHOLOGIST NURSE HEAD JESSIE FRAZIER M.D. Performed By: #### S CAN CBC, BMP #### [place] [address] [place] GFR/1.73 sq M.predicted MDRD (S/P/Bld) [Vol rate/Area] mL/min/{1.73_m2} Normal [facility] Comment on above: Performed By: #### S CAN CBC, BMP #### [address] Glucose [Mass/Vol] 146 mg/dL High 70-100 [facility] Comment on above: Result Comment: [place] om Glucose Reference Range is dependent on time and content of last meal. Glucose of more than 200 mg/dL in a nonstressed, ambulatory subject supports the diagnosis of Diabetes Mellitus. ADA recommended reference range Performed By: #### S CAN CBC, BMP #### [address] Potassium [Moles/Vol] 3.7 mmol/L Normal 3.5-5.1 [facility] Comment on above: Performed By: #### S CAN CBC, BMP #### [address] Sodium [Moles/Vol] 128 mmol/L Low 136-145 [facility] Comment on above: Performed By: #### S CAN CBC, BMP #### [address] Urea nitrogen [Mass/Vol] 35 mg/dL High 7-25 [facility] Comment on above: Performed By: #### S CAN CBC, BMP #### [address] Blood Cultureon 01-04-2024 Bacteria identified Cx Nom (Bld) NO GROWTH 5 DAYS PERFORMED BY: [place] [address] PATHOLOGIST NURSE HEAD JESSIE FRAZIER M.D. Normal [facility] Comment on above: Performed By: #### C UBLD #### [address] #### PROCALCITONIN #### [facility] , Glucose Poct Glucometerson 0 01-04-2024 Glucose [Mass/Vol] 184 mg/dL Normal [facility] Comment on above: Result Comment: [place] Glucose Reference Range is dependent on time and content of last meal. Glucose of more than 200 mg/dL in a nonstressed, ambulatory subject supports the diagnosis of Diabetes Mellitus. PERFORMED BY: [place] [id number] PATHOLOGIST NURSE HEAD JESSIE FRAZIER M.D. Performed By: #### S CAN CBC, BMP #### [address] [address] [place] Glucose [Mass/Vol] 131 mg/dL Normal [facility] Comment on above: Result Comment: [place] Glucose Reference Range is dependent on time and content of last meal. Glucose of more than 200 mg/dL in a nonstressed, ambulatory subject supports the diagnosis of Diabetes Mellitus. PERFORMED BY: [place] [address] PATHOLOGIST NURSE HEAD JESSIE FRAZIER M.D. Performed By: #### S CAN CBC, BMP #### [address] [address] [place] Glucose [Mass/Vol] 93 mg/dL Normal [facility] Comment on above: Result Comment: [place] Glucose Reference Range is dependent on time and content of last meal. Glucose of more than 200 mg/dL in a nonstressed, ambulatory subject supports the diagnosis of Diabetes Mellitus. PERFORMED BY: [place] [address] PATHOLOGIST NURSE HEAD JESSIE FRAZIER M.D. Performed By: #### S CAN CBC, BMP #### [address] [address] [place] Glucose [Mass/Vol] 328 mg/dL Normal [facility] Comment on above: Result Comment: [place] Glucose Reference Range is dependent on time and content of last meal. Glucose of more than 200 mg/dL in a nonstressed, ambulatory subject supports the diagnosis of Diabetes Mellitus. PERFORMED BY: [place] [address] PATHOLOGIST NURSE HEAD JESSIE FRAZIER M.D. Performed By: #### S CAN CBC, BMP #### [address] [address] [place] Glucose mean value [Mass/vol ume] in Blood Estimated from glycated hemoglobinOrdered By: Ashley Villarreal on 01-04-2024 Average glucose Estimated from glycated hemoglobin (Bld) [Mass/Vol] 111 mg/dL [facility] Hemoglobin A1c percentageOrd ered By: Ashley Villarreal on 01-04-2024 HbA1c (Bld) [Mass fraction] 5.5 % 4.3-5.6 [facility] Comment on above: Increased risk for d iabetes: 5.7 - 6.4diabetes: >6.4glycemic control for adults with diabetes: <7.0 Scan and CBCon 01-04-2024 Basophils (Bld) [#/Vol] 0.0 10*3/uL Normal 0.0-0.2 [facility] Comment on above: Performed By: #### S CAN CBC, BMP #### [address] Basophils/100 WBC (Bld) 0.2 % Normal . [facility] Comment on above: Performed By: #### S CAN CBC, BMP #### [facility] [address] [place] [address] Eosinophils (Bld) [#/Vol] 0.4 10*3/uL Normal 0.0-0.45 [facility] Comment on above: Performed By: #### S CAN CBC, BMP #### [address] Eosinophils/100 WBC (Bld) 2.0 % Normal . [facility] Comment on above: Performed By: #### S CAN CBC, BMP #### [address] Erythrocyte distribution width (RBC) [Ratio] 14.5 % Normal 11.9-15.3 [facility] Comment on above: Performed By: #### S CAN CBC, BMP #### [address] Hematocrit (Bld) [Volume fraction] 29.8 % Low 34.0-46.4 [facility] Comment on above: Performed By: #### S CAN CBC, BMP #### [place] [address] [place] Hemoglobin (Bld) [Mass/Vol] 9.9 g/dL Low 11.8-15.4 [facility] Comment on above: Performed By: #### S CAN CBC, BMP #### [address] Lymphocytes (Bld) [#/Vol] 1.2 10*3/uL Normal 1.00-4.8 [facility] Comment on above: Performed By: #### S CAN CBC, BMP #### [address] Lymphocytes/100 WBC (Bld) 6.4 % Normal . [facility] Comment on above: Performed By: #### S CAN CBC, BMP #### [address] MCH (RBC) [Entitic mass] 30.7 pg Normal 24.7-34.3 [facility] Comment on above: Performed By: #### S CAN CBC, BMP #### [address] MCV (RBC) [Entitic vol] 92.6 fL Normal 80-100 [facility] Comment on above: Performed By: #### S CAN CBC, BMP #### [address] Mean Corpuscular HGB Conc 33.1 g/dL Normal 32.0-35.0 [facility] Comment on above: Performed By: #### S CAN CBC, BMP #### [address] Monocytes (Bld) [#/Vol] 0.2 10*3/uL Normal 0.0-0.8 [facility] Comment on above: Performed By: #### S CAN CBC, BMP #### [address] Monocytes/100 WBC (Bld) 1.0 % Normal . [facility] Comment on above: Performed By: #### S CAN CBC, BMP #### [place] [address] [place] Neutrophils (Bld) [#/Vol] 16.5 10*3/uL High 1.8-7.7 [facility] Comment on above: Performed By: #### S CAN CBC, BMP #### [address] Neutrophils/100 WBC (Bld) 90.4 % Normal . [facility] Comment on above: Performed By: #### S CAN CBC, BMP #### [address] NRBC% 0.0 /100{WBC} Normal 0-0.5 [facility] Comment on above: Performed By: #### S CAN CBC, BMP #### [address] Platelet Estimate Normal Normal Normal [facility] Comment on above: Performed By: #### S CAN CBC, BMP #### [address] Platelet mean volume (Bld) [Entitic vol] 8.8 fL Normal 6.3-10.7 [facility] Comment on above: Performed By: #### S CAN CBC, BMP #### [address] Platelet Morphology Normal Normal Normal [facility] Comment on above: Result Comment: PERF ORMED BY: [place] [address] PATHOLOGIST NURSE HEAD JESSIE FRAZIER M.D. Performed By: #### S CAN CBC, BMP #### [place] [address] [place] Platelets (Bld) [#/Vol] 264 10*3/uL Normal 150-450 [facility] Comment on above: Performed By: #### S CAN CBC, BMP #### [place] [address] [place] RBC (Bld) [#/Vol] 3.22 10*6/uL Low 3.60-5.00 [facility] Comment on above: Performed By: #### S CAN CBC, BMP #### [facility] [address] RBC morphology finding Nom (Bld) Normal Normal Normal [facility] Comment on above: Performed By: #### S CAN CBC, BMP #### [facility] [address] WBC (Bld) [#/Vol] 18.2 10*3/uL High 3.8-11.6 [facility] Comment on above: Performed By: #### S CAN CBC, BMP #### [facility] [address] Anisocytosis LM Ql (Bld)Orde red By: Ashley Villarreal on 01-03-2024 Anisocytosis Ql (Bld) Slight [facility] Basic Metabolic Panelon 12-24 Anion gap [Moles/Vol] 11.9 mmol/L Normal 6.0-15.0 [facility] Comment on above: Performed By: #### D IFF CBC, BMP #### [address] Calcium [Mass/Vol] 8.6 mg/dL Normal 8.6-10.3 [facility] Comment on above: Performed By: #### D IFF CBC, BMP #### [address] Chloride [Moles/Vol] 100 mmol/L Normal 98-107 [facility] Comment on above: Performed By: #### D IFF CBC, BMP #### [address] CO2 [Moles/Vol] 20.3 mmol/L Low 21.0-31.0 [facility] Comment on above: Performed By: #### D IFF CBC, BMP #### [address] Creatinine [Mass/Vol] 0.75 mg/dL Normal 0.60-1.20 [facility] Comment on above: Performed By: #### D IFF CBC, BMP #### [place] [address] [place] Creatinine Clr Calc Pharmacy 37.85 Normal [facility] Comment on above: Result Comment: PERF ORMED BY: [place] [address] PATHOLOGIST NURSE HEAD JESSIE FRAZIER M.D. Performed By: #### D IFF CBC, BMP #### [facility] [address] [place] [address] [place] GFR/1.73 sq M.predicted MDRD (S/P/Bld) [Vol rate/Area] mL/min/{1.73_m2} Normal [facility] Comment on above: Performed By: #### D IFF CBC, BMP #### [place] [address] [place] Glucose [Mass/Vol] 211 mg/dL High 70-100 [facility] Comment on above: Result Comment: [place] Glucose Reference Range is dependent on time and content of last meal. Glucose of more than 200 mg/dL in a nonstressed, ambulatory subject supports the diagnosis of Diabetes Mellitus. ADA recommended reference range Performed By: #### D IFF CBC, BMP #### [facility] [address] [place] [address] [place] Potassium [Moles/Vol] 3.2 mmol/L Low 3.5-5.1 [facility] Comment on above: Performed By: #### D IFF CBC, BMP #### [place] [address] [place] Sodium [Moles/Vol] 129 mmol/L Low 136-145 [facility] Comment on above: Performed By: #### D IFF CBC, BMP #### [facility] [address] [place] [address] [place] Urea nitrogen [Mass/Vol] 34 mg/dL High 7-25 [facility] Comment on above: Performed By: #### D IFF CBC, BMP #### [facility] [address] [place] [address] [place] cells [Presence] in Blo od by Light microscopyOrdered By: Ashley Bhandari on 01-03-2024 [place] cells LM Ql (Bld) [facility] Clostridioides difficile tox in B tcdB gene [Presence] in Stool by GEORGIE with probe deteOrdered By: Ashleydat GonzalezThony on 01-03-2024 C. difficile toxin B tcdB gene GEORGIE+probe Ql (Stl) Positive Negative [facility] Comment on above: Testing performed by RT-PCR Clostridium Difficileon 12-24 Clostridium Difficile Positive Normal Negative [facility] Comment on above: Order Comment: Resul ts called at 0821 on 01/03/24 > or = to 3 loose/watery stools in the last 24 HRS? Y Is patient on promotility agents or tube feeding? Y Result Comment: Test ing performed by RT-PCR PERFORMED BY: [place] [address] PATHOLOGIST NURSE HEAD JESSIE FRAZIER M.D. Performed By: #### C UBLD #### [address] #### PROCALCITONIN #### [facility] , Glucose Poct Glucometerson 0 01-03-2024 Glucose [Mass/Vol] 231 mg/dL Normal [facility] Comment on above: Result Comment: [place] Glucose Reference Range is dependent on time and content of last meal. Glucose of more than 200 mg/dL in a nonstressed, ambulatory subject supports the diagnosis of Diabetes Mellitus. PERFORMED BY: [place] [address] PATHOLOGIST NURSE HEAD JESSIE FRAZIER M.D. Performed By: #### C UBLD #### [facility] [address] [place] [address] [place] #### PROCALCITONIN #### [facility] , Glucose [Mass/Vol] 222 mg/dL Normal [facility] Comment on above: Result Comment: [place] Glucose Reference Range is dependent on time and content of last meal. Glucose of more than 200 mg/dL in a nonstressed, ambulatory subject supports the diagnosis of Diabetes Mellitus. PERFORMED BY: [place] [address] PATHOLOGIST NURSE HEAD JESSIE FRAZIER M.D. Performed By: #### C UBLD #### [place] [address] [place] #### PROCALCITONIN #### [facility] , Glucose [Mass/Vol] 127 mg/dL Normal [facility] Comment on above: Result Comment: [place] om Glucose Reference Range is dependent on time and content of last meal. Glucose of more than 200 mg/dL in a nonstressed, ambulatory subject supports the diagnosis of Diabetes Mellitus. PERFORMED BY: [place] [address] PATHOLOGIST NURSE HEAD JESSIE FRAZIER M.D. Performed By: #### G LULS #### Point of Care testing , Glucose [Mass/Vol] 323 mg/dL Normal [facility] Comment on above: Result Comment: [facility] Glucose Reference Range is dependent on time and content of last meal. Glucose of more than 200 mg/dL in a nonstressed, ambulatory subject supports the diagnosis of Diabetes Mellitus. PERFORMED BY: [place] [address] PATHOLOGIST NURSE HEAD JESSIE FRAZIER M.D. Performed By: #### C UBLD #### [address] #### PROCALCITONIN #### [facility] , Hypochromia LM Ql (Bld)Order ed By: Ashley Villarreal on 01-03-2024 Hypochromia Ql (Bld) Slight [facility] Poikilocytosis [Presence] in Blood by Light microscopyOrdered By: Ashley Villarreal on 01-03-2024 Poikilocytosis LM Ql (Bld) Slight [facility] Polychromasia [Presence] in Blood by Light microscopyOrdered By: Ashley Villarreal on 01-03-2024 Polychromasia LM Ql (Bld) Slight [facility] Scan and CBCon 01-03-2024 Anisocytosis Ql (Bld) Slight Normal [facility] Comment on above: Performed By: #### G LULS #### Point of Care testing , Basophils (Bld) [#/Vol] 0.1 10*3/uL Normal 0.0-0.2 [facility] Comment on above: Performed By: #### G LULS #### Point of Care testing , Basophils/100 WBC (Bld) 0.5 % Normal . [facility] Comment on above: Performed By: #### G LULS #### Point of Care testing , Crenated RBC Slight Normal [facility] Comment on above: Performed By: #### G LULS #### Point of Care testing , Eosinophils (Bld) [#/Vol] 0.2 10*3/uL Normal 0.0-0.45 [facility] Comment on above: Performed By: #### G LULS #### Point of Care testing , Eosinophils/100 WBC (Bld) 1.4 % Normal . [facility] Comment on above: Performed By: #### G LULS #### Point of Care testing , Erythrocyte distribution width (RBC) [Ratio] 14.3 % Normal 11.9-15.3 [facility] Comment on above: Performed By: #### G LULS #### Point of Care testing , Hematocrit (Bld) [Volume fraction] 29.1 % Low 34.0-46.4 [facility] Comment on above: Performed By: #### G LULS #### Point of Care testing , Hemoglobin (Bld) [Mass/Vol] 9.6 g/dL Low 11.8-15.4 [facility] Comment on above: Performed By: #### G LULS #### Point of Care testing , Hypochromasia Slight Normal [facility] Comment on above: Performed By: #### G LULS #### Point of Care testing , Lymphocytes (Bld) [#/Vol] 1.2 10*3/uL Normal 1.00-4.8 [facility] Comment on above: Performed By: #### G LULS #### Point of Care testing , Lymphocytes/100 WBC (Bld) 6.7 % Normal . [facility] Comment on above: Performed By: #### G LULS #### Point of Care testing , MCH (RBC) [Entitic mass] 30.9 pg Normal 24.7-34.3 [facility] Comment on above: Performed By: #### G LULS #### Point of Care testing , MCV (RBC) [Entitic vol] 93.1 fL Normal 80-100 [facility] Comment on above: Performed By: #### G LULS #### Point of Care testing , Mean Corpuscular HGB Conc 33.2 g/dL Normal 32.0-35.0 [facility] Comment on above: Performed By: #### G LULS #### Point of Care testing , Monocytes (Bld) [#/Vol] 0.8 10*3/uL Normal 0.0-0.8 [facility] Comment on above: Performed By: #### G LULS #### Point of Care testing , Monocytes/100 WBC (Bld) 4.6 % Normal . [facility] Group Comment on above: Performed By: #### G LULS #### Point of Care testing , Neutrophils (Bld) [#/Vol] 14.9 10*3/uL High 1.8-7.7 [facility] Comment on above: Performed By: #### G LULS #### Point of Care testing , Neutrophils/100 WBC (Bld) 86.8 % Normal . [facility] Comment on above: Performed By: #### G LULS #### Point of Care testing , NRBC% 0.0 /100{WBC} Normal 0-0.5 [facility] Comment on above: Performed By: #### G LULS #### Point of Care testing , Platelet Estimate Normal Normal Normal [facility] Comment on above: Performed By: #### G LULS #### Point of Care testing , Platelet mean volume (Bld) [Entitic vol] 8.4 fL Normal 6.3-10.7 [facility] Comment on above: Performed By: #### G LULS #### Point of Care testing , Platelet Morphology Normal Normal Normal [facility] Comment on above: Result Comment: PERF ORMED BY: [facility] [address] PATHOLOGIST NURSE HEAD JESSIE FRAZIER M.D. Performed By: #### G LULS #### Point of Care testing , Platelets (Bld) [#/Vol] 235 10*3/uL Normal 150-450 [facility] Comment on above: Performed By: #### G LULS #### Point of Care testing , Poikilocytosis Slight Normal [facility] Comment on above: Performed By: #### G LULS #### Point of Care testing , Polychromasia Slight Normal [facility] Comment on above: Performed By: #### G LULS #### Point of Care testing , RBC (Bld) [#/Vol] 3.12 10*6/uL Low 3.60-5.00 [facility] Comment on above: Performed By: #### G LULS #### Point of Care testing , RBC morphology finding Nom (Bld) Normal Normal Normal [facility] Comment on above: Performed By: #### G LULS #### Point of Care testing , WBC (Bld) [#/Vol] 17.2 10*3/uL High 3.8-11.6 [facility] Comment on above: Performed By: #### G LULS #### Point of Care testing , Aerobic Cultureon 01-02-2024 Aerobic Culture ORGANISM: Acinetobac ter dionisio/nosocom grp (O:ACIBAUNOS) Quantity of Growth Light Growth Gram Stain Result 3+ White Blood Cells Rare Gram Positive Cocci 1+ Epithelial Cells 1+ Yeast Like Elements Rare Red Blood Cells Aerobic ISABELLA Charge (NMIC56) SUSCEPTIBILITY ORGANISM: O:ACIBAUNOS ANTIBIOTIC INTERPRETATION ISABELLA Amikacin S <16 Ampicillin/Sulbactam S 88/4 Cefepime I 16 Ceftazidime R >16 Ceftriaxone R >32 Gentamicin S <2 Meropenem R >8 Minocycline S <4 Tetracycline R >8 Tobramycin S <2 Trimethoprim/Sulfamethoxaz ole S 22/ S = SUSCEPTIBLE I = INTERMEDIATE R = RESISTANT BLANK = DATA NOT AVAILABLE, OR DRUG NOT ADVISABLE OR TESTED R* = RESISTANCE DUE TO EXTENDED SPECTRUM BETA-LACTAMASES ESBL = EXTENDED SPECTRUM BETA-LACTAMASE TFG = THYMIDINE-DEPENDENT STRAIN MARGOT = BETA-LACTAMASE POSITIVE IB = INDUCIBLE BETA-LACTAMASE. APPEARS IN PLACE OF 'S' WITH SPECIES KNOWN TO POSSESS INDUCIBLE BETA-LACTAMASES. POTENTIALLY THEY MAY BECOME RESISTANT TO ALL B-LACTAM DRUGS. PERFORMED BY: [facility] [address] [place] [address] PATHOLOGIST NURSE HEAD JESSIE FRAZIER M.D. Normal [facility] Comment on above: Performed By: #### G LULS #### Point of Care testing , Alanine aminotransferase [En zymatic activity/volume] in Serum or PlasmaOrdered By: Dillon Merritt on 01-02-2024 ALT [Catalytic activity/Vol] 11 U/L 7-52 [facility] Albumin [Mass/volume] in Ser um or Plasma by Bromocresol green (BCG) dye binding methoOrdered By: Dillon Merritt on 01-02-2024 Albumin BCG dye [Mass/Vol] 3.0 g/dL 3.5-5.7 [facility] Alkaline phosphatase [Enzyma tic activity/volume] in Serum or PlasmaOrdered By: Dillon Merritt on 01-02-2024 ALP [Catalytic activity/Vol] 103 U/L 34-104 [facility] Aspartate aminotransferase [ Enzymatic activity/volume] in Serum or PlasmaOrdered By: Dillon Merritt on 01-02-2024 AST [Catalytic activity/Vol] 10 U/L 13-39 [facility] Automated erythrocytes count in urine sediment (number/area)Ordered By: Dillon Merritt on 01-02-2024 RBC Auto (Urine sed) [#/Area] None seen [HPF] 0-4 [facility] Automated leukocytes count i n urine sediment (number/area)Ordered By: Dillon Merritt on 01-02-2024 WBC Auto (Urine sed) [#/Area] 3-4 [HPF] 0-4 [facility] Band form neutrophils/100 WB C Manual cnt (Bld)Ordered By: Dillon Merritt on 01-02-2024 Band form neutrophils/100 WBC (Bld) 30 % 0-5 [facility] Basophils Auto (Bld) [#/Vol] Ordered By: Dillon Merritt on 01-02-2024 Basophils (Bld) [#/Vol] N/A [facility] Basophils/100 WBC Auto (Bld) Ordered By: Dillon Merritt on 01-02-2024 Basophils/100 WBC (Bld) N/A [facility] Bilirubin Test strip Ql (U)O rdered By: Dillon Merritt on 01-02-2024 Bilirubin Ql (U) Negative Negative [facility] Bilirubin.total [Mass/volume ] in Serum or PlasmaOrdered By: Dillon Merritt on 01-02-2024 Bilirubin [Mass/Vol] 0.6 mg/dL 0.3-1.0 [facility] [employer] Not Detectedon 01-01 [employer] Not Detected Not detected Normal Not Detecte T yoseph [facility] Comment on above: Result Comment: This is a duplicate RP2.1 COVID (PCR) result to be used for statistical tracking purpose only. PERFORMED BY: [place] [address] PATHOLOGIST NURSE HEAD JESSIE FRAZIER M.D. Performed By: #### D IFF CBC, BMP #### [facility] [address] [place] [address] Blood Cultureon 01-02-2024 Bacteria identified Cx Nom (Bld) [employer] BCID Panel results called at 2320 on 01/02/24 Gram Stain Gram Positive Cocci in Clusters ORGANISM: Staphylococcus sp coag neg (O:STACN) Aerobic ISABELLA Charge (PCMIC38) SUSCEPTIBILITY ORGANISM: O:STACN ANTIBIOTIC INTERPRETATION ISABELLA Azithromycin R >4 Ciprofloxacin R >2 Daptomycin S <0.5 Levofloxacin I 4 Linezolid S <1 Oxacillin R >2 Penicillin R >2 Tetracycline R >8 Trimethoprim/Sulfamethoxaz ole R >2 Vancomycin S 0.5 [employer] BCID Panel results called at 2320 on 01/02/24 Staphylococcus aureus DNA [Presence] by GEORGIE with non-probe detection in Positive blood culture Not detected Bacteroides fragilis DNA [Presence] by GEORGIE with non-probe detection in Positive blood culture Not detected Acacia auris DNA [Presence] by GEORGIE with non-probe detection in Positive blood culture Not detected Acacia albicans DNA [Presence] by GEORGIE with non-probe detection in Positive blood culture Not detected Acinetobacter calcoaceticus-baumannii complex DNA [Presence] by GEORGIE with non-probe detection in Positive blood culture Not detected Cryptococcus neoformans or gattii 9002 Not detected Cephalosporin resistance blaCTX-M gene [Presence] by Molecular method Not Applicable Escherichia coli Not detected Enterobacterales DNA [Presence] by GEORGIE with non-probe detection in Positive blood culture Not detected Enterobacter cloacae complex DNA [Presence] by GEORGIE with non-probe detection in Positive blood culture Not detected Staphylococcus epidermidis DNA [Presence] by GEORGIE with non-probe detection in Positive blood culture Not detected Enterococcus faecalis DNA [Presence] by GEORGIE with non-probe detection in Positive blood culture Not detected Enterococcus faecium DNA [Presence] by GEORGIE with non-probe detection in Positive blood culture Not detected Acacia glabrata DNA [Presence] by GEORGIE with non-probe detection in Positive blood culture Not detected Haemophilus influenzae (reported as H flu) Not detected Carbapenem resistance blaIMP gene [Presence] by Molecular method Not Applicable Klebsiella aerogenes DNA [Presence] by GEORGIE with non-probe detection in Positive blood culture Not detected Klebsiella pneumoniae+Klebsiella variicola+Klebsiella quasipneumoniae DNA [Presence] by GEORGIE with non-probe detection in Positive blood culture Not detected Klebsiella oxytoca DNA [Presence] by GEORGIE with non-probe detection in Positive blood culture Not detected Carbapenem resistance blaKPC gene [Presence] by Molecular method Not Applicable Acacia krusei DNA [Presence] by GEORGIE with non-probe detection in Positive blood culture Not detected Listeria monocytogenes (reported as listeriosis) Not detected Staphylococcus lugdunensis DNA [Presence] by GEORGIE with non-probe detection in Positive blood culture Not detected Methicillin resistance mecA+mecC genes+SCCmec+OrfX junction [Presence] by Molecular method Not Applicable Carbapenem resistance blaNDM gene [Presence] by Molecular method Not Applicable Neisseria meningitidis - reported as meningococcal disease Not detected Carbapenem resistance bassem OXA-48-like gene [Presence] by Molecular method Not Applicable Acacia parapsilosis DNA [Presence] by GEORGIE with non-probe detection in Positive blood culture Not detected Streptococcus pneumoniae - reported at ISP Not detected Proteus sp DNA [Presence] by GEORGIE with non-probe detection in Positive blood culture Not detected Pseudomonas aeruginosa DNA [Presence] by GEORGIE with non-probe detection in Positive blood culture Not detected Salmonella sp DNA [Presence] by GEORGIE with non-probe detection in Positive blood culture Not detected Serratia marcescens DNA [Presence] by GEORGIE with non-probe detection in Positive blood culture Not detected Staphylococcus sp DNA [Presence] by GEORGIE with non-probe detection in Positive blood culture Detected Stenotrophomonas maltophilia DNA [Presence] by GEORGIE with non-probe detection in Positive blood culture Not detected Group A (Streptococcus pyogenes) [id number] Not detected Group B Strep (Streptococcus agalactiae) Not detected Streptococcus sp DNA [Presence] by GEORGIE with non-probe detection in Positive blood culture Not detected Acacia tropicalis DNA [Presence] by GEORGIE with non-probe detection in Positive blood culture Not detected Vancomycin resistance Phillip + vanB genes [Presence] by Molecular method Not Applicable Carbapenem resistance blaVIM gene [Presence] by Molecular method Not Applicable Colistin resistance mcr-1 gene [Presence] by Molecular method Not Applicable Methicillin resistance mecA+mecC genes [Presence] in Isolate or Specimen by Molecular genetics method Not Applicable RESIS. GENE COMMENT 1 Antimicrobial resistance can occur via multiple RESIS. GENE COMMENT 2 mechanisms. A Not Detected result for antimicrobial RESIS. GENE COMMENT 3 resistance gene(s) does not indicate antim (more content not included)... Normal [facility] Comment on above: Performed By: #### L ACTIC #### [address] Bacteria identified Cx Nom (Bld) NO GROWTH 5 DAYS PERFORMED BY: [place] [address] PATHOLOGIST NURSE HEAD JESSIE FRAZIER M.D. Normal [facility] Comment on above: Performed By: #### L ACTIC #### [address] head/brain wo peter 01-01 CT head/brain wo [facility] [place] [address] CT Scan Report Signed Patient: Rosalind Restrepo MR#: [id number] [birth year] : 1940 Acct:[id number] Age/Sex: 83 / F ADM Date: 01/02/24 Loc: Room: [address] [place] [address] Type: ADM INOo Attending Dr: Paulo Pretty MD Copies to: DO Paulo Dacosta MD Ordering Provider: Dillon Merritt DO Date of Service: 01/01/24 CT/CT head/brain wo con: ams CT head/brain wo con 01/01/2024 10:33 PM SIGNS AND SYMPTOMS: ams TECHNIQUE:Multi-detector CT axial slices of the brain were obtained without IV contrast. CT was performed with one or more of the following dose reduction techniques: Automated exposure control, adjustment of the mA and/or kV according to patient size, or use of iterative reconstruction technique. COMPARISON: None. FINDINGS: There is no shift of the midline structures, acute intracranial bleeding, mass effects, or evidence of acute ischemia. There is periventricular white matter hypoattenuation suggesting chronic microvascular ischemic change. Atherosclerotic changes are noted in the intracranial segments of the internal carotid arteries. Calcifications are noted along the falx. The ventricular system is normal in size. The brainstem and the cerebellum are unremarkable. The visualized intraorbital contents, the visualized paranasal sinuses, and the infratemporal soft tissues show no acute abnormality. There is a small right mastoid effusion. The osseous structures in the skull base and the calvarium show no abnormality. CT/CT head/brain wo con IMPRESSION: No acute intracranial pathology. Chronic microvascular ischemic changes are noted as above. Impression dictated by: Grupo Estrada M.D.01/02/2024 6:16 AM Dictation Location: [place] [address] Transcribed By: [facility] 01/02/24615 Dictated By: Grupo Estrada II, MD 01/02/24614 Signed By: 01/02/24615 Normal [facility] Calcium [Mass/volume] in Ser um or PlasmaOrdered By: Dillon Merritt on 01-02-2024 Calcium [Mass/Vol] 9.6 mg/dL 8.6-10.3 [facility] Carbon dioxide, total [Moles /volume] in Serum or PlasmaOrdered By: Dillon Merritt on 01-02-2024 CO2 [Moles/Vol] 22.8 mmol/L 21.0-31.0 [facility] Chloride [Moles/volume] in S radha or PlasmaOrdered By: Dillon Merritt on 01-02-2024 Chloride [Moles/Vol] 105 mmol/L 98-107 [facility] Color Auto (U)Ordered By: Jermaine Merritt on 01-02-2024 Color (U) Yellow Yellow [facility] Comprehensive Metabolic Pane cliff 01-02-2024 Albumin [Mass/Vol] 3.0 g/dL Low 3.5-5.7 [facility] Comment on above: Performed By: #### L ACTIC #### [address] Albumin/Globulin [Mass ratio] 1.0 {ratio} Normal [facility] Comment on above: Performed By: #### L ACTIC #### [address] ALP [Catalytic activity/Vol] 103 U/L Normal 34-104 [facility] Comment on above: Performed By: #### L ACTIC #### [address] ALT [Catalytic activity/Vol] 11 U/L Normal 7-52 [facility] Comment on above: Performed By: #### L ACTIC #### [address] Anion gap [Moles/Vol] 9.8 mmol/L Normal 6.0-15.0 [facility] Comment on above: Performed By: #### L ACTIC #### [address] AST [Catalytic activity/Vol] 10 U/L Low 13-39 [facility] Comment on above: Performed By: #### L ACTIC #### [address] Bilirubin [Mass/Vol] 0.6 mg/dL Normal 0.3-1.0 [facility] Comment on above: Performed By: #### L ACTIC #### [address] Calcium [Mass/Vol] 9.6 mg/dL Normal 8.6-10.3 [facility] Comment on above: Performed By: #### L ACTIC #### [address] Chloride [Moles/Vol] 105 mmol/L Normal 98-107 [facility] Comment on above: Performed By: #### L ACTIC #### [address] CO2 [Moles/Vol] 22.8 mmol/L Normal 21.0-31.0 [facility] Comment on above: Performed By: #### L ACTIC #### [address] Creatinine [Mass/Vol] 0.76 mg/dL Normal 0.60-1.20 [facility] Comment on above: Performed By: #### L ACTIC #### [address] Creatinine Clr Calc Pharmacy 35.78 Normal [facility] Comment on above: Result Comment: PERF ORMED BY: [place] [address] PATHOLOGIST NURSE HEAD JESSIE FRAZIER M.D. Performed By: #### L ACTIC #### [address] GFR/1.73 sq M.predicted MDRD (S/P/Bld) [Vol rate/Area] mL/min/{1.73_m2} Normal [facility] Comment on above: Performed By: #### L ACTIC #### [address] Globulin (S) [Mass/Vol] 3.0 g/dL Normal [facility] Comment on above: Performed By: #### L ACTIC #### [address] [place] [address] [place] Glucose [Mass/Vol] 146 mg/dL High 70-100 [facility] Comment on above: Result Comment: [place] Glucose Reference Range is dependent on time and content of last meal. Glucose of more than 200 mg/dL in a nonstressed, ambulatory subject supports the diagnosis of Diabetes Mellitus. ADA recommended reference range Performed By: #### L ACTIC #### [facility] [address] Potassium [Moles/Vol] 3.6 mmol/L Normal 3.5-5.1 [facility] Comment on above: Performed By: #### L ACTIC #### [facility] [address] [place] [address] [place] Protein [Mass/Vol] 6.0 g/dL Low 6.4-8.9 [facility] Comment on above: Performed By: #### L ACTIC #### [facility] [address] [place] [address] [place] Sodium [Moles/Vol] 134 mmol/L Low 136-145 [facility] Comment on above: Performed By: #### L ACTIC #### [facility] [address] [place] [address] [place] Urea nitrogen [Mass/Vol] 44 mg/dL High 7-25 [facility] Comment on above: Performed By: #### L ACTIC #### [facility] [address] [place] [id number] [place] Creatine Kinaseon 01-02-2024 CK [Catalytic activity/Vol] 34 U/L Normal 30-223 [facility] Comment on above: Performed By: #### L ACTIC #### [facility] [address] [place] [id number] [place] Creatine kinase [Enzymatic a ctivity/volume] in Serum or PlasmaOrdered By: Dillon Merritt on 01-02-2024 CK [Catalytic activity/Vol] 34 U/L 30-223 [facility] Creatinine [Mass/volume] in Serum or PlasmaOrdered By: Dillon Merritt on 01-02-2024 Creatinine [Mass/Vol] 0.76 mg/dL 0.60-1.[address] [facility] Diff and CBCon 01-02-2024 Band form neutrophils/100 WBC (Bld) 30 % High 0-5 [facility] Comment on above: Performed By: #### L ACTIC #### [address] Erythrocyte distribution width (RBC) [Ratio] 14.4 % Normal 11.9-15.3 [facility] Comment on above: Performed By: #### L ACTIC #### [address] Hematocrit (Bld) [Volume fraction] 32.5 % Low 34.0-46.4 [facility] Comment on above: Performed By: #### L ACTIC #### [address] Hemoglobin (Bld) [Mass/Vol] 10.9 g/dL Low 11.8-15.4 [facility] Comment on above: Performed By: #### L ACTIC #### [address] Hypochromasia Slight Normal [facility] Comment on above: Performed By: #### L ACTIC #### [address] Lymphocytes/100 WBC (Bld) 4 % Low 18-42 [facility] Comment on above: Performed By: #### L ACTIC #### [address] MCH (RBC) [Entitic mass] 31.2 pg Normal 24.7-34.3 [facility] Comment on above: Performed By: #### L ACTIC #### [address] MCV (RBC) [Entitic vol] 93.0 fL Normal 80-100 [facility] Comment on above: Performed By: #### L ACTIC #### [address] Mean Corpuscular HGB Conc 33.5 g/dL Normal 32.0-35.0 [facility] Comment on above: Performed By: #### L ACTIC #### [address] Metamyelocytes 2 % High 0-0 [facility] Comment on above: Performed By: #### L ACTIC #### [address] Monocytes/100 WBC (Bld) 28.34 % High 0.00-20.00 [facility] Comment on above: Result Comment: For adults in ED, MDW > 20.0 may be associated with a higher risk of sepsis during the first 12 hrs of hospital admission The predictive value of MDW for identifying sepsis in patients with hematological abnormalities has not been established Performed By: #### L ACTIC #### [address] Monocytes/100 WBC (Bld) 4 % Normal 2-11 [facility] Comment on above: Performed By: #### L ACTIC #### [address] Platelet Estimate Normal Normal Normal [facility] Comment on above: Performed By: #### L ACTIC #### [address] Platelet mean volume (Bld) [Entitic vol] 8.6 fL Normal 6.3-10.7 [facility] Comment on above: Performed By: #### L ACTIC #### [address] Platelet Morphology Normal Normal Normal [facility] Comment on above: Result Comment: PERF ORMED BY: [place] [address] PATHOLOGIST NURSE HEAD JESSIE FRAZIER M.D. Performed By: #### L ACTIC #### [address] Platelets (Bld) [#/Vol] 240 10*3/uL Normal 150-450 [facility] Comment on above: Performed By: #### L ACTIC #### [address] [address] [place] Polychromasia Moderate Normal [facility] Comment on above: Performed By: #### L ACTIC #### [address] RBC (Bld) [#/Vol] 3.49 10*6/uL Low 3.60-5.00 [facility] Comment on above: Performed By: #### L ACTIC #### [address] RBC morphology finding Nom (Bld) Normal Normal Normal [facility] Comment on above: Performed By: #### L ACTIC #### [address] Segmented neutrophils/100 WBC (Bld) 60 % Normal 50-70 [facility] Comment on above: Performed By: #### L ACTIC #### [address] WBC (Bld) [#/Vol] 10.0 10*3/uL Normal 3.8-11.6 [facility] Comment on above: Performed By: #### L ACTIC #### [place] [address] [place] Dipstick and Microscopicon 0 01-02-2024 Appearance (U) Clear Normal Clear [facility] Comment on above: Order Comment: Name Collection Type:: Straight Catheter Performed By: #### L ACTIC #### [place] [address] [place] Bacteria,Urine None Seen Normal None Seen [facility] Comment on above: Order Comment: Name Collection Type:: Straight Catheter Performed By: #### L ACTIC #### [place] [address] [place] Bilirubin,Urine Negative Normal Negative [facility] Comment on above: Order Comment: Name Collection Type:: Straight Catheter Performed By: #### L ACTIC #### [address] Color (U) Yellow Normal Yellow [facility] [facility] Comment on above: Order Comment: Name Collection Type:: Straight Catheter Performed By: #### L ACTIC #### [address] Glucose Ql (U) Normal Normal Normal [facility] Comment on above: Order Comment: Name Collection Type:: Straight Catheter Performed By: #### L ACTIC #### [place] [address] [place] Hyaline Casts,Urine 0-8 Normal 0-8 [facility] Comment on above: Order Comment: Name Collection Type:: Straight Catheter Performed By: #### L ACTIC #### [address] Ketones Ql (U) Negative Normal Negative [facility] Comment on above: Order Comment: Name Collection Type:: Straight Catheter Performed By: #### L ACTIC #### [address] Leukocyte esterase Test strip Ql (U) 1+ High Negative [facility] Comment on above: Order Comment: Name Collection Type:: Straight Catheter Performed By: #### L ACTIC #### [place] [address] [place] Nitrite,Urine Negative Normal Negative [facility] Comment on above: Order Comment: Name Collection Type:: Straight Catheter Performed By: #### L ACTIC #### [place] [address] [place] Occult Blood,Urine Negative Normal Negative [facility] Comment on above: Order Comment: Name Collection Type:: Straight Catheter Result Comment: PERF ORMED BY: [place] [address] PATHOLOGIST NURSE HEAD JESSIE FRAZIER M.D. Performed By: #### L ACTIC #### [address] pH (U) 5.5 [pH] Normal 5.0-9.0 [facility] Comment on above: Order Comment: Name Collection Type:: Straight Catheter Performed By: #### L ACTIC #### [place] [address] [place] Protein,Urine Trace High Negative [facility] Comment on above: Order Comment: Name Collection Type:: Straight Catheter Performed By: #### L ACTIC #### [facility] [address] [id number] [place] RBC,Urine None Seen Normal 0-4 [facility] Comment on above: Order Comment: Name Collection Type:: Straight Catheter Performed By: #### L ACTIC #### [place] [address] [place] Specificy [place],Urine 1.020 Normal 1.001-1.030 [facility] Comment on above: Order Comment: Name Collection Type:: Straight Catheter Performed By: #### L ACTIC #### [place] [address] [place] Squamous Epithelial Cell,Urine 0-1 Normal 0-2 [facility] Comment on above: Order Comment: Name Collection Type:: Straight Catheter Performed By: #### L ACTIC #### [place] [address] [place] Urobilinogen,Urine Normal Normal Normal [facility] Comment on above: Order Comment: Name Collection Type:: Straight Catheter Performed By: #### L ACTIC #### [place] [address] [place] WBC,Urine 3-4 Normal 0-4 [facility] Comment on above: Order Comment: Name Collection Type:: Straight Catheter Performed By: #### L ACTIC #### [place] [address] [place] Yeast,Urine 2+ Critically abnormal None Seen [facility] Comment on above: Order Comment: Name Collection Type:: Straight Catheter Result Comment: PERF ORMED BY: [place] [address] PATHOLOGIST NURSE HEAD JESSIE FRAZIER M.D. Performed By: #### L ACTIC #### [place] [address] [place] ECG 12 lead ECGon 01-02-2024 ECG 12 lead ECG [facility] [place] [address] [place] [address] Electrocardiograph Report Signed Patient: Rosalind Restrepo MR#: [id number] 37 : 1940 Acct:[id number] Age/Sex: 83 / F ADM Date: 01/01/24 Loc: ER Room: Type: [facility] ER Attending Dr: Ordering Provider: Dillon Merritt DO Date of Service: 01/01/2404/18/2229 ECG/ECG 12 lead ECG: Altered Mental Status Copies to: Test Reason : Blood Pressure : 127/060 mmHG Vent. Rate : 100 BPM Atrial Rate : 092 BPM P-R Int : 144 ms QRS Dur : 120 ms QT Int : 340 ms P-R-T Axes : 076 -61 066 degrees QTc Int : 438 ms Sinus rhythm with premature supraventricular complexes Right bundle branch block Left anterior fascicular block Bifascicular block Confirmed by Dillon MERRITT DO ([id number]) on 01/02/2024 1:40:44 AM Referred By: Electronically Signed By:Dillon MERRITT DO Transcribed By: MUS Signed By Dillon Merritt DO 0 01/02/24 0140 Normal [facility] Eosinophils Auto (Bld) [#/Vo l]Ordered By: Dillon Merritt on 01-02-2024 Eosinophils (Bld) [#/Vol] N/A [facility] Eosinophils/100 WBC Auto (Bl d)Ordered By: Dillon Merritt on 01-02-2024 Eosinophils/100 WBC (Bld) N/A [facility] Erythrocyte distribution wid th Auto (RBC) [Ratio]Ordered By: Dillon Merritt on 01-02-2024 Erythrocyte distribution width (RBC) [Ratio] 14.4 % 11.9-15.3 [facility] Globulin Calc (S) [Mass/Vol] Ordered By: Dillon Merritt on 01-02-2024 Globulin (S) [Mass/Vol] 3.0 g/dL [facility] Glucose Poct Glucometerson 0 01-02-2024 Glucose [Mass/Vol] 274 mg/dL Normal [facility] Comment on above: Result Comment: [place] Glucose Reference Range is dependent on time and content of last meal. Glucose of more than 200 mg/dL in a nonstressed, ambulatory subject supports the diagnosis of Diabetes Mellitus. PERFORMED BY: [place] [address] PATHOLOGIST NURSE HEAD JESSIE FRAZIER M.D. Performed By: #### S CAN CBC, BMP #### [facility] [address] [place] [address] Glucose [Mass/Vol] 178 mg/dL Normal [facility] Comment on above: Result Comment: [place] om Glucose Reference Range is dependent on time and content of last meal. Glucose of more than 200 mg/dL in a nonstressed, ambulatory subject supports the diagnosis of Diabetes Mellitus. PERFORMED BY: [place] [address] PATHOLOGIST NURSE HEAD JESSIE FRAZIER M.D. Performed By: #### C UBLD #### [address] #### PROCALCITONIN #### [facility] , Glucose [Mass/volume] in Ser um or PlasmaOrdered By: Dillon Merritt on 01-02-2024 Glucose [Mass/Vol] 146 mg/dL 70-100 [facility] Comment on above: ADA recommended refe rence rangeRandom Glucose Reference Range is dependent on time and content of last meal. Glucose of more than 200 mg/dL in a nonstressed, ambulatory subject supports the diagnosis of Diabetes Mellitus. Gram Stainon 01-02-2024 Microscopic observation Gram stain Nom (Unsp spec) Gram Stain Result 3+ White Blood Cells Rare Gram Positive Cocci 1+ Epithelial Cells 1+ Yeast Like Elements Rare Red Blood Cells PERFORMED BY: [place] [address] PATHOLOGIST NURSE HEAD JESSIE FRAZIER M.D. Normal [facility] Comment on above: Performed By: #### G LULS #### Point of Care testing , Gram stain for investigation of transfusion reactionOrdered By: Shayy Harvey on 01-02-2024 Microscopic observation Gram stain Nom (Unsp spec) Acinetobacter dionisio/nosocom grp [facility] Hematocrit Auto (Bld) [Volum e fraction]Ordered By: Dillon Merritt on 01-02-2024 Hematocrit (Bld) [Volume fraction] 32.5 % 34.0-46.4 [facility] Hemoglobin [Mass/volume] in BloodOrdered By: Dillon Merritt on 01-02-2024 Hemoglobin (Bld) [Mass/Vol] 10.9 g/dL 11.8-15.4 [facility] Hypochromia LM Ql (Bld)Order ed By: Dillon Merritt on 01-02-2024 Hypochromia Ql (Bld) Slight [facility] Ketones Auto test strip (U) [Mass/Vol]Ordered By: Dillon Merritt on 01-02-2024 Ketones (U) [Mass/Vol] Negative Negative [facility] - UrinalysisOrder ed By: Dillon Merritt on 01-02-2024 Hyaline casts LM Ql (Urine sed) 0-8 [LPF] 0-8 [facility] Lactate [Moles/volume] in Se rum or PlasmaOrdered By: Dillon Merritt on 01-02-2024 Lactate [Moles/Vol] 1.6 mmol/L 0.5-2.2 [facility] Lactic Acidon 01-02-2024 Lactate [Moles/Vol] 1.6 mmol/L Normal 0.5-2.2 [facility] Comment on above: Result Comment: PERF ORMED BY: [place] [address] PATHOLOGIST NURSE HEAD JESSIE FRAZIER M.D. Performed By: #### L ACTIC #### [address] Leukocytes [#/volume] correc tyler for nucleated erythrocytes in Blood by Automated counOrdered By: Dillon Merritt on 01-02-2024 WBC corrected for nucl RBC Auto (Bld) [#/Vol] 10.0 10*3/uL 3.8-11.6 [facility] Lymphocytes Auto (Bld) [#/Vo l]Ordered By: Dillon Merritt on 01-02-2024 Lymphocytes (Bld) [#/Vol] N/A [facility] Lymphocytes/100 WBC Auto (Bl d)Ordered By: Dillon Merritt on 01-02-2024 Lymphocytes/100 WBC (Bld) N/A [facility] Lymphocytes/100 WBC Manual c nt (Bld)Ordered By: Dillon Merritt on 01-02-2024 Lymphocytes/100 WBC (Bld) 4 % 18-42 [facility] MCH Auto (RBC) [Entitic mass ]Ordered By: Dillon Merritt on 01-02-2024 MCH (RBC) [Entitic mass] 31.2 pg 24.7-34.3 [facility] MCHC Auto (RBC) [Mass/Vol]Or dered By: Dillon Merritt on 01-02-2024 MCHC (RBC) [Mass/Vol] 33.5 g/dL 32.0-35.[address] [facility] MCV Auto (RBC) [Entitic vol] Ordered By: Dillon Merritt on 01-02-2024 MCV (RBC) [Entitic vol] 93.0 fL 80-100 [facility] Metamyelocytes/100 WBC Manua l cnt (Bld)Ordered By: Dillon Merritt on 01-02-2024 Metamyelocytes/100 WBC (Bld) 2 % 0-0 [facility] Monocyte distribution width [Entitic volume] in Blood by AutomatedOrdered By: Dillon Merritt on 01-02-2024 Monocyte distribution width Auto (Bld) [Entitic vol] 28.34 % 0.00-20.00 [facility] Comment on above: For adults in ED, MD W > 20.0 may be associated with a higher risk of sepsis during the first 12 hrs of hospital admissionThe predictive value of MDW for identifying sepsis in patients with hematological abnormalities has not been established Monocytes Auto (Bld) [#/Vol] Ordered By: Dillon Merritt on 01-02-2024 Monocytes (Bld) [#/Vol] N/A [facility] Monocytes/100 WBC Auto (Bld) Ordered By: Dillon Merritt on 01-02-2024 Monocytes/100 WBC (Bld) N/A [facility] Monocytes/100 WBC Manual cnt (Bld)Ordered By: Dillon Merritt on 01-02-2024 Monocytes/100 WBC (Bld) 4 % 2-11 [facility] Neutrophils Auto (Bld) [#/Vo l]Ordered By: Dillon Merritt on 01-02-2024 Neutrophils (Bld) [#/Vol] N/A [facility] Neutrophils/100 WBC Auto (Bl d)Ordered By: Dillon Merritt on 01-02-2024 Neutrophils/100 WBC (Bld) N/A [facility] Nitrite Test strip Ql (U)Ord ered By: Dillon Merritt on 01-02-2024 Nitrite Ql (U) Negative Negative [facility] No Panel InformationOrdered By: Dillon Merritt on 01-02-2024 Estimated GFR (CKD-EPI) > 60.0 mL/Min [facility] Pharmacy Creatinine Clearance (Chem 35.78 [facility] Nucleated erythrocytes [Pres ence] in Blood by Automated countOrdered By: Dillon Merritt on 01-02-2024 Nucleated RBC Auto Ql (Bld) N/A [facility] Platelet adequacy [Presence] in Blood by Light microscopyOrdered By: Dillon Merritt on 01-02-2024 Platelets LM Ql (Bld) Normal Normal [facility] Platelet mean volume Auto (B ld) [Entitic vol]Ordered By: Dillon Merritt on 01-02-2024 Platelet mean volume (Bld) [Entitic vol] 8.6 fL 6.3-10.7 [facility] Platelet morphology finding [Identifier] in BloodOrdered By: Dillon Merritt on 01-02-2024 Platelet morphology finding Nom (Bld) Normal Normal [facility] Platelets Auto (Bld) [#/Vol] Ordered By: Dillon Merritt on 01-02-2024 Platelets (Bld) [#/Vol] 240 10*3/uL 150-450 [facility] Polychromasia [Presence] in Blood by Light microscopyOrdered By: Dillon Merritt on 01-02-2024 Polychromasia LM Ql (Bld) Moderate [facility] Potassium [Moles/volume] in Serum or PlasmaOrdered By: Dillon Merritt on 01-02-2024 Potassium [Moles/Vol] 3.6 mmol/L 3.5-5.[address] [facility] Protein Auto test strip (U) [Mass/Vol]Ordered By: Dillon Merritt on 01-02-2024 Protein (U) [Mass/Vol] Trace mg/dL Negative [facility] Protein [Mass/volume] in Ser um or PlasmaOrdered By: Dillon Merritt on 01-02-2024 Protein [Mass/Vol] 6.0 g/dL 6.4-8.9 [facility] RBC Auto (Bld) [#/Vol]Ordere d By: Dillon Merritt on 01-02-2024 RBC (Bld) [#/Vol] 3.49 10*6/uL 3.60-5.00 [facility] RBC morphologyOrdered By: Jermaine Merritt on 01-02-2024 RBC morphology finding Nom (Bld) Normal Normal [facility] Respiratory (Upper) Panel, P CRon 01-02-2024 Respiratory (Upper) Panel, PCR Adenovirus Not detected Bordetella parapertussis Not detected Chlamydia pneumoniae Not detected Coronavirus 229E Not detected Coronavirus HKU1 Not detected Coronavirus NL63 Not detected Coronavirus OC43 Not detected Influenza A Not detected Influenza B Not detected Human Metapneumovirus Not detected Mycoplasma pneumoniae Not detected Parainfluenza Virus 1 Not detected Parainfluenza Virus 2 Not detected Parainfluenza Virus 3 Not detected Parainfluenza Virus 4 Not detected Bordetella pertussis-ptxP Not detected Human Rhino/Enterovirus Not detected Resp. Syncytial Virus Not detected COVID-19 Detected/Not Detected Not detected Blank Space -- FLUA TEST INCLUDES Influenza A tests for the following clinically FLUA TEST INCLUDES significant subtypes: FLUA TEST INCLUDES - Influenza A FLUA TEST INCLUDES - Influenza A H1 FLUA TEST INCLUDES - Influenza A H1 2009 FLUA TEST INCLUDES - Influenza A H3 Blank Space -- PERFORMED BY: [facility] [place] [address] PATHOLOGIST NURSE HEAD JESSIE FRAZIER M.D. [facility] Comment on above: Performed By: #### R LINDA PANEL UPP., BIOFIRECOVNOTDE #### [place] [address] [place] Segmented neutrophils/100 WB C Manual cnt (Bld)Ordered By: Dillon Merritt on 01-02-2024 Segmented neutrophils/100 WBC (Bld) 60 % 50-70 [facility] Serum or plasma albumin/glob ulin mass ratioOrdered By: Dillon Merritt on 01-02-2024 Albumin/Globulin [Mass ratio] 1.0 {ratio} [facility] Serum or plasma anion gap de terminationOrdered By: Dillon Merritt on 01-02-2024 Anion gap [Moles/Vol] 9.8 mmol/L 6.0-15.[address] [facility] Sodium [Moles/volume] in Ser um or PlasmaOrdered By: Dillon Merritt on 01-02-2024 Sodium [Moles/Vol] 134 mmol/L 136-145 [facility] Specific gravity Auto test s trip (U) [Rel density]Ordered By: Dillon Merritt on 01-02-2024 Specific gravity (U) [Rel density] 1.020 1.001-1.030 [facility] Squamous epithelial cells de tection in urine sediment by light microscopyOrdered By: Dillon Merritt on 01-02-2024 Epithelial cells.squamous LM Ql (Urine sed) 0-1 [HPF] 0-2 [facility] Troponin I High Sensitivityo n 01-02-2024 Troponin I High Sensitivity 53.3 pg/mL Off scale high 0.0-15.0 [facility] Comment on above: Result Comment: Crit ical Result : Called to and read back by: CRISTINE CUMMINGS at: 01/02/2024 01:32:23 by:ZORAN PERFORMED BY: [place] [address] PATHOLOGIST NURSE HEAD JESSIE FRAZIER M.D. Performed By: #### L ACTIC #### [address] Troponin I.cardiac [Mass/vol ume] in Serum or Plasma by Detection limit <= 0.01 ng/Ordered By: Dillon Merritt on 01-02-2024 Troponin I.cardiac DL <= 0.01 ng/mL [Mass/Vol] 53.3 pg/mL 0.0-15.0 [facility] Comment on above: Critical Result : Ca lled to and read back by: CRISTINE CUMMINGS at: 01/02/2024 01:32:23 by:ZORAN Urea nitrogen [Mass/volume] in Serum or PlasmaOrdered By: Dillon Merritt on 01-02-2024 Urea nitrogen [Mass/Vol] 44 mg/dL 7-25 [facility] Urine bacteria detection by automated methodOrdered By: Dillon Merritt on 01-02-2024 Bacteria Auto Ql (U) None seen [HPF] None Seen [facility] Urine clarity by refractomet ry automatedOrdered By: Dillon Merritt on 01-02-2024 Clarity Refractometry automated (U) Clear Clear [facility] Urine glucose measurement by automated test strip (mass/volume)Ordered By: Dillon Merritt on 01-02-2024 Glucose Auto test strip (U) [Mass/Vol] Normal mg/dL Normal [facility] Urine hemoglobin detection b y automated test stripOrdered By: Dillon Merritt on 01-02-2024 Hemoglobin Auto test strip Ql (U) Negative Negative [facility] Urine leukocyte esterase det ection by automated test stripOrdered By: Dillon Merritt on 01-02-2024 Leukocyte esterase Auto test strip Ql (U) 1+ Negative [facility] Urobilinogen Auto test strip (U) [Mass/Vol]Ordered By: Dillon Merritt on 01-02-2024 Urobilinogen (U) [Mass/Vol] Normal mg/dL Normal [facility] WBC Auto (Bld) [#/Vol]Ordere d By: Dillon Merritt on 01-02-2024 WBC (Bld) [#/Vol] 10.0 10*3/uL 3.8-11.6 [facility] XR chest 2V*on 01-02-2024 XR chest 2V* [place] [address] XRay Report Signed Patient: Rosalind Restrepo MR#: [id number] 37 : 1940 Acct:[id number] Age/Sex: 83 / F ADM Date: 01/02/24 Loc: 3T Room: [address] [place] [address] Type: ADM INOo Attending Dr: Paulo Pretty MD Copies to: DO Paulo Dacosta MD Ordering Provider: Dillon Merritt DO Date of Service: 01/01/24 XR/XR chest 2V*: Altered Mental Status XR chest 2V* 01/01/2024 10:32 PM SIGNS AND SYMPTOMS: Altered mental status, fever PROTOCOL: Frontal and lateral radiographs of the chest COMPARISON: 12/12/2023 FINDINGS: The trachea is midline. There is evidence of prior tracheostomy. Atherosclerotic changes are noted in the thoracic aorta. The heart and mediastinal structures are within normal limits. Bibasilar pleural effusions are noted with dependent airspace opacity in the left. This shows slight interval improvement compared to the prior exam. There is a similar masslike density in the right mid to lower chest. The bony thorax is intact. XR/XR chest 2V* IMPRESSION: Bibasilar pleural effusions are noted with dependent airspace opacity in the left. This shows slight interval improvement compared to the prior exam. There is a similar masslike density in the right mid to lower chest. Impression dictated by: Grupo Etsrada M.D.01/02/2024 6:10 AM Dictation Location: [place] [address] Transcribed By: [facility] 01/02/24 0610 Dictated By: Grupo Estrada II, MD 01/02/24 0609 Signed By: 01/02/24 0610 Normal [facility] XR hand RT min 3V*on 024 XR hand RT min 3V* [place] [address] XRay Report Signed Patient: Rosalind Restrepo MR#: [id number] [birth year] : 1940 Acct:[id number] Age/Sex: 83 / F ADM Date: 01/02/24 Loc: 3T Room: [address] [place] [address] Type: ADM IN Attending Dr: Ewa Marx MD Copies to: MD Shayy Tamez MD, RES Ordering Provider: Shayy Harvey MD, RES Date of Service: 01/02/24 XR/XR hand RT min 3V*: acute pain XR hand RT min 3V* 01/02/2024 5:27 AM SIGNS AND SYMPTOMS: Right hand numbness, pain in humerus and left shoulder PROTOCOL: Frontal, lateral, and oblique radiographs of the right hand COMPARISON: None FINDINGS: There is narrowing of the proximal and distal interphalangeal joints. There is no fracture or dislocation. There is diffuse osteopenia. XR/XR hand RT min 3V* IMPRESSION: No acute bony injury. Degenerative changes are noted in the interphalangeal joints. Impression dictated by: Grupo Estrada M.D.01/02/2024 2:14 PM Dictation Location: [place] [address] Transcribed By: [facility] 01/02/24 1414 Dictated By: Grupo Estrada II, MD 01/02/24 1411 Signed By: 01/02/24 1414 Normal [facility] XR humerus RT*on 01-02-2024 XR humerus RT* [place] [address] XRay Report Signed Patient: Rosalind Restrepo MR#: [id number] [birth year] : 1940 Acct:[id number] Age/Sex: 83 / F ADM Date: 01/02/24 Loc: Room: [address] [place] [address] Type: ADM IN Attending Dr: Ewa Marx MD Copies to: MD Shayy Tamez MD, RES Ordering Provider: Shayy Harvey MD, RES Date of Service: 01/02/24 XR/XR humerus RT*: acute pain XR humerus RT* 01/02/2024 5:27 AM SIGNS AND SYMPTOMS: Pain in right humerus PROTOCOL: Frontal and lateral graphs of the right humerus COMPARISON: None FINDINGS: There is cranial subluxation of the humeral head with narrowing of the subacromial space. There is subcortical cystic change at the greater tuberosity suggesting rotator cuff abnormalities. There is no fracture or dislocation. The humerus is intact. The visualized elbow is intact. The visualized right hemithorax is intact. XR/XR humerus RT* IMPRESSION: No fracture. Degenerative changes are noted in the right shoulder with findings suggesting underlying rotator cuff abnormalities. Impression dictated by: Grupo Estrada M.D.01/02/2024 2:18 PM Dictation Location: [place] [address] Transcribed By: IVETTE 01/02/24 1418 Dictated By: Grupo Estrada II, MD 01/02/24 141 Signed By: 01/02/24 141 Normal [facility] XR shoulder LT min 2V*on XR shoulder LT min 2V* [facility] [place] [address] [place] [address] XRay Report Signed Patient: Rosalind Restrepo MR#: [id number] [birth year] : 1940 Acct:[id number] Age/Sex: 83 / F ADM Date: 01/02/24 Loc: Room: [address] [place] [address] Type: ADM IN Attending Dr: Ewa Marx MD Copies to: MD Shayy Tamez MD, RES Ordering Provider: Shayy Harvey MD, RES Date of Service: 01/02/24 XR/XR shoulder LT min 2V*: acute pain XR shoulder LT min 2V* 01/02/2024 5:27 AM SIGNS AND SYMPTOMS: Left shoulder pain PROTOCOL: Frontal, Grashey, scapular Y views of the left shoulder COMPARISON: None FINDINGS: There is hypertrophy of the acromioclavicular joint with relative preservation of the glenohumeral joint. There is no fracture or dislocation. The visualized left hemithorax is grossly intact. XR/XR shoulder LT min 2V* IMPRESSION: No fracture or dislocation. Degenerative changes are present, greatest in the acromioclavicular joint. Impression dictated by: Grupo Estrada M.D.01/02/2024 2:20 PM Dictation Location: [place] [address] Transcribed By: IVETTE 01/02/24 1420 Dictated By: Grupo Estrada II, MD 01/02/24 141 Signed By: 01/02/24 1420 Normal [facility] Yeast detection in urine sed iment by light microscopyOrdered By: Dillon Merritt on 01-02-2024 Yeast LM Ql (Urine sed) 2+ [HPF] None Seen [facility] pH Auto test strip (U)Ordere d By: Dillon Merritt on 01-02-2024 pH (U) 5.5 [pH] 5.0-9.0 [facility] Bacterial blood cultureOrder ed By: Dillon Merritt on 01-01-2024 Bacteria identified Cx Nom (Bld) NO GROWTH 5 DAYS [facility] COVID-19 Detected/Not Detect edOrdered By: Dillon Merritt on 01-01-2024 SARS-CoV-2 (COVID-19) RNA GEORGIE+non-probe Ql (Nph) Not detected Not Detecte [facility] Comment on above: This is a duplicate RP2.1 COVID (PCR) result to be used for statistical tracking purpose only. Glucose Glucometer (BldC) [M ass/Vol]Ordered By: Dillon Merritt on 01-01-2024 Glucose [Mass/Vol] 178 mg/dL [facility] Comment on above: Random Glucose Refer ence Range is dependent on time and content of last meal. Glucose of more than 200 mg/dL in a nonstressed, ambulatory subject supports the diagnosis of Diabetes Mellitus. No Panel InformationOrdered By: Dillon Merritt on 01-01-2024 Bacterial ID (NA Multiplex Assay) Staphylococcus sp coag neg [facility] Respiratory pathogens DNA an d RNA panel - Nasopharynx by GEORGIE with non-probe detectionOrdered By: Dillon Merritt on 01-01-2024 Respiratory pathogens DNA and RNA panel GEORGIE+non-probe (Nph) [facility] Arterial Blood Gason 024 ABG Base Excess 9.2 mmol/L High -3.0-3.0 [facility] Comment on above: Performed By: #### S CAN CBC, BMP #### [facility] [address] ABG Frac Inspired O2 35 % Normal [facility] Comment on above: Performed By: #### S CAN CBC, BMP #### [facility] [address] [place] [address] ABG Oxygen Content 8.0 mmol/L Normal 6.6-9.7 [facility] Comment on above: Performed By: #### S CAN CBC, BMP #### [address] ABG Oxygen Saturation 97.6 % Normal 95.0-100.0 [facility] Comment on above: Performed By: #### S CAN CBC, BMP #### [address] ABG PCO2 42.7 mm[Hg] Normal 35.0-45.0 [facility] Comment on above: Performed By: #### S CAN CBC, BMP #### [address] ABG PH 7.51 High 7.35-7.45 [facility] Comment on above: Performed By: #### S CAN CBC, BMP #### [address] ABG PO2 93.3 mm[Hg] Normal 80.0-100.0 [facility] Comment on above: Performed By: #### S CAN CBC, BMP #### [address] CO2 [Moles/Vol] 34.5 mmol/L High 23.0-27.0 [facility] Comment on above: Performed By: #### S CAN CBC, BMP #### [address] HCO3 (Bld) [Moles/Vol] 33.2 mmol/L High 23.0-29.0 [facility] Comment on above: Performed By: #### S CAN CBC, BMP #### [address] Respiratory Critical Normal [facility] Comment on above: Result Comment: Crit ical Value called on: 12/17/2023 at 04:19 PERFORMED BY: [place] [address] PATHOLOGIST NURSE HEAD JESSIE FRAZIER M.D. Performed By: #### S CAN CBC, BMP #### [facility] [address] VBG Draw Site Right Radial Normal [facility] Comment on above: Performed By: #### S CAN CBC, BMP #### [facility] [address] Laboratory - Chemistry and C hemistry - challengeOrdered By: Melani Dunne on 12-17-2023 CO2 [Moles/Vol] 34.5 mmol/L 23.0-27.0 [facility] HCO3 (Bld) [Moles/Vol] 33.2 mmol/L 23.0-29.0 [facility] No Panel InformationOrdered By: Melani Dunne on 12-17-2023 Arterial Blood Base Excess 9.2 mmol/L -3.0-3.0 [facility] Arterial Blood Oxygen Content 8.0 mmol/L 6.6-9.7 [facility] Arterial Blood Oxygen Saturation 97.6 % 95.0-100.0 [facility] Arterial Blood Partial Pressure CO2 42.7 mm[Hg] 35.0-45.0 [facility] Arterial Blood Partial Pressure O2 93.3 mm[Hg] 80.0-100.0 [facility] Arterial Blood pH 7.51 7.35-7.45 [facility] Blood Gas Critical Value See comment [facility] Comment on above: Critical Value youngblood d on: 12/17/2023 at 04:19 Blood Gas Sample Site Right radial [facility] FiO2 35 % [facility] Alanine aminotransferase [En zymatic activity/volume] in Serum or PlasmaOrdered By: Raul Lehman on 12-15-2023 ALT [Catalytic activity/Vol] 21 U/L 7-52 [facility] Albumin [Mass/volume] in Ser um or Plasma by Bromocresol green (BCG) dye binding methoOrdered By: Raul Lehman on 12-15-2023 Albumin BCG dye [Mass/Vol] 3.1 g/dL 3.5-5.7 [facility] Alkaline phosphatase [Enzyma tic activity/volume] in Serum or PlasmaOrdered By: Rauldov Lehman on 12-15-2023 ALP [Catalytic activity/Vol] 107 U/L 34-104 [facility] Aspartate aminotransferase [ Enzymatic activity/volume] in Serum or PlasmaOrdered By: Raul Dominik on 12-15-2023 AST [Catalytic activity/Vol] 18 U/L 13-39 [facility] Basophils Auto (Bld) [#/Vol] Ordered By: Raul Sagemood on 12-15-2023 Basophils (Bld) [#/Vol] 0.0 10*3/uL 0.0-0.2 [facility] Basophils/100 WBC Auto (Bld) Ordered By: Rauldov Lehman on 12-15-2023 Basophils/100 WBC (Bld) 0.2 % . [facility] Bilirubin.total [Mass/volume ] in Serum or PlasmaOrdered By: Raul Lehman on 12-15-2023 Bilirubin [Mass/Vol] 0.3 mg/dL 0.3-1.0 [facility] Calcium [Mass/volume] in Ser um or PlasmaOrdered By: Rauldov Lehman on 12-15-2023 Calcium [Mass/Vol] 10.3 mg/dL 8.6-10.3 [facility] Carbon dioxide, total [Moles /volume] in Serum or PlasmaOrdered By: Raul Dominik on 12-15-2023 CO2 [Moles/Vol] 34.7 mmol/L 21.0-31.0 [facility] Chloride [Moles/volume] in S radha or PlasmaOrdered By: Rauldov Lehman on 12-15-2023 Chloride [Moles/Vol] 93 mmol/L 98-107 [facility] Complete Blood Count Auto Di ffon 12-15-2023 Basophils (Bld) [#/Vol] 0.0 10*3/uL Normal 0.0-0.2 [facility] Comment on above: Result Comment: PERF ORMED BY: [facility] [address] [place] [address] PATHOLOGIST NURSE HEAD JESSIE FRAZIER M.D. Performed By: #### L ACTIC #### [address] Basophils/100 WBC (Bld) 0.2 % Normal . [facility] Comment on above: Performed By: #### L ACTIC #### [address] Eosinophils (Bld) [#/Vol] 0.0 10*3/uL Normal 0.0-0.45 [facility] Comment on above: Performed By: #### L ACTIC #### [address] Eosinophils/100 WBC (Bld) 0.1 % Normal . [facility] Comment on above: Performed By: #### L ACTIC #### [address] Erythrocyte distribution width (RBC) [Ratio] 14.1 % Normal 11.9-15.3 [facility] Comment on above: Performed By: #### L ACTIC #### [address] Hematocrit (Bld) [Volume fraction] 32.2 % Low 34.0-46.4 [facility] Comment on above: Performed By: #### L ACTIC #### [address] Hemoglobin (Bld) [Mass/Vol] 10.7 g/dL Low 11.8-15.4 [facility] Comment on above: Performed By: #### L ACTIC #### [place] [address] [place] Lymphocytes (Bld) [#/Vol] 1.4 10*3/uL Normal 1.00-4.8 [facility] Comment on above: Performed By: #### L ACTIC #### [address] Lymphocytes/100 WBC (Bld) 14.5 % Normal . [facility] Comment on above: Performed By: #### L ACTIC #### [address] MCH (RBC) [Entitic mass] 31.1 pg Normal 24.7-34.3 [facility] Comment on above: Performed By: #### L ACTIC #### [address] MCV (RBC) [Entitic vol] 93.3 fL Normal 80-100 [facility] Comment on above: Performed By: #### L ACTIC #### [address] Mean Corpuscular HGB Conc 33.3 g/dL Normal 32.0-35.0 [facility] Comment on above: Performed By: #### L ACTIC #### [address] Monocytes (Bld) [#/Vol] 0.3 10*3/uL Normal 0.0-0.8 [facility] Comment on above: Performed By: #### L ACTIC #### [address] Monocytes/100 WBC (Bld) 2.6 % Normal . [facility] Comment on above: Performed By: #### L ACTIC #### [address] Neutrophils (Bld) [#/Vol] 8.1 10*3/uL High 1.8-7.7 [facility] Comment on above: Performed By: #### L ACTIC #### [address] Neutrophils/100 WBC (Bld) 82.6 % Normal . [facility] Comment on above: Performed By: #### L ACTIC #### [address] NRBC% 0.0 /100{WBC} Normal 0-0.5 [facility] Comment on above: Performed By: #### L ACTIC #### [address] Platelet mean volume (Bld) [Entitic vol] 8.7 fL Normal 6.3-10.7 [facility] Comment on above: Performed By: #### L ACTIC #### [address] Platelets (Bld) [#/Vol] 313 10*3/uL Normal 150-450 [facility] Comment on above: Performed By: #### L ACTIC #### [address] RBC (Bld) [#/Vol] 3.46 10*6/uL Low 3.60-5.00 [facility] Comment on above: Performed By: #### L ACTIC #### [address] WBC (Bld) [#/Vol] 9.8 10*3/uL Normal 3.8-11.6 [facility] Comment on above: Performed By: #### L ACTIC #### [address] Comprehensive Metabolic Pane cliff 12-15-2023 Albumin [Mass/Vol] 3.1 g/dL Low 3.5-5.7 [facility] Comment on above: Performed By: #### L ACTIC #### [address] Albumin/Globulin [Mass ratio] 1.0 {ratio} Normal [facility] Comment on above: Performed By: #### L ACTIC #### [address] ALP [Catalytic activity/Vol] 107 U/L High 34-104 [facility] Comment on above: Performed By: #### L ACTIC #### [address] ALT [Catalytic activity/Vol] 21 U/L Normal 7-52 [facility] Comment on above: Performed By: #### L ACTIC #### [address] Anion gap [Moles/Vol] 12.8 mmol/L Normal 6.0-15.0 [facility] Comment on above: Performed By: #### L ACTIC #### [address] AST [Catalytic activity/Vol] 18 U/L Normal 13-39 [facility] Comment on above: Performed By: #### L ACTIC #### [address] Bilirubin [Mass/Vol] 0.3 mg/dL Normal 0.3-1.0 [facility] Comment on above: Performed By: #### L ACTIC #### [address] Calcium [Mass/Vol] 10.3 mg/dL Normal 8.6-10.3 [facility] Comment on above: Performed By: #### L ACTIC #### [address] Chloride [Moles/Vol] 93 mmol/L Low 98-107 [facility] Comment on above: Performed By: #### L ACTIC #### [address] CO2 [Moles/Vol] 34.7 mmol/L High 21.0-31.0 [facility] Comment on above: Performed By: #### L ACTIC #### [address] Creatinine [Mass/Vol] 0.84 mg/dL Normal 0.60-1.20 [facility] Comment on above: Performed By: #### L ACTIC #### [place] [address] [place] Creatinine Clr Calc Pharmacy 33.69 Normal [facility] Comment on above: Performed By: #### L ACTIC #### [place] [address] [place] GFR/1.73 sq M.predicted MDRD (S/P/Bld) [Vol rate/Area] mL/min/{1.73_m2} Normal [facility] Comment on above: Performed By: #### L ACTIC #### [address] [place] [address] [place] Globulin (S) [Mass/Vol] 3.1 g/dL Normal [facility] Comment on above: Performed By: #### L ACTIC #### [address] Glucose [Mass/Vol] 184 mg/dL High 70-100 [facility] Comment on above: Result Comment: [facility] Glucose Reference Range is dependent on time and content of last meal. Glucose of more than 200 mg/dL in a nonstressed, ambulatory subject supports the diagnosis of Diabetes Mellitus. ADA recommended reference range Performed By: #### L ACTIC #### [address] Potassium [Moles/Vol] 3.5 mmol/L Normal 3.5-5.1 [facility] Comment on above: Performed By: #### L ACTIC #### [address] Protein [Mass/Vol] 6.2 g/dL Low 6.4-8.9 [facility] Comment on above: Performed By: #### L ACTIC #### [address] Sodium [Moles/Vol] 137 mmol/L Normal 136-145 [facility] Comment on above: Performed By: #### L ACTIC #### [address] Urea nitrogen [Mass/Vol] 80 mg/dL High 7-25 [facility] Comment on above: Performed By: #### L ACTIC #### [address] Creatinine [Mass/volume] in Serum or PlasmaOrdered By: Raul Lehman on 12-15-2023 Creatinine [Mass/Vol] 0.84 mg/dL 0.60-1.[address] [facility] Eosinophils Auto (Bld) [#/Vo l]Ordered By: Raul Lehman on 12-15-2023 Eosinophils (Bld) [#/Vol] 0.0 10*3/uL 0.0-0.45 [facility] Eosinophils/100 WBC Auto (Bl d)Ordered By: Raul Lehman on 12-15-2023 Eosinophils/100 WBC (Bld) 0.1 % . [facility] Erythrocyte distribution wid th Auto (RBC) [Ratio]Ordered By: Raul Lehman on 12-15-2023 Erythrocyte distribution width (RBC) [Ratio] 14.1 % 11.9-15.3 [facility] Globulin Calc (S) [Mass/Vol] Ordered By: Raul Lehman on 12-15-2023 Globulin (S) [Mass/Vol] 3.1 g/dL [facility] Glucose [Mass/volume] in Ser um or PlasmaOrdered By: Raul Lehman on 12-15-2023 Glucose [Mass/Vol] 184 mg/dL 70-100 [facility] Comment on above: ADA recommended refe rence rangeRandom Glucose Reference Range is dependent on time and content of last meal. Glucose of more than 200 mg/dL in a nonstressed, ambulatory subject supports the diagnosis of Diabetes Mellitus. Hematocrit Auto (Bld) [Volum e fraction]Ordered By: Raul Lehman on 12-15-2023 Hematocrit (Bld) [Volume fraction] 32.2 % 34.0-46.4 [facility] Hemoglobin [Mass/volume] in BloodOrdered By: Raul Lehman on 12-15-2023 Hemoglobin (Bld) [Mass/Vol] 10.7 g/dL 11.8-15.4 [facility] Leukocytes [#/volume] correc tyler for nucleated erythrocytes in Blood by Automated counOrdered By: Raul Lehman on 12-15-2023 WBC corrected for nucl RBC Auto (Bld) [#/Vol] 9.8 10*3/uL 3.8-11.6 [facility] Lymphocytes Auto (Bld) [#/Vo l]Ordered By: Raul Lehman on 12-15-2023 Lymphocytes (Bld) [#/Vol] 1.4 10*3/uL 1.00-4.8 [facility] Lymphocytes/100 WBC Auto (Bl d)Ordered By: Raul Lehman on 12-15-2023 Lymphocytes/100 WBC (Bld) 14.5 % . [facility] MCH Auto (RBC) [Entitic mass ]Ordered By: Raul Lehman on 12-15-2023 MCH (RBC) [Entitic mass] 31.1 pg 24.7-34.3 [facility] MCHC Auto (RBC) [Mass/Vol]Or dered By: Raul Sagemood on 12-15-2023 MCHC (RBC) [Mass/Vol] 33.3 g/dL 32.0-35.[address] [facility] MCV Auto (RBC) [Entitic vol] Ordered By: Raul Sagemood on 12-15-2023 MCV (RBC) [Entitic vol] 93.3 fL 80-100 [facility] Magnesiumon 12-15-2023 Magnesium [Mass/Vol] 2.3 mg/dL Normal 1.9-2.7 [facility] Comment on above: Result Comment: PERF ORMED BY: [place] [address] PATHOLOGIST NURSE HEAD JESSIE FRAZIER M.D. Performed By: #### L ACTIC #### [address] Magnesium [Mass/volume] in S radha or PlasmaOrdered By: Raul Lehman on 12-15-2023 Magnesium [Mass/Vol] 2.3 mg/dL 1.9-2.7 [facility] Monocytes Auto (Bld) [#/Vol] Ordered By: Raul Lehman on 12-15-2023 Monocytes (Bld) [#/Vol] 0.3 10*3/uL 0.0-0.8 [facility] Monocytes/100 WBC Auto (Bld) Ordered By: Raul Sagemood on 12-15-2023 Monocytes/100 WBC (Bld) 2.6 % . [facility] Neutrophils Auto (Bld) [#/Vo l]Ordered By: Raul Sagemood on 12-15-2023 Neutrophils (Bld) [#/Vol] 8.1 10*3/uL 1.8-7.7 [facility] Neutrophils/100 WBC Auto (Bl d)Ordered By: Raul Lehman on 12-15-2023 Neutrophils/100 WBC (Bld) 82.6 % . [facility] No Panel InformationOrdered By: Raul Lehman on 12-15-2023 Estimated GFR (CKD-EPI) > 60.0 mL/Min [facility] Creatinine Clearance (Chem 33.69 [facility] Nucleated erythrocytes [Pres ence] in Blood by Automated countOrdered By: Raul Lehman on 12-15-2023 Nucleated RBC Auto Ql (Bld) 0.0 /100{WBC} 0-0.5 [facility] Platelet mean volume Auto (B ld) [Entitic vol]Ordered By: Raul Lehman on 12-15-2023 Platelet mean volume (Bld) [Entitic vol] 8.7 fL 6.3-10.7 [facility] Platelets Auto (Bld) [#/Vol] Ordered By: Raul Lehman on 12-15-2023 Platelets (Bld) [#/Vol] 313 10*3/uL 150-450 [facility] Potassium [Moles/volume] in Serum or PlasmaOrdered By: Raul Lehman on 12-15-2023 Potassium [Moles/Vol] 3.5 mmol/L 3.5-5.[address] [facility] Protein [Mass/volume] in Ser um or PlasmaOrdered By: Raul Lehman on 12-15-2023 Protein [Mass/Vol] 6.2 g/dL 6.4-8.9 [facility] RBC Auto (Bld) [#/Vol]Ordere d By: Raul Lehman on 12-15-2023 RBC (Bld) [#/Vol] 3.46 10*6/uL 3.60-5.00 [facility] Serum or plasma albumin/glob ulin mass ratioOrdered By: Raul Lehman on 12-15-2023 Albumin/Globulin [Mass ratio] 1.0 {ratio} [facility] Serum or plasma anion gap de terminationOrdered By: Raul Lehman on 04-21-2024 Anion gap [Moles/Vol] 12.8 mmol/L 6.0-15.0 [facility] Sodium [Moles/volume] in Ser um or PlasmaOrdered By: Raul Lehman on 12-15-2023 Sodium [Moles/Vol] 137 mmol/L 136-145 [facility] Urea nitrogen [Mass/volume] in Serum or PlasmaOrdered By: Raul Lehman on 12-15-2023 Urea nitrogen [Mass/Vol] 80 mg/dL 7-25 [facility] WBC Auto (Bld) [#/Vol]Ordere d By: Raul Lehman on 12-15-2023 WBC (Bld) [#/Vol] 9.8 10*3/uL 3.8-11.6 [facility] Complete Blood Count Auto Di ffon 12-14-2023 Basophils (Bld) [#/Vol] 0.1 10*3/uL Normal 0.0-0.2 [facility] Comment on above: Result Comment: PERF ORMED BY: [place] [address] PATHOLOGIST NURSE HEAD JESSIE FRAZIER M.D. Performed By: #### R LINDA PANEL UPP., BIOFIRECOVNOTDE #### [address] Basophils/100 WBC (Bld) 0.8 % Normal . [facility] Comment on above: Performed By: #### R LINDA PANEL UPP., BIOFIRECOVNOTDE #### [facility] [address] Eosinophils (Bld) [#/Vol] 0.0 10*3/uL Normal 0.0-0.45 [facility] Comment on above: Performed By: #### R LINDA PANEL UPP., BIOFIRECOVNOTDE #### [address] Eosinophils/100 WBC (Bld) 0.1 % Normal . [facility] Comment on above: Performed By: #### R LINDA PANEL UPP., BIOFIRECOVNOTDE #### [address] Erythrocyte distribution width (RBC) [Ratio] 14.3 % Normal 11.9-15.3 [facility] Comment on above: Performed By: #### R LINDA PANEL UPP., BIOFIRECOVNOTDE #### [address] Hematocrit (Bld) [Volume fraction] 29.6 % Low 34.0-46.4 [facility] Comment on above: Performed By: #### R LINDA PANEL UPP., BIOFIRECOVNOTDE #### [address] Hemoglobin (Bld) [Mass/Vol] 10.0 g/dL Low 11.8-15.4 [facility] Comment on above: Performed By: #### R ILNDA PANEL UPP., BIOFIRECOVNOTDE #### [address] Lymphocytes (Bld) [#/Vol] 1.3 10*3/uL Normal 1.00-4.8 [facility] Comment on above: Performed By: #### R LINDA PANEL UPP., BIOFIRECOVNOTDE #### [address] Lymphocytes/100 WBC (Bld) 18.1 % Normal . [facility] Comment on above: Performed By: #### R LINDA PANEL UPP., BIOFIRECOVNOTDE #### [address] MCH (RBC) [Entitic mass] 31.5 pg Normal 24.7-34.3 [facility] Comment on above: Performed By: #### R LINDA PANEL UPP., BIOFIRECOVNOTDE #### [address] MCV (RBC) [Entitic vol] 93.4 fL Normal 80-100 [facility] Comment on above: Performed By: #### R LINDA PANEL UPP., BIOFIRECOVNOTDE #### [address] Mean Corpuscular HGB Conc 33.7 g/dL Normal 32.0-35.0 [facility] Comment on above: Performed By: #### R LINDA PANEL UPP., BIOFIRECOVNOTDE #### [address] Monocytes (Bld) [#/Vol] 0.1 10*3/uL Normal 0.0-0.8 [facility] Comment on above: Performed By: #### R LINDA PANEL UPP., BIOFIRECOVNOTDE #### [address] Monocytes/100 WBC (Bld) 1.7 % Normal . [facility] Comment on above: Performed By: #### R LINDA PANEL UPP., BIOFIRECOVNOTDE #### [address] Neutrophils (Bld) [#/Vol] 5.9 10*3/uL Normal 1.8-7.7 [facility] Comment on above: Performed By: #### R LINDA PANEL UPP., BIOFIRECOVNOTDE #### [address] Neutrophils/100 WBC (Bld) 79.3 % Normal . [facility] Comment on above: Performed By: #### R LINDA PANEL UPP., BIOFIRECOVNOTDE #### [address] NRBC% 0.1 /100{WBC} Normal 0-0.5 [facility] Comment on above: Performed By: #### R LINDA PANEL UPP., BIOFIRECOVNOTDE #### [address] Platelet mean volume (Bld) [Entitic vol] 8.6 fL Normal 6.3-10.7 [facility] Comment on above: Performed By: #### R LINDA PANEL UPP., BIOFIRECOVNOTDE #### [place] [address] [place] Platelets (Bld) [#/Vol] 280 10*3/uL Normal 150-450 [facility] Comment on above: Performed By: #### R LINDA PANEL UPP., BIOFIRECOVNOTDE #### [address] RBC (Bld) [#/Vol] 3.17 10*6/uL Low 3.60-5.00 [facility] Comment on above: Performed By: #### R LINDA PANEL UPP., BIOFIRECOVNOTDE #### [address] WBC (Bld) [#/Vol] 7.4 10*3/uL Normal 3.8-11.6 [facility] Comment on above: Performed By: #### R LINDA PANEL UPP., BIOFIRECOVNOTDE #### [address] Comprehensive Metabolic Pane cliff 12-14-2023 Albumin [Mass/Vol] 3.1 g/dL Low 3.5-5.7 [facility] Comment on above: Performed By: #### R LINDA PANEL UPP., BIOFIRECOVNOTDE #### [address] Albumin/Globulin [Mass ratio] 1.1 {ratio} Normal [facility] Comment on above: Performed By: #### R LINDA PANEL UPP., BIOFIRECOVNOTDE #### [address] ALP [Catalytic activity/Vol] 110 U/L High 34-104 [facility] Comment on above: Performed By: #### R LINDA PANEL UPP., BIOFIRECOVNOTDE #### [address] ALT [Catalytic activity/Vol] 20 U/L Normal 7-52 [facility] Comment on above: Performed By: #### R LINDA PANEL UPP., BIOFIRECOVNOTDE #### [address] Anion gap [Moles/Vol] 13.9 mmol/L Normal 6.0-15.0 [facility] Comment on above: Performed By: #### R LINDA PANEL UPP., BIOFIRECOVNOTDE #### [address] AST [Catalytic activity/Vol] 19 U/L Normal 13-39 [facility] Comment on above: Performed By: #### R LINDA PANEL UPP., BIOFIRECOVNOTDE #### [address] Bilirubin [Mass/Vol] 0.4 mg/dL Normal 0.3-1.0 [facility] Comment on above: Performed By: #### R LINDA PANEL UPP., BIOFIRECOVNOTDE #### [address] Calcium [Mass/Vol] 9.9 mg/dL Normal 8.6-10.3 [facility] Comment on above: Performed By: #### R LINDA PANEL UPP., BIOFIRECOVNOTDE #### [address] Chloride [Moles/Vol] 96 mmol/L Low 98-107 [facility] Comment on above: Performed By: #### R LINDA PANEL UPP., BIOFIRECOVNOTDE #### [address] CO2 [Moles/Vol] 31.0 mmol/L Normal 21.0-31.0 [facility] Comment on above: Performed By: #### R LINDA PANEL UPP., BIOFIRECOVNOTDE #### [address] Creatinine [Mass/Vol] 0.92 mg/dL Normal 0.60-1.20 [facility] Comment on above: Performed By: #### R LINDA PANEL UPP., BIOFIRECOVNOTDE #### [address] Creatinine Clr Calc Pharmacy 30.83 Normal [facility] Comment on above: Performed By: #### R LINDA PANEL UPP., BIOFIRECOVNOTDE #### [address] GFR/1.73 sq M.predicted MDRD (S/P/Bld) [Vol rate/Area] mL/min/{1.73_m2} Normal [facility] Comment on above: Performed By: #### R LINDA PANEL UPP., BIOFIRECOVNOTDE #### [address] Globulin (S) [Mass/Vol] 2.8 g/dL Normal [facility] Comment on above: Performed By: #### R LINDA PANEL UPP., BIOFIRECOVNOTDE #### [address] Glucose [Mass/Vol] 189 mg/dL High 70-100 [facility] Comment on above: Result Comment: [place] Glucose Reference Range is dependent on time and content of last meal. Glucose of more than 200 mg/dL in a nonstressed, ambulatory subject supports the diagnosis of Diabetes Mellitus. ADA recommended reference range Performed By: #### R LINDA PANEL UPP., BIOFIRECOVNOTDE #### [address] Potassium [Moles/Vol] 3.9 mmol/L Normal 3.5-5.1 [facility] Comment on above: Performed By: #### R LINDA PANEL UPP., BIOFIRECOVNOTDE #### [address] Protein [Mass/Vol] 5.9 g/dL Low 6.4-8.9 [facility] Comment on above: Performed By: #### R LINDA PANEL UPP., BIOFIRECOVNOTDE #### [address] Sodium [Moles/Vol] 137 mmol/L Normal 136-145 [facility] Comment on above: Performed By: #### R LINDA PANEL UPP., BIOFIRECOVNOTDE #### [address] Urea nitrogen [Mass/Vol] 71 mg/dL High 7-25 [facility] Comment on above: Performed By: #### R LINDA PANEL UPP., BIOFIRECOVNOTDE #### [address] Magnesiumon 12-14-2023 Magnesium [Mass/Vol] 2.4 mg/dL Normal 1.9-2.7 [facility] Comment on above: Result Comment: PERF ORMED BY: [place] [address] PATHOLOGIST NURSE HEAD JESSIE FRAZIER M.D. Performed By: #### R LINDA PANEL UPP., BIOFIRECOVNOTDE #### [address] Complete Blood Count Auto Di ffon 12-13-2023 Basophils (Bld) [#/Vol] 0.0 10*3/uL Normal 0.0-0.2 [facility] Comment on above: Result Comment: PERF ORMED BY: [place] [address] PATHOLOGIST NURSE HEAD JESSIE FRAZIER M.D. Performed By: #### G LULS #### Point of Care testing , Basophils/100 WBC (Bld) 0.4 % Normal . [facility] Comment on above: Performed By: #### G LULS #### Point of Care testing , Eosinophils (Bld) [#/Vol] 0.4 10*3/uL Normal 0.0-0.45 [facility] Comment on above: Performed By: #### G LULS #### Point of Care testing , Eosinophils/100 WBC (Bld) 4.1 % Normal . [facility] Comment on above: Performed By: #### G LULS #### Point of Care testing , Erythrocyte distribution width (RBC) [Ratio] 14.7 % Normal 11.9-15.3 [facility] Comment on above: Performed By: #### G LULS #### Point of Care testing , Hematocrit (Bld) [Volume fraction] 28.9 % Low 34.0-46.4 [facility] Comment on above: Performed By: #### G LULS #### Point of Care testing , Hemoglobin (Bld) [Mass/Vol] 9.6 g/dL Low 11.8-15.4 [facility] Comment on above: Performed By: #### G LULS #### Point of Care testing , Lymphocytes (Bld) [#/Vol] 2.3 10*3/uL Normal 1.00-4.8 [facility] Comment on above: Performed By: #### G LULS #### Point of Care testing , Lymphocytes/100 WBC (Bld) 20.8 % Normal . [facility] Comment on above: Performed By: #### G LULS #### Point of Care testing , MCH (RBC) [Entitic mass] 31.2 pg Normal 24.7-34.3 [facility] Comment on above: Performed By: #### G LULS #### Point of Care testing , MCV (RBC) [Entitic vol] 94.0 fL Normal 80-100 [facility] Comment on above: Performed By: #### G LULS #### Point of Care testing , Mean Corpuscular HGB Conc 33.2 g/dL Normal 32.0-35.0 [facility] Comment on above: Performed By: #### G LULS #### Point of Care testing , Monocytes (Bld) [#/Vol] 0.5 10*3/uL Normal 0.0-0.8 [facility] Comment on above: Performed By: #### G LULS #### Point of Care testing , Monocytes/100 WBC (Bld) 4.6 % Normal . [facility] Comment on above: Performed By: #### G LULS #### Point of Care testing , Neutrophils (Bld) [#/Vol] 7.7 10*3/uL Normal 1.8-7.7 [facility] Comment on above: Performed By: #### G LULS #### Point of Care testing , Neutrophils/100 WBC (Bld) 70.1 % Normal . [facility] Comment on above: Performed By: #### G LULS #### Point of Care testing , NRBC% 0.1 /100{WBC} Normal 0-0.5 [facility] Comment on above: Performed By: #### G LULS #### Point of Care testing , Platelet mean volume (Bld) [Entitic vol] 8.4 fL Normal 6.3-10.7 [facility] Comment on above: Performed By: #### G LULS #### Point of Care testing , Platelets (Bld) [#/Vol] 264 10*3/uL Normal 150-450 [facility] Comment on above: Performed By: #### G LULS #### Point of Care testing , RBC (Bld) [#/Vol] 3.08 10*6/uL Low 3.60-5.00 [facility] Comment on above: Performed By: #### G LULS #### Point of Care testing , WBC (Bld) [#/Vol] 10.9 10*3/uL Normal 3.8-11.6 [facility] Comment on above: Performed By: #### G LULS #### Point of Care testing , Comprehensive Metabolic Pane cliff 12-13-2023 Albumin [Mass/Vol] 2.8 g/dL Low 3.5-5.7 [facility] Comment on above: Performed By: #### G LULS #### Point of Care testing , Albumin/Globulin [Mass ratio] 1.1 {ratio} Normal [facility] Comment on above: Performed By: #### G LULS #### Point of Care testing , ALP [Catalytic activity/Vol] 101 U/L Normal 34-104 [facility] Comment on above: Performed By: #### G LULS #### Point of Care testing , ALT [Catalytic activity/Vol] 13 U/L Normal 7-52 [facility] Comment on above: Performed By: #### G LULS #### Point of Care testing , Anion gap [Moles/Vol] 13.2 mmol/L Normal 6.0-15.0 [facility] Comment on above: Performed By: #### G LULS #### Point of Care testing , AST [Catalytic activity/Vol] 15 U/L Normal 13-39 [facility] Comment on above: Performed By: #### G LULS #### Point of Care testing , Bilirubin [Mass/Vol] 0.4 mg/dL Normal 0.3-1.0 [facility] Comment on above: Performed By: #### G LULS #### Point of Care testing , Calcium [Mass/Vol] 9.5 mg/dL Normal 8.6-10.3 [facility] Comment on above: Performed By: #### G LULS #### Point of Care testing , Chloride [Moles/Vol] 99 mmol/L Normal 98-107 [facility] Comment on above: Performed By: #### G LULS #### Point of Care testing , CO2 [Moles/Vol] 30.5 mmol/L Normal 21.0-31.0 [facility] Comment on above: Performed By: #### G LULS #### Point of Care testing , Creatinine [Mass/Vol] 0.86 mg/dL Normal 0.60-1.20 [facility] Comment on above: Performed By: #### G LULS #### Point of Care testing , Creatinine Clr Calc Pharmacy 32.90 Normal [facility] Comment on above: Performed By: #### G LULS #### Point of Care testing , GFR/1.73 sq M.predicted MDRD (S/P/Bld) [Vol rate/Area] mL/min/{1.73_m2} Normal [facility] Comment on above: Performed By: #### G LULS #### Point of Care testing , Globulin (S) [Mass/Vol] 2.5 g/dL Normal [facility] Comment on above: Performed By: #### G LULS #### Point of Care testing , Glucose [Mass/Vol] 112 mg/dL High 70-100 [facility] Comment on above: Result Comment: [facility] Glucose Reference Range is dependent on time and content of last meal. Glucose of more than 200 mg/dL in a nonstressed, ambulatory subject supports the diagnosis of Diabetes Mellitus. ADA recommended reference range Performed By: #### G LULS #### Point of Care testing , Potassium [Moles/Vol] 4.7 mmol/L Normal 3.5-5.1 [facility] Comment on above: Performed By: #### G LULS #### Point of Care testing , Protein [Mass/Vol] 5.3 g/dL Low 6.4-8.9 [facility] Comment on above: Performed By: #### G LULS #### Point of Care testing , Sodium [Moles/Vol] 138 mmol/L Normal 136-145 [facility] Comment on above: Performed By: #### G LULS #### Point of Care testing , Urea nitrogen [Mass/Vol] 63 mg/dL High 7-25 [facility] Comment on above: Performed By: #### G LULS #### Point of Care testing , Magnesiumon 12-13-2023 Magnesium [Mass/Vol] 2.4 mg/dL Normal 1.9-2.7 [facility] Comment on above: Result Comment: PERF ORMED BY: [place] [address] PATHOLOGIST NURSE HEAD JESSIE FRAZIER M.D. Performed By: #### G LULS #### Point of Care testing , Capillary blood glucose lyn urement by glucometer (mass/volume)Ordered By: Hima Juarez on 12-12-2023 Glucose [Mass/Vol] 113 mg/dL Normal [facility] Comment on above: Random Glucose Refer ence Range is dependent on time and content of last meal. Glucose of more than 200 mg/dL in a nonstressed, ambulatory subject supports the diagnosis of Diabetes Mellitus. Result Comment: [place] Glucose Reference Range is dependent on time and content of last meal. Glucose of more than 200 mg/dL in a nonstressed, ambulatory subject supports the diagnosis of Diabetes Mellitus. Performed By: #### S CAN CBC, BMP #### [facility] [address] [place] [address] Complete Blood Count Auto Di ffon 12-12-2023 Basophils (Bld) [#/Vol] 0.0 10*3/uL Normal 0.0-0.2 [facility] Comment on above: Result Comment: PERF ORMED BY: [place] [address] PATHOLOGIST NURSE HEAD JESSIE FRAZIER M.D. Performed By: #### S CAN CBC, BMP #### [address] Basophils/100 WBC (Bld) 0.5 % Normal . [facility] Comment on above: Performed By: #### S CAN CBC, BMP #### [place] [address] [place] Eosinophils (Bld) [#/Vol] 0.5 10*3/uL High 0.0-0.45 [facility] Comment on above: Performed By: #### S CAN CBC, BMP #### [address] Eosinophils/100 WBC (Bld) 5.3 % Normal . [facility] Comment on above: Performed By: #### S CAN CBC, BMP #### [address] Erythrocyte distribution width (RBC) [Ratio] 14.5 % Normal 11.9-15.3 [facility] Comment on above: Performed By: #### S CAN CBC, BMP #### [address] Hematocrit (Bld) [Volume fraction] 27.1 % Low 34.0-46.4 [facility] Comment on above: Performed By: #### S CAN CBC, BMP #### [place] [address] [place] Hemoglobin (Bld) [Mass/Vol] 9.0 g/dL Low 11.8-15.4 [facility] Comment on above: Performed By: #### S CAN CBC, BMP #### [place] [address] [place] Lymphocytes (Bld) [#/Vol] 2.5 10*3/uL Normal 1.00-4.8 [facility] Comment on above: Performed By: #### S CAN CBC, BMP #### [place] [address] [place] Lymphocytes/100 WBC (Bld) 25.9 % Normal . [facility] Comment on above: Performed By: #### S CAN CBC, BMP #### [facility] [address] MCH (RBC) [Entitic mass] 31.1 pg Normal 24.7-34.3 [facility] Comment on above: Performed By: #### S CAN CBC, BMP #### [address] MCV (RBC) [Entitic vol] 93.8 fL Normal 80-100 [facility] Comment on above: Performed By: #### S CAN CBC, BMP #### [address] Mean Corpuscular HGB Conc 33.2 g/dL Normal 32.0-35.0 [facility] Comment on above: Performed By: #### S CAN CBC, BMP #### [place] [address] [place] Monocytes (Bld) [#/Vol] 0.7 10*3/uL Normal 0.0-0.8 [facility] Comment on above: Performed By: #### S CAN CBC, BMP #### [place] [address] [place] Monocytes/100 WBC (Bld) 7.0 % Normal . [facility] Comment on above: Performed By: #### S CAN CBC, BMP #### [place] [address] [place] Neutrophils (Bld) [#/Vol] 5.9 10*3/uL Normal 1.8-7.7 [facility] Comment on above: Performed By: #### S CAN CBC, BMP #### [place] [address] [place] Neutrophils/100 WBC (Bld) 61.3 % Normal . [facility] Comment on above: Performed By: #### S CAN CBC, BMP #### [address] NRBC% 0.1 /100{WBC} Normal 0-0.5 [facility] Comment on above: Performed By: #### S CAN CBC, BMP #### [address] Platelet mean volume (Bld) [Entitic vol] 8.1 fL Normal 6.3-10.7 [facility] Comment on above: Performed By: #### S CAN CBC, BMP #### [address] Platelets (Bld) [#/Vol] 274 10*3/uL Normal 150-450 [facility] Comment on above: Performed By: #### S CAN CBC, BMP #### [address] RBC (Bld) [#/Vol] 2.89 10*6/uL Low 3.60-5.00 [facility] Comment on above: Performed By: #### S CAN CBC, BMP #### [address] WBC (Bld) [#/Vol] 9.5 10*3/uL Normal 3.8-11.6 [facility] Comment on above: Performed By: #### S CAN CBC, BMP #### [address] Comprehensive Metabolic Pane cliff 12-12-2023 Albumin [Mass/Vol] 2.8 g/dL Low 3.5-5.7 [facility] Comment on above: Performed By: #### S CAN CBC, BMP #### [address] Albumin/Globulin [Mass ratio] 1.0 {ratio} Normal [facility] Comment on above: Performed By: #### S CAN CBC, BMP #### [address] ALP [Catalytic activity/Vol] 102 U/L Normal 34-104 [facility] Comment on above: Performed By: #### S CAN CBC, BMP #### [facility] [address] [place] [address] [place] ALT [Catalytic activity/Vol] 13 U/L Normal 7-52 [facility] Comment on above: Performed By: #### S CAN CBC, BMP #### [facility] [address] [place] [address] [place] Anion gap [Moles/Vol] 10.4 mmol/L Normal 6.0-15.0 [facility] Comment on above: Performed By: #### S CAN CBC, BMP #### [facility] [address] AST [Catalytic activity/Vol] 14 U/L Normal 13-39 [facility] Comment on above: Performed By: #### S CAN CBC, BMP #### [place] [address] [place] Bilirubin [Mass/Vol] 0.4 mg/dL Normal 0.3-1.0 [facility] Comment on above: Performed By: #### S CAN CBC, BMP #### [place] [address] [place] Calcium [Mass/Vol] 9.6 mg/dL Normal 8.6-10.3 [facility] Comment on above: Performed By: #### S CAN CBC, BMP #### [facility] [address] [place] [address] [place] Chloride [Moles/Vol] 101 mmol/L Normal 98-107 [facility] Comment on above: Performed By: #### S CAN CBC, BMP #### [facility] [address] [place] [address] [place] CO2 [Moles/Vol] 29.6 mmol/L Normal 21.0-31.0 [facility] Comment on above: Performed By: #### S CAN CBC, BMP #### [facility] [address] [place] [address] [place] Creatinine [Mass/Vol] 0.91 mg/dL Normal 0.60-1.20 [facility] Comment on above: Performed By: #### S CAN CBC, BMP #### [facility] [address] [place] [address] [place] Creatinine Clr Calc Pharmacy 31.60 Normal [facility] Comment on above: Performed By: #### S CAN CBC, BMP #### [facility] [address] [place] [address] [place] GFR/1.73 sq M.predicted MDRD (S/P/Bld) [Vol rate/Area] mL/min/{1.73_m2} Normal [facility] Comment on above: Performed By: #### S CAN CBC, BMP #### [address] Globulin (S) [Mass/Vol] 2.8 g/dL Normal [facility] Comment on above: Performed By: #### S CAN CBC, BMP #### [address] Glucose [Mass/Vol] 110 mg/dL High 70-100 [facility] Comment on above: Result Comment: [facility] Glucose Reference Range is dependent on time and content of last meal. Glucose of more than 200 mg/dL in a nonstressed, ambulatory subject supports the diagnosis of Diabetes Mellitus. ADA recommended reference range Performed By: #### S CAN CBC, BMP #### [address] Potassium [Moles/Vol] 4.0 mmol/L Normal 3.5-5.1 [facility] Comment on above: Performed By: #### S CAN CBC, BMP #### [address] Protein [Mass/Vol] 5.6 g/dL Low 6.4-8.9 [facility] Comment on above: Performed By: #### S CAN CBC, BMP #### [address] Sodium [Moles/Vol] 137 mmol/L Normal 136-145 [facility] Comment on above: Performed By: #### S CAN CBC, BMP #### [place] [address] [place] Urea nitrogen [Mass/Vol] 59 mg/dL High 7-25 [facility] Comment on above: Performed By: #### S CAN CBC, BMP #### [place] [id number] [facility] Glucose Poct Glucometerson 0 12-12-2023 Commemt1 Glu2: Cleaned Meter Normal [facility] Comment on above: Result Comment: PERF ORMED BY: [place] [address] PATHOLOGIST NURSE HEAD JESSIE FRAZIER M.D. Performed By: #### S CAN CBC, BMP #### [facility] [address] [place] [address] Glucose [Mass/Vol] 143 mg/dL Normal [facility] Comment on above: Result Comment: [facility] Glucose Reference Range is dependent on time and content of last meal. Glucose of more than 200 mg/dL in a nonstressed, ambulatory subject supports the diagnosis of Diabetes Mellitus. Performed By: #### S CAN CBC, BMP #### [address] Magnesiumon 12-12-2023 Magnesium [Mass/Vol] 2.4 mg/dL Normal 1.9-2.7 [facility] [facility] Comment on above: Result Comment: PERF ORMED BY: [place] [address] PATHOLOGIST NURSE HEAD JESSIE FRAZIER M.D. Performed By: #### S CAN CBC, BMP #### [facility] [address] [place] [address] No Panel InformationOrdered By: Hima Juarez on 12-12-2023 Bedside Glucose Comment Glu2: cleaned meter [facility] XR chest 1V portableon 12-11 XR chest 1V portable [facility] [place] [place] [address] XRay Report Signed Patient: Rosalind Restrepo MR#: [id number] [birth year] : 1940 Acct:[id number] Age/Sex: 83 / F ADM Date: 12/08/23 Loc: Room: 5W0577-3 Type: ADM IN Attending Dr: Hima Juarez [...] Grupo Estrada M.D.12/12/2023 5:10 PM Dictation Location: [place] [address] Transcribed By: [facility] 12/12/23 1710 Dictated By: Grupo Estrada II, MD 12/12/23 1359 Signed By: 12/12/23 1710 Normal [facility] Aerobic Cultureon 12-11-2023 Aerobic Culture Results called at 1205 on 12/13/23 ORGANISM: Corynebacterium striatum group (O:CORSTRGP) Comments Organism Not Routinely Tested for Susceptibilities Quantity of Growth Moderate Growth ORGANISM: Acacia auris (O:CANAUR) Quantity of Growth Light Growth Results called at 1205 on 12/13/23 Gram Stain Result 4+ White Blood Cells 4+ Gram Positive Bacilli Rare Epithelial Cells PERFORMED BY: [address] [place] [address] PATHOLOGIST NURSE HEAD JESSIE FRAZIER M.D. Normal [facility] Comment on above: Performed By: #### G LULS #### Point of Care testing , Arterial Blood Gason 024 ABG Base Excess 5.3 mmol/L High -3.0-3.0 [facility] Comment on above: Performed By: #### D IFF CBC, BMP #### [facility] [address] [place] [address] ABG Frac Inspired O2 30 % Normal [facility] Comment on above: Performed By: #### D IFF CBC, BMP #### [facility] [address] [place] [address] ABG Oxygen Content 6.8 mmol/L Normal 6.6-9.7 [facility] Comment on above: Performed By: #### D IFF CBC, BMP #### [facility] [address] [place] [address] ABG Oxygen Saturation 96.4 % Normal 95.0-100.0 [facility] Comment on above: Performed By: #### D IFF CBC, BMP #### [address] ABG PCO2 45.4 mm[Hg] High 35.0-45.0 [facility] Comment on above: Performed By: #### D IFF CBC, BMP #### [address] ABG PH 7.44 Normal 7.35-7.45 [facility] Comment on above: Performed By: #### D IFF CBC, BMP #### [address] ABG PO2 84.9 mm[Hg] Normal 80.0-100.0 [facility] Comment on above: Performed By: #### D IFF CBC, BMP #### [address] ABG Pressure Support 10.0 Normal [facility] Comment on above: Performed By: #### D IFF CBC, BMP #### [address] CO2 [Moles/Vol] 31.5 mmol/L High 23.0-27.0 [facility] Comment on above: Performed By: #### D IFF CBC, BMP #### [address] [address] [place] CPAP 5.0 Normal [facility] Comment on above: Performed By: #### D IFF CBC, BMP #### [address] HCO3 (Bld) [Moles/Vol] 30.1 mmol/L High 23.0-29.0 [facility] Comment on above: Performed By: #### D IFF CBC, BMP #### [address] Respiratory Critical Normal [facility] Comment on above: Result Comment: Crit ical Value called on: 12/11/2023 at 08:07 PERFORMED BY: [place] [address] PATHOLOGIST NURSE HEAD JESSIE FRAZIER M.D. Performed By: #### D IFF CBC, BMP #### [address] VBG Draw Site Right Brachial Normal [facility] Comment on above: Performed By: #### D IFF CBC, BMP #### [address] Ventilator Mode CPAP Normal [facility] Comment on above: Performed By: #### D IFF CBC, BMP #### [address] Complete Blood Count Auto Di ffon 12-11-2023 Basophils (Bld) [#/Vol] 0.1 10*3/uL Normal 0.0-0.2 [facility] Comment on above: Order Comment: RETIM E PER RN DONG IS AWARE PER RN IONA SAID SHE WILL SPEAK TO THE DOCTOR TO SEE IF THEY CAN JUST CANCEL ALL LABS PER PT SHE DOES NOT WANT TO BE POKED Result Comment: PERF ORMED BY: [place] [address] PATHOLOGIST NURSE HEAD JESSIE FRAZIER M.D. Performed By: #### G LULS #### Point of Care testing , Basophils/100 WBC (Bld) 1.0 % Normal . [facility] Comment on above: Order Comment: RETIM E PER RN DONG IS AWARE PER RN IONA SAID SHE WILL SPEAK TO THE DOCTOR TO SEE IF THEY CAN JUST CANCEL ALL LABS PER PT SHE DOES NOT WANT TO BE POKED Performed By: #### G LULS #### Point of Care testing , Eosinophils (Bld) [#/Vol] 0.5 10*3/uL High 0.0-0.45 [facility] Comment on above: Order Comment: RETIM E PER RN DONG IS AWARE PER RN IONA SAID SHE WILL SPEAK TO THE DOCTOR TO SEE IF THEY CAN JUST CANCEL ALL LABS PER PT SHE DOES NOT WANT TO BE POKED Performed By: #### G LULS #### Point of Care testing , Eosinophils/100 WBC (Bld) 5.2 % Normal . [facility] Comment on above: Order Comment: RETIM E PER RN DONG IS AWARE PER RN IONA SAID SHE WILL SPEAK TO THE DOCTOR TO SEE IF THEY CAN JUST CANCEL ALL LABS PER PT SHE DOES NOT WANT TO BE POKED Performed By: #### G LULS #### Point of Care testing , Erythrocyte distribution width (RBC) [Ratio] 15.1 % Normal 11.9-15.3 [facility] Comment on above: Order Comment: RETIM E PER RN DONG IS AWARE PER RN IONA SAID SHE WILL SPEAK TO THE DOCTOR TO SEE IF THEY CAN JUST CANCEL ALL LABS PER PT SHE DOES NOT WANT TO BE POKED Performed By: #### G LULS #### Point of Care testing , Hematocrit (Bld) [Volume fraction] 32.2 % Low 34.0-46.4 [facility] Comment on above: Order Comment: RETIM E PER RN DONG IS AWARE PER RN IONA SAID SHE WILL SPEAK TO THE DOCTOR TO SEE IF THEY CAN JUST CANCEL ALL LABS PER PT SHE DOES NOT WANT TO BE POKED Performed By: #### G LULS #### Point of Care testing , Hemoglobin (Bld) [Mass/Vol] 10.6 g/dL Low 11.8-15.4 [facility] Comment on above: Order Comment: RETIM E PER RN DONG IS AWARE PER RN IONA SAID SHE WILL SPEAK TO THE DOCTOR TO SEE IF THEY CAN JUST CANCEL ALL LABS PER PT SHE DOES NOT WANT TO BE POKED Performed By: #### G LULS #### Point of Care testing , Lymphocytes (Bld) [#/Vol] 1.4 10*3/uL Normal 1.00-4.8 [facility] Comment on above: Order Comment: RETIM E PER RN DONG IS AWARE PER RN IONA SAID SHE WILL SPEAK TO THE DOCTOR TO SEE IF THEY CAN JUST CANCEL ALL LABS PER PT SHE DOES NOT WANT TO BE POKED Performed By: #### G LULS #### Point of Care testing , Lymphocytes/100 WBC (Bld) 14.1 % Normal . [facility] Comment on above: Order Comment: RETIM E PER RN DONG IS AWARE PER RN IONA SAID SHE WILL SPEAK TO THE DOCTOR TO SEE IF THEY CAN JUST CANCEL ALL LABS PER PT SHE DOES NOT WANT TO BE POKED Performed By: #### G LULS #### Point of Care testing , MCH (RBC) [Entitic mass] 31.0 pg Normal 24.7-34.3 [facility] Comment on above: Order Comment: RETIM E PER RN DONG IS AWARE PER RN IONA SAID SHE WILL SPEAK TO THE DOCTOR TO SEE IF THEY CAN JUST CANCEL ALL LABS PER PT SHE DOES NOT WANT TO BE POKED Performed By: #### G LULS #### Point of Care testing , MCV (RBC) [Entitic vol] 94.2 fL Normal 80-100 [facility] Comment on above: Order Comment: RETIM E PER RN DONG IS AWARE PER JON MONSON SAID SHE WILL SPEAK TO THE DOCTOR TO SEE IF THEY CAN JUST CANCEL ALL LABS PER PT SHE DOES NOT WANT TO BE POKED Performed By: #### G LULS #### Point of Care testing , Mean Corpuscular HGB Conc 32.9 g/dL Normal 32.0-35.0 [facility] Comment on above: Order Comment: RETIM E PER RN DONG IS AWARE PER RN IONA SAID SHE WILL SPEAK TO THE DOCTOR TO SEE IF THEY CAN JUST CANCEL ALL LABS PER PT SHE DOES NOT WANT TO BE POKED Performed By: #### G LULS #### Point of Care testing , Monocytes (Bld) [#/Vol] 0.6 10*3/uL Normal 0.0-0.8 [facility] Comment on above: Order Comment: RETIM E PER RN DONG IS AWARE PER RN IONA SAID SHE WILL SPEAK TO THE DOCTOR TO SEE IF THEY CAN JUST CANCEL ALL LABS PER PT SHE DOES NOT WANT TO BE POKED Performed By: #### G LULS #### Point of Care testing , Monocytes/100 WBC (Bld) 6.1 % Normal . [facility] Comment on above: Order Comment: RETIM E PER RN DONG IS AWARE PER RN IONA SAID SHE WILL SPEAK TO THE DOCTOR TO SEE IF THEY CAN JUST CANCEL ALL LABS PER PT SHE DOES NOT WANT TO BE POKED Performed By: #### G LULS #### Point of Care testing , Neutrophils (Bld) [#/Vol] 7.4 10*3/uL Normal 1.8-7.7 [facility] Comment on above: Order Comment: RETIM E PER RN DONG IS AWARE PER RN IONA SAID SHE WILL SPEAK TO THE DOCTOR TO SEE IF THEY CAN JUST CANCEL ALL LABS PER PT SHE DOES NOT WANT TO BE POKED Performed By: #### G LULS #### Point of Care testing , Neutrophils/100 WBC (Bld) 73.6 % Normal . [facility] Comment on above: Order Comment: RETIM E PER RN DONG IS AWARE PER RN IONA SAID SHE WILL SPEAK TO THE DOCTOR TO SEE IF THEY CAN JUST CANCEL ALL LABS PER PT SHE DOES NOT WANT TO BE POKED Performed By: #### G LULS #### Point of Care testing , NRBC% 0.1 /100{WBC} Normal 0-0.5 [facility] Comment on above: Order Comment: RETIM E PER RN DONG IS AWARE PER RN IONA SAID SHE WILL SPEAK TO THE DOCTOR TO SEE IF THEY CAN JUST CANCEL ALL LABS PER PT SHE DOES NOT WANT TO BE POKED Performed By: #### G LULS #### Point of Care testing , Platelet mean volume (Bld) [Entitic vol] 8.1 fL Normal 6.3-10.7 [facility] Comment on above: Order Comment: RETIM E PER RN DONG IS AWARE PER RN IONA SAID SHE WILL SPEAK TO THE DOCTOR TO SEE IF THEY CAN JUST CANCEL ALL LABS PER PT SHE DOES NOT WANT TO BE POKED Performed By: #### G LULS #### Point of Care testing , Platelets (Bld) [#/Vol] 301 10*3/uL Normal 150-450 [facility] Comment on above: Order Comment: RETIM E PER RN DONG IS AWARE PER JON MONSON SAID SHE WILL SPEAK TO THE DOCTOR TO SEE IF THEY CAN JUST CANCEL ALL LABS PER PT SHE DOES NOT WANT TO BE POKED Performed By: #### G LULS #### Point of Care testing , RBC (Bld) [#/Vol] 3.42 10*6/uL Low 3.60-5.00 [facility] Comment on above: Order Comment: RETIM E PER RN DONG IS AWARE PER JON MONSON SAID SHE WILL SPEAK TO THE DOCTOR TO SEE IF THEY CAN JUST CANCEL ALL LABS PER PT SHE DOES NOT WANT TO BE POKED Performed By: #### G LULS #### Point of Care testing , WBC (Bld) [#/Vol] 10.0 10*3/uL Normal 3.8-11.6 [facility] Comment on above: Order Comment: RETIM E PER JON UMANA IS AWARE PER JON MONSON SAID SHE WILL SPEAK TO THE DOCTOR TO SEE IF THEY CAN JUST CANCEL ALL LABS PER PT SHE DOES NOT WANT TO BE POKED Performed By: #### G LULS #### Point of Care testing , Comprehensive Metabolic Pane cliff 12-11-2023 Albumin [Mass/Vol] 3.2 g/dL Low 3.5-5.7 [facility] Comment on above: Order Comment: RETIM E PER RN DONG IS AWARE PER JON OMNSON SAID SHE WILL SPEAK TO THE DOCTOR TO SEE IF THEY CAN JUST CANCEL ALL LABS PER PT SHE DOES NOT WANT TO BE POKED Performed By: #### G LULS #### Point of Care testing , Albumin/Globulin [Mass ratio] 1.0 {ratio} Normal [facility] Comment on above: Order Comment: RETIM E PER RN DONG IS AWARE PER JON MONSON SAID SHE WILL SPEAK TO THE DOCTOR TO SEE IF THEY CAN JUST CANCEL ALL LABS PER PT SHE DOES NOT WANT TO BE POKED Performed By: #### G LULS #### Point of Care testing , ALP [Catalytic activity/Vol] 115 U/L High 34-104 [facility] Comment on above: Order Comment: RETIM E PER RN DONG IS AWARE PER RN IONA SAID SHE WILL SPEAK TO THE DOCTOR TO SEE IF THEY CAN JUST CANCEL ALL LABS PER PT SHE DOES NOT WANT TO BE POKED Performed By: #### G LULS #### Point of Care testing , ALT [Catalytic activity/Vol] 15 U/L Normal 7-52 [facility] Comment on above: Order Comment: RETIM E PER RN DONG IS AWARE PER RN IONA SAID SHE WILL SPEAK TO THE DOCTOR TO SEE IF THEY CAN JUST CANCEL ALL LABS PER PT SHE DOES NOT WANT TO BE POKED Performed By: #### G LULS #### Point of Care testing , Anion gap [Moles/Vol] 10.4 mmol/L Normal 6.0-15.0 [facility] Comment on above: Order Comment: RETIM E PER RN DONG IS AWARE PER RN IONA SAID SHE WILL SPEAK TO THE DOCTOR TO SEE IF THEY CAN JUST CANCEL ALL LABS PER PT SHE DOES NOT WANT TO BE POKED Performed By: #### G LULS #### Point of Care testing , AST [Catalytic activity/Vol] 17 U/L Normal 13-39 [facility] Comment on above: Order Comment: RETIM E PER RN DONG IS AWARE PER RN IONA SAID SHE WILL SPEAK TO THE DOCTOR TO SEE IF THEY CAN JUST CANCEL ALL LABS PER PT SHE DOES NOT WANT TO BE POKED Performed By: #### G LULS #### Point of Care testing , Bilirubin [Mass/Vol] 0.5 mg/dL Normal 0.3-1.0 [facility] Comment on above: Order Comment: RETIM E PER RN DONG IS AWARE PER RN IONA SAID SHE WILL SPEAK TO THE DOCTOR TO SEE IF THEY CAN JUST CANCEL ALL LABS PER PT SHE DOES NOT WANT TO BE POKED Performed By: #### G LULS #### Point of Care testing , Calcium [Mass/Vol] 10.1 mg/dL Normal 8.6-10.3 [facility] Comment on above: Order Comment: RETIM E PER RN DONG IS AWARE PER RN IONA SAID SHE WILL SPEAK TO THE DOCTOR TO SEE IF THEY CAN JUST CANCEL ALL LABS PER PT SHE DOES NOT WANT TO BE POKED Performed By: #### G LULS #### Point of Care testing , Chloride [Moles/Vol] 100 mmol/L Normal 98-107 [facility] Comment on above: Order Comment: RETIM E PER RN DONG IS AWARE PER RN IONA SAID SHE WILL SPEAK TO THE DOCTOR TO SEE IF THEY CAN JUST CANCEL ALL LABS PER PT SHE DOES NOT WANT TO BE POKED Performed By: #### G LULS #### Point of Care testing , CO2 [Moles/Vol] 32.3 mmol/L High 21.0-31.0 [facility] Comment on above: Order Comment: RETIM E PER RN DONG IS AWARE PER RN IONA SAID SHE WILL SPEAK TO THE DOCTOR TO SEE IF THEY CAN JUST CANCEL ALL LABS PER PT SHE DOES NOT WANT TO BE POKED Performed By: #### G LULS #### Point of Care testing , Creatinine [Mass/Vol] 0.81 mg/dL Normal 0.60-1.20 [facility] Comment on above: Order Comment: RETIM E PER RN DONG IS AWARE PER RN IONA SAID SHE WILL SPEAK TO THE DOCTOR TO SEE IF THEY CAN JUST CANCEL ALL LABS PER PT SHE DOES NOT WANT TO BE POKED Performed By: #### G LULS #### Point of Care testing , Creatinine Clr Calc Pharmacy 35.50 Normal [facility] Comment on above: Order Comment: RETIM E PER RN DONG IS AWARE PER RN IONA SAID SHE WILL SPEAK TO THE DOCTOR TO SEE IF THEY CAN JUST CANCEL ALL LABS PER PT SHE DOES NOT WANT TO BE POKED Performed By: #### G LULS #### Point of Care testing , GFR/1.73 sq M.predicted MDRD (S/P/Bld) [Vol rate/Area] mL/min/{1.73_m2} Normal [facility] Comment on above: Order Comment: RETIM E PER RN DONG IS AWARE PER JON MONSON SAID SHE WILL SPEAK TO THE DOCTOR TO SEE IF THEY CAN JUST CANCEL ALL LABS PER PT SHE DOES NOT WANT TO BE POKED Performed By: #### G LULS #### Point of Care testing , Globulin (S) [Mass/Vol] 3.1 g/dL Normal [facility] Comment on above: Order Comment: RETIM E PER RN DONG IS AWARE PER RN IONA SAID SHE WILL SPEAK TO THE DOCTOR TO SEE IF THEY CAN JUST CANCEL ALL LABS PER PT SHE DOES NOT WANT TO BE POKED Performed By: #### G LULS #### Point of Care testing , Glucose [Mass/Vol] 119 mg/dL High 70-100 [facility] Comment on above: Order Comment: RETIM E PER RN DONG IS AWARE PER RN IONA SAID SHE WILL SPEAK TO THE DOCTOR TO SEE IF THEY CAN JUST CANCEL ALL LABS PER PT SHE DOES NOT WANT TO BE POKED Result Comment: [place] Glucose Reference Range is dependent on time and content of last meal. Glucose of more than 200 mg/dL in a nonstressed, ambulatory subject supports the diagnosis of Diabetes Mellitus. ADA recommended reference range Performed By: #### G LULS #### Point of Care testing , Potassium [Moles/Vol] 4.7 mmol/L Normal 3.5-5.1 [facility] Comment on above: Order Comment: RETIM E PER RN DONG IS AWARE PER RN IONA SAID SHE WILL SPEAK TO THE DOCTOR TO SEE IF THEY CAN JUST CANCEL ALL LABS PER PT SHE DOES NOT WANT TO BE POKED Performed By: #### G LULS #### Point of Care testing , Protein [Mass/Vol] 6.3 g/dL Low 6.4-8.9 [facility] Comment on above: Order Comment: RETIM E PER RN DONG IS AWARE PER JON MONSON SAID SHE WILL SPEAK TO THE DOCTOR TO SEE IF THEY CAN JUST CANCEL ALL LABS PER PT SHE DOES NOT WANT TO BE POKED Performed By: #### G LULS #### Point of Care testing , Sodium [Moles/Vol] 138 mmol/L Normal 136-145 [facility] Comment on above: Order Comment: RETIM E PER RN DONG IS AWARE PER JON MONSON SAID SHE WILL SPEAK TO THE DOCTOR TO SEE IF THEY CAN JUST CANCEL ALL LABS PER PT SHE DOES NOT WANT TO BE POKED Performed By: #### G LULS #### Point of Care testing , Urea nitrogen [Mass/Vol] 52 mg/dL High 7-25 [facility] Comment on above: Order Comment: RETIM E PER RN DONG IS AWARE PER JON MONSON SAID SHE WILL SPEAK TO THE DOCTOR TO SEE IF THEY CAN JUST CANCEL ALL LABS PER PT SHE DOES NOT WANT TO BE POKED Performed By: #### G LULS #### Point of Care testing , Continuous positive airway p ressure (CPAP)Ordered By: Hima Juarez on 12-11-2023 Continuous positive airway pressure Respiratory system 5.0 cmH2O [facility] Gram stain for investigation of transfusion reactionOrdered By: Michael Butterfield on 12-11-2023 Microscopic observation 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 Performed By: #### S CAN CBC, BMP #### [facility] [address] [place] [address] No Panel InformationOrdered By: Hima Juarez on 12-11-2023 Blood Gas Pressure Support 10.0 cmH2O [facility] Blood Gas Ventilator Mode Cpap [facility] Complete Blood Count Auto Di ffon 12-10-2023 Basophils (Bld) [#/Vol] 0.1 10*3/uL Normal 0.0-0.2 [facility] Comment on above: Result Comment: PERF ORMED BY: [place] [address] PATHOLOGIST NURSE HEAD JESSIE FRAZIER M.D. Performed By: #### C UBLD #### [place] [address] [place] #### PROCALCITONIN #### [facility] , Basophils/100 WBC (Bld) 1.0 % Normal . [facility] Comment on above: Performed By: #### C UBLD #### [address] #### PROCALCITONIN #### [facility] , Eosinophils (Bld) [#/Vol] 0.6 10*3/uL High 0.0-0.45 [facility] Comment on above: Performed By: #### C UBLD #### [address] #### PROCALCITONIN #### [facility] , Eosinophils/100 WBC (Bld) 5.8 % Normal . [facility] Comment on above: Performed By: #### C UBLD #### [address] #### PROCALCITONIN #### [facility] , Erythrocyte distribution width (RBC) [Ratio] 15.5 % High 11.9-15.3 [facility] Comment on above: Performed By: #### C UBLD #### [place] [address] [place] #### PROCALCITONIN #### [facility] , Hematocrit (Bld) [Volume fraction] 33.5 % Low 34.0-46.4 [facility] Comment on above: Performed By: #### C UBLD #### [place] [address] [place] #### PROCALCITONIN #### [facility] , Hemoglobin (Bld) [Mass/Vol] 11.0 g/dL Low 11.8-15.4 [facility] Comment on above: Performed By: #### C UBLD #### [place] [address] [place] #### PROCALCITONIN #### [facility] , Lymphocytes (Bld) [#/Vol] 2.4 10*3/uL Normal 1.00-4.8 [facility] Comment on above: Performed By: #### C UBLD #### [address] #### PROCALCITONIN #### [facility] , Lymphocytes/100 WBC (Bld) 21.3 % Normal . [facility] Comment on above: Performed By: #### C UBLD #### [address] #### PROCALCITONIN #### [facility] , MCH (RBC) [Entitic mass] 30.9 pg Normal 24.7-34.3 [facility] Comment on above: Performed By: #### C UBLD #### [address] #### PROCALCITONIN #### [facility] , MCV (RBC) [Entitic vol] 94.2 fL Normal 80-100 [facility] Comment on above: Performed By: #### C UBLD #### [address] #### PROCALCITONIN #### [facility] , Mean Corpuscular HGB Conc 32.8 g/dL Normal 32.0-35.0 [facility] Comment on above: Performed By: #### C UBLD #### [place] [address] [place] #### PROCALCITONIN #### [facility] , Monocytes (Bld) [#/Vol] 0.6 10*3/uL Normal 0.0-0.8 [facility] Comment on above: Performed By: #### C UBLD #### [place] [address] [place] #### PROCALCITONIN #### [facility] , Monocytes/100 WBC (Bld) 5.4 % Normal . [facility] Comment on above: Performed By: #### C UBLD #### [place] [address] [place] #### PROCALCITONIN #### [facility] , Neutrophils (Bld) [#/Vol] 7.4 10*3/uL Normal 1.8-7.7 [facility] [facility] Comment on above: Performed By: #### C UBLD #### [place] [address] [place] #### PROCALCITONIN #### [facility] , Neutrophils/100 WBC (Bld) 66.5 % Normal . [facility] Comment on above: Performed By: #### C UBLD #### [address] #### PROCALCITONIN #### [facility] , NRBC% 0.1 /100{WBC} Normal 0-0.5 [facility] Comment on above: Performed By: #### C UBLD #### [address] #### PROCALCITONIN #### [facility] , Platelet mean volume (Bld) [Entitic vol] 8.3 fL Normal 6.3-10.7 [facility] Comment on above: Performed By: #### C UBLD #### [facility] [address] [place] [address] [place] #### PROCALCITONIN #### [facility] , Platelets (Bld) [#/Vol] 289 10*3/uL Normal 150-450 [facility] Comment on above: Performed By: #### C UBLD #### [place] [address] [place] #### PROCALCITONIN #### [facility] , RBC (Bld) [#/Vol] 3.56 10*6/uL Low 3.60-5.00 [facility] Comment on above: Performed By: #### C UBLD #### [place] [address] [place] #### PROCALCITONIN #### [facility] , WBC (Bld) [#/Vol] 11.2 10*3/uL Normal 3.8-11.6 [facility] Comment on above: Performed By: #### C UBLD #### [place] [address] [place] #### PROCALCITONIN #### [facility] , Comprehensive Metabolic Pane cliff 12-10-2023 Albumin [Mass/Vol] 3.1 g/dL Low 3.5-5.7 [facility] Comment on above: Performed By: #### C UBLD #### [facility] [address] [place] [address] #### PROCALCITONIN #### [facility] , Albumin/Globulin [Mass ratio] 1.0 {ratio} Normal [facility] Comment on above: Performed By: #### C UBLD #### [address] #### PROCALCITONIN #### [facility] , ALP [Catalytic activity/Vol] 109 U/L High 34-104 [facility] Comment on above: Performed By: #### C UBLD #### [facility] [address] [place] [address] [place] #### PROCALCITONIN #### [facility] , ALT [Catalytic activity/Vol] 15 U/L Normal 7-52 [facility] Comment on above: Performed By: #### C UBLD #### [facility] [address] [place] [address] [place] #### PROCALCITONIN #### [facility] , Anion gap [Moles/Vol] 12.1 mmol/L Normal 6.0-15.0 [facility] Comment on above: Performed By: #### C UBLD #### [address] #### PROCALCITONIN #### [facility] , AST [Catalytic activity/Vol] 17 U/L Normal 13-39 [facility] Comment on above: Performed By: #### C UBLD #### [place] [address] [place] #### PROCALCITONIN #### [facility] , Bilirubin [Mass/Vol] 0.4 mg/dL Normal 0.3-1.0 [facility] Comment on above: Performed By: #### C UBLD #### [address] #### PROCALCITONIN #### [facility] , Calcium [Mass/Vol] 9.9 mg/dL Normal 8.6-10.3 [facility] Comment on above: Performed By: #### C UBLD #### [address] #### PROCALCITONIN #### [facility] , Chloride [Moles/Vol] 100 mmol/L Normal 98-107 [facility] Comment on above: Performed By: #### C UBLD #### [place] [address] [place] #### PROCALCITONIN #### [facility] , CO2 [Moles/Vol] 26.9 mmol/L Normal 21.0-31.0 [facility] Comment on above: Performed By: #### C UBLD #### [place] [address] [place] #### PROCALCITONIN #### [facility] , Creatinine [Mass/Vol] 0.90 mg/dL Normal 0.60-1.20 [facility] Comment on above: Performed By: #### C UBLD #### [place] [address] [place] #### PROCALCITONIN #### [facility] , Creatinine Clr Calc Pharmacy 31.73 Normal [facility] Comment on above: Performed By: #### C UBLD #### [place] [address] [place] #### PROCALCITONIN #### [facility] , GFR/1.73 sq M.predicted MDRD (S/P/Bld) [Vol rate/Area] mL/min/{1.73_m2} Normal [facility] Comment on above: Performed By: #### C UBLD #### [place] [address] [place] #### PROCALCITONIN #### [facility] , Globulin (S) [Mass/Vol] 3.2 g/dL Normal [facility] Comment on above: Performed By: #### C UBLD #### [place] [address] [place] #### PROCALCITONIN #### [facility] , Glucose [Mass/Vol] 146 mg/dL High 70-100 [facility] Comment on above: Result Comment: [place] Glucose Reference Range is dependent on time and content of last meal. Glucose of more than 200 mg/dL in a nonstressed, ambulatory subject supports the diagnosis of Diabetes Mellitus. ADA recommended reference range Performed By: #### C UBLD #### [place] [address] [place] #### PROCALCITONIN #### [facility] , Potassium [Moles/Vol] 4.0 mmol/L Normal 3.5-5.1 [facility] Comment on above: Performed By: #### C UBLD #### [address] [address] [place] #### PROCALCITONIN #### [facility] , Protein [Mass/Vol] 6.3 g/dL Low 6.4-8.9 [facility] Comment on above: Performed By: #### C UBLD #### [address] #### PROCALCITONIN #### [facility] , Sodium [Moles/Vol] 135 mmol/L Low 136-145 [facility] Comment on above: Performed By: #### C UBLD #### [address] #### PROCALCITONIN #### [facility] , Urea nitrogen [Mass/Vol] 61 mg/dL High 7-25 [facility] Comment on above: Performed By: #### C UBLD #### [address] #### PROCALCITONIN #### [facility] , Magnesiumon 12-10-2023 Magnesium [Mass/Vol] 2.4 mg/dL Normal 1.9-2.7 [facility] Comment on above: Result Comment: PERF ORMED BY: [place] [address] PATHOLOGIST NURSE HEAD JESSIE FRAZIER M.D. Performed By: #### C UBLD #### [address] #### PROCALCITONIN #### [facility] , Bacterial blood cultureOrder ed By: Michael Butterfield on 12-09-2023 Bacteria identified Cx Nom (Bld) NO GROWTH 5 DAYS [facility] Bacteria identified Cx Nom (Bld) NO GROWTH 5 DAYS [facility] Basic Metabolic Panelon 11-24 Anion gap [Moles/Vol] 13.1 mmol/L Normal 6.0-15.0 [facility] Comment on above: Performed By: #### R LINDA PANEL UPP., BIOFIRECOVNOTDE #### [address] Calcium [Mass/Vol] 9.5 mg/dL Normal 8.6-10.3 [facility] Comment on above: Performed By: #### R LINDA PANEL UPP., BIOFIRECOVNOTDE #### [address] Chloride [Moles/Vol] 100 mmol/L Normal 98-107 [facility] Comment on above: Performed By: #### R LINDA PANEL UPP., BIOFIRECOVNOTDE #### [address] CO2 [Moles/Vol] 26.3 mmol/L Normal 21.0-31.0 [facility] Comment on above: Performed By: #### R LINDA PANEL UPP., BIOFIRECOVNOTDE #### [address] Creatinine [Mass/Vol] 0.90 mg/dL Normal 0.60-1.20 [facility] Comment on above: Performed By: #### R LINDA PANEL UPP., BIOFIRECOVNOTDE #### [address] Creatinine Clr Calc Pharmacy 31.59 Normal [facility] Comment on above: Result Comment: PERF ORMED BY: [place] [address] PATHOLOGIST NURSE HEAD JESSIE FRAZIER M.D. Performed By: #### R LINDA PANEL UPP., BIOFIRECOVNOTDE #### [address] GFR/1.73 sq M.predicted MDRD (S/P/Bld) [Vol rate/Area] mL/min/{1.73_m2} Normal [facility] Comment on above: Performed By: #### R LINDA PANEL UPP., BIOFIRECOVNOTDE #### [address] Glucose [Mass/Vol] 108 mg/dL High 70-100 [facility] Comment on above: Result Comment: [facility] Glucose Reference Range is dependent on time and content of last meal. Glucose of more than 200 mg/dL in a nonstressed, ambulatory subject supports the diagnosis of Diabetes Mellitus. ADA recommended reference range Performed By: #### R LINDA PANEL UPP., BIOFIRECOVNOTDE #### [address] Potassium [Moles/Vol] 4.4 mmol/L Normal 3.5-5.1 [facility] Comment on above: Performed By: #### R LIDNA PANEL UPP., BIOFIRECOVNOTDE #### [address] Sodium [Moles/Vol] 135 mmol/L Low 136-145 [facility] Comment on above: Performed By: #### R LINDA PANEL UPP., BIOFIRECOVNOTDE #### [address] Urea nitrogen [Mass/Vol] 57 mg/dL High 7-25 [facility] Comment on above: Performed By: #### R LINDA PANEL UPP., BIOFIRECOVNOTDE #### [address] Blood Cultureon 12-09-2023 Bacteria identified Cx Nom (Bld) NO GROWTH 5 DAYS PERFORMED BY: [place] [address] PATHOLOGIST NURSE HEAD JESSIE FRAZIER M.D. Normal [facility] Comment on above: Performed By: #### C UBLD #### [address] #### PROCALCITONIN #### [facility] , Bacteria identified Cx Nom (Bld) NO GROWTH 5 DAYS PERFORMED BY: [place] [address] PATHOLOGIST NURSE HEAD JESSIE FRAZIER M.D. Normal [facility] Comment on above: Performed By: #### C UBLD #### [address] #### PROCALCITONIN #### [facility] , Complete Blood Count Auto Di ffon 12-09-2023 Basophils (Bld) [#/Vol] 0.1 10*3/uL Normal 0.0-0.2 [facility] Comment on above: Result Comment: PERF ORMED BY: [place] [address] PATHOLOGIST NURSE HEAD JESSIE FRAZIER M.D. Performed By: #### R LINDA PANEL UPP., BIOFIRECOVNOTDE #### [address] Basophils/100 WBC (Bld) 1.1 % Normal . [facility] Comment on above: Performed By: #### R LINDA PANEL UPP., BIOFIRECOVNOTDE #### [address] Eosinophils (Bld) [#/Vol] 0.5 10*3/uL High 0.0-0.45 [facility] Comment on above: Performed By: #### R LINDA PANEL UPP., BIOFIRECOVNOTDE #### [address] Eosinophils/100 WBC (Bld) 6.0 % Normal . [facility] Comment on above: Performed By: #### R LINDA PANEL UPP., BIOFIRECOVNOTDE #### [address] Erythrocyte distribution width (RBC) [Ratio] 15.3 % Normal 11.9-15.3 [facility] Comment on above: Performed By: #### R LINDA PANEL UPP., BIOFIRECOVNOTDE #### [address] Hematocrit (Bld) [Volume fraction] 32.4 % Low 34.0-46.4 [facility] Comment on above: Performed By: #### R LINDA PANEL UPP., BIOFIRECOVNOTDE #### [address] Hemoglobin (Bld) [Mass/Vol] 10.7 g/dL Low 11.8-15.4 [facility] Comment on above: Performed By: #### R LINDA PANEL UPP., BIOFIRECOVNOTDE #### [address] Lymphocytes (Bld) [#/Vol] 1.9 10*3/uL Normal 1.00-4.8 [facility] Comment on above: Performed By: #### R LINDA PANEL UPP., BIOFIRECOVNOTDE #### [address] Lymphocytes/100 WBC (Bld) 22.0 % Normal . [facility] Comment on above: Performed By: #### R LINDA PANEL UPP., BIOFIRECOVNOTDE #### [address] MCH (RBC) [Entitic mass] 31.2 pg Normal 24.7-34.3 [facility] Comment on above: Performed By: #### R LINDA PANEL UPP., BIOFIRECOVNOTDE #### [address] MCV (RBC) [Entitic vol] 94.0 fL Normal 80-100 [facility] Comment on above: Performed By: #### R LINDA PANEL UPP., BIOFIRECOVNOTDE #### [address] Mean Corpuscular HGB Conc 33.2 g/dL Normal 32.0-35.0 [facility] Comment on above: Performed By: #### R LINDA PANEL UPP., BIOFIRECOVNOTDE #### [address] Monocytes (Bld) [#/Vol] 0.4 10*3/uL Normal 0.0-0.8 [facility] Comment on above: Performed By: #### R LINDA PANEL UPP., BIOFIRECOVNOTDE #### [address] Monocytes/100 WBC (Bld) 5.0 % Normal . [facility] Comment on above: Performed By: #### R LINDA PANEL UPP., BIOFIRECOVNOTDE #### [address] Neutrophils (Bld) [#/Vol] 5.7 10*3/uL Normal 1.8-7.7 [facility] Comment on above: Performed By: #### R LINDA PANEL UPP., BIOFIRECOVNOTDE #### [address] Neutrophils/100 WBC (Bld) 65.9 % Normal . [facility] Comment on above: Performed By: #### R LINDA PANEL UPP., BIOFIRECOVNOTDE #### [address] NRBC% 0.1 /100{WBC} Normal 0-0.5 [facility] Comment on above: Performed By: #### R LINDA PANEL UPP., BIOFIRECOVNOTDE #### [address] Platelet mean volume (Bld) [Entitic vol] 8.1 fL Normal 6.3-10.7 [facility] Comment on above: Performed By: #### R LINDA PANEL UPP., BIOFIRECOVNOTDE #### [address] Platelets (Bld) [#/Vol] 285 10*3/uL Normal 150-450 [facility] Comment on above: Performed By: #### R LINDA PANEL UPP., BIOFIRECOVNOTDE #### [address] RBC (Bld) [#/Vol] 3.45 10*6/uL Low 3.60-5.00 [facility] Comment on above: Performed By: #### R LINDA PANEL UPP., BIOFIRECOVNOTDE #### [facility] [address] [id number] [facility] WBC (Bld) [#/Vol] 8.6 10*3/uL Normal 3.8-11.6 [facility] Comment on above: Performed By: #### R LINDA PANEL UPP., BIOFIRECOVNOTDE #### [facility] [address] [id number] [facility] echo transthoracicon [facility] echo transthoracic [facility] Main [place] [address] [place] [address] Echocardiogram Signed Patient: Rosalind Restrepo MR#: [id number] [birth year] : 1940 Acct:[id number] Age/Sex: 83 / F ADM Date: 12/08/23 Loc: Room: [address] [place] [address] Type: ADM IN Attending Dr: Hima Juarez DO Ordering Provider: Ewa Marx MD Date of Service: 12/08/23 [facility] echo transthoracic: effusion, h/o chf Copies to: [...] V1 max: 94.3 cm/sec (0.7-1.7m/s)MV E max kary: 140.0 cm/sec(0.8-1.3m/s) MV A max kary: 65.5 cm/sec(0.0-0.0m/s) MV E/A: 2.1 (<1.5) MMode/2D Measurements Calculations RVDd: 2.9 cm FS: 24.0 % Ao root area: LVOT diam: 1.8 cm TAPSE: 1.6 cm EDV(Teich): 6.6 cm2 LVOT area: 2.7 cm2 RV S Kary: 65.1 ml 8.8 cm/sec ESV(Teich): 33.5 ml [...] max: LV V1 max PG: MR max kary: TV max P.0 mmHg 116.7 cm/sec 3.6 mmHg 286.4 cm/sec Ao max P.5 mmHgLV V1 mean PG: MR max PG: Ao mean P.9 mmHg 32.8 mmHg 3.6 mmHg LV V1 mean: Ao V2 mean: 64.1 cm/sec 90.4 cm/sec LV V1 VTI: 22.7 cm Ao V2 VTI: 32.5 cm CISCO(I,D): 1.9 cm2 CISCO(V,D): 2.2 cm2 __ TR max kary: 263.3 cm/sec TR max P.7 mmHg RAP systole: 10.0 mmHg Transcribed By: SCAlejandro Performed At: 12/09/23 0820 Signed By: Ambrose Coffey MD 12/09/23 1448 Normal [facility] Procalcitoninon 12-09-2023 Procalcitonin 0.18 ng/mL High 0.00-0.08 [facility] Comment on above: Result [...] <2 ng/mL are obtained. Performed at: - [facility] [id number] [employer] Cook: Fiona Collazo MD, Phone: [phone] PERFORMED BY: [place] [address] PATHOLOGIST NURSE HEAD JESSIE FRAZIER M.D. Performed By: #### C UBLD #### [address] #### PROCALCITONIN #### [facility] , Serum procalcitonin measurem entOrdered By: Michael Butterfield on 12-09-2023 Procalcitonin [Mass/Vol] 0.18 ng/mL 0.00-0.08 [facility] Comment on above: A procalcitonin (PCT ) [...] any concentrations <2 ng/mL are obtained.Performed at: - [facility] [place], [place] [id number] Director: Fiona Collazo MD, Phone: [phone] XR chest 1V portableon 12-08 XR chest 1V portable [facility] Main [place] [address] [place] [address] XRay Report Signed Patient: Rosalind Restrepo MR#: [id number] [birth year] : 1940 Acct:[id number] Age/Sex: 83 / F ADM Date: 12/08/23 Loc: Room: [address] [place] [address] Type: ADM IN Attending Dr: Hima Juarez [...] Deras Jr., D.O.12/09/2023 9:16 AM Dictation Location: [place] [address] Transcribed By: [facility] 12/09/23 0916 Dictated By: Kash Deras Jr, DO 12/09/23 0914 Signed By: 12/09/23 0916 Normal [facility] Activated partial thrombopla stin time (aPTT) in platelet poor plasma by coagulation aOrdered By: Tori Gaona on 12-08-2023 aPTT Coag (PPP) [Time] 30.0 s 25.1-36.5 [facility] Comment on above: A hematocrit value g reater than 55% may lead to inaccurate results in coagulation testing. Patients having hematocrit values >55% require a special collection tube for coagulation studies. Please contact the laboratory at [phone] for redraw instructions. Alanine aminotransferase [En zymatic activity/volume] in Serum or PlasmaOrdered By: Tori Gaona on 12-08-2023 ALT [Catalytic activity/Vol] 14 U/L 7-52 [facility] Albumin [Mass/volume] in Ser um or Plasma by Bromocresol green (BCG) dye binding methoOrdered By: Tori Gaona on 12-08-2023 Albumin BCG dye [Mass/Vol] 3.1 g/dL 3.5-5.7 [facility] Alkaline phosphatase [Enzyma tic activity/volume] in Serum or PlasmaOrdered By: Tori Gaona on 12-08-2023 ALP [Catalytic activity/Vol] 120 U/L 34-104 [facility] Aspartate aminotransferase [ Enzymatic activity/volume] in Serum or PlasmaOrdered By: Tori Gaona on 12-08-2023 AST [Catalytic activity/Vol] 14 U/L 13-39 [facility] Automated erythrocytes count in urine sediment (number/area)Ordered By: Tori Gaona on 12-08-2023 RBC Auto (Urine sed) [#/Area] 0-1 [HPF] 0-4 [facility] Automated leukocytes count i n urine sediment (number/area)Ordered By: Tori Gaona on 12-08-2023 WBC Auto (Urine sed) [#/Area] 3-4 [HPF] 0-4 [facility] B-Type Natriuretic Peptideon 12-08-2023 Natriuretic peptide B (Bld) [Mass/Vol] 277.0 pg/mL High 5-100 [facility] Comment on above: Result Comment: PERF ORMED BY: [facility] [address] [place] [address] PATHOLOGIST NURSE HEAD JESSIE FRAZIER M.D. Performed By: #### D IFF CBC, BMP #### [address] Bacterial blood cultureOrder ed By: Tori Gaona on 12-08-2023 Bacteria identified Cx Nom (Bld) NO GROWTH 5 DAYS [facility] Bacteria identified Cx Nom (Bld) NO GROWTH 5 DAYS [facility] Basophils Auto (Bld) [#/Vol] Ordered By: Tori Gaona on 12-08-2023 Basophils (Bld) [#/Vol] 0.0 10*3/uL 0.0-0.2 [facility] Basophils/100 WBC Auto (Bld) Ordered By: Tori Gaona on 12-08-2023 Basophils/100 WBC (Bld) 0.3 % . [facility] Bilirubin Test strip Ql (U)O rdered By: Tori Gaona on 12-08-2023 Bilirubin Ql (U) Negative Negative [facility] Bilirubin.total [Mass/volume ] in Serum or PlasmaOrdered By: Tori Gaona on 12-08-2023 Bilirubin [Mass/Vol] 0.4 mg/dL 0.3-1.0 [facility] Blood Cultureon 12-08-2023 Bacteria identified Cx Nom (Bld) NO GROWTH 5 DAYS PERFORMED BY: [place] [address] PATHOLOGIST NURSE HEAD JESSIE FRAZIER M.D. Normal [facility] Comment on above: Performed By: #### R LINDA PANEL UPP., BIOFIRECOVNOTDE #### [address] Bacteria identified Cx Nom (Bld) NO GROWTH 5 DAYS PERFORMED BY: [place] [address] PATHOLOGIST NURSE HEAD JESSIE FRAZIER M.D. Normal [facility] Comment on above: Performed By: #### R LINDA PANEL UPP., BIOFIRECOVNOTDE #### [address] angio chest PE protocolon 12-08-2023 CT angio chest PE protocol [facility] [place] [address] CT Scan Report Signed Patient: Rosalind Restrepo MR#: [id number] 37 : 1940 Acct:[id number] Age/Sex: 83 / F ADM Date: 12/08/23 Loc: ER Room: Type: [facility] ER Attending Dr: Copies to: Tori [...] Grupo Estrada M.D.12/08/2023 6:08 PM Dictation Location: [place] [address] Transcribed By: [facility] 12/08/231807 Dictated By: Grupo Estrada II, MD 12/08/23 1800 Signed By: 12/08/231807 Normal [facility] Calcium [Mass/volume] in Ser um or PlasmaOrdered By: Tori Gaona on 12-08-2023 Calcium [Mass/Vol] 9.9 mg/dL 8.6-10.3 [facility] Carbon dioxide, total [Moles /volume] in Serum or PlasmaOrdered By: Tori Gaona on 12-08-2023 CO2 [Moles/Vol] 27.9 mmol/L 21.0-31.0 [facility] Chloride [Moles/volume] in S radha or PlasmaOrdered By: Tori Gaona on 12-08-2023 Chloride [Moles/Vol] 101 mmol/L 98-107 [facility] Color Auto (U)Ordered By: Rosi Gaona on 12-08-2023 Color (U) Yellow Yellow [facility] Complete Blood Count Auto Di ffon 12-08-2023 Basophils (Bld) [#/Vol] 0.0 10*3/uL Normal 0.0-0.2 [facility] Comment on above: Result Comment: PERF ORMED BY: [place] [address] PATHOLOGIST NURSE HEAD JESSIE FRAZIER M.D. Performed By: #### R LINDA PANEL UPP., BIOFIRECOVNOTDE #### [address] Basophils/100 WBC (Bld) 0.3 % Normal . [facility] Comment on above: Performed By: #### R LINDA PANEL UPP., BIOFIRECOVNOTDE #### [address] Eosinophils (Bld) [#/Vol] 0.3 10*3/uL Normal 0.0-0.45 [facility] Comment on above: Performed By: #### R LINDA PANEL UPP., BIOFIRECOVNOTDE #### [address] Eosinophils/100 WBC (Bld) 3.8 % Normal . [facility] Comment on above: Performed By: #### R LINDA PANEL UPP., BIOFIRECOVNOTDE #### [address] Erythrocyte distribution width (RBC) [Ratio] 15.3 % Normal 11.9-15.3 [facility] Comment on above: Performed By: #### R LINDA PANEL UPP., BIOFIRECOVNOTDE #### [address] Hematocrit (Bld) [Volume fraction] 30.4 % Low 34.0-46.4 [facility] [facility] Comment on above: Performed By: #### R LINDA PANEL UPP., BIOFIRECOVNOTDE #### [address] Hemoglobin (Bld) [Mass/Vol] 9.9 g/dL Low 11.8-15.4 [facility] Comment on above: Performed By: #### R LINDA PANEL UPP., BIOFIRECOVNOTDE #### [address] Lymphocytes (Bld) [#/Vol] 2.6 10*3/uL Normal 1.00-4.8 [facility] Comment on above: Performed By: #### R LINDA PANEL UPP., BIOFIRECOVNOTDE #### [address] Lymphocytes/100 WBC (Bld) 28.6 % Normal . [facility] Comment on above: Performed By: #### R LINDA PANEL UPP., BIOFIRECOVNOTDE #### [address] MCH (RBC) [Entitic mass] 30.6 pg Normal 24.7-34.3 [facility] Comment on above: Performed By: #### R LINDA PANEL UPP., BIOFIRECOVNOTDE #### [address] MCV (RBC) [Entitic vol] 94.4 fL Normal 80-100 [facility] Comment on above: Performed By: #### R LINDA PANEL UPP., BIOFIRECOVNOTDE #### [address] Mean Corpuscular HGB Conc 32.4 g/dL Normal 32.0-35.0 [facility] Comment on above: Performed By: #### R LINDA PANEL UPP., BIOFIRECOVNOTDE #### [address] [address] [place] Monocytes (Bld) [#/Vol] 0.4 10*3/uL Normal 0.0-0.8 [facility] Comment on above: Performed By: #### R LINDA PANEL UPP., BIOFIRECOVNOTDE #### [address] Monocytes/100 WBC (Bld) 17.68 % Normal 0.00-20.00 [facility] Comment on above: Performed By: #### R LINDA PANEL UPP., BIOFIRECOVNOTDE #### [address] Monocytes/100 WBC (Bld) 4.8 % Normal . [facility] Comment on above: Performed By: #### R LINDA PANEL UPP., BIOFIRECOVNOTDE #### [address] Neutrophils (Bld) [#/Vol] 5.7 10*3/uL Normal 1.8-7.7 [facility] Comment on above: Performed By: #### R LINDA PANEL UPP., BIOFIRECOVNOTDE #### [place] [address] [place] Neutrophils/100 WBC (Bld) 62.5 % Normal . [facility] Comment on above: Performed By: #### R LINDA PANEL UPP., BIOFIRECOVNOTDE #### [address] NRBC% 0.1 /100{WBC} Normal 0-0.5 [facility] Comment on above: Performed By: #### R LINDA PANEL UPP., BIOFIRECOVNOTDE #### [address] Platelet mean volume (Bld) [Entitic vol] 7.7 fL Normal 6.3-10.7 [facility] Comment on above: Performed By: #### R LINDA PANEL UPP., BIOFIRECOVNOTDE #### [place] [address] [place] Platelets (Bld) [#/Vol] 277 10*3/uL Normal 150-450 [facility] Comment on above: Performed By: #### R LINDA PANEL UPP., BIOFIRECOVNOTDE #### [address] RBC (Bld) [#/Vol] 3.22 10*6/uL Low 3.60-5.00 [facility] Comment on above: Performed By: #### R LINDA PANEL UPP., BIOFIRECOVNOTDE #### [address] WBC (Bld) [#/Vol] 9.0 10*3/uL Normal 3.8-11.6 [facility] Comment on above: Performed By: #### R LINDA PANEL UPP., BIOFIRECOVNOTDE #### [address] Comprehensive Metabolic Pane cliff 12-08-2023 Albumin [Mass/Vol] 3.1 g/dL Low 3.5-5.7 [facility] Comment on above: Performed By: #### R LINDA PANEL UPP., BIOFIRECOVNOTDE #### [address] Albumin/Globulin [Mass ratio] 1.0 {ratio} Normal [facility] Comment on above: Performed By: #### R LINDA PANEL UPP., BIOFIRECOVNOTDE #### [address] ALP [Catalytic activity/Vol] 120 U/L High 34-104 [facility] Comment on above: Performed By: #### R LINDA PANEL UPP., BIOFIRECOVNOTDE #### [address] ALT [Catalytic activity/Vol] 14 U/L Normal 7-52 [facility] Comment on above: Performed By: #### R LINDA PANEL UPP., BIOFIRECOVNOTDE #### [address] Anion gap [Moles/Vol] 11.4 mmol/L Normal 6.0-15.0 Th e [facility] Comment on above: Performed By: #### R LINDA PANEL UPP., BIOFIRECOVNOTDE #### [address] AST [Catalytic activity/Vol] 14 U/L Normal 13-39 [facility] Comment on above: Performed By: #### R LINDA PANEL UPP., BIOFIRECOVNOTDE #### [address] Bilirubin [Mass/Vol] 0.4 mg/dL Normal 0.3-1.0 [facility] Comment on above: Performed By: #### R LINDA PANEL UPP., BIOFIRECOVNOTDE #### [address] Calcium [Mass/Vol] 9.9 mg/dL Normal 8.6-10.3 [facility] Comment on above: Performed By: #### R LINDA PANEL UPP., BIOFIRECOVNOTDE #### [address] Chloride [Moles/Vol] 101 mmol/L Normal 98-107 [facility] Comment on above: Performed By: #### R LINDA PANEL UPP., BIOFIRECOVNOTDE #### [address] CO2 [Moles/Vol] 27.9 mmol/L Normal 21.0-31.0 [facility] Comment on above: Performed By: #### R LINDA PANEL UPP., BIOFIRECOVNOTDE #### [place] [address] [place] Creatinine [Mass/Vol] 0.98 mg/dL Normal 0.60-1.20 [facility] Comment on above: Performed By: #### R LINDA PANEL UPP., BIOFIRECOVNOTDE #### [place] [address] [place] Creatinine Clr Calc Pharmacy 32.11 Normal [facility] Comment on above: Result Comment: PERF ORMED BY: [place] [address] PATHOLOGIST NURSE HEAD JESSIE FRAZIER M.D. Performed By: #### R LINDA PANEL UPP., BIOFIRECOVNOTDE #### [address] GFR/1.73 sq M.predicted MDRD (S/P/Bld) [Vol rate/Area] 56.915 mL/min/{1.73_m2} Normal [facility] Comment on above: Performed By: #### R LINDA PANEL UPP., BIOFIRECOVNOTDE #### [address] Globulin (S) [Mass/Vol] 3.2 g/dL Normal [facility] Comment on above: Performed By: #### R LINDA PANEL UPP., BIOFIRECOVNOTDE #### [address] Glucose [Mass/Vol] 88 mg/dL Normal 70-100 [facility] Comment on above: Result Comment: [place] Glucose Reference Range is dependent on time and content of last meal. Glucose of more than 200 mg/dL in a nonstressed, ambulatory subject supports the diagnosis of Diabetes Mellitus. ADA recommended reference range Performed By: #### R LINDA PANEL UPP., BIOFIRECOVNOTDE #### [address] Potassium [Moles/Vol] 4.3 mmol/L Normal 3.5-5.1 [facility] Comment on above: Performed By: #### R LINDA PANEL UPP., BIOFIRECOVNOTDE #### [place] [address] [place] Protein [Mass/Vol] 6.3 g/dL Low 6.4-8.9 [facility] Comment on above: Performed By: #### R LINDA PANEL UPP., BIOFIRECOVNOTDE #### [address] Sodium [Moles/Vol] 136 mmol/L Normal 136-145 [facility] Comment on above: Performed By: #### R LINDA PANEL UPP., BIOFIRECOVNOTDE #### [facility] [address] [place] [address] [place] Urea nitrogen [Mass/Vol] 57 mg/dL High 7-25 [facility] Comment on above: Performed By: #### R LINDA PANEL UPP., BIOFIRECOVNOTDE #### [place] [address] [place] Creatine Kinaseon 12-08-2023 CK [Catalytic activity/Vol] 25 U/L Low 30 [facility] Comment on above: Performed By: #### D IFF CBC, BMP #### [address] Creatine kinase [Enzymatic a ctivity/volume] in Serum or PlasmaOrdered By: Tori Gaona on 12-08-2023 CK [Catalytic activity/Vol] 25 U/L 30 [facility] Creatinine [Mass/volume] in Serum or PlasmaOrdered By: Tori Gaona on 12-08-2023 Creatinine [Mass/Vol] 0.98 mg/dL 0.60-1.[address] [facility] Dipstick and Microscopicon 0 12-08-2023 Appearance (U) Clear Normal Clear [facility] Comment on above: Order Comment: Name Collection Type:: Straight Catheter Performed By: #### S CAN CBC, BMP #### [place] [address] [place] Bacteria,Urine None Seen Normal None Seen [facility] Comment on above: Order Comment: Name Collection Type:: Straight Catheter Performed By: #### S CAN CBC, BMP #### [place] [address] [place] Bilirubin,Urine Negative Normal Negative [facility] Comment on above: Order Comment: Name Collection Type:: Straight Catheter Performed By: #### S CAN CBC, BMP #### [place] [address] [place] Color (U) Yellow Normal Yellow [facility] Comment on above: Order Comment: Name Collection Type:: Straight Catheter Performed By: #### S CAN CBC, BMP #### [address] Glucose Ql (U) Normal Normal Normal [facility] Comment on above: Order Comment: Name Collection Type:: Straight Catheter Performed By: #### S CAN CBC, BMP #### [address] Hyaline Casts,Urine 0-8 Normal 0-8 [facility] Comment on above: Order Comment: Name Collection Type:: Straight Catheter Result Comment: PERF ORMED BY: [place] [address] PATHOLOGIST NURSE HEAD JESSIE FRAZIER M.D. Performed By: #### S CAN CBC, BMP #### [address] Ketones Ql (U) Negative Normal Negative [facility] Comment on above: Order Comment: Name Collection Type:: Straight Catheter Performed By: #### S CAN CBC, BMP #### [address] Leukocyte esterase Test strip Ql (U) 2+ High Negative [facility] Comment on above: Order Comment: Name Collection Type:: Straight Catheter Performed By: #### S CAN CBC, BMP #### [address] Nitrite,Urine Negative Normal Negative [facility] Comment on above: Order Comment: Name Collection Type:: Straight Catheter Performed By: #### S CAN CBC, BMP #### [address] Occult Blood,Urine Negative Normal Negative [facility] Comment on above: Order Comment: Name Collection Type:: Straight Catheter Result Comment: PERF ORMED BY: [place] [address] PATHOLOGIST NURSE HEAD JESSIE FRAZIER M.D. Performed By: #### S CAN CBC, BMP #### [place] [address] [place] pH (U) 6.0 [pH] Normal 5.0-9.0 [facility] Comment on above: Order Comment: Name Collection Type:: Straight Catheter Performed By: #### S CAN CBC, BMP #### [place] [address] [place] Protein,Urine Negative Normal Negative [facility] Comment on above: Order Comment: Name Collection Type:: Straight Catheter Performed By: #### S CAN CBC, BMP #### [place] [address] [place] RBC LM.HPF (Urine sed) [#/Area] 0 /[HPF] Normal 0-4 [facility] Comment on above: Order Comment: Name Collection Type:: Straight Catheter Performed By: #### S CAN CBC, BMP #### [place] [address] [place] Specificy [place],Urine 1.018 Normal 1.001-1.030 [facility] Comment on above: Order Comment: Name Collection Type:: Straight Catheter Performed By: #### S CAN CBC, BMP #### [address] Squamous Epithelial Cell,Urine 0-1 Normal 0-2 [facility] Comment on above: Order Comment: Name Collection Type:: Straight Catheter Performed By: #### S CAN CBC, BMP #### [address] Urobilinogen,Urine Normal Normal Normal [facility] Comment on above: Order Comment: Name Collection Type:: Straight Catheter Performed By: #### S CAN CBC, BMP #### [place] [address] [place] WBC,Urine 3-4 Normal 0-4 [facility] Comment on above: Order Comment: Name Collection Type:: Straight Catheter Performed By: #### S CAN CBC, BMP #### [place] [address] [place] ECG 12 lead ECGon 12-08-2023 ECG 12 lead ECG [facility] [place] [address] [place] [address] Electrocardiograph Report Signed Patient: Rosalind Restrepo MR#: [id number] [birth year] : 1940 Acct:[id number] Age/Sex: 83 / F ADM Date: 12/08/23 Loc: Room: [address] [place] [address] Type: ADM IN Attending : Hima Juarez DO Ordering Provider: Ewa Marx MD Date of Service: 12/08/23 ECG/ECG 12 [...] is now present Confirmed by Ambrose Coffey ([id number]) on 12/12/2023 3:43:30 PM Referred By: Electronically Signed By:Ambrose Coffey Transcribed By: MUS Signed By Ambrose Coffey MD 12/12/23 1543 Normal [facility] ECG 12 lead [place] [address] Electrocardiograph Report Signed Patient: Rosalind Restrepo MR#: [id number] [birth year] : 1940 Acct:[id number] Age/Sex: 83 / F ADM Date: 12/08/23 Loc: Room: [address] [place] [address] Type: ADM IN Attending Dr: Ewa Marx [...] MUS Signed By Tori Gaona MD 12/08/23 8170 Normal [facility] Eosinophils Auto (Bld) [#/Vo l]Ordered By: Tori Gaona on 12-08-2023 Eosinophils (Bld) [#/Vol] 0.3 10*3/uL 0.0-0.45 [facility] Eosinophils/100 WBC Auto (Bl d)Ordered By: Tori Gaona on 12-08-2023 Eosinophils/100 WBC (Bld) 3.8 % . [facility] Erythrocyte distribution wid th Auto (RBC) [Ratio]Ordered By: Tori Gaona on 12-08-2023 Erythrocyte distribution width (RBC) [Ratio] 15.3 % 11.9-15.3 [facility] Globulin Calc (S) [Mass/Vol] Ordered By: Tori Gaona on 12-08-2023 Globulin (S) [Mass/Vol] 3.2 g/dL [facility] Glucose [Mass/volume] in Ser um or PlasmaOrdered By: Tori Gaona on 12-08-2023 Glucose [Mass/Vol] 88 mg/dL 70-100 [facility] Comment on above: ADA recommended refe rence rangeRandom Glucose Reference Range is dependent on time and content of last meal. Glucose of more than 200 mg/dL in a nonstressed, ambulatory subject supports the diagnosis of Diabetes Mellitus. Hematocrit Auto (Bld) [Volum e fraction]Ordered By: Tori Gaona on 12-08-2023 Hematocrit (Bld) [Volume fraction] 30.4 % 34.0-46.4 [facility] Hemoglobin [Mass/volume] in BloodOrdered By: Tori Gaona on 12-08-2023 Hemoglobin (Bld) [Mass/Vol] 9.9 g/dL 11.8-15.4 [facility] INR in Platelet poor plasma by Coagulation assayOrdered By: Tori Gaona on 12-08-2023 INR Coag (PPP) [Relative time] 1.1 {INR} [facility] Comment on above: INR Therapeutic Rang e [...] on 12-08-2023 Ketones (U) [Mass/Vol] Negative Negative [facility] - UrinalysisOrder ed By: Tori Gaona on 12-08-2023 Hyaline casts LM Ql (Urine sed) 0-8 [LPF] 0-8 [facility] Leukocytes [#/volume] correc tyler for nucleated erythrocytes in Blood by Automated counOrdered By: Tori Gaona on 12-08-2023 WBC corrected for nucl RBC Auto (Bld) [#/Vol] 9.0 10*3/uL 3.8-11.6 [facility] Lymphocytes Auto (Bld) [#/Vo l]Ordered By: Tori Gaona on 12-08-2023 Lymphocytes (Bld) [#/Vol] 2.6 10*3/uL 1.00-4.8 [facility] Lymphocytes/100 WBC Auto (Bl d)Ordered By: Tori Gaona on 12-08-2023 Lymphocytes/100 WBC (Bld) 28.6 % . [facility] MCH Auto (RBC) [Entitic mass ]Ordered By: Tori Gaona on 12-08-2023 MCH (RBC) [Entitic mass] 30.6 pg 24.7-34.3 [facility] MCHC Auto (RBC) [Mass/Vol]Or dered By: Tori Gaona on 12-08-2023 MCHC (RBC) [Mass/Vol] 32.4 g/dL 32.0-35.[address] [facility] MCV Auto (RBC) [Entitic vol] Ordered By: Tori Gaona on 12-08-2023 MCV (RBC) [Entitic vol] 94.4 fL 80-100 [facility] Monocyte distribution width [Entitic volume] in Blood by AutomatedOrdered By: Tori Gaona on 12-08-2023 Monocyte distribution width Auto (Bld) [Entitic vol] 17.68 % 0.00-20.00 [facility] Monocytes Auto (Bld) [#/Vol] Ordered By: Tori Gaona on 12-08-2023 Monocytes (Bld) [#/Vol] 0.4 10*3/uL 0.0-0.8 [facility] Monocytes/100 WBC Auto (Bld) Ordered By: Tori Gaona on 12-08-2023 Monocytes/100 WBC (Bld) 4.8 % . [facility] Natriuretic peptide B [Mass/ Vol]Ordered By: Tori Gaona on 12-08-2023 Natriuretic peptide B (Bld) [Mass/Vol] 277.0 pg/mL 5-100 [facility] Neutrophils Auto (Bld) [#/Vo l]Ordered By: Tori Gaona on 12-08-2023 Neutrophils (Bld) [#/Vol] 5.7 10*3/uL 1.8-7.7 [facility] Neutrophils/100 WBC Auto (Bl d)Ordered By: Tori Gaona on 12-08-2023 Neutrophils/100 WBC (Bld) 62.5 % . [facility] Nitrite Test strip Ql (U)Ord ered By: Tori Gaona on 12-08-2023 Nitrite Ql (U) Negative Negative [facility] No Panel InformationOrdered By: Tori Gaona on 12-08-2023 Estimated GFR (CKD-EPI) 56.915 mL/Min [facility] Creatinine Clearance (Chem 32.11 [facility] Nucleated erythrocytes [Pres ence] in Blood by Automated countOrdered By: Tori Gaona on 12-08-2023 Nucleated RBC Auto Ql (Bld) 0.1 /100{WBC} 0-0.5 [facility] Partial Thromboplastin Timeo n 12-08-2023 aPTT Coag (Bld) [Time] 30.0 s Normal 25.1-36.5 [facility] e [facility] Comment on above: Result Comment: A he matocrit value greater than 55% may lead to inaccurate results in coagulation testing. Patients having hematocrit values >55% require a special collection tube for coagulation studies. Please contact the laboratory at [phone] for redraw instructions. PERFORMED BY: [facility] [place] [address] PATHOLOGIST NURSE HEAD JESSIE FRAZIER M.D. Performed By: #### D IFF CBC, BMP #### [facility] [address] Platelet mean volume Auto (B ld) [Entitic vol]Ordered By: Tori Gaona on 12-08-2023 Platelet mean volume (Bld) [Entitic vol] 7.7 fL 6.3-10.7 [facility] Platelets Auto (Bld) [#/Vol] Ordered By: Tori Gaona on 12-08-2023 Platelets (Bld) [#/Vol] 277 10*3/uL 150-450 [facility] Potassium [Moles/volume] in Serum or PlasmaOrdered By: Tori Gaona on 12-08-2023 Potassium [Moles/Vol] 4.3 mmol/L 3.5-5.[address] [facility] Protein Auto test strip (U) [Mass/Vol]Ordered By: Tori Gaona on 12-08-2023 Protein (U) [Mass/Vol] Negative Negative [facility] Protein [Mass/volume] in Ser um or PlasmaOrdered By: Tori Gaona on 12-08-2023 Protein [Mass/Vol] 6.3 g/dL 6.4-8.9 [facility] Prothrombin Time INRon 12-07 INR Coag (PPP) [Relative time] 1.1 {INR} Normal [facility] Comment on above: Result [...] valves: 3 - 4.5 Performed By: #### D IFF CBC, BMP #### [facility] [address] PT Coag (PPP) [Time] 12.6 s Normal 9.0-12.9 [facility] Comment on above: Result Comment: A he matocrit value greater than 55% may lead to inaccurate results in coagulation testing. Patients having hematocrit values >55% require a special collection tube for coagulation studies. Please contact the laboratory at [phone] for redraw instructions. Performed By: #### D IFF CBC, BMP #### [facility] [address] Prothrombin time (PT)Ordered By: Tori Gaona on 12-08-2023 PT Coag (PPP) [Time] 12.6 s 9.0-12.9 [facility] Comment on above: A hematocrit value g reater than 55% may lead to inaccurate results in coagulation testing. Patients having hematocrit values >55% require a special collection tube for coagulation studies. Please contact the laboratory at [phone] for redraw instructions. RBC Auto (Bld) [#/Vol]Ordere d By: Tori Gaona on 12-08-2023 RBC (Bld) [#/Vol] 3.22 10*6/uL 3.60-5.00 [facility] Serum or plasma albumin/glob ulin mass ratioOrdered By: Tori Gaona on 12-08-2023 Albumin/Globulin [Mass ratio] 1.0 {ratio} [facility] Serum or plasma anion gap de terminationOrdered By: Tori Gaona on 12-08-2023 Anion gap [Moles/Vol] 11.4 mmol/L 6.0-15.0 [facility] Sodium [Moles/volume] in Ser um or PlasmaOrdered By: Tori Gaona on 12-08-2023 Sodium [Moles/Vol] 136 mmol/L 136-145 [facility] Specific gravity Auto test s trip (U) [Rel density]Ordered By: Tori Gaona on 12-08-2023 Specific gravity (U) [Rel density] 1.018 1.001-1.030 [facility] Squamous epithelial cells de tection in urine sediment by light microscopyOrdered By: Tori Gaona on 12-08-2023 Epithelial cells.squamous LM Ql (Urine sed) 0-1 [HPF] 0-2 [facility] Troponin I High Sensitivityo n 12-08-2023 Troponin I High Sensitivity 25.5 pg/mL High 0.0-15.0 [facility] Comment on above: Result Comment: PERF ORMED BY: [facility] [address] PATHOLOGIST NURSE HEAD JESSIE FRAZIER M.D. Performed By: #### R LINDA PANEL UPP., BIOFIRECOVNOTDE #### [facility] [address] [place] [address] Troponin I High Sensitivity 28.0 pg/mL High 0.0-15.0 [facility] Comment on above: Result Comment: PERF ORMED BY: [place] [address] PATHOLOGIST NURSE HEAD JESSIE FRAZIER M.D. Performed By: #### D IFF CBC, BMP #### [facility] [address] [place] [address] Troponin I.cardiac [Mass/vol ume] in Serum or Plasma by Detection limit <= 0.01 ng/Ordered By: Tori Gaona on 12-08-2023 Troponin I.cardiac DL <= 0.01 ng/mL [Mass/Vol] 25.5 pg/mL 0.0-15.0 [facility] Urea nitrogen [Mass/volume] in Serum or PlasmaOrdered By: Tori Gaona on 12-08-2023 Urea nitrogen [Mass/Vol] 57 mg/dL 7-25 [facility] Urine bacteria detection by automated methodOrdered By: Tori Gaona on 12-08-2023 Bacteria Auto Ql (U) None seen None Seen [facility] Urine clarity by refractomet ry automatedOrdered By: Tori Gaona on 12-08-2023 Clarity Refractometry automated (U) Clear Clear [facility] Urine glucose measurement by automated test strip (mass/volume)Ordered By: Tori Gaona on 12-08-2023 Glucose Auto test strip (U) [Mass/Vol] Normal mg/dL Normal [facility] Urine hemoglobin detection b y automated test stripOrdered By: Tori Gaona on 12-08-2023 Hemoglobin Auto test strip Ql (U) Negative Negative [facility] Urine leukocyte esterase det ection by automated test stripOrdered By: Tori Gaona on 12-08-2023 Leukocyte esterase Auto test strip Ql (U) 2+ Negative [facility] Urobilinogen Auto test strip (U) [Mass/Vol]Ordered By: Tori Gaona on 12-08-2023 Urobilinogen (U) [Mass/Vol] Normal mg/dL Normal [facility] WBC Auto (Bld) [#/Vol]Ordere d By: Tori Gaona on 12-08-2023 WBC (Bld) [#/Vol] 9.0 10*3/uL 3.8-11.6 [facility] XR chest 1V portableon 12-07 XR chest 1V portable [facility] [place] [place] [address] XRay Report Signed Patient: Rosalind Restrepo MR#: [id number] [birth year] : 1940 Acct:[id number] Age/Sex: 83 / F ADM Date: 12/08/23 [...] Grupo Estrada M.D.12/08/2023 4:53 PM Dictation Location: [place] [address] Transcribed By: [facility] 12/08/231652 Dictated By: Grupo Estrada II, MD 12/08/231650 Signed By: 12/08/231652 Normal [facility] pH Auto test strip (U)Ordere d By: Tori Gaona on 12-08-2023 pH (U) 6.0 [pH] 5.0-9.0 [facility] BLOOD CULTUREon 12-07-2023 Bacteria identified Aer cx Nom (Bld) CULTURE RESULTS NO GROWTH 5 DAYS Normal [facility] Bacteria identified Aer cx Nom (Bld) CULTURE RESULTS NO GROWTH 5 DAYS Normal [facility] CBC AND AUTO DIFFon 12-07-19 24 ABSOLUTE BASOPHIL 0.1 X10E9/L Normal 0.0-0.[address] [facility] Comment on above: Performed By: #### Mechelle LEE, 37406-6, 04151-9, 90127-1 #### [facility] ([id number]) [address] [place] [address] ABSOLUTE NEUTROPHIL 4.8 X10E9/L Normal 1.5-6.6 [facility] Comment on above: Performed By: #### Mechelle LEE, 79595-7, 39317-1, 57555-2 #### [facility] ([id number]) [address] [place] [address] Basophils/100 WBC (Bld) 1.2 % Normal [facility] Comment on above: Performed By: #### Mechelle LEE, 57371-6, 52374-0, 18064-5 #### [facility] ([id number]) [address] [place] [address] Eosinophils (Bld) [#/Vol] 0.4 10*3/uL Normal 0.0-0.4 [facility] Comment on above: Performed By: #### Mechelle LEE, 14220-5, 45131-3, 84580-0 #### [facility] ([id number]) [address] [place] [address] Eosinophils/100 WBC (Bld) 4.9 % Normal [facility] Comment on above: Performed By: #### Mechelle LEE, 77276-5, 25174-5, 22943-6 #### [facility] ([id number]) [address] [place] [address] Erythrocyte distribution width (RBC) [Ratio] 14.8 % Normal 11.5-15.0 [facility] Comment on above: Performed By: #### Mechelle LEE, 71120-7, 01928-6, 56675-8 #### [facility] ([id number]) [address] [place] [address] Hematocrit (Bld) [Volume fraction] 29.8 % Low 35-47 [facility] Comment on above: Performed By: #### Mechelle LEE, 65287-2, 96026-7, 22503-7 #### [facility] ([id number]) [address] [place] [address] Hemoglobin (Bld) [Mass/Vol] 10.1 g/dL Low 11.7-15.5 [facility] Comment on above: Performed By: #### Mechelle LEE, 57581-8, 86325-2, 42699-0 #### [facility] ([id number]) [address] [place] [address] Lymphocytes (Bld) [#/Vol] 2.8 10*3/uL Normal 1.0-3.5 [facility] Comment on above: Performed By: #### Mechelle LEE, 65267-3, 10138-1, 69951-4 #### [facility] ([id number]) [address] [place] [address] Lymphocytes/100 WBC (Bld) 32.6 % Normal [facility] Comment on above: Performed By: #### Mechelle LEE, 35618-1, 74853-4, 51926-7 #### [facility] ([id number]) [address] [place] [address] MCH (RBC) [Entitic mass] 31.8 pg Normal 27-34 [facility] Comment on above: Performed By: #### C ROSA, 30570-8, 20471-3, 44039-7 #### [facility] ([id number]) [address] [place] [address] MCHC (RBC) [Mass/Vol] 33.8 g/dL Normal 32-36 [facility] Comment on above: Performed By: #### Mechelle LEE, 07653-6, 23332-1, 91729-7 #### [facility] ([id number]) [address] [place] [address] MCV (RBC) [Entitic vol] 94 fL Normal 80-100 [facility] Comment on above: Performed By: #### Mechelle LEE, 65428-1, 44306-6, 21204-1 #### [facility] ([id number]) [address] [place] [address] Monocytes (Bld) [#/Vol] 0.5 10*3/uL Normal 0-0.9 [facility] Comment on above: Performed By: #### Mechelle LEE, 06997-5, 75831-1, 70827-3 #### [facility] ([id number]) [address] [place] [address] Monocytes/100 WBC (Bld) 5.4 % Normal [facility] Comment on above: Performed By: #### Mechelle LEE, 08180-9, 52778-6, 71901-0 #### [facility] ([id number]) [address] [place] [address] Neutrophils/100 WBC (Bld) 55.9 % Normal [facility] Comment on above: Performed By: #### Mechelle LEE, 28828-7, 25877-5, 84540-0 #### [facility] ([id number]) [address] [place] [address] Platelet mean volume (Bld) [Entitic vol] 8.2 fL Normal 7-12 [facility] Comment on above: Performed By: #### Mechelle LEE, 51152-7, 12916-0, 82603-2 #### [facility] ([id number]) [address] [place] [address] Platelets (Bld) [#/Vol] 286 10*3/uL Normal 150-450 [facility] Comment on above: Performed By: #### Mechelle LEE, 05918-6, 16803-4, 81571-1 #### [facility] ([id number]) [address] [place] [address] RBC COUNT 3.17 X10E12/L Low 3.80-5.20 [facility] Comment on above: Performed By: #### C BCA, 66363-9, 23220-7, 63888-7 #### [facility] ([id number]) [address] [place] [address] WBC (Bld) [#/Vol] 8.6 10*3/uL Normal 4.0-11.[address] [facility] Comment on above: Performed By: #### C BCA, 52858-9, 36951-1, 11751-1 #### [facility] ([id number]) [address] [place] [address] COMPREHENSIVE METABOLIC PANE Cliff 12-07-2023 Albumin [Mass/Vol] 2.5 g/dL Low 3.2-5.[address] [facility] Comment on above: Performed By: #### C MP #### [facility] ([id number]) [address] [place] [address] ALP [Catalytic activity/Vol] 112 U/L Normal 39-130 [facility] Comment on above: Performed By: #### C MP #### [facility] ([id number]) [address] [place] [address] ALT [Catalytic activity/Vol] 16 U/L Normal 0-31 [facility] Comment on above: Performed By: #### C MP #### [facility] ([id number]) [address] [place] [address] Anion gap [Moles/Vol] 8 mmol/L Normal 5-15 [facility] Comment on above: Performed By: #### C MP #### [facility] ([id number]) [address] [place] [address] AST [Catalytic activity/Vol] 21 U/L Normal 0-41 [facility] Comment on above: Performed By: #### C MP #### [facility] ([id number]) [address] [place] [address] Bilirubin [Mass/Vol] 0.5 mg/dL Normal 0.3-1.2 [facility] Comment on above: Performed By: #### C MP #### [facility] ([id number]) [address] [place] [address] Calcium [Mass/Vol] 9.0 mg/dL Normal 8.5-10.[address] [facility] Comment on above: Performed By: #### C MP #### [facility] ([id number]) [address] [place] [address] Chloride [Moles/Vol] 99 mmol/L Normal 98-109 [facility] Comment on above: Performed By: #### C MP #### [facility] ([id number]) [address] [place] [address] CO2 [Moles/Vol] 25 mmol/L Normal 22-32 [facility] Comment on above: Performed By: #### C MP #### [facility] ([id number]) [address] [place] [address] Creatinine [Mass/Vol] 0.83 mg/dL Normal 0.40-1.00 [facility] Comment on above: Result Comment: METH OD TRACEABLE TO IDMS STANDARD Performed By: #### C MP #### [facility] ([id number]) [address] [place] [address] GFR/1.73 sq M.predicted among non-blacks MDRD (S/P/Bld) [Vol rate/Area] 69 mL/min/{1.73_m2} Normal >59 [facility] Comment on above: Result Comment: Reported eGFR is based on the CKD-EPI 1 equation that does not use a race coefficient. Performed By: #### C MP #### [facility] ([id number]) [address] [place] [address] Glucose [Mass/Vol] 92 mg/dL Normal 65-[address] [facility] Comment on above: Performed By: #### C MP #### [facility] ([id number]) [address] [place] [address] Potassium [Moles/Vol] 4.0 mmol/L Normal 3.5-5.0 [facility] Comment on above: Performed By: #### C MP #### [facility] ([id number]) [address] [place] [address] Protein [Mass/Vol] 5.9 g/dL Low 6.0-8.[address] [facility] Comment on above: Performed By: #### C MP #### [facility] ([id number]) [address] [place] [address] Sodium [Moles/Vol] 132 mmol/L Low 134-[address] [facility] Comment on above: Performed By: #### C MP #### [facility] ([id number]) [address] [place] [address] Urea nitrogen [Mass/Vol] 55 mg/dL High 5-27 [facility] Comment on above: Performed By: #### C MP #### [facility] ([id number]) [address] [place] [address] Lactate (P lilian) [Moles/Vol]o n 12-07-2023 LACTATE W/REFLEX 1.5 mmol/L Normal 0.4-2.0 [facility] Comment on above: Result Comment: Result did not trigger repeat Lactate, re-order if needed. Performed By: #### C BCA, 51499-9, 94516-0, 38365-7 #### [facility] ([id number]) [address] [place] [address] Natriuretic peptide B [Mass/ Vol]on 12-07-2023 Natriuretic peptide B (Bld) [Mass/Vol] 327 pg/mL High <100.0 [facility] Comment on above: Performed By: #### C BCA, 21197-2, 99052-2, 31639-0 #### [facility] ([id number]) [address] [place] [address] SARS/FLU A+B/RSV by NAAT/Mol ecularon 12-07-2023 SARS/FLU [...] operators who are performing tests using either [employer] or [employer] systems and is limited to laboratories that [...] repeat. Fact Sheet for Healthcare Providers: https://www.fda.gov/media/ 993870/download Fact Sheet for Patients: https://www.fda.gov/media/ 567963/download Normal [facility] Comment on above: Performed By: #### C OVFLR #### [facility] ([id number]) [address] [facility] [place] [address] Troponin I.cardiac High sens itivity method [Mass/Vol]on 12-07-2023 1 HOUR TROP I, HIGH SENSITIVITY 20 ng/L High <16 [facility] Comment on above: Result Comment: Elevations of hs-Troponin may be due to causes other than myocardial ischemia. Recommend serial hs-Troponin testing be performed. For the initial evaluation and management of chest pain patients, refer to the algorithms linked below. Emergency Patient: [email or web address]& uh=acaea Inpatient: [email or web address]& uh=acaea Performed By: #### 8 9579-7 #### [facility] ([id number]) [address] [facility] [place] [address] TROPONIN I, HIGH SENSITIVITY 19 ng/L High <16 [facility] Comment on above: Result Comment: Elevations of hs-Troponin may be due to causes other than myocardial ischemia. Recommend serial hs-Troponin testing be performed. For the initial evaluation and management of chest pain patients, refer to the algorithms linked below. Emergency Patient: [email or web address]& uh=[email or web address] Inpatient: [email or web address]& uh=[email or web address] Performed By: #### C BCA, 83985-0, 69902-8, 66168-9 #### [facility] ([id number]) [address] [place] [address] URINE CULTUREon 12-07-2023 Bacteria identified Cx Nom [...] 64 F VANCOMYCIN S <=0.5 F Susceptible [facility] Comment on above: Performed By: #### C BCA, 30234-5, 76677-5, 12411-3 #### [facility] ([id number]) [address] [place] [address] URN MACROSCOPIC NURon 2023 BILIRUBIN PEARL Negative Normal NEG [facility] Comment on above: Performed By: #### N UM #### [facility] ([id number]) [address] [place] [address] BLOOD/HGB PEARL Negative Normal NEG [facility] Comment on above: Performed By: #### N UM #### [facility] ([id number]) [address] [place] [address] GLUCOSE PEARL Negative Normal NEG [facility] Comment on above: Performed By: #### N UM #### [facility] ([id number]) [address] [place] [address] KETONES PEARL Negative Normal NEG [facility] Comment on above: Performed By: #### N UM #### [facility] ([id number]) [address] [place] [address] LEUKOCYTE ESTERASE PEARL Trace Abnormal NEG [facility] Comment on above: Performed By: #### N UM #### [facility] ([id number]) [address] [place] [address] NITRITE PEARL Negative Normal NEG [facility] Comment on above: Performed By: #### N UM #### [facility] ([id number]) [address] [place] [address] PH PEARL 6.5 Normal 5.0-8.5 [facility] Comment on above: Performed By: #### N UM #### [facility] ([id number]) [address] [place] [address] PROTEIN PEARL Negative Normal NEG [facility] Comment on above: Performed By: #### N UM #### [facility] ([id number]) [address] [place] [address] SPECIFIC GRAVITY PEARL 1.015 Normal 1.003-1.035 [facility] Comment on above: Performed By: #### N UM #### [facility] ([id number]) [address] [place] [address] UROBILINOGEN PEARL 0.2 eu/dL Normal <1.1 [facility] Comment on above: Performed By: #### N UM #### [facility] ([id number]) [address] [place] [address] XR CHEST 1 VWon 12-07-2023 XR CHEST [...] Cortez MD on 12/07/2023 5:55 PM Normal [facility] COMPREHENSIVE METABOLIC PANE Cliff 11-26-2023 Albumin [Mass/Vol] 2.1 g/dL Low 3.2-5.3 [facility] Comment on above: Performed By: #### C JAMAL LEE, 81435-0 #### [facility] ([id number]) [address] [place] [address] ALP [Catalytic activity/Vol] 107 U/L Normal 39-130 [facility] Comment on above: Performed By: #### C JAMAL LEE, 41845-5 #### [facility] ([id number]) [address] [place] [address] ALT [Catalytic activity/Vol] 27 U/L Normal 0-31 [facility] Comment on above: Performed By: #### C JAMAL LEE, 58099-9 #### [facility] ([id number]) [address] [place] [address] Anion gap [Moles/Vol] 6 mmol/L Normal 5-15 [facility] Comment on above: Performed By: #### C BCA, BMP, 84536-1 #### [facility] ([id number]) [address] [place] [address] AST [Catalytic activity/Vol] 22 U/L Normal 0-41 [facility] Comment on above: Performed By: #### C BCA, BMP, 35643-2 #### [facility] ([id number]) [address] [place] [address] Bilirubin [Mass/Vol] 0.4 mg/dL Normal 0.3-1.2 [facility] Comment on above: Performed By: #### C BCA, BMP, 00479-8 #### [facility] ([id number]) [address] [place] [address] Calcium [Mass/Vol] 8.9 mg/dL Normal 8.5-10.5 [facility] Comment on above: Performed By: #### C BCA, BMP, 84888-9 #### [facility] ([id number]) [address] [place] [address] Chloride [Moles/Vol] 107 mmol/L Normal 98-109 [facility] Comment on above: Performed By: #### C BCA, BMP, 86420-9 #### [facility] ([id number]) [address] [place] [address] CO2 [Moles/Vol] 23 mmol/L Normal 22-32 [facility] Comment on above: Performed By: #### C BCA, BMP, 78044-7 #### [facility] ([id number]) [address] [place] [address] Creatinine [Mass/Vol] 0.51 mg/dL Normal 0.40-1.00 [facility] Comment on above: Result Comment: METH OD TRACEABLE TO IDMS STANDARD Performed By: #### C BCA, BMP, 67369-2 #### [facility] ([id number]) [address] [place] [address] eGFR (CKD-EPI) NON-RACE DEPENDENT >90 Normal >59 [facility] Comment on above: Result Comment: Reported eGFR is based on the CKD-EPI 2020 equation that does not use a race coefficient. Performed By: #### C ROSA BMP, 15800-8 #### [facility] ([id number]) [address] [place] [address] Glucose [Mass/Vol] 157 mg/dL High 65-99 [facility] Comment on above: Performed By: #### C ROSA BMP, 81940-0 #### [facility] ([id number]) [address] [place] [address] Potassium [Moles/Vol] 4.3 mmol/L Normal 3.5-5.0 [facility] Comment on above: Performed By: #### C ROSA, BMP, 70657-5 #### [facility] ([id number]) [address] [place] [address]94 Protein [Mass/Vol] 5.3 g/dL Low 6.0-8.0 [facility] Comment on above: Performed By: #### C ROSA BMP, 75649-8 #### [facility] ([id number]) [address] [place] [address] Sodium [Moles/Vol] 136 mmol/L Normal 134-146 [facility] Comment on above: Performed By: #### C BCA, BMP, 36098-7 #### [facility] ([id number]) [address] [place] [address] Urea nitrogen [Mass/Vol] 31 mg/dL High 5-27 [facility] Comment on above: Performed By: #### C BCA, BMP, 03858-7 #### [facility] ([id number]) [address] [place] [address] COMPREHENSIVE METABOLIC PANE Cliff 11-25-2023 Albumin [Mass/Vol] 2.0 g/dL Low 3.2-5.3 [facility] Comment on above: Performed By: #### C ROSA BMP, 09476-5 #### [facility] ([id number]) [address] [place] [address] ALP [Catalytic activity/Vol] 96 U/L Normal 39-130 [facility] Comment on above: Performed By: #### C ROSA, BMP, 45111-6 #### [facility] ([id number]) [address] [place] [address]12 ALT [Catalytic activity/Vol] 24 U/L Normal 0-31 [facility] Comment on above: Performed By: #### Mechelle LEE BMP, 00287-9 #### [facility] ([id number]) [address] [place] [address] Anion gap [Moles/Vol] 4 mmol/L Low 5-15 [facility] Comment on above: Performed By: #### Mechelle LEE, JAMAL, 95682-8 #### [facility] ([id number]) [address] [place] [address] 23573 AST [Catalytic activity/Vol] 19 U/L Normal 0-41 [facility] Comment on above: Performed By: #### Mechelle BCA, BMP, 84063-7 #### [facility] ([id number]) [address] [place] [address] Bilirubin [Mass/Vol] 0.4 mg/dL Normal 0.3-1.2 [facility] Comment on above: Performed By: #### Mechelle BCA, BMP, 27336-5 #### [facility] ([id number]) [address] [place] [address] 28892 Calcium [Mass/Vol] 8.6 mg/dL Normal 8.5-10.5 [facility] Comment on above: Performed By: #### C JAMAL LEE, 84929-9 #### [facility] ([id number]) [address] [place] [address] Chloride [Moles/Vol] 106 mmol/L Normal 98-109 [facility] Comment on above: Performed By: #### C ROSA [facility], 25579-5 #### [facility] ([id number]) [address] [place] [address]10 CO2 [Moles/Vol] 24 mmol/L Normal 22-32 [facility] Comment on above: Performed By: #### C JAMAL LEE, 16811-7 #### [facility] ([id number]) [address] [place] [address] 56268 Creatinine [Mass/Vol] 0.49 mg/dL Normal 0.40-1.00 [facility] Comment on above: Result Comment: METH OD TRACEABLE TO IDMS STANDARD Performed By: #### C JAMAL LEE, 48126-7 #### [facility] ([id number]) [address] [place] [address]284 eGFR (CKD-EPI) NON-RACE DEPENDENT >90 Normal >59 [facility] Comment on above: Result Comment: Reported eGFR is based on the CKD-EPI 2020 equation that does not use a race coefficient. Performed By: #### C JAMAL LEE, 18379-4 #### [facility] ([id number]) [address] [place] [address] 86635 Glucose [Mass/Vol] 116 mg/dL High 65-99 [facility] Comment on above: Performed By: #### C JAMAL LEE, 69905-9 #### [facility] ([id number]) [address] [place] [address] Potassium [Moles/Vol] 4.4 mmol/L Normal 3.5-5.0 [facility] Comment on above: Performed By: #### C ROSA [facility], 00471-7 #### [facility] ([id number]) [address] [place] [address] 41593 Protein [Mass/Vol] 5.1 g/dL Low 6.0-8.0 [facility] Comment on above: Performed By: #### C ROSA [facility], 58836-6 #### [facility] ([id number]) [address] [place] [address] 75890 Sodium [Moles/Vol] 134 mmol/L Normal 134-146 [facility] Comment on above: Performed By: #### C ROSA [facility], 74418-2 #### [facility] ([id number]) [address] [place] [address] 17235 Urea nitrogen [Mass/Vol] 33 mg/dL High 5-27 [facility] Comment on above: Performed By: #### C ROSA, [facility], 35719-1 #### [facility] ([id number]) [address] [place] [address] FL SWALLOW MOTILITY FUNCTION on 11-25-2023 FL [...] Potter MD on 11/25/2023 4:06 PM Normal [facility] CBC AND AUTO DIFFon 11-24-19 ABSOLUTE BASOPHIL 0.0 X10E9/L Normal 0.0-0.2 [facility] Comment on above: Performed By: #### C ROSA [facility], 07[address]-7 #### [facility] ([id number]) [address] [place] [address] 05974 ABSOLUTE NEUTROPHIL 5.8 X10E9/L Normal 1.5-6.6 [facility] Comment on above: Performed By: #### Mechelle LEE [facility], 06[address]-3 #### [facility] ([id number]) [address] [place] [address] 50988 Basophils/100 WBC (Bld) 0.4 % Normal [facility] Comment on above: Performed By: #### Mechelle LEE [facility], 26167-9 #### [facility] ([id number]) [address] [place] [address] 55883 Eosinophils (Bld) [#/Vol] 1.0 10*3/uL High 0.0-0.4 [facility] Comment on above: Performed By: #### Mechelle LEE [facility], 18614-3 #### [facility] ([id number]) [address] [place] [address] 95440 Eosinophils/100 WBC (Bld) 10.5 % Normal [facility] Comment on above: Performed By: #### Mechelle LEE [facility], 49083-6 #### [facility] ([id number]) [address] [place] [place] [address] 25480 Erythrocyte distribution width (RBC) [Ratio] 14.2 % Normal 11.5-15.0 [facility] Comment on above: Performed By: #### Mechelle LEE [facility], 31891-8 #### [facility] ([id number]) [address] [place] [address] 85897 Hematocrit (Bld) [Volume fraction] 31.5 % Low 35-47 [facility] Comment on above: Performed By: #### Mechelle LEE BMP, 61836-1 #### [facility] ([id number]) [address] [address] 64866 Hemoglobin (Bld) [Mass/Vol] 10.6 g/dL Low 11.7-15.5 [facility] Comment on above: Performed By: #### C ROSA BMP, 55544-1 #### [facility] ([id number]) [address] [place] [address] 64232 Lymphocytes (Bld) [#/Vol] 2.1 10*3/uL Normal 1.0-3.5 [facility] Comment on above: Performed By: #### Mechelle LEE BMP, 73992-4 #### [facility] ([id number]) [address] [address] 79198 Lymphocytes/100 WBC (Bld) 22.0 % Normal [facility] Comment on above: Performed By: #### Mechelle LEE [facility], 31185-0 #### [facility] ([id number]) [address] [place] [address] 19669 MCH (RBC) [Entitic mass] 31.6 pg Normal 27-34 [facility] Comment on above: Performed By: #### Mechelle LEE, BMP, 87585-4 #### [facility] ([id number]) [address] [place] [address] 33743 MCHC (RBC) [Mass/Vol] 33.6 g/dL Normal 32-36 [facility] Comment on above: Performed By: #### Mechelle LEE, BMP, 96205-6 #### [facility] ([id number]) [address] [address] 74479 MCV (RBC) [Entitic vol] 94 fL Normal 80-100 [facility] Comment on above: Performed By: #### Mechelle LEE, BMP, 90714-1 #### [facility] ([id number]) [address] [place] [address] 12297 Monocytes (Bld) [#/Vol] 0.6 10*3/uL Normal 0-0.9 [facility] Comment on above: Performed By: #### JAMAL Min BCA, 86579-9 #### [facility] ([id number]) [address] [address] 80375 Monocytes/100 WBC (Bld) 6.2 % Normal [facility] Comment on above: Performed By: #### JAMAL Min BCA, 10545-1 #### [facility] ([id number]) [address] [address] 50867 Neutrophils/100 WBC (Bld) 60.9 % Normal [facility] Comment on above: Performed By: #### JAMAL Min BCA, 06566-0 #### [facility] ([id number]) [address] [place] [address] 08880 Platelet mean volume (Bld) [Entitic vol] 9.1 fL Normal 7-12 [facility] Comment on above: Performed By: #### Mechelle LEE [facility], 73784-9 #### [facility] ([id number]) [address] [place] [address] 75696 Platelets (Bld) [#/Vol] 256 10*3/uL Normal 150-450 [facility] Comment on above: Performed By: #### JAMAL Min BCA, 44564-5 #### [facility] ([id number]) [address] [place] [address] 80838 RBC COUNT 3.34 X10E12/L Low 3.80-5.20 [facility] Comment on above: Performed By: #### JAMAL Min BCA, 99598-7 #### [facility] ([id number]) [address] [place] [address] 06795 WBC (Bld) [#/Vol] 9.5 10*3/uL Normal 4.0-11.0 [facility] Comment on above: Performed By: #### C JAMAL LEE, 43344-4 #### [facility] ([id number]) [address] [place] [address] 81458 COMPREHENSIVE METABOLIC PANE Cliff 11-24-2023 Albumin [Mass/Vol] 2.1 g/dL Low 3.2-5.3 [facility] Comment on above: Performed By: #### C ROSA BMP, 70312-3 #### [facility] ([id number]) [address] [place] [address] 05726 ALP [Catalytic activity/Vol] 106 U/L Normal 39-130 [facility] Comment on above: Performed By: #### C JAMAL LEE, 38758-8 #### [facility] ([id number]) [address] [place] [address] 94473 ALT [Catalytic activity/Vol] 25 U/L Normal 0-31 [facility] Comment on above: Performed By: #### C JAMAL LEE, 78066-0 #### [facility] ([id number]) [address] [place] [address] 80664 Anion gap [Moles/Vol] 3 mmol/L Low 5-15 [facility] Comment on above: Performed By: #### C JAMAL LEE, 64758-1 #### [facility] ([id number]) [address] [place] [address] 87543 AST [Catalytic activity/Vol] 21 U/L Normal 0-41 [facility] Comment on above: Performed By: #### C ROSA BMP, 52669-3 #### [facility] ([id number]) [address] [place] [address] 88210 Bilirubin [Mass/Vol] 0.4 mg/dL Normal 0.3-1.2 [facility] Comment on above: Performed By: #### C JAMAL LEE, 65660-3 #### [facility] ([id number]) [address] [place] [address] 79156 Calcium [Mass/Vol] 9.1 mg/dL Normal 8.5-10.5 [facility] Comment on above: Performed By: #### C JAMAL LEE, 91587-6 #### [facility] ([id number]) [address] [place] [address] 05923 Chloride [Moles/Vol] 110 mmol/L High 98-109 [facility] Comment on above: Performed By: #### C ROSA BMP, 58898-2 #### [facility] ([id number]) [address] [place] [address] 93038 CO2 [Moles/Vol] 24 mmol/L Normal 22-32 [facility] Comment on above: Performed By: #### C ROSA [facility], 41101-0 #### [facility] ([id number]) [address] [place] [address] 06679 Creatinine [Mass/Vol] 0.49 mg/dL Normal 0.40-1.00 [facility] Comment on above: Result Comment: METH OD TRACEABLE TO IDMS STANDARD Performed By: #### C JAMAL LEE, 22317-8 #### [facility] ([id number]) [address] [place] [address] 09466 eGFR (CKD-EPI) NON-RACE DEPENDENT >90 Normal >59 [facility] Comment on above: Result Comment: Reported eGFR is based on the CKD-EPI 2020 equation that does not use a race coefficient. Performed By: #### C ROSA, BMP, 14444-8 #### [facility] ([id number]) [address] [address] 42248 Glucose [Mass/Vol] 132 mg/dL High 65-99 [facility] Comment on above: Performed By: #### C JAMAL LEE, 07441-0 #### [facility] ([id number]) [address] [place] [address] 20790 Potassium [Moles/Vol] 4.3 mmol/L Normal 3.5-5.0 [facility] Comment on above: Performed By: #### C JAMAL LEE, 03735-7 #### [facility] ([id number]) [address] [place] [address] 62143 Protein [Mass/Vol] 5.3 g/dL Low 6.0-8.0 [facility] Comment on above: Performed By: #### C JAMAL LEE, 93127-7 #### [facility] ([id number]) [address] [place] [address] 28321 Sodium [Moles/Vol] 137 mmol/L Normal 134-146 [facility] Comment on above: Performed By: #### C ROSA [facility], 23773-7 #### [facility] ([id number]) [address] [place] [address] 66350 Urea nitrogen [Mass/Vol] 30 mg/dL High 5-27 [facility] Comment on above: Performed By: #### C JAMAL LEE, 46905-4 #### [facility] ([id number]) [address] [place] [address] 16937 MAGNESIUMon 11-24-2023 Magnesium [Mass/Vol] 1.8 mg/dL Normal 1.8-2.6 [facility] Comment on above: Performed By: #### C JAMAL LEE, 71055-8 #### [facility] ([id number]) [address] [place] [address] 88567 CBC AND AUTO DIFFon 11-23-19 ABSOLUTE BASOPHIL 0.1 X10E9/L Normal 0.0-0.2 [facility] Comment on above: Performed By: #### C ROSA, [facility], 72591-3 #### [facility] ([id number]) [address] [address] 72591 ABSOLUTE NEUTROPHIL 5.2 X10E9/L Normal 1.5-6.6 [facility] Comment on above: Performed By: #### C ROSA, [facility], 13352-9 #### [facility] ([id number]) [address] [address] 57054 Basophils/100 WBC (Bld) 0.7 % Normal [facility] Comment on above: Performed By: #### Mechelle ELE [facility], 06979-2 #### [facility] ([id number]) [address] [place] [address] 67619 Eosinophils (Bld) [#/Vol] 0.3 10*3/uL Normal 0.0-0.4 [facility] Comment on above: Performed By: #### Mechelle LEE, [facility], 14041-5 #### [facility] ([id number]) [address] [address] 89443 Eosinophils/100 WBC (Bld) 4.4 % Normal [facility] Comment on above: Performed By: #### Mechelle LEE [facility], 41628-2 #### [facility] ([id number]) [address] [address] 11292 Erythrocyte distribution width (RBC) [Ratio] 14.3 % Normal 11.5-15.0 [facility] Comment on above: Performed By: #### Mechelle LEE, [facility], 36357-5 #### [facility] ([id number]) [address] [address] 32072 Hematocrit (Bld) [Volume fraction] 29.3 % Low 35-47 [facility] Comment on above: Performed By: #### Mechelle LEE, BMP, 31182-6 #### [facility] ([id number]) [address] [place] [address] 85722 Hemoglobin (Bld) [Mass/Vol] 9.9 g/dL Low 11.7-15.5 [facility] Comment on above: Performed By: #### JAMAL Min BCA, 24957-5 #### [facility] ([id number]) [address] [place] [address] 24987 Lymphocytes (Bld) [#/Vol] 1.6 10*3/uL Normal 1.0-3.5 [facility] Comment on above: Performed By: #### JAMAL Min BCA, 25218-2 #### [facility] ([id number]) [address] [place] [address] 90503 Lymphocytes/100 WBC (Bld) 21.5 % Normal [facility] Comment on above: Performed By: #### Mechelle LEE [facility], 55058-2 #### [facility] ([id number]) [address] [place] [address] 95613 MCH (RBC) [Entitic mass] 31.8 pg Normal 27-34 [facility] Comment on above: Performed By: #### Mechelle LEE [facility], 95508-6 #### [facility] ([id number]) [address] [place] [address] 74066 MCHC (RBC) [Mass/Vol] 33.7 g/dL Normal 32-36 [facility] Comment on above: Performed By: #### Mechelle LEE [facility], 21994-3 #### [facility] ([id number]) [address] [address] 29057 MCV (RBC) [Entitic vol] 94 fL Normal 80-100 [facility] Comment on above: Performed By: #### Mechelle LEE BMP, 19168-0 #### [facility] ([id number]) [address] [place] [address] 03197 Monocytes (Bld) [#/Vol] 0.5 10*3/uL Normal 0-0.9 [facility] Comment on above: Performed By: #### JAMAL Min BCA, 71721-8 #### [facility] ([id number]) [address] [place] [address] 94873 Monocytes/100 WBC (Bld) 5.9 % Normal [facility] Comment on above: Performed By: #### Mechelle LEE [facility], 35324-4 #### [facility] ([id number]) [address] [place] [address] 21556 Neutrophils/100 WBC (Bld) 67.5 % Normal [facility] Comment on above: Performed By: #### JAMAL Min BCA, 62561-4 #### [facility] ([id number]) [address] [place] [address] 19063 Platelet mean volume (Bld) [Entitic vol] 9.0 fL Normal 7-12 [facility] Comment on above: Performed By: #### Mechelle LEE [facility], 94361-8 #### [facility] ([id number]) [address] [place] [address] 69536 Platelets (Bld) [#/Vol] 220 10*3/uL Normal 150-450 [facility] Comment on above: Performed By: #### JAMAL Min BCA, 94744-5 #### [facility] ([id number]) [address] [place] [address] 83525 RBC COUNT 3.11 X10E12/L Low 3.80-5.20 [facility] Comment on above: Performed By: #### JAMAL Min BCA, 45554-8 #### [facility] ([id number]) [address] [place] [address] 09957 WBC (Bld) [#/Vol] 7.6 10*3/uL Normal 4.0-11.0 [facility] Comment on above: Performed By: #### C ROSA BMP, 47854-7 #### [facility] ([id number]) [address] [place] [address] 00794 COMPREHENSIVE METABOLIC PANE Cliff 11-23-2023 Albumin [Mass/Vol] 2.2 g/dL Low 3.2-5.3 [facility] Comment on above: Performed By: #### C ROSA BMP, 26347-1 #### [facility] ([id number]) [address] [place] [address] 90781 ALP [Catalytic activity/Vol] 109 U/L Normal 39-130 [facility] Comment on above: Performed By: #### C ROSA BMP, 00626-2 #### [facility] ([id number]) [address] [place] [address] 79351 ALT [Catalytic activity/Vol] 29 U/L Normal 0-31 [facility] Comment on above: Performed By: #### C ROSA, BMP, 08508-2 #### [facility] ([id number]) [address] [place] [address] 73267 Anion gap [Moles/Vol] 6 mmol/L Normal 5-15 [facility] Comment on above: Performed By: #### C ROSA BMP, 63428-1 #### [facility] ([id number]) [address] [place] [address] 08016 AST [Catalytic activity/Vol] 21 U/L Normal 0-41 [facility] Comment on above: Performed By: #### C BCA, BMP, 04644-0 #### [facility] ([id number]) [address] [place] [address] 75593 Bilirubin [Mass/Vol] 0.4 mg/dL Normal 0.3-1.2 [facility] Comment on above: Performed By: #### C BCA BMP, 43827-9 #### [facility] ([id number]) [address] [place] [address] 07690 Calcium [Mass/Vol] 9.1 mg/dL Normal 8.5-10.5 [facility] Comment on above: Performed By: #### C BCA, BMP, 05600-5 #### [facility] ([id number]) [address] [place] [address] 24095 Chloride [Moles/Vol] 111 mmol/L High 98-109 [facility] Comment on above: Performed By: #### C BCA, BMP, 66787-7 #### [facility] ([id number]) [address] [place] [address] 89242 CO2 [Moles/Vol] 22 mmol/L Normal 22-32 [facility] Comment on above: Performed By: #### C BCA, BMP, 30854-5 #### [facility] ([id number]) [address] [place] [address] 58543 Creatinine [Mass/Vol] 0.55 mg/dL Normal 0.40-1.00 [facility] Comment on above: Result Comment: METH OD TRACEABLE TO IDMS STANDARD Performed By: #### C ROSA, BMP, 48549-2 #### [facility] ([id number]) [address] [place] [address] 63121 eGFR (CKD-EPI) NON-RACE DEPENDENT >90 Normal >59 [facility] Comment on above: Result Comment: Reported eGFR is based on the CKD-EPI 2020 equation that does not use a race coefficient. Performed By: #### C BCA, BMP, 33339-7 #### [facility] ([id number]) [address] [place] [address] 61193 Glucose [Mass/Vol] 160 mg/dL High 65-99 [facility] Comment on above: Performed By: #### C BCA, BMP, 44797-6 #### [facility] ([id number]) [address] [place] [address] 48730 Potassium [Moles/Vol] 3.3 mmol/L Low 3.5-5.0 [facility] Comment on above: Performed By: #### C JAMAL LEE, 77247-3 #### [facility] ([id number]) [address] [place] [address] 22425 Protein [Mass/Vol] 5.4 g/dL Low 6.0-8.0 [facility] Comment on above: Performed By: #### C JAMAL LEE, 57654-2 #### [facility] ([id number]) [address] [place] [address] 13586 Sodium [Moles/Vol] 139 mmol/L Normal 134-146 [facility] Comment on above: Performed By: #### C JAMAL LEE, 93404-5 #### [facility] ([id number]) [address] [place] [address] 22158 Urea nitrogen [Mass/Vol] 44 mg/dL High 5-27 [facility] Comment on above: Performed By: #### C JAMAL LEE, 69994-8 #### [facility] ([id number]) [address] [place] [address] 07225 MAGNESIUMon 11-23-2023 Magnesium [Mass/Vol] 1.9 mg/dL Normal 1.8-2.6 [facility] Comment on above: Performed By: #### C JAMAL LEE, 81561-5 #### [facility] ([id number]) [address] [place] [address] 24754 CBC AND AUTO DIFFon 11-22-19 ABSOLUTE BASOPHIL 0.0 X10E9/L Normal 0.0-0.2 [facility] Comment on above: Performed By: #### C JAMAL LEE, 22044-9 #### [facility] ([id number]) [address] [place] [address] 71496 ABSOLUTE NEUTROPHIL 5.7 X10E9/L Normal 1.5-6.6 [facility] Comment on above: Performed By: #### C ROSA, [facility], 49562-2 #### [facility] ([id number]) [address] [place] [address] 74789 Basophils/100 WBC (Bld) 0.2 % Normal [facility] Comment on above: Performed By: #### C ROSA, [facility], 84439-8 #### [facility] ([id number]) [address] [place] [address] 71903 Eosinophils (Bld) [#/Vol] 0.3 10*3/uL Normal 0.0-0.4 [facility] Comment on above: Performed By: #### C ROSA, [facility], 32546-2 #### [facility] ([id number]) [address] [place] [address] 92825 Eosinophils/100 WBC (Bld) 3.2 % Normal [facility] Comment on above: Performed By: #### C ROSA, [facility], 50976-8 #### [facility] ([id number]) [address] [place] [address] 12700 Erythrocyte distribution width (RBC) [Ratio] 14.5 % Normal 11.5-15.0 [facility] Comment on above: Performed By: #### C ROSA, [facility], 54970-6 #### [facility] ([id number]) [address] [place] [address] 97589 Hematocrit (Bld) [Volume fraction] 33.7 % Low 35-47 [facility] Comment on above: Performed By: #### C ROSA, BMP, 06356-4 #### [facility] ([id number]) [address] [place] [address] 25603 Hemoglobin (Bld) [Mass/Vol] 11.0 g/dL Low 11.7-15.5 [facility] Comment on above: Performed By: #### Mechelle LEE [facility], 25867-4 #### [facility] ([id number]) [address] [place] [address] 99457 Lymphocytes (Bld) [#/Vol] 3.5 10*3/uL Normal 1.0-3.5 [facility] Comment on above: Performed By: #### Mechelle LEE [facility], 25431-8 #### [facility] ([id number]) [address] [place] [address] 68935 Lymphocytes/100 WBC (Bld) 33.8 % Normal [facility] Comment on above: Performed By: #### Mechelle LEE [facility], 28634-9 #### [facility] ([id number]) [address] [place] [address] 40425 MCH (RBC) [Entitic mass] 30.8 pg Normal 27-34 [facility] Comment on above: Performed By: #### Mechelle LEE [facility], 09538-5 #### [facility] ([id number]) [address] [place] [address] 33772 MCHC (RBC) [Mass/Vol] 32.6 g/dL Normal 32-36 [facility] Comment on above: Performed By: #### Mechelle LEE [facility], 02324-3 #### [facility] ([id number]) [address] [place] [address] 49402 MCV (RBC) [Entitic vol] 95 fL Normal 80-100 [facility] Comment on above: Performed By: #### JAMAL Min BCA, 45180-0 #### [facility] ([id number]) [address] [place] [address] 53536 Monocytes (Bld) [#/Vol] 0.8 10*3/uL Normal 0-0.9 [facility] Comment on above: Performed By: #### JAMAL Min BCA, 49467-4 #### [facility] ([id number]) [address] [place] [address] 97173 Monocytes/100 WBC (Bld) 7.4 % Normal [facility] Comment on above: Performed By: #### JAMAL Min BCA, 69340-7 #### [facility] ([id number]) [address] [place] [address] 78269 Neutrophils/100 WBC (Bld) 55.4 % Normal [facility] Comment on above: Performed By: #### JAMAL Min BCA, 16847-4 #### [facility] ([id number]) [address] [place] [address] 02700 Platelet mean volume (Bld) [Entitic vol] 9.1 fL Normal 7-12 [facility] Comment on above: Performed By: #### JAMAL Min BCA, 30999-2 #### [facility] ([id number]) [address] [place] [address] 44165 Platelets (Bld) [#/Vol] 241 10*3/uL Normal 150-450 [facility] Comment on above: Performed By: #### JAMAL Min BCA, 59809-9 #### [facility] ([id number]) [address] [place] [address] 85596 RBC COUNT 3.56 X10E12/L Low 3.80-5.20 [facility] Comment on above: Performed By: #### JAMAL Min BCA, 64347-8 #### [facility] ([id number]) [address] [place] [address] 50234 WBC (Bld) [#/Vol] 10.2 10*3/uL Normal 4.0-11.0 [facility] Comment on above: Performed By: #### C BCA, BMP, 62831-5 #### [facility] ([id number]) [address] [place] [address] 52523 COMPREHENSIVE METABOLIC PANE [place] 11-22-2023 Albumin [Mass/Vol] 2.5 g/dL Low 3.2-5.3 [facility] Comment on above: Performed By: #### C BCA, BMP, 16316-6 #### [facility] ([id number]) [address] [place] [address] 39577 ALP [Catalytic activity/Vol] 120 U/L Normal 39-130 [facility] Comment on above: Performed By: #### C BCA, BMP, 12422-4 #### [facility] ([id number]) [address] [place] [address] 17683 ALT [Catalytic activity/Vol] 30 U/L Normal 0-31 [facility] Comment on above: Performed By: #### C BCA, BMP, 71377-0 #### [facility] ([id number]) [address] [place] [address] 26370 Anion gap [Moles/Vol] 9 mmol/L Normal 5-15 [facility] Comment on above: Performed By: #### C BCA, BMP, 56543-6 #### [facility] ([id number]) [address] [place] [address] 29377 AST [Catalytic activity/Vol] 24 U/L Normal 0-41 [facility] Comment on above: Performed By: #### C BCA, BMP, 05255-3 #### [facility] ([id number]) [address] [place] [address] 95705 Bilirubin [Mass/Vol] 0.6 mg/dL Normal 0.3-1.2 [facility] Comment on above: Performed By: #### C BCA, BMP, 92352-3 #### [facility] ([id number]) [address] [place] [address] 31915 Calcium [Mass/Vol] 9.6 mg/dL Normal 8.5-10.5 [facility] Comment on above: Performed By: #### C BCA, BMP, 30464-5 #### [facility] ([id number]) [address] [place] [address] 66106 Chloride [Moles/Vol] 107 mmol/L Normal 98-109 [facility] Comment on above: Performed By: #### C BCA, BMP, 06995-5 #### [facility] ([id number]) [address] [place] [address] 90534 CO2 [Moles/Vol] 23 mmol/L Normal 22-32 [facility] Comment on above: Performed By: #### C BCA, BMP, 30721-4 #### [facility] ([id number]) [address] [place] [address] 86513 Creatinine [Mass/Vol] 0.78 mg/dL Normal 0.40-1.00 [facility] Comment on above: Result Comment: METH OD TRACEABLE TO IDMS STANDARD Performed By: #### C BCA, BMP, 68576-2 #### [facility] ([id number]) [address] [place] [address] 65559 GFR/1.73 sq M.predicted among non-blacks MDRD (S/P/Bld) [Vol rate/Area] 75 mL/min/{1.73_m2} Normal >59 [facility] Comment on above: Result Comment: Reported eGFR is based on the CKD-EPI 2020 equation that does not use a race coefficient. Performed By: #### C BCA, BMP, 84476-8 #### [facility] ([id number]) [address] [place] [address] 97825 Glucose [Mass/Vol] 125 mg/dL High 65-99 [facility] Comment on above: Performed By: #### C JAMAL LEE, 28594-4 #### [facility] ([id number]) [address] [place] [place] [address] 55531 Potassium [Moles/Vol] 3.8 mmol/L Normal 3.5-5.0 [facility] Comment on above: Performed By: #### JAMAL Min BCA, 46532-4 #### [facility] ([id number]) [address] [place] [address] 07918 Protein [Mass/Vol] 6.0 g/dL Normal 6.0-8.0 [facility] Comment on above: Performed By: #### JAMAL Min BCA, 30308-9 #### [facility] ([id number]) [address] [place] [address] 25929 Sodium [Moles/Vol] 139 mmol/L Normal 134-146 [facility] Comment on above: Performed By: #### JAMAL Min BCA, 05694-2 #### [facility] ([id number]) [address] [place] [address] 54908 Urea nitrogen [Mass/Vol] 50 mg/dL High 5-27 [facility] Comment on above: Performed By: #### JAMAL Min BCA, 95087-7 #### [facility] ([id number]) [address] [place] [address] 92674 Lactate (P lilian) [Moles/Vol]o n 11-22-2023 LACTATE W/REFLEX 1.1 mmol/L Normal 0.4-2.0 [facility] Comment on above: Result Comment: Result did not trigger repeat Lactate, re-order if needed. Performed By: #### C ROSA BMP, 11458-3 #### [facility] ([id number]) [address] [place] [address] 97532 MAGNESIUMon 11-22-2023 Magnesium [Mass/Vol] 2.1 mg/dL Normal 1.8-2.6 [facility] Comment on above: Performed By: #### C JAMAL LEE, 55986-2 #### [facility] ([id number]) [address] [place] [address] 18357 BASIC METABOLIC PANLon 11-20 Anion gap [Moles/Vol] 8 mmol/L Normal 5-15 [facility] Comment on above: Performed By: #### C JAMAL LEE, 00381-0 #### [facility] ([id number]) [address] [place] [address] 65769 Calcium [Mass/Vol] 9.5 mg/dL Normal 8.5-10.5 [facility] Comment on above: Performed By: #### JAMAL Min BCA, 59271-8 #### [facility] ([id number]) [address] [place] [address] 04100 Chloride [Moles/Vol] 102 mmol/L Normal 98-109 [facility] Comment on above: Performed By: #### JAMAL Min BCA, 76236-1 #### [facility] ([id number]) [address] [place] [address] 95946 CO2 [Moles/Vol] 22 mmol/L Normal 22-32 [facility] Comment on above: Performed By: #### JAMAL Min BCA, 31656-9 #### [facility] ([id number]) [address] [place] [address] 96920 Creatinine [Mass/Vol] 1.03 mg/dL High 0.40-1.00 [facility] Comment on above: Result Comment: METH OD TRACEABLE TO IDMS STANDARD Performed By: #### C JAMAL LEE, 98643-0 #### [facility] ([id number]) [address] [place] [address] 30907 GFR/1.73 sq M.predicted among non-blacks MDRD (S/P/Bld) [Vol rate/Area] 54 mL/min/{1.73_m2} Low >59 [facility] Comment on above: Result Comment: Reported eGFR is based on the CKD-EPI 2020 equation that does not use a race coefficient. Performed By: #### C ROSA [facility], 18876-5 #### [facility] ([id number]) [address] [place] [address] 09095 Glucose [Mass/Vol] 104 mg/dL High 65-99 [facility] Comment on above: Performed By: #### C ROSA [facility], 00207-6 #### [facility] ([id number]) [address] [place] [address] 34387 Potassium [Moles/Vol] 4.0 mmol/L Normal 3.5-5.0 [facility] Comment on above: Performed By: #### C ROSA [facility], 43142-8 #### [facility] ([id number]) [address] [place] [address] 47267 Sodium [Moles/Vol] 132 mmol/L Low 134-146 [facility] Comment on above: Performed By: #### C ROSA [facility], 49560-8 #### [facility] ([id number]) [address] [place] [address] 19900 Urea nitrogen [Mass/Vol] 72 mg/dL High 5-27 [facility] Comment on above: Performed By: #### C ROSA [facility], 53339-8 #### [facility] ([id number]) [address] [place] [address] 17766 BLOOD CULTUREon 11-21-2023 Bacteria identified Aer cx Nom (Bld) SPECIMEN NOTES r hand CULTURE RESULTS NO GROWTH 5 DAYS Normal [facility] Comment on above: Performed By: #### 1 7928-3 #### [facility] ([id number]) [address] [place] [address] 10903 Bacteria identified Aer cx Nom (Bld) SPECIMEN NOTES l hand CULTURE RESULTS NO GROWTH 5 DAYS Normal [facility] Comment on above: Performed By: #### Mechelle LEE [facility], 55748-9 #### [facility] ([id number]) [address] [place] [address] 29988 CBC AND AUTO DIFFon 11-21-19 24 Band form neutrophils/100 WBC (Bld) 1.0 % Normal [facility] Comment on above: Performed By: #### Mechelle LEE [facility], 68935-7 #### [facility] ([id number]) [address] [place] [address] 73050 Eosinophils (Bld) [#/Vol] 0.8 10*3/uL High 0.0-0.4 [facility] Comment on above: Performed By: #### Mechelle LEE [facility], 76790-2 #### [facility] ([id number]) [address] [place] [address] 77968 Eosinophils/100 WBC (Bld) 6.0 % Normal [facility] Comment on above: Performed By: #### Mechelle LEE [facility], 68463-9 #### [facility] ([id number]) [address] [place] [address] 87486 Erythrocyte distribution width (RBC) [Ratio] 14.5 % Normal 11.5-15.0 [facility] Comment on above: Performed By: #### Mechelle LEE [facility], 85398-2 #### [facility] ([id number]) [address] [place] [address] 79953 Hematocrit (Bld) [Volume fraction] 34.2 % Low 35-47 [facility] Comment on above: Performed By: #### Mechelle LEE [facility], 76854-2 #### [facility] ([id number]) [address] [place] [address] 97176 Hemoglobin (Bld) [Mass/Vol] 11.6 g/dL Low 11.7-15.5 [facility] Comment on above: Performed By: #### JAMAL Min BCA, 12077-0 #### [facility] ([id number]) [address] [place] [address] 97949 LYMPHOCYTE, ATYPICAL 11.0 % Normal [facility] Comment on above: Performed By: #### JAMAL Min BCA, 01918-5 #### [facility] ([id number]) [address] [place] [address] 29161 Lymphocytes (Bld) [#/Vol] 3.4 10*3/uL Normal 1.0-3.5 [facility] Comment on above: Performed By: #### JAMAL Min BCA, 07510-1 #### [facility] ([id number]) [address] [place] [address] 98637 Lymphocytes/100 WBC (Bld) 14.0 % Normal [facility] Comment on above: Performed By: #### JAMAL Min BCA, 83900-1 #### [facility] ([id number]) [address] [place] [address] 73907 MCH (RBC) [Entitic mass] 31.2 pg Normal 27-34 [facility] Comment on above: Performed By: #### JAMAL Min BCA, 25411-9 #### [facility] ([id number]) [address] [place] [address] [place] [address] MCHC (RBC) [Mass/Vol] 34.0 g/dL Normal 32-36 [facility] Comment on above: Performed By: #### JAMAL Min BCA, 21884-7 #### [facility] ([id number]) [address] [place] [address] 33275 MCV (RBC) [Entitic vol] 92 fL Normal 80-100 [facility] Comment on above: Performed By: #### C JAMAL LEE, 86877-8 #### [facility] ([id number]) [address] [place] [address] 98725 Monocytes (Bld) [#/Vol] 0.4 10*3/uL Normal 0-0.9 [facility] Comment on above: Performed By: #### Mechelle LEE [facility], 53830-3 #### [facility] ([id number]) [address] [place] [address] 47130 Monocytes/100 WBC (Bld) 3.0 % Normal [facility] Comment on above: Performed By: #### Mechelle LEE [facility], 72891-1 #### [facility] ([id number]) [address] [place] [address] 42005 Neutrophils (Bld) [#/Vol] 8.9 10*3/uL High 1.5-6.6 [facility] Comment on above: Performed By: #### Mechelle LEE [facility], 60000-1 #### [facility] ([id number]) [address] [place] [address] 88146 Platelet mean volume (Bld) [Entitic vol] 8.1 fL Normal 7-12 [facility] Comment on above: Performed By: #### JAMAL Min BCA, 00197-4 #### [facility] ([id number]) [address] [place] [address] 23604 Platelets (Bld) [#/Vol] 336 10*3/uL Normal 150-450 [facility] Comment on above: Performed By: #### JAMAL Min BCA, 59167-3 #### [facility] ([id number]) [address] [place] [address] 81639 RBC COUNT 3.73 X10E12/L Low 3.80-5.20 [facility] Comment on above: Performed By: #### Mechelle LEE BMP, 02127-9 #### [facility] ([id number]) [address] [place] [address] SEG NEUTROPHIL 65.0 % Normal [facility] Comment on above: Performed By: #### C ROSA [facility], 99847-0 #### [facility] ([id number]) [address] [place] [address] 84708 STOMATOCYTE 1+ Abnormal NONE [facility] Comment on above: Performed By: #### C ROSA, [facility], 45660-2 #### [facility] ([id number]) [address] [place] [address] 18403 WBC (Bld) [#/Vol] 13.5 10*3/uL High 4.0-11.0 [facility] Comment on above: Performed By: #### C ROSA [facility], 50353-9 #### [facility] ([id number]) [address] [place] [address] ABDOMEN AND PELVIS WO CON Ton [...] Potter MD on 11/21/2023 10:24 AM Normal [facility] CT CHEST WO CONTon CT CHEST [...] Dozier MD on 11/21/2023 10:20 AM Normal [facility] Lactate (P lilian) [Moles/Vol]o n 11-21-2023 LACTATE W/REFLEX 1.5 mmol/L Normal 0.4-2.0 [facility] Comment on above: Result Comment: Result did not trigger repeat Lactate, re-order if needed. Performed By: #### 3 2133-1 #### [facility] ([id number]) [address] [place] [address] 44137 Procalcitonin IA [Mass/Vol]o n 11-21-2023 PROCALCITONIN 0.29 ng/mL High <0.05 [facility] Comment on above: Result Comment: NOTE <0.50 ng/mL - Low risk of severe sepsis and/or septic shock. <2.00 ng/mL - Recommend retesting within 6-24 hours. >2.00 ng/mL - High risk of sepsis and/or septic shock. Performed By: #### C ROSA, [facility], 33181-6 #### [facility] ([id number]) [address] [place] [address] 49534 SARS/FLU A+B/RSV by NAAT/Mol ecularon 11-21-2023 SARS/FLU [...] operators who are performing tests using either GeneXpert DX or GeneXpert Solutionary systems and is limited to laboratories that [...] repeat. Fact Sheet for Healthcare Providers: https://www.fda.gov/media/ 833541/download Fact Sheet for Patients: https://www.fda.gov/media/ 854284/download Normal [facility] Comment on above: Performed By: #### C OVFLR #### [facility] ([id number]) [address] [place] [address], [place] [address] URINE CULTUREon 11-21-2023 Bacteria identified Cx Nom [...] 64 F VANCOMYCIN S <=0.5 F Susceptible [facility] Comment on above: Performed By: #### C ROSA, [facility], 90926-9 #### [facility] ([id number]) [address] [place] [address] 48060 URN MACROSCOPIC NURon 2023 BILIRUBIN PEARL Negative Normal NEG [facility] Comment on above: Performed By: #### N UM #### [facility] ([id number]) [address] [place] [address] 56913 BLOOD/HGB PEARL Negative Normal NEG [facility] Comment on above: Performed By: #### N UM #### [facility] ([id number]) [address] [place] [address] 27942 GLUCOSE PEARL Negative Normal NEG [facility] Comment on above: Performed By: #### N UM #### [facility] ([id number]) [address] [place] [address] [place] [address] KETONES PEARL Negative Normal NEG [facility] Comment on above: Performed By: #### N UM #### [facility] ([id number]) [address] [place] [address] 02749 LEUKOCYTE ESTERASE PEARL Small Abnormal NEG [facility] Comment on above: Performed By: #### N UM #### [facility] ([id number]) [address] [place] [address] [place] [address] NITRITE PEARL Negative Normal NEG [facility] Comment on above: Performed By: #### N UM #### [facility] ([id number]) [address] [place] [address] 39077 PH PEARL 7.0 Normal 5.0-8.5 [facility] Comment on above: Performed By: #### N UM #### [facility] ([id number]) [address] [place] [address] 25519 PROTEIN PEARL Negative Normal NEG [facility] Comment on above: Performed By: #### N UM #### [facility] ([id number]) [address] [facility] [place] [address] SPECIFIC GRAVITY PEARL 1.015 Normal 1.003-1.035 [facility] Comment on above: Performed By: #### N UM #### [facility] ([id number]) [address] [facility], [place] [address] UROBILINOGEN PEARL 0.2 eu/dL Normal <1.1 [facility] Comment on above: Performed By: #### N UM #### [facility] ([id number]) [address] [place] [address] 33756 XR CHEST 1 VWon 11-21-2023 XR CHEST [...] Alexander MD on 11/21/2023 9:01 AM Normal [facility] Vital Signs Date Time Vital Sign Value Performing Clinician Facility 01-10-2024 01:08-0400 Diastolic blood pressure 69 mm[Hg] MD Tori Gaona Work Phone: [facility] 01-10-2024 01:08-0400 Heart rate 78 /min MD Tori Gaona Work Phone: [facility] 01-10-2024 01:08-0400 Inhaled oxygen flow rate 4 L/min MD Tori Gaona Work Phone: [facility] 01-10-2024 01:08-0400 Respiratory rate 20 /min MD Tori Gaona Work Phone: [facility] 01-10-2024 01:08-0400 SaO2% (BldA) [Mass fraction] 99 % MD Tori Gaona Work Phone: [facility] 01-10-2024 01:08-0400 Systolic blood pressure 153 mm[Hg] MD Tori Gaona Work Phone: [facility] 01-09-2024 19:29-0400 Body height 154.94 cm MD Tori Gaona Work Phone: [facility] 01-09-2024 19:29-0400 Body weight 36.28 kg MD Tori Gaona Work Phone: [facility] 01-09-2024 19:19-0400 Body temperature 97.6 [degF] MD Tori Gaona Work Phone: [facility] 01-08-2024 16:00-0400 Body temperature 98.2 [degF] MD Tori Gaona Work Phone: [facility] 01-08-2024 16:00-0400 Diastolic blood pressure 50 mm[Hg] MD Tori Gaona Work Phone: [facility] 01-08-2024 16:00-0400 Heart rate 74 /min MD Tori Gaona Work Phone: [facility] 01-08-2024 16:00-0400 Inhaled oxygen concentration 28 % MD Tori Gaona Work Phone: [facility] 01-08-2024 16:00-0400 Inhaled oxygen flow rate 6 L/min MD Tori Gaona Work Phone: [facility] 01-08-2024 16:00-0400 Respiratory rate 20 /min MD Tori Gaona Work Phone: [facility] 01-08-2024 16:00-0400 SaO2% (BldA) [Mass fraction] 98 % MD Tori Gaona Work Phone: [facility] 01-08-2024 16:00-0400 Systolic blood pressure 135 mm[Hg] MD Tori Gaona Work Phone: [facility] 01-08-2024 04:13-0400 Body weight 46.1 kg MD Tori Gaona Work Phone: [facility] 01-06-2024 15:50-0400 Body height 162.56 cm MD Tori Gaona Work Phone: [facility] 01-02-2024 03:42-0400 Body height 162.56 cm MD Tori Gaona Work Phone: [facility] 01-02-2024 03:42-0400 Body temperature 98.7 [degF] MD Tori Gaona Work Phone: [facility] 01-02-2024 03:42-0400 Body weight 39.4 kg MD Tori Gaona Work Phone: [facility] 01-02-2024 03:42-0400 Diastolic blood pressure 49 mm[Hg] MD Tori Gaona Work Phone: [facility] 01-02-2024 03:42-0400 Heart rate 95 /min MD Tori Gaona Work Phone: [facility] 01-02-2024 03:42-0400 Respiratory rate 20 /min MD Tori Gaona Work Phone: [facility] 01-02-2024 03:42-0400 SaO2% (BldA) [Mass fraction] 98 % MD Tori Gaona Work Phone: [facility] 01-02-2024 03:42-0400 Systolic blood pressure 138 mm[Hg] MD Tori Gaona Work Phone: [facility] 01-02-2024 02:41-0400 Inhaled oxygen flow rate 4 L/min MD Tori Gaona Work Phone: [facility] 12-17-2023 19:00-0400 Body temperature 96.9 [degF] MD Tori Gaona Work Phone: [facility] 12-17-2023 19:00-0400 Diastolic blood pressure 72 mm[Hg] MD Tori Gaona Work Phone: [facility] 12-17-2023 19:00-0400 Heart rate 62 /min MD Tori Gaona Work Phone: [facility] 12-17-2023 19:00-0400 Inhaled oxygen flow rate 6 L/min MD Tori Gaona Work Phone: [facility] 12-17-2023 19:00-0400 Respiratory rate 21 /min MD Tori Gaona Work Phone: [facility] 12-17-2023 19:00-0400 SaO2% (BldA) [Mass fraction] 98 % MD Tori Gaona Work Phone: [facility] 12-17-2023 19:00-0400 Systolic blood pressure 160 mm[Hg] MD Tori Gaona Work Phone: [facility] 12-17-2023 17:05-0400 Inhaled oxygen concentration 28 % MD Tori Gaona Work Phone: [facility] 12-17-2023 06:00-0400 Body weight 40.7 kg MD Tori Gaona Work Phone: [facility] 12-12-2023 13:34-0400 Body height 162.56 cm MD Tori Gaona Work Phone: [facility] 12-08-2023 20:09-0400 Body temperature 97.7 [degF] MD Tori Gaona Work Phone: [facility] 12-08-2023 20:09-0400 Diastolic blood pressure 62 mm[Hg] MD Tori Gaona Work Phone: [facility] 12-08-2023 20:09-0400 Heart rate 49 /min MD Tori Gaona Work Phone: [facility] 12-08-2023 20:09-0400 Inhaled oxygen concentration 40 % MD Tori Gaona Work Phone: [facility] 12-08-2023 20:09-0400 Respiratory rate 17 /min MD Tori Gaona Work Phone: [facility] 12-08-2023 20:09-0400 SaO2% (BldA) [Mass fraction] 99 % MD Tori Gaona Work Phone: [facility] 12-08-2023 20:09-0400 Systolic blood pressure 131 mm[Hg] MD Tori Gaona Work Phone: [facility] 12-08-2023 15:27-0400 Body height 154.94 cm MD Tori Gaona Work Phone: [facility] 12-08-2023 15:27-0400 Body weight 47.6 kg MD Tori Gaona Work Phone: [facility] Encounters Encounter Date Encounter Type Care Provider Facility Start: 01-09-2024 End: 01-10-2024 Emergency department patient visit Zoya Bell Facility:[facility] Start: 01-09-2024 End: 01-10-2024 Emergency department patient visit MD Tori Gaona Work Phone: [facility] Work Phone: Start: 01-02-2024 Non-patient / Non-visit MD Chris Gaona Work Phone: [facility] Work Phone: Start: 01-02-2024 End: 01-08-2024 Evaluation and management of inpatient Ryan Kearns Facility:[facility] Start: 01-02-2024 End: 01-08-2024 Evaluation and management of inpatient MD Tori Gaona Work Phone: [facility] Work Phone: Start: 01-02-2024 observation encounter MD Tori Gaona Work Phone: [facility] Work Phone: Start: 12-16-2023 End: 12-17-2023 Non-patient / Non-visit MD Tori Gaona Work Phone: [facility] Work Phone: Start: 12-15-2023 End: 12-17-2023 Non-patient / Non-visit MD Tori Gaona Work Phone: [facility] Work Phone: Start: 12-09-2023 End: 12-09-2023 ambulatory [facility] Start: 12-09-2023 End: 12-17-2023 Non-patient / Non-visit MD Tori Gaona Work Phone: [facility] Work Phone: Start: 12-08-2023 End: 12-17-2023 Evaluation and management of inpatient [facility] Facility:[facility] Start: 12-08-2023 End: 12-17-2023 Non-patient / Non-visit MD Tori Gaona Work Phone: [facility] Work Phone: Start: 12-08-2023 End: 12-17-2023 Evaluation and management of inpatient MD Tori Gaona Work Phone: [facility] Work Phone: Start: 12-07-2023 End: 12-08-2023 Emergency department patient visit TEENA Silvia CHARLENE [facility] Start: 11-27-2023 End: 11-27-2023 ambulatory PENELOPE KOHLER [facility] Start: 11-21-2023 End: 11-27-2023 Emergency department patient visit [facility] Start: 11-21-2023 End: 11-26-2023 Evaluation and management of inpatient [facility] Procedures Date Procedure Procedure Detail Performing Clinician Start: 01-04-2024 Blood culture for ba cteria, including anaerobic screen MD Tori Gaona Work Phone: Start: 01-02-2024 Investigation of transfusion reaction MD Tori Gaona Work Phone: Start: 01-02-2024 Plain X-ray of left shoulder MD Tori Gaona Work Phone: Start: 01-02-2024 Plain X-ray of right humerus MD Tori Gaona Work Phone: Start: 01-02-2024 Plain X-ray of right hand MD Tori Gaona Work Phone: Start: 01-01-2024 CT of head without contrast MD Tori Gaona Work Phone: Start: 01-01-2024 Plain chest X-ray MD Rosi Gaona Work Phone: Start: 01-01-2024 Bacterial ID (NA Mul tiplex Assay) MD Tori Gaona Work Phone: Start: 01-01-2024 Blood culture for ba cteria, including anaerobic screen MD Tori Gaoan Work Phone: Start: 01-01-2024 Respiratory Panel (PCR) MD Tori Gaona Work Phone: Start: 12-12-2023 Plain chest X-ray MD Rosi [...] Treatment Date Care Activity Detail Author Start: 01-08-2024 [facility] Start: 01-07-2024 [facility] Start: 01-07-2024 [facility] Start: 01-04-2024 End: 01-05-2024 [facility] Start: 01-02-2024 Consultation [facility] Start: 01-02-2024 [facility] Start: 01-02-2024 Plain X-ray of left shoulder XR shoulder LT min 2V* [facility] [facility] Start: 01-02-2024 Plain X-ray of right humerus XR humerus RT* [facility] Start: 01-02-2024 Microbial culture of sputum [facility] Start: 01-02-2024 Plain X-ray of right hand XR hand RT min 3V* [facility] Start: 01-02-2024 Patient referral to dietitian [facility] Start: 01-02-2024 [facility] Start: 01-02-2024 Hospital admission [facility] Start: 01-01-2024 Bacteria identified in Blood by Culture Blood Culture [facility] Start: 12-17-2023 [facility] Start: 12-16-2023 End: 12-16-2023 [facility] Start: 12-09-2023 [facility] Start: 12-09-2023 Referral to Sample Worker [facility] Start: 12-08-2023 Consultation [facility] Start: 12-08-2023 Hospital admission [facility] Start: 12-08-2023 [facility] Start: 12-08-2023 Bacteria identified in Blood by Culture [facility] Start: 12-08-2023 Respiratory Ventilat ion, Greater than 96 Consecutive Hours Respiratory Ventilation, Greater than 96 Consecutive Hours [facility] Patient Education [facility] Work Phone: Patient referral [facility] Work Phone: Payers Date Payer Category Payer Self-pay 2023 Unknown [id number] 2016 Unknown [id number] 2004 Medicare [id number] 1940 Unknown [id number] 2.16.8 [id number] 1940 Unknown [id number] 2.16.8 40.1.862808.3.579.2.1286 1940 Unknown [id number] 2.16.8 [id number] 1940 Unknown [id number] 2.16.8 40.1.200919.3.579.2.1286 1940 Unknown [id number] 2.16.8 [id number] 1940 Unknown [id number] 2.16.8 40.1.157825.3.579.2.1286 1940 Unknown [id number] 2.16.8 40.1.067669.3.579.2.1286 1940 Unknown [id number] 2.16.8 40.1.592282.3.579.2.1286 Unknown [id number] 2.16.8 40.1.802789.3.579.2.531 Unknown [id number] 2.16.8 40.1.060974.3.579.2.531 Unknown [id number] 2.16.8 [id number] Social History Date Type Detail Facility Tobacco smoking stat us NHIS Unknown if ever smoked [facility] Work Phone: Start: 1940 Sex Assigned At Female F [facility] Start: 12-09-2023 End: 01-09-2024 Tobacco smoking status NHIS Unknown if ever smoked [facility] Goals Date Patient Goal Desired Activity /State Functional Status Date Assessment Result Facility 01-08-2024 Functional status Patient at Baseline [facility] Work Phone: 01-02-2024 Functional status Patient Not at Baseline [facility] Work Phone: 12-08-2023 Functional status Patient at Baseline [facility] Work Phone: Mental Status Date Assessment Result Facility 01-08-2024 Cognitive function Cognitive Sta tus Patient at Baseline [facility] Work Phone: 01-02-2024 Cognitive function Cognitive Sta tus Patient Not at Baseline [facility] Work Phone: 12-08-2023 Cognitive function Cognitive Sta tus Patient at Baseline [facility] Work Phone: Clinical Notes 12-08-2023 to 12-17-2023 Note Date & Type Note Facility 12-17-2023 Discharge summary Note Date/Time December 17, 2023 12:54pm [facility] [address] [place] [address] Discharge Summary Signed Patient: Rosalind Restrepo MR#: [id number] : 1940 Acct:[id number] Age/Sex: 83 / F Adm Date: 4 Loc: Room: [address] [place] [address]: Melani Dunne MD Copies to: [...] are negative Sputum culture Aerobic Culture Final 12/14/23-5 Organism 1 Corynebacterium striatum group Moderate Growth [...] 36 Discharge Plan Discharge Plan Patient Disposition: senior living DC Care/Resident Activity: Ambulate as Tolerated Diet: Full Liquid and Other Comment: See speech therapy recommendations on nunez hitesh Additional Instructions: long term care pharmacist care facility to manage: -PT/OT to eval [...] DAILY bisacodyl 10 mg suppository 10 mg NC DAILY PRN (Reason: constipation) buspirone 10 mg [...] <Electronically signed by Melani Dunne MD> 12/17/23 1251 [facility] Work Phone: 1(676) 771-780104-23-2024 Progress note Author Robbie Cuevas [facility] December 17, 2023 11:55am Note Date/Time December 17, 2023 8:3 9am [facility] [address] [place], [place] [address] Pulmonology Progress Note Signed Patient: Rosalind Restrepo MR#: [id number] : 1940 Acct:[id number] Age/Sex: 83 / F Adm Date: 4 Loc: Room: [address] [place] [address] Type: ADM IN Attending Dr: Melani Dunne [...] to go home with her daughter to [place]. I have no new recommendations with steroid taper written. Documented By: Robbie Cuevas MD 4 [id number] Signed By: <Electronically signed by MD Robbie Cuevas> 12/17/23 1496 [facility] Work Phone: 1(632) 718-234804-22-2024 Progress note Author Melani Dunne [facility] December 16, 2023 1:33pm Note Date/Time December 16, 2023 1:3 3pm [facility] [address] [place] [address] Hospitalist Progress Note Signed Patient: Rosalind Restrepo MR#: [id number] : 1940 Acct:[id number] Age/Sex: 83 / F Adm Date: 4 Loc: Room: [address] [place] [address] Type: ADM IN Attending Dr: Melani Dunne [...] Dose Route Start Last Admin Trade Name Beauq PRN Reason Stop Dose Admin Acetaminophen 650 [...] 09:00 12/16/23 08:58 Aspirin 81 Mg Tablet.Dr PO 12/08/24 08:59 [...] <Electronically signed by Melani Dunne MD> 12/16/23 5048 [facility] Work Phone: 1(682) 636-416204-22-2024 Progress note Author Robbie Cuevas [facility] December 16, 2023 12:52pm Note Date/Time December 16, 2023 10: 27am [facility] [address] [place] [address] Pulmonology Progress Note Signed Patient: Rosalind Restrepo MR#: [id number] : 1940 Acct:[id number] Age/Sex: 83 / F Adm Date: 4 Loc: Room: [address] [place] [address] Type: ADM IN Attending Dr: Melani Dunne [...] signed by MD Robbie Cuevas> 12/16/23 1252 [facility] Work Phone: 1(387) 537-725104-21-2024 Progress note Author Raul Lehman [facility] December 15, 2023 5:25pm Note Date/Time December 15, 2023 5:2 5pm [facility] [address] [place] [address] Hospitalist Progress Note Signed Patient: Rosalind Restrepo MR#: [id number] : 1940 Acct:[id number] Age/Sex: 83 / F Adm Date: 4 Loc: Room: [address] [place] [address] Type: ADM IN Attending Dr: Raul Lehman [...] 09:00 12/15/23 09:37 Aspirin 81 Mg Tablet.Dr GONZALES 12/08/24 08:59 [...] Mg/2 Ml Vial IV-PUSH 12/15/24 18:00 BID@0800,1600 [facility] Heparin Sodium (Porcine) 5,000 unit 12/08/23 21:00 [...] signed by Raul Lehman MD> 12/15/23 1725 [facility] Work Phone: 1(308) 669-475604-21-2024 Progress note Author Michael Butterfield [facility] December 15, 2023 9:26am Note Date/Time December 15, 2023 9:2 2am [facility] [address] [place] [address] Pulmonology Progress Note Signed Patient: Rosalind Restrepo MR#: [id number] : 1940 Acct:[id number] Age/Sex: 83 / F Adm Date: 4 Loc: Room: [address] [place] [address] Type: ADM IN Attending Dr: Raul Lehman [...] <Electronically signed by Michael Butterfield MD> 12/15/23925 [facility] Work Phone: 1(816) 200-353304-20-2024 Progress note Author Raul Lehman [facility] December 14, 2023 6:25pm Note Date/Time December 14, 2023 6:2 5pm [facility] [address] [place] [address] Hospitalist Progress Note Signed Patient: Rosalind Restrepo MR#: [id number] : 1940 Acct:[id number] Age/Sex: 83 / F Adm Date: 4 Loc: Room: [address] [place] [address] Type: ADM IN Attending Dr: Raul Lehman [...] Bottle EYE-BOTH 12/08/24 08:59 Not Given DAILY [facility] Prochlorperazine Edisylate 10 mg 12/11/23 05:45 12/11/23 [...] <Electronically signed by Raul Lehman MD> 12/14/231824 [facility] Work Phone: 1(219) 584-317104-20-2024 Progress note Author Michael Butterfield [facility] December 14, 2023 10:24am Note Date/Time December 14, 2023 10: 24am [facility] [address] [place] [address] Pulmonology Progress Note Signed Patient: Rosalind Restrepo MR#: [id number] : 1940 Acct:[id number] Age/Sex: 83 / F Adm Date: 4 Loc: Room: [address] [place] [address] Type: ADM IN Attending Dr: Raul Lehman [...] signed by Michael Butterfield MD> 12/14/23 1024 [facility] Work Phone: 1(283) 947-752004-19-2024 Progress note Author Hima Juarez [facility] December 13, 2023 12:14pm Note Date/Time December 13, 2023 11: 58am [facility] [address] [place] [address] Hospitalist Progress Note Signed with Addenda Patient: Rosalind Restrepo MR#: [id number] : 1940 Acct:[id number] Age/Sex: 83 / F Adm Date: 4 Loc: Room: [address] [place] [address] Type: ADM IN Attending Dr: Hima Juarez DO Copies to: ~ ADDENDUM1 And to diagnosis Severe protein calorie malnutrition Addendum Documented By: Hima Juarez DO 12/13/23 1214 Addendum Signed By: <Electronically signed by Hima Juarez DO> 12/13/23 1214 Date of Service: 12/13/2023 Subjective Subjective Narrative: No new symptoms. Patient Lasix increased to 40 mg IV twice daily per building consultant. She is on CPAP with 30% FiO2 [...] 09:00 12/13/23 09:17 Aspirin [address] GONZALES 12/08/24 08:59 [...] care input -Resume IV Lasix as per building consultant, monitor electrolytes and renal function -Resume IV Levaquin -Home medication resumed as appropriate -Resume tube feeding -DVT prophylaxis-she is on subcu heparin -She is full code -Discussed plan of care with patient Documented By: Hima Juarez DO 12/13/23 1157 Signed By: <Electronically signed by Hima Juarez DO> 12/13/23 1158 [facility] Work Phone: 1(430) 289-123004-19-2024 Progress note Author Michael Butterfield [facility] December 13, 2023 8:50am Note Date/Time December 13, 2023 8:3 4am [facility] [address] [place] [address] Pulmonology Progress Note Signed Patient: Rosalind Restrepo MR#: [id number] : 1940 Acct:[id number] Age/Sex: 83 / F Adm Date: 4 Loc: Room: [address] [place] [address] Type: ADM IN Attending Dr: Hima Juarez [...] signed by Michael Butterfield MD> 12/13/23 0850 [facility] Work Phone: 1([phone]) 114-545004-18-2024 Progress note Author Hima Juarez [facility] December 12, 2023 2:00pm Note Date/Time December 12, 2023 2:0 0pm [facility] [address] [place] [address] Hospitalist Progress Note Signed Patient: Rosalind Restrepo MR#: [id number] : 1940 Acct:[id number] Age/Sex: 83 / F Adm Date: 4 Loc: Room: [address] [place] [address] Type: ADM IN Attending Dr: Hima Juarez [...] 12/09/23 09:00 12/12/23 10:06 Aspirin 81 Mg Tablet. PO 12/08/24 08:59 [...] Bottle EYE-BOTH 12/08/24 08:59 Not Given DAILY [facility] Prochlorperazine Edisylate 10 mg 12/11/23 05:45 12/11/23 [...] signed by Hima Juarez DO> 12/12/23 1400 [facility] Work Phone: 1(960) 405-928104-18-2024 Progress note Author Michael Butterfield [facility] December 12, 2023 8:50am Note Date/Time December 12, 2023 8:5 0am [facility] [address] [place] [address] Pulmonology Progress Note Signed Patient: Rosalind Restrepo MR#: [id number] : 1940 Acct:[id number] Age/Sex: 83 / F Adm Date: 4 Loc: Room: [address] [place] [address] Type: ADM IN Attending Dr: Hima Juarez [...] signed by Michael Butterfield MD> 12/12/23 0850 [facility] Work Phone: 1(134) 640-820404-17-2024 Progress note Author Hima Juarez [facility] December 11, 2023 2:01pm Note Date/Time December 11, 2023 2:0 0pm [facility] [address] [place] [address] Hospitalist Progress Note Signed Patient: Rosalind Restrepo MR#: [id number] : 1940 Acct:[id number] Age/Sex: 83 / F Adm Date: 4 Loc: Room: 4W1176-7 Type: ADM IN Attending Dr: Hima Juarez [...] 12/09/23 09:00 12/11/23 08:16 Aspirin [address]Dr GONZALES 12/08/24 08:59 [...] 12/11/23 08:16 Levofloxacin 750 Mg Tablet PEG 04/22/24 23:59 750 mg Q48H ZACHARY Administration Levothyroxine [...] RN Documented By: Hima Juarez DO 12/11/23 4997 Signed By: <Electronically signed by Hima Juarez DO> 12/11/23 1401 [facility] Work Phone: 1(354) 977-750504-17-2024 Progress note Author Michael Butterfield [facility] December 11, 2023 10:52am Note Date/Time December 11, 2023 10: 51am [facility] [address] [place] [address] Pulmonology Progress Note Signed with Addenda Patient: Rosalind Restrepo MR#: [id number] : 1940 Acct:[id number] Age/Sex: 83 / F Adm Date: 4 Loc: Room: [address] [place] [address] Type: ADM IN Attending Dr: Hima Juarez [...] signed by Michael Butterfield MD> 12/11/23 1051 [facility] Work Phone: 1(391) 322-873204-16-2024 Progress note Author Hima Juarez [facility] December 10, 2023 1:58pm Note Date/Time December 10, 2023 1:5 8pm [facility] [address] [place] [address] Hospitalist Progress Note Signed Patient: Rosalind Restrepo MR#: [id number] : 1940 Acct:[id number] Age/Sex: 83 / F Adm Date: 4 Loc: Room: 4H4326-4 Type: ADM IN Attending Dr: Hima Juarez [...] 12/09/23 09:00 12/10/23 08:06 Aspirin 81 Mg Tablet.Dr PO 12/08/24 08:59 [...] with RN Documented By: Hima Juarez DO 12/10/23 4589 Signed By: <Electronically signed by Hima Juarez DO> 12/10/23 1359 [facility] Work Phone: 1(322) 252-205404-16-2024 Progress note Author Michael Butterfield [facility] December 10, 2023 12:45pm Note Date/Time December 10, 2023 12: 45pm [facility] [address] [place] [address] Pulmonology Progress Note Signed Patient: Rosalind Restrepo MR#: [id number] : 1940 Acct:[id number] Age/Sex: 83 / F Adm Date: 4 Loc: Room: [address] [place] [address] Type: ADM IN Attending Dr: Hima Juarez [...] <Electronically signed by Michael Butterfield MD> 12/10/23 1245 [facility] Work Phone: 1(645) 181-807204-15-2024 Consult note Author Michael Butterfield [facility] December 09, 2023 1:10pm Note Date/Time December 09, 2023 12: 55pm [facility] [address] [place] [address] Pulmonology Consult Note Signed Patient: Rosalind Restrepo MR#: [id number] : 1940 Acct:[id number] Age/Sex: 83 / F Adm Date: 4 Loc: Room: [address] [place] [address] Type: ADM IN Attending Dr: Hima Juarez [...] of Systems Unobtainable due to endotracheal tube [facility] Medical History (Updated 12/08/23 @ 19:59 by [...] (congestive heart failure) Atherosclerotic heart disease of [place] coronary artery without angina pectoris Hypertension Afib [...] mL solution for nebulization 2.5 mg inhalation [id number] shortness of breath or wheezing 12/08/23 [History [...] bisacodyl 10 mg rectal suppository 10 mg NC DAILY PRN constipation 12/08/23 [History Confirmed 12/08/23] [...] CCT:45 minutes Documented By: Michael Butterfield MD 1246 Signed By: <Electronically signed by Michael Butterfield MD> 12/09/23 1313 [facility] Work Phone: 1(573) 626-164104-15-2024 Progress note Author Hima Juarez [facility] December 09, 2023 12:32pm Note Date/Time December 09, 2023 12: 32pm [facility] [address] [place] [address] Hospitalist Progress Note Signed Patient: Rosalind Restrepo MR#: [id number] : 1940 Acct:[id number] Age/Sex: 83 / F Adm Date: 4 Loc: Room: [address] [place] [address] Type: ADM IN Attending Dr: Hima Juarez [...] 12/09/23 09:00 12/09/23 09:13 Aspirin 81 Mg Tablet. PO 12/08/24 08:59 [...] signed by Hima Juarez DO> 12/09/23 1232 [facility] Work Phone: 1([phone] 427-681904-14-2024 History and physical note Author Ewa Marx [facility] December 08, 2023 8:01pm Note Date/Time December 08, 2023 8:0 1pm [facility] [address] [place] [address] Hospitalist H&P Signed Patient: Rosalind Restrepo MR#: [id number] : 1940 Acct:[id number] Age/Sex: 83 / F Adm Date: 4 Loc: Room: 5N9282-1 Type: ADM IN Attending Dr: Ewa Marx [...] on ventilator as per the record from [facility]. Patient has been sent from [facility] due to increased shortness of breath with [...] July last year. She was admitted at [facility] in [place], [place] and was intubated 3 times due to recurrent respiratory failure and eventually underwent tracheostomy and PEG tube placement. Source of sepsis was not clear but suspecting infection from the left leg. As per the daughter she also history of atrial fibrillation but patient refused anticoagulation and her data entry manager also agreed given her frailcondition. Patient has been doing well at the [place] [facility] and was on room air for 20 hours and using vent only for 4 hours. She was also started on oral dietbut developed pneumonia around 2 and half weeks ago and was admitted at [facility] where she stayed for 6 days. She was told to have fluid overload and was sent back to the [place] [facility]. As per the daughter she continues to [...] negative unless noted below or in HPI [facility] Medical History (Updated 12/08/23 @ 19:59 by [...] (congestive heart failure) Atherosclerotic heart disease of [place] coronary artery without angina pectoris Hypertension Afib [...] mL solution for nebulization 2.5 mg inhalation [id number] shortness of breath or wheezing 12/08/23 [History [...] bisacodyl 10 mg rectal suppository 10 mg NC DAILY PRN constipation 12/08/23 [History Confirmed 12/08/23] [...] % (Auto) 28.6 % (.) 12/08/23 16:08 Bennett % (Auto) 4.8 % (.) 12/08/23 16:08 Eos % (Auto) 3.8 % (.) 12/08/23 16:08 Baso % (Auto) 0.3 % (.) 12/08/23 16:08 Nucleat RBC Rel Count 0.1 /100 WBC (0-0.5) 12/08/23 16:08 Neut # (Auto) 5.7 x10E3/uL (1.8-7.7) 12/08/23 16:08 Lymph # (Auto) 2.6 x10E3/uL (1.00-4.8) 12/08/23 16:08 Bennett # (Auto) 0.4 x10E3/uL (0.0-0.8) 12/08/23 16:08 [...] pH 6.0 (5.0-9.0) 12/08/23 16:25 Ur Specific [place] 1.018 (1.001-1.030) 12/08/23 16:25 Urine Protein Negative [...] 2D echocardiogram to assess LV function. Resume [facility] medications. Heparin for DVT prophylaxis. Currently no [...] <Electronically signed by Ewa Marx MD> 12/08/232000 [facility] Work Phone: Consult note Author Robbie Cuevas [facility] January 02, 2024 7:18pm Note Date/Time January 02, 2024 6:13pm [facility] [address] [place] [address] Pulmonology Consult Note Signed Patient: Rosalind Restrepo MR#: [id number] : 1940 Acct:[id number] Age/Sex: 83 / F Adm Date: 4 Loc: 3T Room: [address] [place] [address] Type: ADM IN Attending Dr: Ewa Marx MD Copies to: MD Grupo Paul MD, RES MD Ryan Tamez MD~ HPI Date/Time of Consultation: Date of Service: 01/02/2024 Time of Service: 17:47 Consulting Provider: Robbie Cuevas Requesting Provider: Ewa Marx Reason for Consult: Rosalind Restrepo is an 83F trach dependent typically on 2 to 3 L oxygen at home, PEG tube dependent as well, AFib not anticoagulated, HF, and extensive medical history who presented to the ED due to altered mental status per daughter. Daughter reported that Rosalind seemed less alert and conversive than her normal self. Daughter states that patient reported increased generalized body pain. 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 On entry to the ED patient was febrile at 100F. She with a normocytic bandemia. One dose of vancomycin and zosyn given in ED. UA negative. CXR possible left lower infiltrate and chronic changes in right mid-lower lung field compared to prior. Patient was examined bedside with daughter present in room. Patient has limitedverbal skills given she is trach in place however is alert, responsive to stimuli and able to follow very simple commands including hand squeezing on request. Per daughter caretakers at [facility] did notice increased secretions, clear nonpurulent. Otherwise hemodynamically stable saturating fineon 8 L 28% humidified oxygen. Patient currently feeding PEG tube Jevity 1.5 every 4 hours. History of Present Illness History of present illness: Ms. Restrepo is a 83 year old female [facility] Medical History (Updated 01/02/24 @ 17:45 by Ashely Villarreal APRN) Anxiety and depression (HFpEF) heart failure with preserved ejection fraction Tracheostomy dependence Chronic respiratory failure with hypoxia Ventilator dependent Pleural effusion Non-pressure chronic ulcer of skin of other sites with other specified severity Diarrhea Pressure ulcer of sacral region Anxiety disorder Depression Hyperkalemia Familial hypophosphatemia Hyperlipidemia Dependence on respirator [ventilator] status Resistance to antifungal drug(s) Adult failure to thrive Chronic kidney disease Cellulitis Chronic right heart failure Atherosclerotic heart disease of [place] coronary artery without angina pectoris Hypertension Afib Hypothyroidism Iron deficiency anemia Candidiasis Other voice and resonance disorders Dysphagia Muscle weakness (generalized) Respiratory failure, unspecified with hypoxia Surgical History (Updated 01/02/24 @ 03:26 by Shayy Harvey MD, RES) Gastrostomy status PEG Tracheostomy status Social History Smoking Status: Unknown if ever smoked Substance Use Type: None Meds Medications and Allergies Allergies Sulfa (Sulfonamide Antibiotics) Allergy (Verified 01/01/24 22:23) Unknown Reaction Home Medications Lactobacillus acidophilus 1 billion cell capsule 1,000 mmu cells feeding tube BID 12/08/23 [History Confirmed 01/02/24] acetaminophen 325 mg tablet 650 mg feeding tube QID PRN pain 12/08/23 [History Confirmed 01/02/24] albuterol sulfate 2.5 mg/0.5 mL solution for nebulization 2.5 mg inhalation [id number] shortness of breath or wheezing 12/08/23 [History Confirmed 01/02/24] albuterol sulfate 2.5 mg/3 mL (0.083 %) solution for nebulization 2.5 mg inhalation QID 12/08/23 [History Confirmed 01/02/24] aluminum-mag hydroxide-simethicone 400 mg-400 mg-40 mg/5 mL oral susp (Maalox Maximum Strength) 7.5 ml PO Q6HR PRN indigestion 12/08/23 [History Confirmed 01/02/24] artificial tears solution eye drops 1 drp ophthalmic (eye) BID 12/08/23 [History Confirmed 01/02/24] aspirin 81 mg capsule 81 mg feeding tube DAILY 12/08/23 [History Confirmed 01/02/24] bisacodyl 10 mg rectal suppository 10 mg NC DAILY PRN constipation 12/08/23 [History Confirmed 01/02/24] buspirone 10 mg tablet 10 mg feeding tube TID 12/08/23 [History Confirmed 01/02/24] chlorhexidine gluconate 0.12 % mouthwash 15 ml buccal BID 12/08/23 [History Confirmed 01/02/24] diltiazem HCl 30 mg tablet (Cardizem) 30 mg feeding tube BID 12/08/23 [History Confirmed 01/02/24] escitalopram oxalate 10 mg tablet (Lexapro) 10 mg feeding tube BID 12/08/23 [History Confirmed 01/02/24] ferrous sulfate 300 mg (60 mg iron)/5 mL oral liquid 300 mg feeding tube DAILY 12/08/23 [History Confirmed 01/02/24] heparin (porcine) 5,000 unit/mL injection solution 5,000 unit subcut BID 12/08/23 [History Confirmed 01/02/24] hydroxyzine HCl 50 mg tablet 50 mg feeding tube Q8HR PRN anxiety 12/08/23 [History Confirmed 01/02/24] levothyroxine 200 mcg tablet (Euthyrox) 200 mcg feeding tube DAILY 12/08/23 [History Confirmed 01/02/24] lidocaine 4 % topical patch 1 patch topical DAILY 12/08/23 [History Confirmed 01/02/24] loperamide 2 mg tablet (Diamode) 2 mg feeding tube Q6HR PRN loose stool 12/08/23[History Confirmed 01/02/24] metoprolol tartrate 25 mg tablet 12.5 mg feeding tube BID 12/08/23 [History Confirmed 01/02/24] ondansetron 4 mg disintegrating tablet 4 mg feeding tube Q8HR PRN nausea and vomiting 12/08/23 [History Confirmed 01/02/24] prednisolone acetate 1 % eye drops,suspension (Pred Forte) 1 drp Eye-Both DAILY 12/08/23 [History Confirmed 01/02/24] sennosides 8.8 mg/5 mL oral syrup 10 ml PO HS PRN constipation 12/08/23 [History Confirmed 01/02/24] oxycodone 5 mg tablet 2.5 mg (1/2 x 5 mg) feeding tube Q6HR PRN pain 2 days #8 tabs 12/17/23 [Rx Confirmed 01/02/24] oxycodone 5 mg tablet 5 mg feeding tube Q6HR PRN pain 2 days #8 tabs 12/17/23 [Rx Confirmed 01/02/24] furosemide 20 mg tablet (Lasix) 20 mg feeding tube DAILY 01/02/24 [History Confirmed 01/02/24] Exam Physical Exam Vital Signs: Temp Pulse Resp BP Pulse Ox O2 Del Method O2 Flow Rate 98.4 F 71 18 100/48 L 28 L Trach Collar 6 01/02/24 16:12 01/02/24 17:03 01/02/24 17:03 01/02/24 16:12 01/02/24 16:48 01/02/24 16:48 01/02/24 16:48 FiO2 28 01/02/24 16:12 Narrative: General: Awake alert, responsive no acute distress, cachectic HEENT: head atraumatic, normocephalic, dry mucous membranes Neck: supple no masses, no lymphadenopathy, ET with cuff with humidified mask CVS: regular rate and rhythm, no murmurs or gallops Respiratory: Coarse to auscultation with minimal crackles along lung bases bilaterally no wheezing or crackles, symmetric expansion GI: soft, scaphoid, nondistended, nontender, positive bowel sounds with no organomegaly, PEG intact Extremity: Anasarcic, reduced movement in all extremities, no restrictions of movements, no calf tenderness, no edema Neuro: CN II-VII intact, bilateral upper extremity strength 2 out of 5 Skin: dry, intact no rashes or lesions Const General: cooperative Nutritional Appearance: cachectic Orientation: alert and awake HEENT Head: normal to inspection Ears: hearing grossly normal bilaterally and external ears normal Nose: external nose normal Face and sinus: normal facial exam Eyes Sclera: sclerae normal Neck Neck: normal visual inspection and tracheostomy present (cuffed tracheostomy tube) Chest Chest palpation & inspection: normal inspection of the chest Resp Effort & Inspection: normal respiratory effort Auscultation: clear to auscultation bilaterally, diminished lung sounds, no rales, no rhonchi and no wheezes Cardio Rate: regular rate Rhythm: regular rhythm Heart Sounds: S1 normal, S2 normal and no murmurs GI Inspection: normal to inspection (feeding tube in place) Palpation: soft and nontender General: deferred Skin General: no rashes or lesions noted (Warm and dry) Extrem General: no pedal edema Results - Pulmonology Intake and Output I&O - Last 24 Hours: Intake & Output 01/02/24 01/02/24 01/02/24 07:59 15:59 23:59 Intake Total 1350 / 1950 600 / 1950 Balance 1350 / 1950 600 / 1950 Weight 39.4 kg Labs 01/02/24 00:00 01/02/24 00:00 Microbiology Micro: 01/02/24 17:27 Aerobic Culture - Pending Sputum - Trachea Sample Gram Stain - Pending 01/01/24 23:25 Blood Culture - Pending Blood - Left Hand 01/01/24 23:25 Blood Culture - Pending Blood - Left Wrist 01/01/24 22:32 Respiratory Panel (PCR) - Final Nasopharyngeal Imaging and Cardiology Chest x-ray: Status: image reviewed by me Additional comments: Date of Service: 01/01/24 XR/XR chest 2V*: Altered Mental Status XR chest 2V* 01/01/2024 10:32 PM SIGNS AND SYMPTOMS: Altered mental status, fever PROTOCOL: Frontal and lateral radiographs of the chest COMPARISON: 12/12/2023 FINDINGS: The trachea is midline. There is evidence of prior tracheostomy. Atheroscleroticchanges are noted in the thoracic aorta. The heart and mediastinal structures are within normal limits. Bibasilar pleural effusions are noted with dependent airspace opacity in the left. This shows slight interval improvement compared tothe prior exam. There is a similar masslike density in the right mid to lower chest. The bony thorax is intact. XR/XR chest 2V* IMPRESSION: Bibasilar pleural effusions are noted with dependent airspace opacity in the left. This shows slight interval improvement compared to the prior exam. There is a similar masslike density in the right mid to lower chest. Assessment/Plan (1) AMS (altered mental status): (2) Fever: (3) PEG (percutaneous endoscopic gastrostomy) status: (4) Ventilator dependent: (5) Cachexia: (6) Pneumonia: (7) Acute on chronic respiratory failure with hypoxia: (8) Tracheostomy dependence: (9) (HFpEF) heart failure with preserved ejection fraction: (10) Anxiety and depression: (11) Failure to thrive: (12) Protein-calorie malnutrition, severe: (13) Hypothyroidism: (14) Iron deficiency anemia: (15) Metabolic encephalopathy: Plan Ms. Rsoalind Restrepo 83-year-old female here for evaluation and treatment of altered mental status and increased secretions requiring slight increase in O2. Patient is currently tolerating 8 L humidified O2 via venturi 28% which is increased from her baseline 2 to 3 L while at home. Patient does appear volume down in setting of increased respiratory secretions there is not much room for diuresis at this time. Is unlikely that increase clear secretions are result ofan infectious process, however will repeat sputum culture. Okay to continue IV Vanco and Zosyn. Will recommend patient begin budesonide 2.5 mg nebulizer twice daily. Chest x-ray reviewed and improved from prior, no evidence of bronchiectasis or mucous plugging. Given patient slight increase of O2 requirements would not recommend CT unless patient respiratory requirements increase. Did have a conversation with daughter present regarding patient CODE STATUS. Patient did have previous CODE STATUS changed to DNR with intubation at her prior inpatient hospitalization which daughter would like to continue. Case discussed and patient seen on rounds in conjunction with Dr. Grupo Nash. Patient was interviewed (though most of information came from daughter who is atbedside as patient has tracheostomy) and examined. Vital signs and labs were reviewed. Exam is as noted above. I agree with the note above. Patient is known to us from prior inpatient consultation in mid November 2023 with chronic respiratory failure with patient weaned off nocturnal ventilatory dependence during her hospitalization. Patient has longstanding history of Acacia auris colonization as well as known bilateral pleural effusions. Patient was transferred back to [facility] in [place] with plan for rehabilitation with plans for patient to be ultimately discharged home with family. Patient reportedly developed increasing lethargy and fatigue per daughter with increase in sputum amount without reported fever with 1 episode ofsweats and without chills. Patient does not have significant increase in dyspnea nor reported chest pain. She had no reported nausea, vomiting, change in bowel habits, nor abdominal pain. Patient was evaluated in emergency department with no evidence of leukocytosis though with bandemia noted. Electrolytes were otherwise unremarkable. To my review, chest x-ray is actuallyimproved from prior hospitalization with decrease in bilateral pleural effusion and decrease in left lower lobe infiltrate compared to prior. Patient's oxygen requirements during our visit are 28% via trach collar which is similar to her oxygen delivery at the [place] [facility]. We will repeat sputum for Gram stain and culture with patient already on antibiotics per hospitalist service (vancomycin and Zosyn). I would expect that the patient has Acacia auris found in her sputum which is likely to be colonization with the patient likely not ill enoughand without significant infiltrates to suggest Acacia pneumonia. I will not proceed with aggressive treatment with echinocandins for her Acacia auris. We will start the patient on nebulized steroids to help decrease mucus production with patient already having dry mucous membranes and likely not well-tolerated of anticholinergics. After discussion with patient and daughter, patient's CODESTATUS was changed to DO NOT RESUSCITATE Comfort Care arrest with intubation with patient not wishing compressions. Documented By: Robbie Cuevas MD [id number] Signed By: <Electronically signed by MD Robbie Cuevas> 01/02/24 1918 <Electronically signed by MD PANKAJ Nash> 01/02/24 1813 [facility] Work Phone: Evaluation note* Diagnosis Onset Date Resolution Status Acute on chronic diastolic heart failure acute Acute on chronic respiratory failure with hypoxia acute Cachexia acute Pleural effusion acute Pneumothorax acute Ventilator dependent acute [facility] Work Phone: Evaluation note* Diagnosis Onset Date Resolution Status Cachexia acute Ventilator dependent acute Acute on chronic diastolic heart failure resolved Acute on chronic respiratory failure with hypoxia resolved Pneumothorax resolved AMS (altered mental status) acute Cachexia acute Fever acute PEG (percutaneous endoscopic gastrostomy) status acute Ventilator dependent acute [facility] Work Phone: Evaluation note* Diagnosis Onset Date Resolution Status Acute on chronic respiratory failure with hypoxia acute Cachexia acute Ventilator dependent acute Acute on chronic diastolic heart failure resolved Pneumothorax resolved (HFpEF) heart failure with preserved ejection fraction acute Acute on chronic respiratory failure with hypoxia acute AMS (altered mental status) acute Anxiety and depression acute Cachexia acute Chronic respiratory failure acute Clostridium difficile colitis acute Failure to thrive acute Fever acute Hypothyroidism acute Iron deficiency anemia acute Metabolic encephalopathy acu te PEG (percutaneous endoscopic gastrostomy) status acute Pneumonia acute Protein-calorie malnutrition, severe acute Tracheostomy dependence acut e Ventilator dependent acute [facility] Work Phone: History and physical note Author Ewa Marx [facility] December 08, 2023 8:01pm Note Date/Time December 08, 2023 8:0 1pm [facility] [address] [place] [address] Hospitalist H&P Signed Patient: Rosalind Restrepo MR#: [id number] : 1940 Acct:[id number] Age/Sex: 83 / F Adm Date: 4 Loc: Room: [address] [place] [address] Type: ADM IN Attending Dr: Ewa Marx [...] on ventilator as per the record from [facility]. Patient has been sent from [facility] due to increased shortness of breath with [...] July last year. She was admitted at [facility] in [place], [place] and was intubated 3 times due to recurrent respiratory failure and eventually underwent tracheostomy and PEG tube placement. Source of sepsis was not clear but suspecting infection from the left leg. As per the daughter she also history of atrial fibrillation but patient refused anticoagulation and her data entry manager also agreed given her frailcondition. Patient has been doing well at the [place] [facility] and was on room air for 20 hours and using vent only for 4 hours. She was also started on oral dietbut developed pneumonia around 2 and half weeks ago and was admitted at [facility] where she stayed for 6 days. She was told to have fluid overload and was sent back to the [place] [facility]. As per the daughter she continues to [...] negative unless noted below or in HPI [facility] Medical History (Updated 12/08/23 @ 19:59 by [...] (congestive heart failure) Atherosclerotic heart disease of [place] coronary artery without angina pectoris Hypertension Afib [...] mL solution for nebulization 2.5 mg inhalation [id number] shortness of breath or wheezing 12/08/23 [History [...] bisacodyl 10 mg rectal suppository 10 mg NC DAILY PRN constipation 12/08/23 [History Confirmed 12/08/23] [...] % (Auto) 28.6 % (.) 12/08/23 16:08 Bennett % (Auto) 4.8 % (.) 12/08/23 16:08 Eos % (Auto) 3.8 % (.) 12/08/23 16:08 Baso % (Auto) 0.3 % (.) 12/08/23 16:08 Nucleat RBC Rel Count 0.1 /100 WBC (0-0.5) 12/08/23 16:08 Neut # (Auto) 5.7 x10E3/uL (1.8-7.7) 12/08/23 16:08 Lymph # (Auto) 2.6 x10E3/uL (1.00-4.8) 12/08/23 16:08 Bennett # (Auto) 0.4 x10E3/uL (0.0-0.8) 12/08/23 16:08 [...] pH 6.0 (5.0-9.0) 12/08/23 16:25 Ur Specific [place] 1.018 (1.001-1.030) 12/08/23 16:25 Urine Protein Negative [...] 2D echocardiogram to assess LV function. Resume [facility] medications. Heparin for DVT prophylaxis. Currently no [...] <Electronically signed by Ewa Marx MD> 12/08/232000 [facility] Work Phone: Hospital Discharge instructions Additional Instructions Follow-up with PCP Potassium today here in emergency department is normal Sodium is 127 Return here if any problems persist or worsen including chest pain, shortness of breath, numbness, tingling, dizziness or any other concernsThe [facility] Work Phone: Progress note Author Ewa Marx [facility] January 03, 2024 7:01am Note Date/Time January 02, 2024 12:21p m [facility] [address] [place] [address] Hospitalist Progress Note Signed Patient: Rosalind Restrepo MR#: [id number] : 1940 Acct:[id number] Age/Sex: 83 / F Adm Date: 4 Loc: Room: [address] [place] [address] Type: ADM IN Attending Dr: Ewa Marx MD Copies to: ~ Date of Service: 01/02/2024 Subjective Subjective Narrative: Patient seen and examined. Daugher present in room. Patient nods approp but nonverbal. This is not her baseline per her daughter, talks around trach and interactive. Cough with course secretions audible from trach, on mist collar. She winces with exam minimal movement- indicates pain in bottom. Patient nods yes when inquired if short of breath Exam Physical Exam Vital Signs: Temp Pulse Resp BP Pulse Ox O2 Del Method O2 Flow Rate 99.5 F H 109 H 22 128/53 L 98 Trach Collar 8 01/02/24 08:00 01/02/24 08:28 01/02/24 08:28 01/02/24 08:00 01/02/24 08:00 01/02/24 08:28 01/02/24 08:28 FiO2 28 01/02/24 08:28 Narrative: CONST- alert, nonverbal but nods, in bed, frail elderly, chronically ill appearing CARD- irregular, no abnormal heart tones PULM- trach, mist collar, course rhonchi throughout, frequent moist cough ABD- S/NT, NABS, cachectic, PEG tube EXTREM- no edema BLE, calves nontender SKIN- wound present on admit- coccyx stage II refer to wound nurse documentationfor further details Objective Lab Results 01/02/24 00:00 01/02/24 00:00 Microbiology Results Microbiology 01/01/24 22:32 Nasopharyngeal Respiratory Panel (PCR) - Final Meds Allergies and Active Meds Allergies Sulfa (Sulfonamide Antibiotics) Allergy (Verified 01/01/24 22:23) Unknown Reaction Active Meds: Active Medications Generic Name Dose Route Start Last Admin Trade Name Freq PRN Reason Stop Dose Admin Acetaminophen 650 mg 01/02/24 05:29 Acetaminophen 325 Mg Tablet OG-TUBE 01/01/25 05:28 QID PRN pain Albuterol 2.5 mg 01/02/24 05:29 Albuterol Neb *Concentrated* 2.5 Mg/0.5 Ml Vial.Neb INHALATION 01/01/25 05:28 Q2HR PRN shortness of breath or wheezing Albuterol 2.5 mg 01/02/24 09:00 01/02/24 08:26 Albuterol Neb 2.5 Mg/3 Ml Vial.Neb INHALATION 01/01/25 08:59 2.5 mg QID ZACHARY Administration Aspirin 81 mg 01/02/24 09:00 01/02/24 10:00 Aspirin 81 Mg Tab.Chew G-TUBE 01/01/25 08:59 81 mg DAILY ZACHARY Administration Bisacodyl 10 mg 01/02/24 05:29 Bisacodyl 10 Mg Supp.Rect NC 01/01/25 05:28 DAILY PRN constipation Buspirone HCl 10 mg 01/02/24 09:00 01/02/24 10:00 Buspirone 10 Mg Tablet PEG 01/01/25 08:59 10 mg TID ZACHARY Administration Chlorhexidine Gluconate 15 ml 01/02/24 09:00 01/02/24 10:00 Chlorhexidine Gluconate 0.12% 15 Ml Udc MUCOUS MEM 01/01/25 08:59 15 ml BID ZACHARY Administration Diltiazem HCl 30 mg 01/02/24 09:00 01/02/24 10:00 Diltiazem 30 Mg Tablet PEG 01/01/25 08:59 30 mg BID ZACHARY Administration Escitalopram Oxalate 10 mg 01/02/24 09:00 01/02/24 10:00 Escitalopram 10 Mg Tablet PEG 01/01/25 08:59 10 mg BID ZACHARY Administration Ferrous Sulfate 300 mg 01/02/24 09:00 01/02/24 10:00 Ferrous Sulfate 300mg/5ml Soln PEG 01/01/25 08:59 300 mg DAILY ZACHARY Administration Furosemide 20 mg 01/02/24 09:00 01/02/24 10:00 Furosemide 20 Mg Tablet PEG 01/01/25 08:59 20 mg DAILY ZACHARY Administration Heparin Sodium (Porcine) 5,000 unit 01/02/24 09:00 01/02/24 10:00 Heparin 5,000 Unit/Ml Vial SUBCUT 01/01/25 08:59 5,000 unit BID ZACHARY Administration Hydroxyzine Pamoate 50 mg 01/02/24 06:12 Hydroxyzine Pamoate 50 Mg Capsule G-TUBE 01/01/25 06:11 Q8HR PRN anxiety Sodium Chloride 1,000 mls @ 75 mls/hr 01/02/24 05:30 01/02/24 06:54 0.9% Sodium Chloride 1,000 Ml IV 01/01/25 05:29 75 mls/hr .[id number] ZACHARY Administration Piperacillin Sod/Tazobactam Sod 3.375 gm in 100 mls @ 200 mls/hr 01/02/24 08:00 01/02/24 09:00 Zosyn IV 200 mls/hr Q6H AZCHARY Administration Vancomycin HCl 0.5 gm/ 100 mls @ 100 mls/hr 01/03/24 00:30 Dextrose IV 01/02/25 00:29 Q24H ZACHARY Levothyroxine Sodium 200 mcg 01/02/24 06:30 01/02/24 06:55 Levothyroxine 200 Mcg Tablet PEG 01/01/25 06:29 200 mcg DAILY.0630 ZACHARY Administration Lidocaine 1 patch 01/02/24 09:00 01/02/24 11:26 Lidocaine 4% Adh..Patch TOPICAL 01/01/25 08:59 1 patch DAILY ZACHARY Administration Metoprolol Tartrate 12.5 mg 01/02/24 09:00 01/02/24 10:00 Metoprolol Tartrate 12.5 Mg Tablet PEG 01/01/25 08:59 12.5 mg BID ZACHARY Administration Ondansetron HCl 4 mg 01/02/24 05:29 Ondansetron Odt 4 Mg Tab.Rapdis PEG 01/01/25 05:28 Q8HR PRN nausea and vomiting Oxycodone HCl 5 mg 01/02/24 05:29 Oxycodone Ir 5 Mg Tablet PEG Q6HR PRN Pain Scale 4 - 7 Prednisolone Acetate 1 drops 01/02/24 09:00 Prednisolone Ac 1% Op Susp 100 Drops/5 Ml Bottle EYE-BOTH 01/01/25 08:59 DAILY ZACHARY Sennosides 17.6 mg 01/02/24 05:29 Sennosides Syrup 8.8 Mg/5 Ml Udc PO 01/01/25 05:28 HS PRN constipation Sodium Chloride 0 ml 01/01/24 22:23 01/02/24 06:55 Sodium Chloride 0.9 % 10 Ml Syringe IV-PUSH 12/31/24 22:22 10 ml PRN PRN Administration Flush Vancomycin HCl 1 each 01/02/24 05:20 Vancomycin - Pharmacy Dosing 1 Each Miscell IV ONCE PRN ZZ.Pharmacy Consult Protocol A&P - Hospitalist Assessment/Plan (1) AMS (altered mental status): (2) Fever: (3) PEG (percutaneous endoscopic gastrostomy) status: (4) Ventilator dependent: (5) Cachexia: (6) Pneumonia: (7) Acute on chronic respiratory failure with hypoxia: (8) Tracheostomy dependence: (9) (HFpEF) heart failure with preserved ejection fraction: (10) Anxiety and depression: (11) Failure to thrive: (12) Protein-calorie malnutrition, severe: (13) Hypothyroidism: (14) Iron deficiency anemia: (15) Metabolic encephalopathy: Plan Pneumonia Acute on Chronic respiratory failure, trach dependent metabolic encephalopathy -vanc & zosyn, nebulizers -Sputum culture; hx of light growth Acacia auris -pulmonary consult appreciated Upper extremity pain -XR R hand, R arm, L shoulder to rule out acute injury/fall- degenerative changes no fractures -Continue home acetaminophen -PRN oxycodone Chronic Conditions -PEG tube dependent: consult computer engineering technician, bolus feeds, ST eval -AFib, HFpEF- tele, ASA, diltiazem, furosemide, metoprolol -anxiety- buspirone, escitalopram -FTT, cachexia, severe malnutrition, wound present on admit- enteral feed, dietitian, wound care -hypothyroid- levothyroxine -Anemia- stable no evidence of bleed -chronic diarrhea- check stool for cdiff, if negative consider addition loperamide to enteral feeding further need to clarify code status Consider palliative consult for goals of care Documented By: Ashley Villarreal APRN 05/19 1221 Signed By: <Electronically signed by SATURNINO Villarreal> 01/02/24 1749 <Electronically signed by Ewa Marx MD> 01/03/24 0701 [facility] Work Phone: Progress note Author Ana Hunt [facility] January 03, 2024 4:13pm Note Date/Time January 03, 2024 4:13p m [facility] [address] [place] [address] Pulmonology Progress Note Signed Patient: Rosalind Restrepo MR#: [id number] : 1940 Acct:[id number] Age/Sex: 83 / F Adm Date: 4 Loc: Room: [address] [place] [address] Type: ADM IN Attending Dr: Ewa Marx MD Copies to: ~ Date of Service: 01/03/2024 Subjective Subjective Narrative: Feels little better and is more awake and alert today. Per patient's daughter she appears to be close to baseline. Minimal trach secretions Exam Physical Exam Vital Signs: Temp Pulse Resp BP Pulse Ox O2 Del Method O2 Flow Rate 98.0 F 62 22 98/50 L 99 Trach Collar 8 01/03/24 10:30 01/03/24 15:09 01/03/24 15:09 01/03/24 15:09 01/03/24 15:09 01/03/24 15:09 01/03/24 15:09 FiO2 28 01/03/24 15:09 Narrative: General: Awake and alert, appears in no acute respiratory distress Neck: Supple. Pulmonary: Diminished breath sounds to both lung jonas without wheezes. Cardiovascular: Regular rate and rhythm. No murmurs Abdomen: Soft, nontender and nondistended. Extremities: No edema. Objective Intake and Output I&O - Last 24 Hours: Intake & Output 01/03/24 01/03/24 01/03/24 07:59 15:59 23:59 Intake Total 880 / 1870 990 / 1870 Balance 880 / 1870 990 / 1870 Weight 45.8 kg Labs 01/03/24 11:57 01/03/24 11:57 Microbiology Micro: Microbiology 3 01/02/24 17:27 Aerobic Culture - Preliminary Sputum - Trachea Sample Gram Negative Bacilli Gram Stain - Final 01/01/24 23:25 Blood Culture - Preliminary Blood - Left Wrist Presumptive Coag Neg. Staph Bacterial ID (NA Multiplex Assay) - Final 01/01/24 23:25 Blood Culture - Preliminary Blood - Left Hand No Growth 1 Day Assessment/Plan Assessment/Plan (1) Chronic respiratory failure: Plan: Respiratory status appears to be close to baseline based on the patient's daughter and nursing staff. Her secretions are somewhat mild and clear but got significantly worse after shehad her swallow eval today, somewhat concerning for aspiration. And now placed n.p.o. pending modified barium swallow. Somewhat doubt an acute pneumonic process. Will reevaluate the need for Zosyn once her culture results are available. (2) AMS (altered mental status): Plan: Likely secondary to sepsis, possibly due to C. difficile colitis. Now on oral vancomycin for that. On Zosyn for questionable pneumonia. (3) Fever: Plan: Likely due to C. difficile colitis. (4) PEG (percutaneous endoscopic gastrostomy) status: (5) Tracheostomy dependence: Plan Discussed with the patient's nursing staff and daughter at bedside. Documented By: Ana Hunt MD 01/03/24 1607 Signed By: <Electronically signed by Ana Hunt MD> 01/03/24 1613 [facility] Work Phone: Summary Purpose Family History No Family History Records FoundNo Family History Records FoundNo Family History Records FoundNo Family History Records Found Advance Directives Advance Directive Response Recorded Date/ Time Advance Directives No December 07, 2 024 5:19pm Chief Complaint and Reason for Visit [...] Complaint sob sob sob sob sob sob ams, gen weakness Reason for Visit Cachexia Ventilator dependent Acute on chronic diastolic heart failure Acute on chronic respiratory failure with hypoxia Pneumothorax AMS (altered mental status) Cachexia Fever PEG (percutaneous endoscopic gastrostomy) status Ventilator dependent Chief Complaint sob sob sob sob sob sob ams, gen weakness ams, gen weakness High Potassium Reason for Visit Acute on chronic res piratory failure with hypoxia Cachexia Ventilator dependent Acute on chronic diastolic heart failure Pneumothorax (HFpEF) heart failure with preserved ejection fraction Acute on chronic respiratory failure with hypoxia AMS (altered mental status) Anxiety and depression Cachexia Chronic respiratory failure Clostridium difficile colitis Failure to thrive Fever Hypothyroidism Iron deficiency anemia Metabolic encephalopathy PEG (percutaneous endoscopic gastrostomy) status Pneumonia Protein-calorie malnutrition, severe Tracheostomy dependence Ventilator dependent Additional Source Comments INFORMATION SOURCE (unrecogn ized section and content) DATE CREATED AUTHOR 11/27/2023 [facility] DATE CREATED AUTHOR AUTHOR'S ORGANIZ ATION 12/10/2023 [facility] DATE CREATED AUTHOR AUTHOR'S ORGANIZ ATION 12/14/2023 [facility] [facility] DATE CREATED AUTHOR AUTHOR'S ORGANIZ ATION 01/11/2024 [facility] Care Teams (unrecognized sec tion and content) Team Status: Active Member Role Status Dates Ryan Kearns MD Primary Care Provider Active Team Status: Inactive Member Role Status Dates Tori Gaona MD Emergency Provider Active Star t: December 08, 2023 End: December 17, 2023 Ryan Kearns MD Primary Care Provider Active Start: December 08, 2023 End: December 17, 2023 Ewa Maxr MD Admit Provider Active Start: December 08, 2023 End: December 17, 2023 Michael Juarez MD Other Provider Active Start: December 07 End: December 17, 2023 Melani Dunne MD [...] Melani Dunne MD Other Provider Active Start: A pril 2023 Robbie Cuevas MD Attending Provider Active Start: December 16, 2023 Team Status: Active Member Role Status Dates Tori Gaona MD Emergency Provider Active Star t: December 08, 2023 Ryan Kearns MD Primary Care Provider Active Start: December 08, 2023 Ewa Marx MD Admit Provider, Atte nding Provider Active Start: December 08, 2023 Michael Juarez MD Other Provider Active Start: December 072023 Team Status: Active Member Role Status Dates Tori Gaona MD Emergency Provider Active Star t: December 09, 2023 Ryan Kearns MD Primary Care Provider Active Start: December 09, 2023 Ewa Marx MD Admit Provider Active Start: December 09, 2023 Michael Juarez MD Other Provider Active Start: December 082023 Hima Juarez DO Attending Provider, Other Provider Active Start: December 09, 2023 Ralf Bliss MD Active Start: l 2023 Team Status: Active Member Role Status Dates Ryan Kearns MD Primary Care Provider Active Start: January 02, 2024 Dillon Merritt DO Emergency Provider Active Start: January 02, 2024 Paulo Pretty MD Admit Provider, Attending Provider Active Start: January 02, 2024 Team Status: Active Member Role Status Dates Tori Gaona MD Emergency Provider Active Star t: December 08, 2023 End: December 17, 2023 Ryan Kearns MD Primary Care Provider Active Start: December 08, 2023 End: December 17, 2023 Ewa Marx MD Admit Provider, Atte nding Provider, Other Provider Active Start: December 08, 2023 End: December 17, 2023 Team Status: Active Member Role Status Dates Tori aGona MD Emergency Provider Active Star t: December 09, 2023 End: December 17, 2023 Ryan Kearns MD Primary Care Provider Active Start: December 09, 2023 End: December 17, 2023 Ewa Mrax MD Admit Provider Active Start: December 09, 2023 End: December 17, 2023 Michael Juarez MD Other Provider Active Start: December 082023 End: December 17, 2023 Hima Juarez DO Attending Provider, Other Provider Active Start: December 09, 2023 End: December 17, 2023 Ralf Bliss MD Active Start: 2023 End: December 17, 2023 Team Status: Active Member Role Status Dates Tori Gaona MD Emergency Provider Active Star t: December 09, 2023 End: December 17, 2023 Ryan Kearns MD Primary Care Provider Active Start: December 09, 2023 End: December 17, 2023 Ewa Marx MD Admit Provider Active Start: December 09, 2023 End: December 17, 2023 Michael Juarez MD Attending Provider, Other Provider Active Start: December 09, 2023 End: December 17, 2023 Hima Juarez DO Other Provider Active Start: December 09, 2023 End: December 17, 2023 Team Status: Active Member Role Status Dates Tori Gaona MD Emergency Provider Active Star t: December 15, 2023 End: December 17, 2023 Ryan Kearns MD Primary Care Provider Active Start: December 15, 2023 End: December 17, 2023 Ewa Marx MD Admit Provider Active Start: December 15, 2023 End: December 17, 2023 Michael Juarez MD Other Provider Active Start: December 142023 End: December 17, 2023 Raul Lehman MD Attending Provider, Other Provider Active Start: December 15, 2023 End: December 17, 2023 Team Status: Active Member Role Status Dates Tori Gaona MD Emergency Provider Active Star t: December 16, 2023 End: December 17, 2023 Ryan Kearns MD Primary Care Provider Active Start: December 16, 2023 End: December 17, 2023 Ewa Marx MD Admit Provider Active Start: December 16, 2023 End: December 17, 2023 Michael Juarez MD Other Provider Active Start: December 15 End: December 17, 2023 Melani Dunne MD Other Provider Active Start: A primikey 2023 End: December 17, 2023 Robbie Cuevas MD Attending Provider Active Start: December 16, 2023 End: December 17, 2023 Team Status: Inactive Member Role Status Dates Ryan Kearns MD Primary Care Provider Active Start: January 02, 2024 End: January 08, 2024 Dillon Merritt DO Emergency Provider Active Start: January 02, 2024 End: January 08, 2024 Paulo Pretty MD Admit Provider Active S tart: January 02, 2024 End: January 08, 2024 Robbie Cuevas MD Other Provider Active Start: January 02, 2024 End: January 08, 2024 Chapo Landeros DO Attending Provider Active Start: January 02, 2024 End: January 08, 2024 Team Status: Active Member Role Status Dates Ryan Kearns MD Primary Care Provider Active Start: January 02, 2024 Dillon Merritt DO Emergency Provider Active Start: January 02, 2024 Paulo Pretty MD Admit Provider Active S tart: January 02, 2024 Ewa Marx MD Other Provider Active Start: January 02, 2024 Robbie Cuevas MD Attending [facility], Other Provider Active Start: January 02, 2024 Team Status: Inactive Member Role Status Dates Ryan Kearns MD Primary Care Provider Active Start: January 09, 2024 End: January 10, 2024 Zoya Bell APRN Emergency Provider Active Start: January 09, 2024 End: January 10, 2024 Goals (unrecognized section and content) Goals may [...] BE BASED ON THE PRIMARY CLINICAL RECORDS. [facility] [employer] provides no warranty or guarantee of the accuracy or completeness of information in this document.
[2024-01-20 06:19] LABS: Basophils Percent Auto 0.4 % (0.2-2.0); Eosinophils Absolute Auto 0.2 10^3/uL (0.0-0.7); Eosinophils Percent Auto 2.6 % (0.9-7.0); Hematocrit 27.1 % (36.0-48.0); Hemoglobin 8.4 g/dL (12.0-16.0); Immature Granulocytes Abs Auto 0.04 10^3/uL (0.00-0.03); Immature Granulocytes Pct Auto 0.5 % (0.0-0.5); Lymphocytes Absolute Auto 2.4 10^3/uL (1.2-3.8); Lymphocytes Percent Auto 30.2 % (20.5-60.0); Mean Corpuscular Hemoglobin 30.5 pg (26.7-34.0); Mean Corpuscular Volume 98.5 fL (81.0-99.0); Mean Platelet Volume 9.5 fL (9.5-13.5); Monocytes Absolute Auto 0.7 10^3/uL (0.3-0.8); Monocytes Percent Auto 9.5 % (1.7-12.0); Neutrophils Absolute Auto 4.5 10^3/uL (1.4-6.5); Neutrophils Percent Auto 56.8 % (43.0-75.0); Platelet Count 389 10^3/uL (150-450); Red Blood Count 2.75 10^6/uL (4.20-5.40); Red Cell Distribution Width 13.6 % (11.0-15.0); White Blood Count 7.8 10^3/uL (4.0-11.0)
[2024-01-20 06:36] LABS: Alanine Aminotransferase 11 U/L (14-59); Albumin Globulin Ratio 0.5; Albumin Level 1.5 g/dL (3.4-5.0); Alkaline Phosphatase 118 U/L (46-116); Anion Gap 8.2; Aspartate Amino Transferase 14 U/L (15-37); BUN Creatinine Ratio 26.8; Bilirubin Total 0.2 mg/dL (0.2-1.0); Calcium 8.3 mg/dL (8.5-10.1); Carbon Dioxide 29.5 mmol/L (21.0-32.0); Chloride 104 mmol/L (98-107); Estimated GFR (African America >60 (>=60); Estimated GFR (Non-African Ame >60 (>=60); Globulin 3.1 g/dL; Glucose 79 mg/dL (74-106); Potassium 4.7 mmol/L (3.5-5.1); Sodium 137 mmol/L (136-145); Total Protein 4.6 g/dL (6.4-8.2)
== END 2024-01-20 05:34 | disposition home or self-care (01) ==
LOC: LAB 05:33
PROVIDERS: PCP Student in an Organized Health Care Education/Training Program; Visit Provider Student in an Organized Health Care Education/Training Program
DX: E87.8 Other disorders of electrolyte and fluid balance, not elsewhere classified (principal)
CPT/HCPCS: 36415; 80053; 85025